=== PATIENT | female | born 1960 | race Caucasian/White ===

== ENCOUNTER 2020-07-02 09:20 | Outpatient (REF) | payer MEDICAID, SELFPAY ==
--- NOTE | 2020-07-02 09:33 | XR_ITS ---
EXAMINATION: XR SHOULDER, RIGHT CLINICAL INFORMATION: Right shoulder pain. COMPARISON: None TECHNIQUE: AP external rotation, Grashey, scapular Y, and axillary views of the right shoulder. FINDINGS: There is mild acromioclavicular osteoarthritis. Glenohumeral joint is well preserved. No fracture. Alignment is anatomic. Soft tissues are normal with no abnormal calcifications. IMPRESSION: Mild acromioclavicular osteoarthritis.
== END 2020-07-02 09:21 | disposition home or self-care (01) ==
LOC: HO.XRAY 09:20
PROVIDERS: Visit Provider Registered Nurse
DX: M25.511 Pain in right shoulder (principal)
CPT/HCPCS: 73030

== ENCOUNTER 2021-02-04 14:21 | Outpatient (REF) | payer MEDICAID, SELFPAY ==
[2021-02-04 14:47] LABS: COVID-19 Test Negative (Negative); IDNOW Serial# 55D5AD1C
== END 2021-02-04 14:22 | disposition home or self-care (01) ==
LOC: HO.LAB 14:21
PROVIDERS: Visit Provider Internal Medicine
DX: Z20.822 Contact with and (suspected) exposure to COVID-19 (principal)
CPT/HCPCS: 36415; 87635; C9803

== ENCOUNTER 2021-04-14 13:44 | Outpatient (RCR) | payer MEDICAID, SELFPAY | END 2021-04-26 17:20 | disposition home or self-care (01) | LOC: HO.PT 13:44 | PROVIDERS: PCP Registered Nurse; Visit Provider Nurse Practitioner Primary Care | DX: M79.601 Pain in right arm (principal) | CPT/HCPCS: 97110; 97161 ==

== ENCOUNTER 2021-07-02 06:59 | Emergency (ER) | payer MEDICAID, SELFPAY ==
--- NOTE | ~2021-07-02 | CT_ITS ---
EXAMINATION: CT ABDOMEN AND PELVIS WITHOUT CONTRAST CLINICAL INFORMATION: Left flank pain COMPARISON: Previous CT of the abdomen and pelvis October 2015 and previous abdominal MRI most recent July 2016 TECHNIQUE: Multidetector volumetric imaging was performed from the superior aspect of the liver through the pubic symphysis. Sagittal and coronal reformatted images were obtained on the technologist's workstation. This CT examination was performed using dose optimization techniques as appropriate, variously including the following: *Automated exposure control *Adjustment of mA and/or kV according to patient size (this includes techniques or standardized protocols for targeted exams where dose is matched to indication/reason for exam; i.e. extremities or head) *Use of iterative reconstruction technique DLP: 1219 mGy-cm FINDINGS: LUNG BASES: The visualized lung bases are unremarkable. LIVER, GALLBLADDER, AND BILIARY TREE: Enlarged fatty liver. No focal liver lesion or evidence of cirrhosis. Post cholecystectomy. No biliary duct dilatation. PANCREAS: Unremarkable. SPLEEN: Unremarkable. ADRENAL GLANDS: Unremarkable. KIDNEYS AND URETERS: There is a small 1 mm nonobstructing stone in the upper pole of the left kidney. The kidneys are otherwise unremarkable. BLADDER: Not optimally distended. GASTROINTESTINAL TRACT: The small and large bowel are unremarkable. The appendix is not seen and may been removed ABDOMINAL WALL: There is an umbilical hernia containing fat. There is a left periumbilical or ventral hernia containing fat. LYMPH NODES: Normal. VASCULAR: Unremarkable. PELVIC VISCERA: Unremarkable. OSSEOUS STRUCTURES: There are degenerative changes of the spine. CT/CT abdomen pelvis wo con IMPRESSION: Small nonobstructing left renal stone. Enlarged fatty liver. Umbilical and left ventral hernias containing fat.
[2021-07-02 07:19] VITALS: BP 189/102; PULSE 83; RESP 16; TEMP 36.7; O2SAT 98; BMI 49.8
--- NOTE | 2021-07-02 07:54 | ED.ABDPAIN ---
HPI - Abdominal Pain General Chief Complaint: Abdominal Pain Stated Complaint: lt side abd pain Time Seen by Provider: 07/02/21 07:47 History of Present Illness HPI narrative: Patient is 61-year-old female presents today with having abdominal pain over the left side is been ongoing for 3 days getting worse over last 24 hours. No fever no chills. No pain on urination. Patient is status post cholecystectomy. No cough and no congestion or upper respiratory symptoms. No diaphoresis. Positive BM. Positive mild nausea. Pain cramping like radiates to the back. No history of similar pains in the past Related Data Allergies Allergy/AdvReac Type Severity Reaction Status Date / Time turkey Allergy Severe CHEST Unverified 06/11/20 16:28 PAIN, SWELLING, SHORTNESS OF BREATH, ITCHING turkey Allergy Unknown severe Uncoded 01/02/20 00:00 reaction Review of Systems Review of Systems No chest pain no cough no congestion or upper respiratory symptoms No diaphoresis Yes all other systems are reviewed and are negative Physical Exam Vital Signs: Vital Signs: Last Vital Signs Temp 98.0 F 07/02/21 07:19 Pulse 83 07/02/21 07:19 Resp 18 07/02/21 08:13 BP 189/102 H 07/02/21 07:19 Pulse Ox 98 07/02/21 07:19 Body Mass Index 49.8 Appearance: Alert. Oriented X3. No acute distress. Eyes: Pupils equal, round and reactive to light. ENT: Pharynx normal. Neck: Normal inspection. Neck supple. No lymph nodes noted. No crepitus CVS: Normal heart rate and rhythm. Pulses normal. Normal S1 and S2 Respiratory: No respiratory distress. Breath sounds normal. No Wheezing. No rales Abdomen: Soft and nontender. No rigidity. No distention. good BS x4 Skin: Skin warm and dry. Normal skin color. Normal skin turgor. Extremities: No lower extremity edema. Neurovascular intact to all extremities. No Lacerations. No Rash Neuro: Oriented X 3. No motor deficit. No sensory deficit. Moving all extermities. No slurred speech MDM - Abdominal Pain MDM Narrative Medical decision making narrative: Patient's CT scan of the abdomen negative for any acute evidence of obstruction, abscess, perforation. Electrolytes are normal. Urine showed no signs of infection. Discussed with patient the need for follow-up for her abdominal pain. She is currently in stable condition. Medical Records Attestation: I reviewed the patient's medical records. Lab Data Attestation: I reviewed the patient's lab results. Result diagrams: 07/02/21 08:11 07/02/21 08:11 Labs: Lab Results 07/02/21 07/02/21 07/02/21 Range/Units 08:11 08:11 08:11 WBC 9.7 (4.8-10.8) X10*3/uL RBC 5.02 (4.20-5.50) X10*6/uL Hgb 15.5 (12.0-16.0) g/dl Hct 46.9 (37-47) % MCV 93.4 (80-98) fL MCH 30.9 (27.0-33.0) pg MCHC 33.0 (31.0-35.0) g/dl RDW 12.1 (11.0-16.0) % Plt Count 266 (160-400) X10*3/uL MPV 11.3 (9.4-12.3) fL Immature Gran % (Auto) 0.2 (0.0-0.4) % Neut % (Auto) 77.2 H (45-73) % Lymph % (Auto) 15.9 L (20-40) % [place] % (Auto) 5.3 (2-11) % Eos % (Auto) 1.2 (0-4) % Baso % (Auto) 0.2 (0-2) % Lymph # (Auto) 1.6 (1.2-4.9) X10*3/uL [place] # (Auto) 0.5 (0.1-1.2) X10*3/uL Eos # (Auto) 0.1 (0.0-0.4) X10*3/uL Baso # (Auto) 0.0 (0.0-0.2) X10*3/uL Abs Immat Gran (auto) 0.02 (0.00-0.03) X10*3/uL Absolute Neuts (auto) 7.5 (2.0-8.3) X10*3/uL Absolute Nucleated RBC 0.000 (0.0-0.012) X10*3/uL Nucleated RBC % (auto) 0.0 (0.0-0.2) /100WBC Sodium 139 (135-145) mmol/L Potassium 4.0 (3.3-5.1) mmol/L Chloride 104 (96-108) mmol/L Carbon Dioxide 24 (22-29) mmol/L Anion Gap 15 (12-20) BUN 16 (9-16) mg/dL Creatinine 1.01 (0.5-1.4) mg/dL Estim Creat Clear Calc 79.8 Estimated GFR 56 Random Glucose 262 H (60-115) mg/dL Calcium 9.5 (8.4-10.2) mg/dL Total Bilirubin 0.8 (0.0-1.0) mg/dL AST 21 (5-31) U/L ALT 26 (0-31) U/L Alkaline Phosphatase 92 (39-117) U/L Total Protein 8.2 H (6.5-8.0) g/dL Albumin 4.4 (3.5-5.0) g/dL Lipase 13 (8-78) U/L Urine Color ORANGE Urine Appearance HAZY Urine pH 6.0 (5.0-8.0) Ur Specific [place] >= 1.030 H (1.005-1.025) Urine Protein 2+ H (NEG-TRACE) MG/DL Urine Glucose (UA) >=1000 H (NEG) MG/DL Urine Ketones 15 (NEG) MG/DL Urine Blood 3+ H (NEG) Urine Nitrite NEG (NEG) Ur Leukocyte Esterase NEG (NEG) Urine RBC 10-14 H (0) /HPF Urine WBC 5-9 H (0-4) /HPF Ur Squamous Epith Cells 1+ /LPF Ur Renal Epithelial Cell 1+ /LPF Urine Bacteria NONE /LPF Urine Mucus 1+ /LPF Discharge Plan Discharge Clinical Impression: Abdominal pain Patient Disposition: Home, Self-Care Instructions: Abdominal Pain (ED) Referrals: [facility] [Primary Care Provider] - 2 days Print Language: Italian COUNT INCLUDES THE [facility] Past Medical History Attestation statement: The following information was validated with the patient. Social History Social History Alcohol intake: never Smoked in Last 30 Days: No Use of substances other than those prescribed or required for medical reasons: No Advance Directives: No
[2021-07-02 08:13] VITALS: RESP 18
[2021-07-02] MEDS: HYDROmorphone HCl 0.5 MG/0.5 ML SYRINGE IVPUSH (08:13)
[2021-07-02] MEDS: 0.9 % Sodium Chloride 1,000 ML 999 ML IV (08:13)
[2021-07-02] MEDS: ondansetron HCL 4 MG/2 ML VIAL IVPUSH (08:13)
[2021-07-02 08:16] LABS: MANUAL DIFF FLAG NO
[2021-07-02 08:20] LABS: Appearance Urine HAZY; Basophils Percent Auto 0.2 % (0-2); Color Urine ORANGE; Eosinophils Absolute Auto 0.1 X10*3/uL (0.0-0.4); Eosinophils Percent Auto 1.2 % (0-4); Glucose Urine UA >=1000 MG/DL (NEG); Hematocrit 46.9 % (37-47); Hemoglobin 15.5 g/dl (12.0-16.0); Imm Gran Abs Auto 0.02 X10*3/uL (0.00-0.03); Imm Gran Pct Auto 0.2 % (0.0-0.4); Leukocyte Esterase Urine NEG (NEG); Lymphocytes Absolute Auto 1.6 X10*3/uL (1.2-4.9); Lymphocytes Percent Auto 15.9 % (20-40); Mean Corpuscular Hemoglobin 30.9 pg (27.0-33.0); Mean Corpuscular Volume 93.4 fL (80-98); Mean Platelet Volume 11.3 fL (9.4-12.3); Monocytes Absolute Auto 0.5 X10*3/uL (0.1-1.2); Monocytes Percent Auto 5.3 % (2-11); Neutrophils Absolute Auto 7.5 X10*3/uL (2.0-8.3); Neutrophils Percent Auto 77.2 % (45-73); Nitrite Urine NEG (NEG); Platelet Count 266 X10*3/uL (160-400); Red Blood Count 5.02 X10*6/uL (4.20-5.50); Red Cell Distribution Width 12.1 % (11.0-16.0); Specific Gravity - Urine >= 1.030 (1.005-1.025); UACC Culture Trigger NO; Urine Blood 3+ (NEG); Urine Ketones 15 MG/DL (NEG); Urine Protein 2+ MG/DL (NEG-TRACE); White Blood Count 9.7 X10*3/uL (4.8-10.8)
[2021-07-02 08:26] LABS: Mucus Urine 1+ /LPF; Renal Epithelial Cells Urine 1+ /LPF; Squamous Epithelial Cell Urine 1+ /LPF
[2021-07-02 08:27] LABS: UACC CULT YES
[2021-07-02 08:32] LABS: Alanine Aminotransferase 26 U/L (0-31); Albumin Level 4.4 g/dL (3.5-5.0); Alkaline Phosphatase 92 U/L (39-117); Anion Gap 15 (12-20); Aspartate Amino Transferase 21 U/L (5-31); Bilirubin Total 0.8 mg/dL (0.0-1.0); Blood Urea Nitrogen 16 mg/dL (9-16); Calcium 9.5 mg/dL (8.4-10.2); Carbon Dioxide 24 mmol/L (22-29); Chloride 104 mmol/L (96-108); Creatinine Clr Calc Pharmacy 79.8; Estimated Glomerular Filt Rate 56; Glucose Random 262 mg/dL (60-115); Lipase 13 U/L (8-78); Sodium 139 mmol/L (135-145); Total Protein 8.2 g/dL (6.5-8.0)
== END 2021-07-02 09:34 | disposition home or self-care (01) ==
PROVIDERS: Emergency Provider Emergency Medicine Emergency Medical Services
DX: R10.9 Unspecified abdominal pain (principal)
CPT/HCPCS: 36415; 74176; 80053; 81001; 83690; 85025; 87086; 96361; 96374; 96375; 99284; J1170; J2405

== ENCOUNTER 2022-01-28 09:55 | Outpatient (REF) | payer MEDICAID, SELFPAY ==
--- NOTE | 2022-01-28 11:00 | MHC.AU.AEV ---
Adult Audiological Evaluation Date of Visit: 01/28/22 Religious Assistant Used: Somali- By Phone Reason for Appointment: Patient reports that for the past 2 months she has been unable to hear anything in her right ear. She denies any illness or injury around the time the hearing loss began. She also reports that in the left ear she has experienced an exploding sensation. Has hearing been tested previously?: No Ear History: Ear Deformity: None Reported Recent Ear Drainage: None Reported Recent Ear Pain: None Reported Family History of Hearing Loss?: No Recent Ear Infections: None Reported Ear Infections in Childhood: None Reported History of Ear Wax Buildup: None Reported Previous Ear Surgery: None Reported Bothersome Tinnitus/Ringing/Noises in Ears: Right Ear Ear used on the phone: Left Ear Blocked/Full Sensation in Ear(s): None Reported History of occupational noise exposure?: No History: No Medical History: Medical History: Diabetes, Hypertension, Migraines Otoscopy: Right Ear: Unremarkable Left Ear: Unremarkable Tympanometry: Tympanometry performed due to: To assess integrity of the middle ear system Right Ear: Normal Middle Ear System (Type A) Left Ear: Normal Middle Ear System (Type A) Hearing Evaluation: Transducer(s) Used: Insert Earphones Method: Conventional Audiometry Stimuli Used: Pure Tones Right Ear: Description of Hearing: Profound sensorineural hearing loss Left Ear: Description of Hearing: Moderate to moderately-severe sensorineural hearing loss Speech Recognition Threshold (SRT): Method Used: Recorded Lists Stimuli Used: Somali Trisyllable Words Right Ear: Could not test Left Ear: 55 dBHL Word Discrimination: Method: Recorded Lists Word Lists Used:: Lista Bisil?bica (Somali) Right Ear: Could not test Left Ear: 96% at 80 dBHL Recommendations: Referral to Ear, Nose, and Throat is highly recommended to address sudden right-sided sensorineural hearing loss. After medical management and medical clearance, patient is welcome to contact our clinic to schedule a hearing aid evaluation. Diagnosis: Primary Diagnosis: H90.A21 SNHL, Unilateral Right Ear, W/Restricted Contralateral Hearing Signature: Provider: Virginia Rock, CCC-A
== END 2022-01-28 09:56 | disposition home or self-care (01) ==
LOC: HO.SH 09:55
PROVIDERS: PCP Registered Nurse Community Health; Visit Provider Registered Nurse Community Health
DX: H90.A21 Sensorineural hearing loss, unilateral, right ear, with restricted hearing on the contralateral side (principal)
CPT/HCPCS: 92557; 92567

== ENCOUNTER 2022-01-29 09:54 | Outpatient (REF) | payer MEDICAID, SELFPAY ==
--- NOTE | ~2022-01-29 | MM_ITS ---
EXAMINATION: MM SCREENING DIGITAL BREAST TOMOSYNTHESIS, BILATERAL CLINICAL INFORMATION: Screening. Asymptomatic. Family history breast cancer (mother and sister) reported on prior report 2016. The lifetime risk of breast cancer based on the Tyrer-Cuzick Model is 19%. COMPARISON: Mammography: 05/11/2017, 11/25/2015 TECHNIQUE: Digital breast tomosynthesis is performed in both the craniocaudal and mediolateral oblique views along with computer-aided detection (CAD). Synthesized 2D images are generated from the tomosynthesis. Additional views are obtained: Bilateral CC, right MLO x2, left MLO. FINDINGS: The breasts are almost entirely fatty (ACR BI-RADS breast composition Category a). There is a new spiculated mass just over 1 cm posterior upper outer left breast. Patient will be recalled for additional imaging. The remainder of the breasts show unremarkable background stromal markings and scattered isolated round and rim calcifications. There is a dominant benign rim calcification again seen central lower right breast and anterior right breast. The axilla are unremarkable. The skin contours are smooth. MM/MM tomosynthesis screening BI IMPRESSION: Left: -New spiculated mass posterior upper outer quadrant. Right: -No mammographic evidence of malignancy. ASSESSMENT: BI-RADS 0: Incomplete - Need Additional Imaging Evaluation RECOMMENDATION: 1. Additional views left breast (exaggerated CC). 2. Targeted ultrasound left breast and left axilla. 3. Radiology department staff will contact the patient for additional imaging. This patient's information was entered into a reminder system with a target due date for their next mammogram.
== END 2022-01-29 09:55 | disposition home or self-care (01) ==
LOC: HO.MAMMO 09:54
PROVIDERS: PCP Registered Nurse Community Health; Visit Provider Registered Nurse Community Health
DX: Z12.31 Encounter for screening mammogram for malignant neoplasm of breast (principal)
CPT/HCPCS: 77063; 77067

== ENCOUNTER 2022-02-11 14:03 | Outpatient (REF) | payer MEDICAID, SELFPAY ==
--- NOTE | ~2022-02-11 | MM_ITS ---
EXAMINATION: MM DIAGNOSTIC DIGITAL BREAST TOMOSYNTHESIS, LEFT US DIAGNOSTIC ULTRASOUND BREAST, LEFT CLINICAL INFORMATION: Recall from screening for new spiculated mass posterior upper outer left breast. Family history breast cancer, mother and sister. TC score 19%. COMPARISON: Mammography: 01/29/2022, 05/11/2017 TECHNIQUE: Digital breast tomosynthesis is performed. 2D images are generated from the tomosynthesis. The following views are obtained: Left exaggerated CC. Ultrasound left breast is targeted to the posterior upper outer quadrant. Additional imaging of the axilla is also performed. Grayscale imaging and color Doppler are performed. FINDINGS: There are scattered areas of fibroglandular density (ACR BI-RADS breast composition Category b). The additional exaggerated CC view again demonstrates the spiculated mass posterior upper outer breast. There is no additional satellite lesion more posteriorly on the exaggerated CC view. Ultrasound demonstrates a suspicious hypoechoic irregular mass 2:00 position 16 cm from nipple measuring approximately 1.7 cm in diameter. There is posterior acoustic shadowing. Additional imaging of the left axilla shows no lymphadenopathy. Results are discussed with the patient at time of visit, using an spanish interpreter. Ultrasound-guided core biopsy is recommended. Results and recommendation are called to medical record assistant (Jodi) for Perla Joyce NP on 02/11/2022. MM/MM added views LT IMPRESSION: -New spiculated mass posterior upper outer left breast with ultrasound correlate, under 2 cm. -No adenopathy demonstrated left axilla. ASSESSMENT: BI-RADS 4: Suspicious (subcategory 4C: High suspicion for malignancy) RECOMMENDATION: Ultrasound-guided core biopsy left breast mass. This patient's information was entered into a reminder system with a target due date for their next mammogram.
--- NOTE | ~2022-02-11 | US_ITS ---
EXAMINATION: MM DIAGNOSTIC DIGITAL BREAST TOMOSYNTHESIS, LEFT US DIAGNOSTIC ULTRASOUND BREAST, LEFT CLINICAL INFORMATION: Recall from screening for new spiculated mass posterior upper outer left breast. Family history breast cancer, mother and sister. TC score 19%. COMPARISON: Mammography: 01/29/2022, 05/11/2017 TECHNIQUE: Digital breast tomosynthesis is performed. 2D images are generated from the tomosynthesis. The following views are obtained: Left exaggerated CC. Ultrasound left breast is targeted to the posterior upper outer quadrant. Additional imaging of the axilla is also performed. Grayscale imaging and color Doppler are performed. FINDINGS: There are scattered areas of fibroglandular density (ACR BI-RADS breast composition Category b). The additional exaggerated CC view again demonstrates the spiculated mass posterior upper outer breast. There is no additional satellite lesion more posteriorly on the exaggerated CC view. Ultrasound demonstrates a suspicious hypoechoic irregular mass 2:00 position 16 cm from nipple measuring approximately 1.7 cm in diameter. There is posterior acoustic shadowing. Additional imaging of the left axilla shows no lymphadenopathy. Results are discussed with the patient at time of visit, using an aerial gunner superintendent. Ultrasound-guided core biopsy is recommended. Results and recommendation are called to medical typist (Jodi) for Perla Joyce NP on 02/11/2022. US/US breast LT limited IMPRESSION: -New spiculated mass posterior upper outer left breast with ultrasound correlate, under 2 cm. -No adenopathy demonstrated left axilla. ASSESSMENT: BI-RADS 4: Suspicious (subcategory 4C: High suspicion for malignancy) RECOMMENDATION: Ultrasound-guided core biopsy left breast mass. This patient's information was entered into a reminder system with a target due date for their next mammogram.
== END 2022-02-11 14:04 | disposition home or self-care (01) ==
LOC: HO.MAMMO 14:03
PROVIDERS: PCP Registered Nurse Community Health; Visit Provider Registered Nurse Community Health
DX: N63.21 Unspecified lump in the left breast, upper outer quadrant (principal)
CPT/HCPCS: 76642; 77065

== ENCOUNTER → 2022-02-15 09:44 | Outpatient (BNVA) | payer MEDICAID, SELFPAY | PROVIDERS: PCP Registered Nurse Community Health; Referring Provider Registered Nurse Community Health; Visit Provider Surgery | DX: R92.8 Other abnormal and inconclusive findings on diagnostic imaging of breast (principal) | CPT/HCPCS: 99202 ==

== ENCOUNTER 2022-02-16 09:43 | Outpatient (REF) | payer MEDICAID, SELFPAY ==
--- NOTE | ~2022-02-16 | US_ITS ---
EXAMINATION: ULTRASOUND GUIDED CORE BIOPSY BREAST, LEFT POST PROCEDURE DIGITAL MAMMOGRAM, LEFT CLINICAL INFORMATION: Spiculated mass posterior upper outer left breast with ultrasound correlate, approximately 1.7 cm. COMPARISON: Mammography 01/29/2022, 02/11/2022, left breast ultrasound 02/11/2022. FINDINGS: Proper informed consent is obtained from the patient after discussion of the procedure, potential risks and complications, and alternatives. Patient was given an opportunity for questions. The patient appeared to understand. The patient consented to the procedure and signed the consent form. Hospital provided glove maker used for consent. Another glove maker also assisted throughout procedure. GUIDANCE: Ultrasound-guided; aseptic technique. LESION: Spiculated hypoechoic mass with shadowing posterior upper outer left breast. APPROACH: Oblique lateral medial. ANESTHESIA: 18 mL carbonated 1% lidocaine. DERMATOTOMY: Single skin inga dermatotomy performed. NEEDLE: 14-gauge Achieve core biopsy device with 13.5-gauge co-axial guide needle. CORES: 5. CLIP: HydroMARK; shape: open coil. POST PROCEDURE UNILATERAL DIGITAL MAMMOGRAM: The post biopsy mammogram is performed in separate room using separate digital mammography equipment from the biopsy procedure. CC and ML views are obtained. There are scattered areas of fibroglandular density (breast composition category: b). The clip marker is in position, overlying the spiculated mass. No gross hematoma. The patient tolerated the procedure well. No immediate complications. Home instructions reviewed with the patient. Final pathology results are pending. US/US breast ndl core biopsy LT IMPRESSION: 1. Status post ultrasound-guided core biopsy left breast. 2. Clip placed: HydroMARK; shape: open coil. 3. Pathology pending. An addendum report will be issued.
--- NOTE | ~2022-02-16 | MM_ITS ---
EXAMINATION: ULTRASOUND GUIDED CORE BIOPSY BREAST, LEFT POST PROCEDURE DIGITAL MAMMOGRAM, LEFT CLINICAL INFORMATION: Spiculated mass posterior upper outer left breast with ultrasound correlate, approximately 1.7 cm. COMPARISON: Mammography 01/29/2022, 02/11/2022, left breast ultrasound 02/11/2022. FINDINGS: Proper informed consent is obtained from the patient after discussion of the procedure, potential risks and complications, and alternatives. Patient was given an opportunity for questions. The patient appeared to understand. The patient consented to the procedure and signed the consent form. Hospital provided telecommunication engineer used for consent. Another telecommunication engineer also assisted throughout procedure. GUIDANCE: Ultrasound-guided; aseptic technique. LESION: Spiculated hypoechoic mass with shadowing posterior upper outer left breast. APPROACH: Oblique lateral medial. ANESTHESIA: 18 mL carbonated 1% lidocaine. DERMATOTOMY: Single skin inga dermatotomy performed. NEEDLE: 14-gauge Achieve core biopsy device with 13.5-gauge co-axial guide needle. CORES: 5. CLIP: HydroMARK; shape: open coil. POST PROCEDURE UNILATERAL DIGITAL MAMMOGRAM: The post biopsy mammogram is performed in separate room using separate digital mammography equipment from the biopsy procedure. CC and ML views are obtained. There are scattered areas of fibroglandular density (breast composition category: b). The clip marker is in position, overlying the spiculated mass. No gross hematoma. The patient tolerated the procedure well. No immediate complications. Home instructions reviewed with the patient. Final pathology results are pending. MM/MM diagnostic mammo unilat LT IMPRESSION: 1. Status post ultrasound-guided core biopsy left breast. 2. Clip placed: HydroMARK; shape: open coil. 3. Pathology pending. An addendum report will be issued.
[2022-02-16] MEDS: Lidocaine HCl 1 % 20 ML VIAL 18 ML SUBCUT (11:07)
[2022-02-16] MEDS: Sodium Bicarbonate 8.4% 50 MEQ/50 ML VIAL SUBCUT (11:15)
== END 2022-02-16 09:44 | disposition home or self-care (01) ==
LOC: HO.MAMMO 09:43
PROVIDERS: PCP Registered Nurse Community Health; Visit Provider Surgery
DX: R92.8 Other abnormal and inconclusive findings on diagnostic imaging of breast (principal)
CPT/HCPCS: 19083; 77062; 77065; 88305; 88341; 88342; 88360; A4648

== ENCOUNTER → 2022-02-22 15:05 | Outpatient (BNVA) | payer MEDICAID, SELFPAY | PROVIDERS: PCP Registered Nurse Community Health; Referring Provider Registered Nurse Community Health; Visit Provider Surgery | DX: C50.912 Malignant neoplasm of unspecified site of left female breast (principal) | CPT/HCPCS: 99212 ==

== ENCOUNTER → 2022-02-28 15:48 | Outpatient (BNV) | payer MEDICAID, SELFPAY | PROVIDERS: PCP Registered Nurse Community Health; Referring Provider Surgery; Visit Provider Internal Medicine | DX: C50.412 Malignant neoplasm of upper-outer quadrant of left female breast (principal); Z90.13 Acquired absence of bilateral breasts and nipples; M81.0 Age-related osteoporosis without current pathological fracture; N95.0 Postmenopausal bleeding | CPT/HCPCS: 99205; 99214 ==

== ENCOUNTER 2022-03-21 12:36 | Inpatient (IN) | payer MEDICAID, SELFPAY ==
[2022-03-15 10:01] VITALS: BMI 46.7
[2022-03-21] VITALS (8 sets, daily range): BP systolic 134–178; BP diastolic 65–99; PULSE 70–81; RESP 18–20; TEMP 36.1–36.6; O2SAT 100
--- NOTE | 2022-03-21 | ECG_ITS ---
Test Reason : PREOP Blood Pressure : / mmHG Vent. Rate : 069 BPM Atrial Rate : 069 BPM P-R Int : 182 ms QRS Dur : 112 ms QT Int : 392 ms P-R-T Axes : 024 -21 145 degrees QTc Int : 420 ms Normal sinus rhythm Incomplete left bundle branch block Left ventricular hypertrophy with repolarization abnormality ( R in aVL , [place] product ) Abnormal ECG When compared with ECG of 16-JAN-2019 06:52, Premature ventricular complexes are no longer Present No significant changes seen Referred By: Stephanie Guaman Electronically Signed By:JENNYFER ABNKS
--- NOTE | ~2022-03-21 | NM_ITS ---
EXAMINATION: NM LYMPH SCINTIGRAPHY CLINICAL INFORMATION: Left breast cancer. COMPARISON: None. TECHNIQUE: The patient was injected with 4 separate aliquots of 0.125 mCi [id number] technetium 99 M labeled lymphoseek for a total dose of 0.5 mCi of the skin nipple interface of the left breast at the 12 o'clock, 3 o'clock, 6 o'clock and 9 o'clock axis. Imaging of the chest in the anterior JANET and left lateral projection were performed at 20 minutes and 16 minutes. FINDINGS: There is adequate radiotracer uptake at the skin nipple interface. There is activity seen in lymphatic channels. There is positive sentinel node activity seen in the left axilla. NM/NM sentinel node w imaging IMPRESSION: Positive sentinel node activity in the left axilla.
[2022-03-21 09:52] LABS: COVID-19 Test Negative (Negative)
[2022-03-21 10:05] LABS: Hematocrit 45.5 % (37.0-47.0); Hemoglobin 14.5 g/dl (12.0-16.0); Mean Corpuscular HGB Conc 31.9 g/dl (31.0-35.0); Mean Corpuscular Volume 94.2 fL (80.0-98.0); Mean Platelet Volume 10.8 fL (9.4-12.3); Platelet Count 257 X10*3/uL (160-400); Red Blood Count 4.83 X10*6/uL (4.20-5.50); Red Cell Distribution Width 11.9 % (11.0-16.0); White Blood Count 8.4 X10*3/uL (4.8-10.8)
[2022-03-21 10:12] LABS: Anion Gap 12 (12-20); Blood Urea Nitrogen 16 mg/dL (9-16); Calcium 8.9 mg/dL (8.4-10.2); Carbon Dioxide 24 mmol/L (22-29); Chloride 106 mmol/L (96-108); Creatinine Clr Calc Pharmacy 82.5; Estimated Glomerular Filt Rate > 60; Glucose Fasting 182 mg/dL (60-99); Potassium 4.6 mmol/L (3.3-5.1); Sodium 137 mmol/L (135-145)
--- NOTE | 2022-03-21 11:38 | MHC.SHP ---
Pre-Procedural Eval Section A Date of Service: 03/21/22 The patient is an INPATIENT: No Changes since office visit: Yes Patient answered all questions; No Cold of Flu in the past 2 weeks, No New Medical Problems and No Changes in Medication The History & Physical has been completed within 30 days and I have reviewed it.: Yes Section B Chief Complaint: Malignant neoplasm of unspecified site of left fem Allergies: Allergies Allergy/AdvReac Type Severity Reaction Status Date / Time turkey Allergy Severe chest Unverified 03/11/22 13:22 pain/swelling/SOB/itching Plan Diagnosis/Plan: Unchanged I have reviewed the history and physical and performed a pertinent physical examination on my patient. No changes have occurred unless specified.
--- NOTE | 2022-03-21 11:58 | P.CONAN_ITS ---
[facility] Active Problems Active Problems: All Active Problems (Updated 03/15/22 @ 10:00 by Merissa Emerson RN) Abnormal ultrasound of breast (Acute) Invasive ductal carcinoma of left breast (Acute) Past Medical History Medical History Asthma COVID-19 vaccine series completed Diabetes GERD (gastroesophageal reflux disease) HTN (hypertension) Hypercholesteremia Patient : No Family History Family History Mother Breast cancer, Onset Age: 58 Sister Breast cancer, Onset Age: 54 Surgical History Surgical History History of delivery History of cholecystectomy History of Problems with Anesthesia: No Social History Social History Housing Other:: [facility] Are you a primary senior resident care director to a significant other at home: No Do you presently have visiting nurse or other home services: No Alcohol intake: never Patient Tobacco Use Status: Never used Tobacco Meds Allergies Allergy/AdvReac Type Severity Reaction Status Date / Time turkey Allergy Severe chest Unverified 03/11/22 13:22 pain/swelling/SOB/itching Active Medications: Current Medications Albuterol Sulfate (Albuterol Sulfate (0.083%) 2.5 Mg/3 Ml Vial.Neb) 2.5 mg INHALE ONCE PRN PRN Reason: Shortness of Breath/Wheezing Fentanyl (Fentanyl Citrate/Pf 100 Mcg/2 Ml Vial) 25 mcg IVPUSH Q5M PRN; Protocol PRN Reason: Pain, Moderate (Pain Scale 4-6 Lactated Ringer's (Lr) 1,000 mls @ 100 mls/hr IVCONT .Q10H [facility] Promethazine HCl 12.5 mg/ (Sodium Chloride) 50.5 mls @ 202 mls/hr IV ONCE PRN PRN Reason: Nausea and Vomiting Ondansetron HCl (Ondansetron Hcl 4 Mg/2 Ml Vial) 4 mg IVPUSH ONCE PRN PRN Reason: Nausea and Vomiting Oxycodone HCl (Oxycodone Hcl Immed Release 5 Mg Tablet) 5 mg PO ONCE PRN PRN Reason: Pain, Severe (Pain Scale 7-10) Home Medications Medication Instructions Recorded Confirmed Last Taken Type atorvastatin 80 mg tablet 80 mg PO BEDTIME 02/15/22 03/15/22 Unknown History benzonatate 100 mg capsule 100 mg PO TID PRN Heartburn 02/15/22 03/15/22 Unknown History dulaglutide 0.75 mg/0.5 mL 0.75 mg subcut QWEEK 02/15/22 03/15/22 Unknown History subcutaneous pen injector (Trulicity) gabapentin 300 mg capsule 300 mg PO QPM 02/15/22 03/15/22 Unknown History insulin glargine 100 unit/mL (3 68 unit subcut QPM 02/15/22 03/15/22 Unknown History mL) subcutaneous pen (Lantus Solostar U-100 Insulin) insulin lispro 100 unit/mL 60 - 70 unit subcut TID 02/15/22 03/15/22 Unknown History subcutaneous pen lancets 28 gauge (FreeStyle #100 ea 02/15/22 02/28/22 Unknown History Lancets) losartan 50 mg tablet 50 mg PO DAILY 02/15/22 03/15/22 Unknown History metoprolol tartrate 25 mg tablet 25 mg PO BID 02/15/22 03/15/22 Unknown History omeprazole 20 mg capsule,delayed 20 mg PO DAILY 02/15/22 03/15/22 Unknown History release pen needle, diabetic 32 gauge x #50 ea 02/15/22 02/28/22 Unknown History (BD Lesley 2nd Gen Pen Needle) topiramate 25 mg tablet 25 mg PO DAILY 02/15/22 03/15/22 Unknown History albuterol sulfate 90 mcg/actuation 2 puff inhalation Q4-6H PRN 03/15/22 03/15/22 Unknown History aerosol inhaler (ProAir HFA) Wheezing Exam Exam Date and Time: March 21, 2022 1158 Height,Weight and Vital Signs: Height 5 ft 4 in Weight 123.377 kg Pertinent Lab Results Pertinent Lab Results: Laboratory Tests 03/21/22 03/21/22 03/21/22 09:24 09:46 09:46 WBC 8.4 RBC 4.83 Hgb 14.5 Hct 45.5 MCV 94.2 MCH 30.0 MCHC 31.9 RDW 11.9 Plt Count 257 MPV 10.8 Absolute Nucleated RBC 0.000 Nucleated RBC % (auto) 0.0 Sodium 137 Potassium 4.6 Chloride 106 Carbon Dioxide 24 Anion Gap 12 BUN 16 Creatinine 0.94 Estim Creat Clear Calc 82.5 Estimated GFR > 60 Fasting Glucose 182 H Calcium 8.9 D COVID-19 ([facility]) Negative COVID-19 Clin Com See Note Blood Type 03/21/22 09:53 WBC RBC Hgb Hct MCV MCH MCHC RDW Plt Count MPV Absolute Nucleated RBC Nucleated RBC % (auto) Sodium Potassium Chloride Carbon Dioxide Anion Gap BUN Creatinine Estim Creat Clear Calc Estimated GFR Fasting Glucose Calcium COVID-19 ([facility]) COVID-19 Clin Com Blood Type A Positive Airway Mallampati Class: III TM Dist: >3cm Neck ROM: Full Denture: Upper and Lower Heart: rrr Lungs: clear Assessment and Plan Final Anesthetic Review History of Problems with Anesthesia: No NPO: Yes ASA Class: III Final Preanesthetic Review: No Changes in Pt Med Stat, Meds/Allgs Chart Reviewed, Consent Obtained/Reviewed and Anes Risks/Benef Reviewed Patient Risk: High Procedure Risk: Low Anesthetic Plan Anesthetic Plan: GA Disposition: Standard PACU
[2022-03-21 12:44] LABS: Glucose, Whole Blood 127 mg/dL (60-115)
--- NOTE | 2022-03-21 16:16 | W.PM.OPN ---
Operative Note Operative Note Date of Service: 03/21/22 Narrative: Preoperative diagnosis: Left breast invasive ductal carcinoma Postoperative diagnosis: same Procedure: left breast simple mastectomy with sentinel node biopsy left axilla, prophylactic right simple mastectomy Surgeon: Andrea Henry MD Director Of Child Welfare Services: Veronica Chatman PA-C; Anesthesia: general endotracheal Indications for procedure: 61-year-old female patient presenting with a recently diagnosed invasive ductal carcinoma of the left breast. The patient's request she has recurred undergoing a bilateral simple mastectomy with left axillary sentinel node biopsy Operative findings: bilateral mastectomy, enlarged lymph node left axilla Specimen: left simple mastectomy, left axillary sentinel node, right simple mastectomy Estimated blood loss: 25 mL Complications: none Drains: EUN x2 Procedure details: patient was brought to the OR and placed in a supine position. After administering general anesthesia the patient's bilateral breasts were prepped with ChloraPrep and draped in a sterile fashion. A surgical time-out was called the consent confirmed. Patient received preoperative antibiotics and Venodyne boots were in place. Local anesthesia consisting of 0.25% Sensorcaine was infiltrated circumferentially around the left breast. Elliptical incision to include the nipple areolar complex was created beginning lateral to the xiphoid and extending towards the axilla in the upper outer quadrant. Incision was deepened into the subcutaneous tissue. Stain a blood the capsule the breast up to the level of the clavicle. Dissection was continued down to the chest wall from medial to lateral over the pectoralis muscle. The inferior flap was then created using electrocautery again stain above the capsule of the breast down to the lower costal margin and extending down to the chest wall. The breast was then dissected off the chest wall using electrocautery from medial to lateral superior to inferior ending in the axilla. The breast tissue was dissected up along the tail into the axilla. The breast was then removed and sent to pathology for further examination. Using the gamma probe the area of increased activity was identified in the axilla. Blunt dissection was then used to past the clavipectoral fascia into the axillary compartment. Again using the gamma probe area of increased radio activity was identified and a superficial enlarged lymph node was identified. This was grasped with an Allis clamp and removed using electrocautery. A 2nd enlarged lymph nodes also removed as part of the same specimen. The 2nd node had no radio activity although it was enlarged. The radioactive node approximately 326 counts. The axilla was then checked and no additional radio activity was identified. No other palpable nodes could be identified. Wounds were then irrigated with saline solution and suctioned dry. Wounds were again checked for hemostasis using electrocautery. A large Jorge-Mcdowell drain was then placed in the lower skin flap and brought out through a separate stab wound. This was connected to bulb suction. Breast tissue was then reapproximated using interrupted 3-0 Polysorb sutures in dermis and skin ivan. Attention was then directed to the right breast. A 2nd set up was used and gown and gloves changed. Local anesthesia was then infiltrated using the 0.25% Sensorcaine. Elliptical incision similar to the left side was then created beginning just lateral to the sternum edge and continue obliquely towards the axilla to include the nipple-areolar complex. Superior skin flap was then dissected staying above the capsule of the breast and extending up to the level of the clavicle. Inferior skin flap was then created extending down to the costal margin. Dissection was continued down to the chest wall both superiorly and inferiorly. The breast was then dissected off the chest wall using electrocautery beginning from medial to lateral superior to inferior. The tail the breast was last to be removed extending up to the axilla. Wounds were then checked for hemostasis using electrocautery. Wounds were thoroughly irrigated with saline solution and suctioned dry. A large Jorge-Mcdowell drain was placed through a separate stab wound and placed at the inferior skin flap. This was connected to bulb suction. Skin edges were then reapproximated using interrupted 3-0 Polysorb sutures in dermis followed by skin ivan. Sterile dressings were then applied including 4 x 4 gauze, Tegaderm, and Elastoplast pressure dressing. The patient tolerated the procedure well. Sponge, instrument, needle counts reported as correct. Patient was transferred to PACU in stable condition. Breast Bentley Node Biopsy Substrate(s) used for sentinel node biopsy in the non-neoadjuvant setting: Radiotracer Substrate(s) used for sentinel node biopsy in the neoadjuvant setting: N/A All colored nodes or non-colored nodes present at the end of a dye filled lymphatic channel were removed, if dye was used as the substrate for localization: N/A All significantly radioactive nodes were removed, if radionuclide was used as the substrate for localization: Yes All palpably suspicious nodes were removed, if present: Yes If clips were placed in pathology-involved nodes, those nodes were identified and removed: N/A General Surg. - Synoptic Notes Breast Bentley Node Biopsy Substrate(s) used for sentinel node biopsy in the non-neoadjuvant setting: Radiotracer Substrate(s) used for sentinel node biopsy in the neoadjuvant setting: N/A All colored nodes or non-colored nodes present at the end of a dye filled lymphatic channel were removed, if dye was used as the substrate for localization: N/A All significantly radioactive nodes were removed, if radionuclide was used as the substrate for localization: Yes All palpably suspicious nodes were removed, if present: Yes If clips were placed in pathology-involved nodes, those nodes were identified and removed: N/A
[2022-03-21] MEDS: ondansetron HCL 4 MG/2 ML VIAL IVPUSH (16:45)
[2022-03-21] MEDS: fentaNYL citrate/PF 100 MCG/2 ML VIAL 25 MCG IVPUSH (16:55)
[2022-03-21 17:55] LABS: Glucose, Whole Blood 289 mg/dL (60-115)
--- NOTE | 2022-03-21 18:12 | PC.NURSE ---
3406 dr. gautam made aware of merly output. at bedside looked at merly drains and approximate output. lissa aware
[2022-03-21] MEDS: Insulin Lispro 100 UNIT/ML 3 ML VIAL SUBCUT ×2 (18:29→21:00)
[2022-03-21] MEDS: Lactated Ringers 1,000 ML 100 ML IVCONT (18:31)
[2022-03-21] MEDS: oxyCODONE HCl Immed Release 5 MG TABLET PO (18:39)
[2022-03-21] MEDS: Metoprolol Tartrate 25 MG TABLET PO (20:51)
[2022-03-21] MEDS: Gabapentin 300 MG CAPSULE PO (20:51)
[2022-03-21] MEDS: Atorvastatin Calcium 80 MG TABLET PO (20:51)
[2022-03-21 20:54] LABS: Glucose, Whole Blood 372 mg/dL (60-115)
--- NOTE | 2022-03-21 20:57 | PC.NURSE ---
P BS [address] Bailon notified E will adm insulin per scale
--- NOTE | 2022-03-21 22:04 | PC.NURSE ---
P Right side drain site drsg soiled with bloody drainage,right side EUN drain output 140 ml of bloody drainage,left side EUN drain 230 ml bloody drainage total output I kelly reinforced,Dr. Henry notified E drsg remained dry
[2022-03-22] VITALS (7 sets, daily range): BP systolic 98–119; BP diastolic 46–60; PULSE 60–76; RESP 17–20; TEMP 36.2–36.8; O2SAT 96–100
[2022-03-22] MEDS: Lactated Ringers 1,000 ML 100 ML IVCONT (04:32)
[2022-03-22] MEDS: Omeprazole 20 MG CAPSULE.DR PO (05:53)
[2022-03-22 06:39] LABS: MANUAL DIFF FLAG NO
[2022-03-22 06:45] LABS: Basophils Percent Auto 0.2 % (0-2); Eosinophils Percent Auto 0.1 % (0-4); Hematocrit 31.9 % (37.0-47.0); Hemoglobin 10.1 g/dl (12.0-16.0); Imm Gran Abs Auto 0.04 X10*3/uL (0.00-0.03); Imm Gran Pct Auto 0.3 % (0.0-0.4); Lymphocytes Absolute Auto 2.4 X10*3/uL (1.2-4.9); Lymphocytes Percent Auto 20.4 % (20-40); Mean Corpuscular HGB Conc 31.7 g/dl (31.0-35.0); Mean Corpuscular Hemoglobin 30.4 pg (27.0-33.0); Mean Corpuscular Volume 96.1 fL (80.0-98.0); Mean Platelet Volume 11.5 fL (9.4-12.3); Monocytes Percent Auto 8.7 % (2-11); Neutrophils Absolute Auto 8.4 x10*3/uL (2.0-8.3); Neutrophils Percent Auto 70.3 % (45-73); Platelet Count 248 X10*3/uL (160-400); Red Blood Count 3.32 X10*6/uL (4.20-5.50); Red Cell Distribution Width 12.2 % (11.0-16.0); White Blood Count 11.9 X10*3/uL (4.8-10.8)
--- NOTE | 2022-03-22 07:14 | PC.NURSE ---
Dr Henry made aware of merly drain outputs verbally while on am rounds by this life insurance underwriter.
[2022-03-22 07:34] LABS: Anion Gap 13 (12-20); Blood Urea Nitrogen 30 mg/dL (9-16); Carbon Dioxide 19 mmol/L (22-29); Chloride 106 mmol/L (96-108); Creatinine Clr Calc Pharmacy 60.6; Estimated Glomerular Filt Rate 43; Glucose Random 356 mg/dL (60-115); Potassium 5.4 mmol/L (3.3-5.1); Sodium 133 mmol/L (135-145)
[2022-03-22 07:43] LABS: Glucose, Whole Blood 285 mg/dL (60-115)
--- NOTE | 2022-03-22 07:51 | P.PNGS_ITS ---
Subjective Subjective Date of Service: 03/22/22 Interval history: Patient is awake and alert and denies significant chest pain this morning. She is moving well in bed. Physical Exam Vital Signs: Vital Signs: Last Vital Signs Temp 97.9 F 03/22/22 07:34 Pulse 71 03/22/22 07:34 Resp 18 03/22/22 07:34 BP 105/60 03/22/22 07:34 Pulse Ox 97 03/22/22 07:34 O2 Del Method 03/22/22 07:34 O2 Flow Rate 3 03/21/22 20:37 BMI result Body Mass Index 46.7 Const: General: cooperative, comfortable and no acute distress Nutritional Appearance: obese Orientation/consciousness: patient oriented x3 Limitations: no limitations Chest: Other: Dressings are intact with small amount of staining new drain sites. No chest wall hematoma is appreciated. EUN is are producing sanguinous output. 6 in Orion bandage applied to chest wall to maintain some pressure on the chest wall. Resp: Other: Breathing comfortably on room air Skin: Other: Warm, dry, no rash, normal color Neuro: General: patient oriented x3 Extrem: Other: Brisk capillary refill, no edema. Objective Data Active Medications Albuterol Sulfate (Albuterol Sulfate 90 Mcg 8 Gm Inhaler) 2 puff INHALE Q4H PRN PRN Reason: Wheezing Atorvastatin Calcium (Atorvastatin Calcium 80 Mg Tablet) 80 mg PO BEDTIME VIKTORIA Last Admin: 03/21/22 20:51 Dose: 80 mg Documented By: OWEN Benzonatate (Benzonatate 100 Mg Capsule) 100 mg PO TID PRN PRN Reason: Heartburn Dextrose (Dextrose 50 % 25 Gm/50 Ml Syringe) 25 gm IVPUSH Q15M PRN; Protocol PRN Reason: per Hypoglycemia Standing Ord. Gabapentin (Gabapentin 300 Mg Capsule) 300 mg PO BEDTIME VIKTORIA Last Admin: 03/21/22 20:51 Dose: 300 mg Documented By: OWEN Glucose (Glucose Gel 15 Gm Gel..Gram.) 15 gm PO Q15M PRN; Protocol PRN Reason: per Hypoglycemia Standing Ord. Acetaminophen (Ofirmev) 1,000 mg in 100 mls @ 400 mls/hr IV Q6H VIKTORIA Stop: 03/22/22 12:29 Last Infusion: 03/22/22 06:10 Dose: 0 mls/hr Documented By: ASTRID Sodium Chloride (Ns) 1,000 mls @ 100 mls/hr IVCONT .Q10H [facility] Insulin Human Lispro (Insulin Lispro 100 Unit/Ml 3 Ml Vial) 0 unit SUBCUT QIDACHS [facility]; Protocol Stop: 03/22/22 17:27 Last Admin: 03/21/22 21:00 Dose: 12 unit Documented By: OWEN Losartan Potassium (Losartan Potassium 50 Mg Tablet) 50 mg PO DAILY [facility]; Protocol Metoprolol Tartrate (Metoprolol Tartrate 25 Mg Tablet) 25 mg PO BID [facility]; Protocol Last Admin: 03/21/22 20:51 Dose: 25 mg Documented By: OWEN Morphine Sulfate (Morphine Sulfate 2 Mg/Ml Cartridge) 4 mg IVPUSH Q3H PRN; Protocol PRN Reason: Pain, Severe (Pain Scale 7-10) Omeprazole (Omeprazole 20 Mg Capsule.Dr) 20 mg PO DAILY@0630 [facility] Last Admin: 03/22/22 05:53 Dose: 20 mg Documented By: ASTRID Ondansetron HCl (Ondansetron Hcl 4 Mg/2 Ml Vial) 4 mg IVPUSH Q8H PRN PRN Reason: Nausea Oxycodone HCl (Oxycodone Hcl Immed Release 5 Mg Tablet) 5 mg PO Q4H PRN PRN Reason: Pain, Moderate (Pain Scale 4-6 Last Admin: 03/21/22 18:39 Dose: 5 mg Documented By: OWEN Sodium Chloride (0.9 % Sodium Chloride Flush 3 Ml Syringe) 3 ml IVFLUSH QSHIFT [facility] Last Admin: 03/22/22 00:00 Dose: Not Given Documented By: ASTRID Non-Admin Reason: IV Running Topiramate (Topiramate 25 Mg Tablet) 25 mg PO DAILY [facility] Zolpidem Tartrate (Zolpidem Tartrate 5 Mg Tablet) 5 mg PO BEDTIME PRN PRN Reason: Insomnia Labs CBC & Chem 7: 03/22/22 05:48 03/22/22 05:48 Labs: Laboratory Results - last 24 hr 03/21/22 03/21/22 03/21/22 09:24 09:46 09:46 MCV 94.2 MCH 30.0 MCHC 31.9 RDW 11.9 Plt Count 257 MPV 10.8 Immature Gran % (Auto) Neut % (Auto) Lymph % (Auto) [place] % (Auto) Eos % (Auto) Baso % (Auto) Lymph # (Auto) [place] # (Auto) Eos # (Auto) Baso # (Auto) Abs Immat Gran (auto) Absolute Neuts (auto) Absolute Nucleated RBC 0.000 Nucleated RBC % (auto) 0.0 Anion Gap 12 Estim Creat Clear Calc 82.5 Estimated GFR > 60 POC Glucose Random Glucose Fasting Glucose 182 H Calcium 8.9 D COVID-19 ([facility]) Negative COVID-US-[facility] [employer] [facility] Clin Com See Note Blood Type Antibody Screen 03/21/22 03/21/22 03/21/22 09:53 12:39 17:42 MCV MCH MCHC RDW Plt Count MPV Immature Gran % (Auto) Neut % (Auto) Lymph % (Auto) [place] % (Auto) Eos % (Auto) Baso % (Auto) Lymph # (Auto) [place] # (Auto) Eos # (Auto) Baso # (Auto) Abs Immat Gran (auto) Absolute Neuts (auto) Absolute Nucleated RBC Nucleated RBC % (auto) Anion Gap Estim Creat Clear Calc Estimated GFR POC Glucose 127 H 289 H Random Glucose Fasting Glucose Calcium COVID-19 ([facility]) [employer] Com Blood Type A Positive Antibody Screen NEGATIVE 03/21/22 03/22/22 03/22/22 20:48 05:48 05:48 MCV 96.1 MCH 30.4 MCHC 31.7 RDW 12.2 Plt Count 248 MPV 11.5 Immature Gran % (Auto) 0.3 Neut % (Auto) 70.3 Lymph % (Auto) 20.4 [place] % (Auto) 8.7 Eos % (Auto) 0.1 Baso % (Auto) 0.2 Lymph # (Auto) 2.4 [place] # (Auto) 1.0 Eos # (Auto) 0.0 Baso # (Auto) 0.0 Abs Immat Gran (auto) 0.04 H Absolute Neuts (auto) 8.4 H Absolute Nucleated RBC 0.000 Nucleated RBC % (auto) 0.0 Anion Gap 13 Estim Creat Clear Calc 60.6 Estimated GFR 43 POC Glucose 372 H* Random Glucose 356 H* Fasting Glucose Calcium 8.0 L D COVID-19 ([facility]) COVID-US-[facility] [employer] [facility] Clin Com Blood Type Antibody Screen 03/22/22 07:33 MCV MCH MCHC RDW Plt Count MPV Immature Gran % (Auto) Neut % (Auto) Lymph % (Auto) [place] % (Auto) Eos % (Auto) Baso % (Auto) Lymph # (Auto) [place] # (Auto) Eos # (Auto) Baso # (Auto) Abs Immat Gran (auto) Absolute Neuts (auto) Absolute Nucleated RBC Nucleated RBC % (auto) Anion Gap Estim Creat Clear Calc Estimated GFR POC Glucose 285 H Random Glucose Fasting Glucose Calcium COVID-19 ([facility]) COVID-19 Clin Com Blood Type Antibody Screen Procedures Date of Service Date of Service: 03/22/22 Progress Note: A&P Assessment and plan (1) Invasive ductal carcinoma of left breast: Status: Acute (2) Hyperkalemia: Status: Acute (3) Hyponatremia: Status: Acute (4) Diabetes: Plan Pod 1 status post bilateral mastectomy and left sentinel node biopsy. Patient is comfortable and not requiring any narcotic at this time. EUN output is more sanguinous than serous. Compression dressing applied. Will check INR and PT this morning. Monitor H&H. Electrolytes reveal hyponatremia and hyperkalemia. Will switch to normal saline. Patient on insulin sliding scale. Hospitalist consultation requested further management. Time Spent With Patient Time: Total time spent is greater than 50% in coordination of care (as documented) at patient's floor/unit and/or counseling patient: Quality Stroke Does the patient have a stroke diagnosis?: No VTE Prior VTE?: No VTE Risk Level:: Surgical - moderate VTE Device Contraindication: N/A - Device Ordered VTE Drug Contraindication: Treatment Not Indicated (bleeding from drains)
[2022-03-22] MEDS: Insulin Lispro 100 UNIT/ML 3 ML VIAL SUBCUT ×3 (08:44→17:12)
[2022-03-22] MEDS: Metoprolol Tartrate 25 MG TABLET PO ×2 (08:46→22:09)
[2022-03-22] MEDS: Topiramate 25 MG TABLET PO (08:46)
[2022-03-22] MEDS: Losartan Potassium 50 MG TABLET PO (08:46)
[2022-03-22] MEDS: 0.9 % Sodium Chloride 1,000 ML 100 ML IVCONT ×2 (08:47→16:25)
[2022-03-22 08:59] LABS: INTERNATIONAL NORM RATIO 1.1 (0.9-1.1); Prothrombin Time 12.4 SEC (9.9-13.0)
--- NOTE | 2022-03-22 09:18 | P.CONHOSP_ITS ---
History of Present Illness Data of Consult Service Date: 03/22/22 Primary Care Provider: Perla Joyce NP HPI Reason for consult: diabetes mgmt This is a 61 yo F with a PMH of IDDM, morbid obesity, htn, amongst others who is admitted under the general surgery service and is s/p b/l mastectomy. Medical consult has been requested for management of uncontrolled DM. Pt is seen and examined in her room. Cook Islander speaking soda fountain clerk is present. Patient reports that her insulin regime at home is as follows: 60 units lantus at bed time and 43 units of humalog with breakfast lunch and dinner. She reports her A1C is under 6. She denies any current chest pain, sob, cough. Reports feeling regular Review of Systems Review of Systems: negative except HPI [facility] Medical History Asthma COVID-19 vaccine series completed Diabetes GERD (gastroesophageal reflux disease) HTN (hypertension) Hypercholesteremia Family History Mother Breast cancer, Onset Age: 58 Sister Breast cancer, Onset Age: 54 Surgical History History of delivery History of cholecystectomy Social History Household Members: Spouse and Children Housing: Apartment Housing Other:: [facility] Are you a primary animal care provider to a significant other at home: No Do you presently have visiting nurse or other home services: No Alcohol intake: never Patient Tobacco Use Status: Never used Tobacco Use of substances other than those prescribed or required for medical reasons: No Currently Displaying Signs/Symptoms of Drug Intoxication Withdrawal: No Have you been hit, kicked, punched, or otherwise hurt by someone within the past year? If so, by whom?: No Do you feel safe in your current relationship?: Yes Is there a partner from a previous relationship who is making you feel unsafe no w?: No Are you made to feel afraid or neglected: No Are you DNR?: No Advance Directives: No Advance Directives Information Provided: Yes (brochure mailed) Advance Directives on File: No Do you have thoughts of harming others: None Do you have a plan to hurt others: No Plan Recently lost weight without trying: No Eating poorly because of decreased appetite: No Nutrition Risks: No Nutritional Risk Patient : No : No Poor oral hygiene: No Meds Allergies Allergy/AdvReac Type Severity Reaction Status Date / Time turkey Allergy Severe chest Unverified 03/11/22 13:22 pain/swelling/SOB/itching Active Medications: Current Medications Albuterol Sulfate (Albuterol Sulfate 90 Mcg 8 Gm Inhaler) 2 puff INHALE Q4H PRN PRN Reason: Wheezing Atorvastatin Calcium (Atorvastatin Calcium 80 Mg Tablet) 80 mg PO BEDTIME [facility] Last Admin: 03/21/22 20:51 Dose: 80 mg Benzonatate (Benzonatate 100 Mg Capsule) 100 mg PO TID PRN PRN Reason: Heartburn Dextrose (Dextrose 50 % 25 Gm/50 Ml Syringe) 25 gm IVPUSH Q15M PRN; Protocol PRN Reason: per Hypoglycemia Standing Ord. Gabapentin (Gabapentin 300 Mg Capsule) 300 mg PO BEDTIME [facility] Last Admin: 03/21/22 20:51 Dose: 300 mg Glucose (Glucose Gel 15 Gm Gel..Gram.) 15 gm PO Q15M PRN; Protocol PRN Reason: per Hypoglycemia Standing Ord. Acetaminophen (Ofirmev) 1,000 mg in 100 mls @ 400 mls/hr IV Q6H [facility] Stop: 03/22/22 12:29 Last Infusion: 03/22/22 06:10 Dose: Infused Sodium Chloride (Ns) 1,000 mls @ 100 mls/hr IVCONT .Q10H [facility] Last Admin: 03/22/22 08:47 Dose: 100 mls/hr Insulin Glargine (Insulin Glargine,Hum.Rec.Anlog 100 Unit/Ml 10 Ml Vial) 20 unit SUBCUT ONCE ONE Stop: 03/22/22 09:12 Insulin Glargine (Insulin Glargine,Hum.Rec.Anlog 100 Unit/Ml 10 Ml Vial) 30 unit SUBCUT BEDTIME [facility] Insulin Human Lispro (Insulin Lispro 100 Unit/Ml 3 Ml Vial) 10 unit SUBCUT QIDACHS [facility] Insulin Human Lispro (Insulin Lispro 100 Unit/Ml 3 Ml Vial) 0 unit SUBCUT QIDACHS [facility]; Protocol Losartan Potassium (Losartan Potassium 50 Mg Tablet) 50 mg PO DAILY [facility]; Protocol Last Admin: 03/22/22 08:46 Dose: 50 mg Metoprolol Tartrate (Metoprolol Tartrate 25 Mg Tablet) 25 mg PO BID [facility]; Protocol Last Admin: 03/22/22 08:46 Dose: 25 mg Morphine Sulfate (Morphine Sulfate 2 Mg/Ml Cartridge) 4 mg IVPUSH Q3H PRN; Protocol PRN Reason: Pain, Severe (Pain Scale 7-10) Omeprazole (Omeprazole 20 Mg Capsule.Dr) 20 mg PO DAILY@0630 [facility] Last Admin: 03/22/22 05:53 Dose: 20 mg Ondansetron HCl (Ondansetron Hcl 4 Mg/2 Ml Vial) 4 mg IVPUSH Q8H PRN PRN Reason: Nausea Oxycodone HCl (Oxycodone Hcl Immed Release 5 Mg Tablet) 5 mg PO Q4H PRN PRN Reason: Pain, Moderate (Pain Scale 4-6 Last Admin: 03/21/22 18:39 Dose: 5 mg Sodium Chloride (0.9 % Sodium Chloride Flush 3 Ml Syringe) 3 ml IVFLUSH QSHIFT [facility] Last Admin: 03/22/22 08:46 Dose: Not Given Topiramate (Topiramate 25 Mg Tablet) 25 mg PO DAILY [facility] Last Admin: 03/22/22 08:46 Dose: 25 mg Zolpidem Tartrate (Zolpidem Tartrate 5 Mg Tablet) 5 mg PO BEDTIME PRN PRN Reason: Insomnia Home Medications Medication Instructions Recorded Confirmed Last Taken Type atorvastatin 80 mg tablet 80 mg PO BEDTIME 02/15/22 03/15/22 Unknown History benzonatate 100 mg capsule 100 mg PO TID PRN Heartburn 02/15/22 03/15/22 Unknown History dulaglutide 0.75 mg/0.5 mL 0.75 mg subcut QWEEK 02/15/22 03/15/22 Unknown History subcutaneous pen injector (Trulicity) gabapentin 300 mg capsule 300 mg PO QPM 02/15/22 03/15/22 Unknown History insulin glargine 100 unit/mL (3 68 unit subcut QPM 02/15/22 02/28/22 Unknown History mL) subcutaneous pen (Lantus Solostar U-100 Insulin) insulin lispro 100 unit/mL 60 - 70 unit subcut TID 02/15/22 03/15/22 Unknown History subcutaneous pen lancets 28 gauge (FreeStyle #100 ea 02/15/22 02/28/22 Unknown History Lancets) losartan 50 mg tablet 50 mg PO DAILY 02/15/22 03/15/22 Unknown History metoprolol tartrate 25 mg tablet 25 mg PO BID 02/15/22 03/15/22 Unknown History omeprazole 20 mg capsule,delayed 20 mg PO DAILY 02/15/22 03/15/22 Unknown History release pen needle, diabetic 32 gauge x #50 ea 02/15/22 02/28/22 Unknown History (BD Lesley 2nd Gen Pen Needle) topiramate 25 mg tablet 25 mg PO DAILY 02/15/22 03/15/22 Unknown History albuterol sulfate 90 mcg/actuation 2 puff inhalation Q4-6H PRN 03/15/22 Unknown History aerosol inhaler (ProAir HFA) Wheezing Physical Exam Vital Signs and Narrative: Vital Signs: Last Vital Signs Temp 97.9 F 03/22/22 07:34 Pulse 71 03/22/22 07:34 Resp 18 03/22/22 07:34 BP 105/60 03/22/22 07:34 Pulse Ox 97 03/22/22 07:34 O2 Del Method 03/22/22 07:34 O2 Flow Rate 3 03/21/22 20:37 BMI result Body Mass Index 46.7 Const: Other: General - no acute distress, appears comfortable Cardiovascular - regular rate and rhythm, S1-S2 Lungs - normal respiratory effort, clear to auscultation bilaterally, no wheezing Abdomen - soft, nontender, no rebound or guarding Extremities - no edema bilaterally Neuro - awake and alert, no focal deficits Results Labs CBC and Chem 7: 03/22/22 05:48 03/22/22 05:48 Labs: Laboratory Results - last 24 hr 03/21/22 03/21/22 03/21/22 09:24 09:46 09:46 MCV 94.2 MCH 30.0 MCHC 31.9 RDW 11.9 Plt Count 257 MPV 10.8 Immature Gran % (Auto) Neut % (Auto) Lymph % (Auto) Dolores % (Auto) Eos % (Auto) Baso % (Auto) Lymph # (Auto) Dolores # (Auto) Eos # (Auto) Baso # (Auto) Abs Immat Gran (auto) Absolute Neuts (auto) Absolute Nucleated RBC 0.000 Nucleated RBC % (auto) 0.0 PT INR Anion Gap 12 Estim Creat Clear Calc 82.5 Estimated GFR > 60 POC Glucose Random Glucose Fasting Glucose 182 H Calcium 8.9 D COVID-19 ([facility]) Negative COVID-19 Clin Com See Note Blood Type Antibody Screen 03/21/22 03/21/22 03/21/22 09:53 12:39 17:42 MCV MCH MCHC RDW Plt Count MPV Immature Gran % (Auto) Neut % (Auto) Lymph % (Auto) Dolores % (Auto) Eos % (Auto) Baso % (Auto) Lymph # (Auto) Dolores # (Auto) Eos # (Auto) Baso # (Auto) Abs Immat Gran (auto) Absolute Neuts (auto) Absolute Nucleated RBC Nucleated RBC % (auto) PT INR Anion Gap Estim Creat Clear Calc Estimated GFR POC Glucose 127 H 289 H Random Glucose Fasting Glucose Calcium COVID-19 ([facility]) [facility] Com Blood Type A Positive Antibody Screen NEGATIVE 03/21/22 03/22/22 03/22/22 20:48 05:48 05:48 MCV 96.1 MCH 30.4 MCHC 31.7 RDW 12.2 Plt Count 248 MPV 11.5 Immature Gran % (Auto) 0.3 Neut % (Auto) 70.3 Lymph % (Auto) 20.4 Dolores % (Auto) 8.7 Eos % (Auto) 0.1 Baso % (Auto) 0.2 Lymph # (Auto) 2.4 Dolores # (Auto) 1.0 Eos # (Auto) 0.0 Baso # (Auto) 0.0 Abs Immat Gran (auto) 0.04 H Absolute Neuts (auto) 8.4 H Absolute Nucleated RBC 0.000 Nucleated RBC % (auto) 0.0 PT INR Anion Gap 13 Estim Creat Clear Calc 60.6 Estimated GFR 43 POC Glucose 372 H* Random Glucose 356 H* Fasting Glucose Calcium 8.0 L D COVID-19 ([facility]) COVID-[employer] Com Blood Type Antibody Screen 03/22/22 03/22/22 07:33 08:23 MCV MCH MCHC RDW Plt Count MPV Immature Gran % (Auto) Neut % (Auto) Lymph % (Auto) Dolores % (Auto) Eos % (Auto) Baso % (Auto) Lymph # (Auto) Dolores # (Auto) Eos # (Auto) Baso # (Auto) Abs Immat Gran (auto) Absolute Neuts (auto) Absolute Nucleated RBC Nucleated RBC % (auto) PT 12.4 INR 1.1 Anion Gap Estim Creat Clear Calc Estimated GFR POC Glucose 285 H Random Glucose Fasting Glucose Calcium COVID-19 ([facility]) COVID-19 Clin Com Blood Type Antibody Screen Imaging Radiologist's Impressions: Impressions Protem Node Imaging Nuclear Med 03/21/22 11:20 IMPRESSION: Positive sentinel node activity in the left axilla. Assessment and Plan (1) Uncontrolled diabetes mellitus: Status: Acute Plan 61 yo F with a PMH of DM, HTN, HLD, Breast Ca who is admitted s/p b/l m astectomy. Medical consult requested for management of DM. 1. Uncontrolled DM POC ranges high 200s to 300s On lantus 60 qhs + Humalog 43 units scheduled pre-meal at home Will give lantus 30 qhs and start humalot 10 units scheduled + sliding scale and uptitrate 2. Mild GIANA, mild hyperK agree with NS, repeat chem tomorrow hold losartan toady 3. HTN continue bb, hold ARB due to #2 Will follow with you.
[2022-03-22] MEDS: Insulin Glargine,Hum.rec.anlog 100 UNIT/ML 10 ML VIAL 20 UNIT SUBCUT (09:57)
--- NOTE | 2022-03-22 10:42 | PHA.MEDREC ---
Pharmacy Consult ? Medication Reconciliation Pharmacy has completed the medication reconciliation. Used tape transferrer as patient is irish speaking. Patient takes her trulicity on saturdays, last dose was confirmed to have been taken. Patient says she takes her topiramate but does not like the side effects, patient might not be adherent. Note the change in lispro, patient says she does 43 units, and glargine patient says she does 60 units.
--- NOTE | 2022-03-22 10:54 | HO.POSTANES ---
Post Anesthesia Evaluation Post Anesthesia Evaluation Vital Signs: Vital Signs Temp Pulse Resp BP Pulse Ox O2 Del Method 03/22/22 07:34 97.9 F 71 18 105/60 97 Room Air 03/22/22 05:26 97.3 F 76 17 113/54 L 96 Room Air 03/22/22 06:00 18 Anesthesia: General Endotracheal-GETA Mental Status: Awake Pain Control: Satisfactory Nausea/Vomiting: None Hydration: Adequate Anesthesia-Related Issues: No Anes. Related Issues
[2022-03-22 11:56] LABS: Glucose, Whole Blood 386 mg/dL (60-115)
[2022-03-22] MEDS: Insulin Lispro 100 UNIT/ML 3 ML VIAL 10 UNIT SUBCUT ×2 (12:16→17:11)
--- NOTE | 2022-03-22 14:14 | MHC.CM.PN ---
nurse abigail urban renewal manager ntoe electronic medical record reviewed along with case discussed with staff nurse and met with patient with diana interperter , patient lives with spiouse and hr son she is active ,independdnt aracely ll adls and mobility withput any device , she has no vna ,no dme services in the home her pcp is amara garcía employed in the [employer] de[employer] but not out on summer vacation, , she has surgicary 03/21/29 for invasive ductal carcinoma of the left breast and now has two j-p drains in place , via tiger text and surgeon does want vna for nsg at d/c . discharge plan new referral to the [facility] vna for nsg for post surgical assessment and follow up with reinforcement teaching of 2 j-p drains anticipate d/c 03/23/22 pcp amara duke patient to follow up for post hospitla dischagre surgical follow mup per dischagre instructions educated about the importance of having a health care proxy and she will discuss with family. transportation family
[2022-03-22 15:53] LABS: Glucose, Whole Blood 307 mg/dL (60-115)
[2022-03-22 19:21] LABS: Glucose, Whole Blood 258 mg/dL (60-115)
[2022-03-22 21:18] LABS: Glucose, Whole Blood 210 mg/dL (60-115)
[2022-03-22] MEDS: Insulin Glargine,Hum.rec.anlog 100 UNIT/ML 10 ML VIAL 30 UNIT SUBCUT (22:08)
[2022-03-22] MEDS: Gabapentin 300 MG CAPSULE PO (22:09)
[2022-03-22] MEDS: Atorvastatin Calcium 80 MG TABLET PO (22:09)
--- NOTE | 2022-03-22 22:19 | PC.NURSE ---
P BS [address] Bailon notifed E only Lantus insulin to be administered tonight
[2022-03-23] MEDS: 0.9 % Sodium Chloride 1,000 ML 100 ML IVCONT ×2 (00:25→09:31)
[2022-03-23] MEDS: Morphine Sulfate 2 MG/ML CARTRIDGE 4 MG IVPUSH (00:49)
[2022-03-23] MEDS: Omeprazole 20 MG CAPSULE.DR PO (05:29)
[2022-03-23 05:31] VITALS: BP 110/52; PULSE 64; RESP 18; TEMP 36.2; O2SAT 100
[2022-03-23 06:26] LABS: Hemoglobin 9.2 g/dl (12.0-16.0); Mean Corpuscular HGB Conc 31.7 g/dl (31.0-35.0); Mean Corpuscular Hemoglobin 31.1 pg (27.0-33.0); Mean Platelet Volume 11.8 fL (9.4-12.3); Platelet Count 233 X10*3/uL (160-400); Red Blood Count 2.96 X10*6/uL (4.20-5.50); Red Cell Distribution Width 12.2 % (11.0-16.0); White Blood Count 11.5 X10*3/uL (4.8-10.8)
[2022-03-23 07:06] LABS: Anion Gap 10 (12-20); Blood Urea Nitrogen 21 mg/dL (9-16); Calcium 7.8 mg/dL (8.4-10.2); Carbon Dioxide 24 mmol/L (22-29); Chloride 106 mmol/L (96-108); Creatinine Clr Calc Pharmacy 84.3; Estimated Glomerular Filt Rate > 60; Glucose Random 253 mg/dL (60-115); Potassium 4.7 mmol/L (3.3-5.1); Sodium 135 mmol/L (135-145)
[2022-03-23 07:48] LABS: Glucose, Whole Blood 202 mg/dL (60-115)
[2022-03-23 07:56] VITALS: BP 103/48; PULSE 69; RESP 16; TEMP 36.2; O2SAT 100
[2022-03-23] MEDS: Insulin Lispro 100 UNIT/ML 3 ML VIAL SUBCUT ×3 (07:59→20:42)
[2022-03-23] MEDS: Topiramate 25 MG TABLET PO (07:59)
[2022-03-23] MEDS: Metoprolol Tartrate 25 MG TABLET PO ×2 (07:59→20:41)
[2022-03-23] MEDS: Insulin Lispro 100 UNIT/ML 3 ML VIAL 10 UNIT SUBCUT ×2 (08:00→11:36)
[2022-03-23] MEDS: oxyCODONE HCl Immed Release 5 MG TABLET PO ×2 (08:05→20:46)
--- NOTE | 2022-03-23 10:25 | PM.PNGS ---
Subjective Subjective Date of Service: 03/23/22 Patient reports: no new complaints Interval history: Patient denies significant chest wall pain. Physical Exam Vital Signs: Vital Signs: Last Vital Signs Temp 97.2 F 03/23/22 07:56 Pulse 69 03/23/22 07:56 Resp 16 03/23/22 07:56 BP 103/48 L 03/23/22 07:56 Pulse Ox 100 03/23/22 07:56 O2 Del Method 03/23/22 07:56 O2 Flow Rate 3 03/21/22 20:37 BMI result Body Mass Index 46.7 Const: General: cooperative and no acute distress Nutritional Appearance: well nourished Orientation/consciousness: patient oriented x3 Limitations: no limitations Chest: Other: Dressings changed and incision is clean dry and intact. Some bloody discharge noted from around the drain site. EUN producing sanguinous output. No underlying hematoma identified. Wounds were redressed with ABD pad and covered with 6 in Orion bandage. Skin: Other: Warm, dry, no rash Neuro: General: patient oriented x3 Extrem: Other: no edema Objective Data Active Medications Albuterol Sulfate (Albuterol Sulfate 90 Mcg 8 Gm Inhaler) 2 puff INHALE Q4H PRN PRN Reason: Wheezing Atorvastatin Calcium (Atorvastatin Calcium 80 Mg Tablet) 80 mg PO BEDTIME [facility] Last Admin: 03/22/22 22:09 Dose: 80 mg Documented By: OWEN Benzonatate (Benzonatate 100 Mg Capsule) 100 mg PO TID PRN PRN Reason: Heartburn Dextrose (Dextrose 50 % 25 Gm/50 Ml Syringe) 25 gm IVPUSH Q15M PRN; Protocol PRN Reason: per Hypoglycemia Standing Ord. Gabapentin (Gabapentin 300 Mg Capsule) 300 mg PO BEDTIME [facility] Last Admin: 03/22/22 22:09 Dose: 300 mg Documented By: OWEN Glucose (Glucose Gel 15 Gm Gel..Gram.) 15 gm PO Q15M PRN; Protocol PRN Reason: per Hypoglycemia Standing Ord. Sodium Chloride (Ns) 1,000 mls @ 125 mls/hr IVCONT .Q8H [facility] Last Admin: 03/23/22 09:31 Dose: 100 mls/hr Documented By: SOTO Insulin Glargine (Insulin Glargine,Hum.Rec.Anlog 100 Unit/Ml 10 Ml Vial) 30 unit SUBCUT BEDTIME [facility] Last Admin: 03/22/22 22:08 Dose: 30 unit Documented By: OWEN Insulin Human Lispro (Insulin Lispro 100 Unit/Ml 3 Ml Vial) 10 unit SUBCUT QIDAS [facility] Last Admin: 03/23/22 08:00 Dose: 10 unit Documented By: SOTO Insulin Human Lispro (Insulin Lispro 100 Unit/Ml 3 Ml Vial) 0 unit SUBCUT QIDAS [facility]; Protocol Last Admin: 03/23/22 07:59 Dose: 4 unit Documented By: SOTO Losartan Potassium (Losartan Potassium 50 Mg Tablet) 50 mg PO DAILY [facility]; Protocol Last Admin: 03/22/22 08:46 Dose: 50 mg Documented By: LITA Metoprolol Tartrate (Metoprolol Tartrate 25 Mg Tablet) 25 mg PO BID [facility]; Protocol Last Admin: 03/23/22 07:59 Dose: 25 mg Documented By: SOTO Morphine Sulfate (Morphine Sulfate 2 Mg/Ml Cartridge) 4 mg IVPUSH Q3H PRN; Protocol PRN Reason: Pain, Severe (Pain Scale 7-10) Last Admin: 03/23/22 00:49 Dose: 4 mg Documented By: ELENA Omeprazole (Omeprazole 20 Mg Capsule.Dr) 20 mg PO DAILY@0630 [facility] Last Admin: 03/23/22 05:29 Dose: 20 mg Documented By: ELENA Ondansetron HCl (Ondansetron Hcl 4 Mg/2 Ml Vial) 4 mg IVPUSH Q8H PRN PRN Reason: Nausea Oxycodone HCl (Oxycodone Hcl Immed Release 5 Mg Tablet) 5 mg PO Q4H PRN PRN Reason: Pain, Moderate (Pain Scale 4-6 Last Admin: 03/23/22 08:05 Dose: 5 mg Documented By: SOTO Sodium Chloride (0.9 % Sodium Chloride Flush 3 Ml Syringe) [facility] Last Admin: 03/23/22 08:00 Dose: Not Given Documented By: SOTO Non-Admin Reason: IV Running Topiramate (Topiramate 25 Mg Tablet) 25 mg PO DAILY [facility] Last Admin: 03/23/22 07:59 Dose: 25 mg Documented By: SOTO Zolpidem Tartrate (Zolpidem Tartrate 5 Mg Tablet) 5 mg PO BEDTIME PRN PRN Reason: Insomnia Labs CBC & Chem 7: 03/23/22 05:36 03/23/22 05:36 Labs: Laboratory Results - last 24 hr 03/22/22 03/22/22 03/22/22 11:19 15:21 18:59 MCV MCH MCHC RDW Plt Count MPV Absolute Nucleated RBC Nucleated RBC % (auto) Anion Gap Estim Creat Clear Calc Estimated GFR POC Glucose 386 H* 307 H 258 H Random Glucose Calcium 03/22/22 03/23/22 03/23/22 21:15 05:36 05:36 MCV 98.0 MCH 31.1 MCHC 31.7 RDW 12.2 Plt Count 233 MPV 11.8 Absolute Nucleated RBC 0.000 Nucleated RBC % (auto) 0.0 Anion Gap 10 L Estim Creat Clear Calc 84.3 Estimated GFR > 60 POC Glucose 210 H Random Glucose 253 H Calcium 7.8 L 03/23/22 07:39 MCV MCH MCHC RDW Plt Count MPV Absolute Nucleated RBC Nucleated RBC % (auto) Anion Gap Estim Creat Clear Calc Estimated GFR POC Glucose 202 H Random Glucose Calcium Procedures Date of Service Date of Service: 03/23/22 Progress Note: A&P Assessment and plan (1) Uncontrolled diabetes mellitus: Status: Acute Assessment and Plan: appreciate hospitalist's consultation (2) Hyponatremia: Status: Acute Assessment and Plan: hyponatremia is now resolved (3) Hyperkalemia: Status: Acute Assessment and Plan: hyperkalemia now resolved (4) Invasive ductal carcinoma of left breast: Status: Acute Assessment and Plan: status post left mastectomy with axillary sentinel node biopsy, prophylactic right mastectomy. Wounds are clean and intact. EUN output is still high and mainly sanguinous. H&H continues to drift downward. Will recheck in a.m.. May need transfusion if continued drifting. Patient will need to be discharged with drains in place. Will anticipate need for VNA. Time Spent With Patient Time: Total time spent is greater than 50% in coordination of care (as documented) at patient's floor/unit and/or counseling patient: Quality Stroke Does the patient have a stroke diagnosis?: No VTE Prior VTE?: No VTE Risk Level:: Surgical - moderate VTE Device Contraindication: N/A - Device Ordered VTE Drug Contraindication: Treatment Not Indicated (bleeding from drains)
[2022-03-23 11:26] LABS: Glucose, Whole Blood 171 mg/dL (60-115)
--- NOTE | 2022-03-23 14:21 | PC.NURSE ---
Bialteral chest bulb drain sites have saturated through x3. bulky dsgs applied. Dr Henry made aware and requested tubing to bed milked. Right side milked with fair effect. drained 40mls into bulb. left side has less drainage,
--- NOTE | 2022-03-23 15:26 | MHC.CM.PN ---
PER HOSPITALIST PT WILL REMAIN INPT EUN DRAIN OUTPUT IS TOO HIGH AND H&H TRENDING DOWN, ANTIC D/C IN 1-2 DAYS, CM WILL CONT TO FOLLOW D/C NEEDS.
--- NOTE | 2022-03-23 15:27 | HO.PM.IMPN ---
Subjective Subjective Date of Service: 03/23/22 Interval History: dm Review of Systems Fingersticks seems more control, denies any chest pain or shortness of breath or abdominal pain or fever chills. Physical Exam Vital Signs: Vital Signs: Last Vital Signs Temp 97.2 F 03/23/22 07:56 Pulse 69 03/23/22 07:56 Resp 16 03/23/22 07:56 BP 103/48 L 03/23/22 07:56 Pulse Ox 100 03/23/22 07:56 O2 Del Method 03/23/22 07:56 O2 Flow Rate 3 03/21/22 20:37 BMI result Body Mass Index 46.7 General - no acute distress, appears comfortable Cardiovascular - regular rate and rhythm, S1-S2 chest -breat area wrapped with dressing Lungs - normal respiratory effort, clear to auscultation bilaterally, no wheezing Abdomen - soft, nontender, no rebound or guarding Extremities - no edema bilaterally Neuro - awake and alert, no focal deficits Objective Data Active Medications Albuterol Sulfate (Albuterol Sulfate 90 Mcg 8 Gm Inhaler) 2 puff INHALE Q4H PRN PRN Reason: Wheezing Atorvastatin Calcium (Atorvastatin Calcium 80 Mg Tablet) 80 mg PO BEDTIME [facility] Last Admin: 03/22/22 22:09 Dose: 80 mg Documented By: OWEN Benzonatate (Benzonatate 100 Mg Capsule) 100 mg PO TID PRN PRN Reason: Heartburn Dextrose (Dextrose 50 % 25 Gm/50 Ml Syringe) 25 gm IVPUSH Q15M PRN; Protocol PRN Reason: per Hypoglycemia Standing Ord. Gabapentin (Gabapentin 300 Mg Capsule) 300 mg PO BEDTIME [facility] Last Admin: 03/22/22 22:09 Dose: 300 mg Documented By: OWEN Glucose (Glucose Gel 15 Gm Gel..Gram.) 15 gm PO Q15M PRN; Protocol PRN Reason: per Hypoglycemia Standing Ord. Sodium Chloride (Ns) 1,000 mls @ 125 mls/hr IVCONT .Q8H [facility] Last Admin: 03/23/22 09:31 Dose: 100 mls/hr Documented By: SOTO Insulin Glargine (Insulin Glargine,Hum.Rec.Anlog 100 Unit/Ml 10 Ml Vial) 30 unit SUBCUT BEDTIME [facility] Last Admin: 03/22/22 22:08 Dose: 30 unit Documented By: OWEN Insulin Human Lispro (Insulin Lispro 100 Unit/Ml 3 Ml Vial) 10 unit SUBCUT QIDAS [facility] Last Admin: 03/23/22 11:36 Dose: 10 unit Documented By: SOTO Insulin Human Lispro (Insulin Lispro 100 Unit/Ml 3 Ml Vial) 0 unit SUBCUT QIDACHS [facility]; Protocol Last Admin: 03/23/22 11:36 Dose: 2 unit Documented By: SOTO Losartan Potassium (Losartan Potassium 50 Mg Tablet) 50 mg PO DAILY [facility]; Protocol Last Admin: 03/22/22 08:46 Dose: 50 mg Documented By: LITA Metoprolol Tartrate (Metoprolol Tartrate 25 Mg Tablet) 25 mg PO BID [facility]; Protocol Last Admin: 03/23/22 07:59 Dose: 25 mg Documented By: SOTO Morphine Sulfate (Morphine Sulfate 2 Mg/Ml Cartridge) 4 mg IVPUSH Q3H PRN; Protocol PRN Reason: Pain, Severe (Pain Scale 7-10) Last Admin: 03/23/22 00:49 Dose: 4 mg Documented By: ELENA Omeprazole (Omeprazole 20 Mg Capsule.Dr) 20 mg PO DAILY@0630 [facility] Last Admin: 03/23/22 05:29 Dose: 20 mg Documented By: ELENA Ondansetron HCl (Ondansetron Hcl 4 Mg/2 Ml Vial) 4 mg IVPUSH Q8H PRN PRN Reason: Nausea Oxycodone HCl (Oxycodone Hcl Immed Release 5 Mg Tablet) 5 mg PO Q4H PRN PRN Reason: Pain, Moderate (Pain Scale 4-6 Last Admin: 03/23/22 08:05 Dose: 5 mg Documented By: SOTO Sodium Chloride (0.9 % Sodium Chloride Flush 3 Ml Syringe) [facility] Last Admin: 03/23/22 08:00 Dose: Not Given Documented By: SOTO Non-Admin Reason: IV Running Topiramate (Topiramate 25 Mg Tablet) 25 mg PO DAILY [facility] Last Admin: 03/23/22 07:59 Dose: 25 mg Documented By: SOTO Zolpidem Tartrate (Zolpidem Tartrate 5 Mg Tablet) 5 mg PO BEDTIME PRN PRN Reason: Insomnia Labs CBC & Chem 7: 03/23/22 05:36 03/23/22 05:36 Labs: Laboratory Results - last 24 hr 03/22/22 03/22/22 03/22/22 15:21 18:59 21:15 MCV MCH MCHC RDW Plt Count MPV Absolute Nucleated RBC Nucleated RBC % (auto) Anion Gap Estim Creat Clear Calc Estimated GFR POC Glucose 307 H 258 H 210 H Random Glucose Calcium 03/23/22 03/23/22 03/23/22 05:36 05:36 07:39 MCV 98.0 MCH 31.1 MCHC 31.7 RDW 12.2 Plt Count 233 MPV 11.8 Absolute Nucleated RBC 0.000 Nucleated RBC % (auto) 0.0 Anion Gap 10 L Estim Creat Clear Calc 84.3 Estimated GFR > 60 POC Glucose 202 H Random Glucose 253 H Calcium 7.8 L 03/23/22 11:20 MCV MCH MCHC RDW Plt Count MPV Absolute Nucleated RBC Nucleated RBC % (auto) Anion Gap Estim Creat Clear Calc Estimated GFR POC Glucose 171 H Random Glucose Calcium Assessment and Plan (1) Uncontrolled diabetes mellitus: Status: Acute (2) Hyperkalemia: Status: Acute Plan 61 yo F with a PMH of DM, HTN, HLD, Breast Ca who is admitted s/p b/l mastectomy. Medical consult requested for management of DM. 1. Uncontrolled DM POC range 170-200's On lantus 60 qhs + Humalog 43 units scheduled pre-meal at home Will give lantus 30 qhs and start humalot 10 units scheduled + sliding scale and uptitrate 2. Mild GIANA, mild hyperK improved hold losartan toady 3. HTN continue bb, hold ARB due to #2 4.Breast Ca who is admitted s/p b/l mastectomy. still has drainage anemia postop incentive saundra continue to moniter inpatient need : breast Ca who is admitted s/p b/l mastectomy-still has drainage . Quality Stroke Does the patient have a stroke diagnosis?: No VTE Prior VTE?: No VTE Risk Level:: Surgical - moderate VTE Device Contraindication: N/A - Device Ordered VTE Drug Contraindication: Treatment Not Indicated (bleeding from drains)
[2022-03-23 15:28] VITALS: BP 117/54; PULSE 69; RESP 16; TEMP 36.4; O2SAT 98
[2022-03-23 16:02] LABS: Glucose, Whole Blood 139 mg/dL (60-115)
[2022-03-23 19:20] VITALS: BP 131/62; PULSE 70; RESP 20; TEMP 36.5; O2SAT 98
[2022-03-23 19:50] LABS: Glucose, Whole Blood 173 mg/dL (60-115)
[2022-03-23] MEDS: 0.9 % Sodium Chloride 1,000 ML 125 ML IVCONT (20:04)
[2022-03-23] MEDS: Insulin Glargine,Hum.rec.anlog 100 UNIT/ML 10 ML VIAL 30 UNIT SUBCUT (20:41)
[2022-03-23] MEDS: Atorvastatin Calcium 80 MG TABLET PO (20:41)
[2022-03-23] MEDS: Gabapentin 300 MG CAPSULE PO (20:41)
[2022-03-23 23:47] VITALS: BP 125/60; PULSE 64; RESP 18; TEMP 36.1; O2SAT 96
[2022-03-24] MEDS: 0.9 % Sodium Chloride 1,000 ML 125 ML IVCONT (04:22)
[2022-03-24] MEDS: Omeprazole 20 MG CAPSULE.DR PO (06:15)
[2022-03-24 06:26] LABS: Hematocrit 27.6 % (37.0-47.0); Hemoglobin 8.6 g/dl (12.0-16.0); Mean Corpuscular HGB Conc 31.2 g/dl (31.0-35.0); Mean Corpuscular Hemoglobin 30.6 pg (27.0-33.0); Mean Corpuscular Volume 98.2 fL (80.0-98.0); Mean Platelet Volume 11.6 fL (9.4-12.3); Platelet Count 196 X10*3/uL (160-400); Red Blood Count 2.81 X10*6/uL (4.20-5.50); Red Cell Distribution Width 12.3 % (11.0-16.0); White Blood Count 9.1 X10*3/uL (4.8-10.8)
[2022-03-24 07:30] VITALS: BP 141/65; PULSE 67; RESP 18; TEMP 36.6; O2SAT 96
[2022-03-24 07:51] LABS: Glucose, Whole Blood 164 mg/dL (60-115)
[2022-03-24] MEDS: Insulin Lispro 100 UNIT/ML 3 ML VIAL SUBCUT (08:29)
[2022-03-24] MEDS: Metoprolol Tartrate 25 MG TABLET PO (08:29)
[2022-03-24] MEDS: Topiramate 25 MG TABLET PO (08:29)
--- NOTE | 2022-03-24 08:50 | MHC.CM.PN ---
NURSE PULVERIZING AND SIFTING OPERATOR NOTE ELECTRONIC MEDICAL RECORD REVIEWED ALONG WOTH CASE DISCUSSED WITH THE SURGEON, PATIENT WILL BE DISCHARGED HOME TODAY , SHE IS AWARE OF THIS LIVES WITH FAMILY ] TRANSPORTATION FAMILY NEW REFERRAL TO THE [facility] FOR NR[facility] FOR HOME TEACHING OF DRESSING WRAPS AND CARE AND MONITYORING OF 2 J-P DRAINS MEDUICIATION RECOCNILATION ALL DISCGARE PAPERWORK SENT VIA [employer] TO THEM
--- NOTE | 2022-03-24 10:33 | HO.PM.IMPN ---
Subjective Subjective Date of Service: 03/24/22 Interval History: anemia , breaat surgery Physical Exam Vital Signs: Vital Signs: Last Vital Signs Temp 97.9 F 03/24/22 07:30 Pulse 67 03/24/22 07:30 Resp 18 03/24/22 07:30 BP 141/65 H 03/24/22 07:30 Pulse Ox 96 03/24/22 07:30 O2 Del Method 03/24/22 07:30 O2 Flow Rate 3 03/21/22 20:37 BMI result Body Mass Index 46.7 General - no acute distress, appears comfortable Cardiovascular - regular rate and rhythm, S1-S2 chest -breat area wrapped with dressing Lungs - normal respiratory effort, clear to auscultation bilaterally, no wheezing Abdomen - soft, nontender, no rebound or guarding Extremities - no edema bilaterally Neuro - awake and alert, no focal deficits Objective Data Active Medications Albuterol Sulfate (Albuterol Sulfate 90 Mcg 8 Gm Inhaler) 2 puff INHALE Q4H PRN PRN Reason: Wheezing Atorvastatin Calcium (Atorvastatin Calcium 80 Mg Tablet) 80 mg PO BEDTIME [facility] Last Admin: 03/23/22 20:41 Dose: 80 mg Documented By: OWEN Benzonatate (Benzonatate 100 Mg Capsule) 100 mg PO TID PRN PRN Reason: Heartburn Dextrose (Dextrose 50 % 25 Gm/50 Ml Syringe) 25 gm IVPUSH Q15M PRN; Protocol PRN Reason: per Hypoglycemia Standing Ord. Gabapentin (Gabapentin 300 Mg Capsule) 300 mg PO BEDTIME [facility] Last Admin: 03/23/22 20:41 Dose: 300 mg Documented By: OWEN Glucose (Glucose Gel 15 Gm Gel..Gram.) 15 gm PO Q15M PRN; Protocol PRN Reason: per Hypoglycemia Standing Ord. Sodium Chloride (Ns) 1,000 mls @ 125 mls/hr IVCONT .Q8H [facility] Last Admin: 03/24/22 04:22 Dose: 125 mls/hr Documented By: ASTRID Insulin Glargine (Insulin Glargine,Hum.Rec.Anlog 100 Unit/Ml 10 Ml Vial) 30 unit SUBCUT BEDTIME [facility] Last Admin: 03/23/22 20:41 Dose: 30 unit Documented By: OWEN Insulin Human Lispro (Insulin Lispro 100 Unit/Ml 3 Ml Vial) 0 unit SUBCUT QIDACHS [facility]; Protocol Last Admin: 03/24/22 08:29 Dose: 2 unit Documented By: SOTO Losartan Potassium (Losartan Potassium 50 Mg Tablet) 50 mg PO DAILY [facility]; Protocol Last Admin: 03/22/22 08:46 Dose: 50 mg Documented By: LITA Metoprolol Tartrate (Metoprolol Tartrate 25 Mg Tablet) 25 mg PO BID [facility]; Protocol Last Admin: 03/24/22 08:29 Dose: 25 mg Documented By: SOTO Morphine Sulfate (Morphine Sulfate 2 Mg/Ml Cartridge) 4 mg IVPUSH Q3H PRN; Protocol PRN Reason: Pain, Severe (Pain Scale 7-10) Last Admin: 03/23/22 00:49 Dose: 4 mg Documented By: ELENA Omeprazole (Omeprazole 20 Mg Capsule.Dr) 20 mg PO DAILY@629 [facility] Last Admin: 03/24/22 06:15 Dose: 20 mg Documented By: ASTRID Ondansetron HCl (Ondansetron Hcl 4 Mg/2 Ml Vial) 4 mg IVPUSH Q8H PRN PRN Reason: Nausea Oxycodone HCl (Oxycodone Hcl Immed Release 5 Mg Tablet) 5 mg PO Q4H PRN PRN Reason: Pain, Moderate (Pain Scale 4-6 Last Admin: 03/23/22 20:46 Dose: 5 mg Documented By: OWEN Sodium Chloride (0.9 % Sodium Chloride Flush 3 Ml Syringe) [facility] Last Admin: 03/24/22 08:30 Dose: Not Given Documented By: SOTO Non-Admin Reason: IV Running Topiramate (Topiramate 25 Mg Tablet) 25 mg PO DAILY [facility] Last Admin: 03/24/22 08:29 Dose: 25 mg Documented By: SOTO Zolpidem Tartrate (Zolpidem Tartrate 5 Mg Tablet) 5 mg PO BEDTIME PRN PRN Reason: Insomnia Labs CBC & Chem 7: 03/24/22 05:39 03/23/22 05:36 Labs: Laboratory Results - last 24 hr 03/23/22 03/23/22 03/23/22 11:20 15:32 19:25 MCV MCH MCHC RDW Plt Count MPV Absolute Nucleated RBC Nucleated RBC % (auto) POC Glucose 171 H 139 H 173 H 03/24/22 03/24/22 05:39 07:28 MCV 98.2 H MCH 30.6 MCHC 31.2 RDW 12.3 Plt Count 196 MPV 11.6 Absolute Nucleated RBC 0.000 Nucleated RBC % (auto) 0.0 POC Glucose 164 H Assessment and Plan (1) Anemia: Status: Acute (2) Uncontrolled diabetes mellitus: Status: Acute (3) Hyperkalemia: Status: Acute Plan 61 yo F with a PMH of DM, HTN, HLD, Breast Ca who is admitted s/p b/l mastectomy. Medical consult requested for management of DM. 1. Uncontrolled DM POC range 160-200's continue home insulin regimen upon discharge. 2. Mild GIANA, mild hyperK improved 3. HTN: blood pressure flactuating but acceptable continue bb, hold ARB until repeat bmp outpatient and further use outpatient as per pcp. 4.Breast Ca who is admitted s/p b/l mastectomy. still has drainage anemia postop slightly trending down (h/h8.6/27.6),moniter cbc in few days incentive saundra continue to moniter above management d/w primary team and patient in detailed length. Quality Stroke Does the patient have a stroke diagnosis?: No VTE Prior VTE?: No VTE Risk Level:: Surgical - moderate VTE Device Contraindication: N/A - Device Ordered VTE Drug Contraindication: Treatment Not Indicated (bleeding from drains)
--- NOTE | 2022-03-25 14:19 | PM.DS ---
DS: Providers Provider Date of Service: 03/24/22 Date of admission: 03/21/22 12:36 Date of discharge: 03/24/22 Primary care physician: Perla Joyce NP Admitting clinician: Andrea Henry Consults: 03/21/22 17:27 Consult to Hospitalist Routine Consulting Provider: Hospitalist Reason For Exam: s/p bilateral mastectomy, Diabetes Management Discharging clinician: Andrea Henry DS: Diagnosis Discharge Diagnosis (1) Anemia: Status: Acute (2) Invasive ductal carcinoma of left breast: Status: Acute DS: Summary Hospital Course Hospital Course: 61-year-old female patient presenting with recent mammogram dated 01/29/2022 with subsequent additional images and ultrasound obtained on 02/11/2022 which revealed a spiculated mass in the 2 o'clock position of the left breast.? This was confirmed on the ultrasound as well felt to be suspicious for malignancy.? She was scheduled for an ultrasound-guided core biopsy at the [facility] on 02/16/2022.? She denied any symptoms related to the breast including breast pain, skin change, nipple discharge, palpable mass, or enlarged lymph nodes.? She does have a strong family history of breast cancer including her mother and sister both developing breast cancer in their 50s.? Her mother subsequently from breast cancer.? She is and did not breast feed. Pathology revealed:?Invasive ductal carcinoma,? MSBR grade 2-3 , ER / MI positive, HER2 Johnny negative, proliferation index overall 50% by Ki-67 immunostaining.??Findings were discussed in detail with the patient and treatment options reviewed. At the patient's request she wishes to proceed with left simple mastectomy with sentinel node biopsy left axilla as well as a prophylactic right simple mastectomy. She is very concerned about her strong family history and wishes to proceed with the bilateral mastectomy. She underwent a bilateral simple mastectomy and left axillary sentinel node biopsy on the day of admission, 03/21/2022. She tolerated the procedure well and remained hemodynamically stable postoperatively. She did have a sanguinous output from the Jorge-Mcdowell drains bilaterally therefore a pressure dressing was applied. She remained very comfortable however with no significant chest pain. Her hemoglobin hematocrit gradually drifted downward because of the drain output as well as IV hydration. On postoperative day 3 the output became more serous. Examination of the wounds revealed no significant hematoma in the skin flaps. Dressings were changed a compression dressing applied. Patient is discharged to home in stable condition on 03/24/2022. I requested that she undergo a CBC approximately 2 days after discharge. She was instructed on drain care and will record the daily output. She should bring this daily output record to her office visit this week. She should avoid strenuous activities and call for fever, chills, weakness, dizziness, increased discharge from the drains or any new concerns. She expressed understanding and agrees with the plan. Time spent discussing smoking cessation with patient: 3 to 10 minutes Status at Discharge Functional status at discharge: independent ambulation Overall status at discharge: patient is not back to baseline Time Spent with Patient Time attestation: Total time spent providing and/or coordinating discharge services: Discharge coordination time: Less than 30 minutes Quality: Safe Use of Opioids Does Pt have an Active Cancer Diagnosis on the Problem List?: Yes Opioid Measure Date for [facility] Report: 02/23/22 Opioid Measure Time for [facility] Report: 14:27 Quality: Stroke Does the patient have a stroke diagnosis?: No Physical Exam Vital Signs: Vital Signs: Last Vital Signs Temp 97.9 F 03/24/22 07:30 Pulse 67 03/24/22 07:30 Resp 18 03/24/22 07:30 BP 141/65 H 03/24/22 07:30 Pulse Ox 96 03/24/22 07:30 O2 Del Method 03/24/22 07:30 O2 Flow Rate 3 03/21/22 20:37 BMI result Body Mass Index 46.7 Const: General: comfortable and no acute distress Nutritional Appearance: well nourished Orientation/consciousness: patient oriented x3 Limitations: no limitations HEENT: Head: Yes normal to inspection, Yes normocephalic and Yes atraumatic Neck: Neck: Yes full ROM and Yes no JVD Chest: Other: Bilateral mastectomy incisions are clean, dry, and intact without redness or discharge. Jorge-Mcdowell drains are producing serous output. GI: Inspection: Yes normal to inspection Skin: General skin exam: no rashes or lesions noted Neuro: General: patient oriented x3 Extrem: General: Yes no clubbing, cyanosis or edema DS: Data Data Completed and Pending Completed studies during hospitalization [Text1]: Procedures Excision of Left Axillary Lymphatic, Open Approach, Diagnostic (03/21/22) Resection of Bilateral Breast, Open Approach (03/21/22) Pending studies at discharge: Pending at discharge 03/21/22 14:46 Surgical [PTH] Routine Discharge Plan Discharge Patient Disposition: Home Health Service Discharge Diagnosis: Left breast Invasive Ductal Ca Referrals: Cony ROSSI [Outside] - 1 Day ([facility] VISITING NURSE FOR TEACGING FOR DRESSING CHNGES AND CARE OF THE 2 J-P DRAINS, MEDICATION RECONCLATION. TRANSPORTATION FAMILY PCP KIM HARR[facility] TO [facility];; FOR POST HOSPITLA DISCHARGE FOLLOW UP TRANSPORTATION FAMILY SURGICAL FOLLOW UP PER HOSITAL DISCHARGE INSTRUCTIONS ) Perla Joyce NP [Primary Care Provider] - 1 Week Andrea Henry MD [Physician] - 1 Week Discharge Medications: New oxycodone 5 mg tablet 5 mg PO Q6H PRN (Reason: pain (scale score 7-10)) Qty: 15 0RF Rx Instructions: Partial Fill upon patient request. Continued (DME) pen needle, diabetic [BD Lesley 2nd Gen Pen Needle] 32 gauge x 5/32 needle See Rx Instructions .ROUTE QID Qty: 50 Rx Instructions: As directed Lantus Solostar U-100 Insulin 100 unit/mL (3 mL) insulin pen 60 unit subcut QPM Trulicity 0.75 mg/0.5 mL pen injector 0.75 mg subcut QWEEK metoprolol tartrate 25 mg tablet 25 mg PO BID insulin lispro 100 unit/mL insulin pen 43 unit subcut TID gabapentin 300 mg capsule 300 mg PO QPM atorvastatin 80 mg tablet 80 mg PO BEDTIME topiramate 25 mg tablet 25 mg PO DAILY (DME) lancets [FreeStyle Lancets] 28 gauge misc See Rx Instructions topical TID Qty: 100 Rx Instructions: As directed omeprazole 20 mg capsule,delayed release(DR/EC) 20 mg PO DAILY Discontinued losartan 50 mg tablet 50 mg PO DAILY Discharge Orders: Discharge Order (Routine); Ordered 03/24/22 Ordered By: Andrea Henry Diet: Diabetic diet Activity on Discharge: No heavy lifting Stand Alone Forms: Patient Portal Discharge page Print Language: German Other Ambulatory Orders: Complete Blood Count no Diff (Routine) Timeframe: 2 Days Facility: [facility] - Location: Laboratory Ordered By: Andrea Henry Activity Restrictions/Additional Instructions: Change dressing every other day with ABD pads x 4, drain sponges x 2, paper tape and 6 inch Orion Bandage Empty Drain and record daily output Avoid heavy lifting with arms Follow up in office in one week for wound check. Bring record of drain output to office CBC in 2 days. Avoid aspirin and motrin/ibuprophen hold losartan due to sascha/hyperkalemia -check bmp in 1 week-further use of losartan outpatient as per pcp. Care Plan Goals: return to normal activity and function Health Concerns: Left breast cancer Plan of Treatment: Bilateral mastectomy, left sentinel node biopsy Assessment: Invasive ductal carcinoma left breast Patient Instructions: Mastectomy (DC) Discharge Date/Time: 03/24/22 12:39
--- NOTE | 2022-03-30 13:36 | P.CDIR_ITS ---
Documented by User: Nina Rodriguez RN 03/30/22 13:40 Retrospective Query PHYSICIAN'S DOCUMENTATION REQUEST Date of Query: 03/30/22 1331 Patient Name: Halina Kevin Admit Date: 03/21/22 Dear Doctor, A review of the medical record indicates additional documentation may be needed. Please review below and update the documentation accordingly. Clinical Indicators: Risk Factors/Clinical Indicators/Treatments H/H on 03/21/22: 14.5/45.5 H/H on 03/24/22: 8.6/27.6 Per Discharge Summary 03/25/22: Her hemoglobin hematocrit gradually drifted downward because of the drain output as well as IV hydration. On postoperative day 3 the output became more serous. Discharge diagnosis: Anemia Based on the above, could you clarify in the Progress Notes which of the following is the most likely type of anemia you are evaluating, treating, and/or monitoring? * Acute blood loss anemia * Postoperative anemia due to acute blood loss anemia * Other ? please specify * Unable to determine Use of terms such as suspected, likely, concern for, or probable (associated with a specific diagnosis that is being evaluated, monitored, or treated as if it exists) are acceptable and can be coded in the inpatient setting, when docu mented at the time of discharge. Thank you, Nina Rodriguez RN Extension: [phone] Please use your independent medical judgment in providing your response. THIS QUERY IS PART OF THE PERMANENT MEDICAL RECORD Documented by User: Andrea Henry MD 03/31/22 08:19 Retrospective Query Provider Response: Other (Postoperative anemia due to acute blood loss anemia)
== END 2022-03-24 12:39 | disposition home health service (06) | DRG 362 ==
LOC: HO.SSSA 12:49 → HO.S3 14:48
PROVIDERS: Nurse Practitioner; Admitting Provider Surgery; PCP Registered Nurse Community Health; Responsible Provider Internal Medicine; Visit Provider Surgery
PROC: 0HTV0ZZ Resection of Bilateral Breast, Open Approach (ICD-10-PCS; CPT 19303; principal; 2022-03-21 11:20)
PROC: 0HTV0ZZ Resection of Bilateral Breast, Open Approach (ICD-10-PCS; CPT 19301; 2022-03-21 11:20)
DX: D05.12 Intraductal carcinoma in situ of left breast (principal); N17.9 Acute kidney failure, unspecified; D62 Acute posthemorrhagic anemia; E87.1 Hypo-osmolality and hyponatremia; E11.8 Type 2 diabetes mellitus with unspecified complications; E78.00 Pure hypercholesterolemia, unspecified; K21.9 Gastro-esophageal reflux disease without esophagitis; I10 Essential (primary) hypertension; D64.9 Anemia, unspecified; E66.01 Morbid (severe) obesity due to excess calories; Z68.42 Body mass index [BMI] 45.0-49.9, adult; E87.5 Hyperkalemia; Z20.822 Contact with and (suspected) exposure to COVID-19; Z79.4 Long term (current) use of insulin; Z79.899 Other long term (current) drug therapy
CPT/HCPCS: 36415; 78195; 80048; 82947; 85025; 85027; 85610; 86850; 86900; 86901; 87635; 88307; 88342; 93005; A9520; J0131; J0690; J2270; J2405; J3010

== ENCOUNTER 2022-03-26 07:18 | Outpatient (REF) | payer MEDICAID, SELFPAY ==
[2022-03-26 07:31] LABS: MANUAL DIFF FLAG NO
[2022-03-26 07:40] LABS: Basophils Percent Auto 0.3 % (0-2); Eosinophils Absolute Auto 0.4 X10*3/uL (0.0-0.4); Hematocrit 29.2 % (37.0-47.0); Hemoglobin 9.3 g/dl (12.0-16.0); Imm Gran Abs Auto 0.04 X10*3/uL (0.00-0.03); Imm Gran Pct Auto 0.4 % (0.0-0.4); Lymphocytes Absolute Auto 2.8 X10*3/uL (1.2-4.9); Lymphocytes Percent Auto 27.9 % (20-40); Mean Corpuscular HGB Conc 31.8 g/dl (31.0-35.0); Mean Corpuscular Hemoglobin 30.4 pg (27.0-33.0); Mean Corpuscular Volume 95.4 fL (80.0-98.0); Monocytes Absolute Auto 0.7 X10*3/uL (0.1-1.2); Monocytes Percent Auto 6.7 % (2-11); Neutrophils Percent Auto 60.7 % (45-73); Platelet Count 258 X10*3/uL (160-400); Red Blood Count 3.06 X10*6/uL (4.20-5.50); Red Cell Distribution Width 12.3 % (11.0-16.0); White Blood Count 9.9 X10*3/uL (4.8-10.8)
== END 2022-03-26 07:19 | disposition home or self-care (01) ==
LOC: HO.LAB 07:18
PROVIDERS: PCP Registered Nurse Community Health; Visit Provider Surgery
DX: Z13.89 Encounter for screening for other disorder (principal)
CPT/HCPCS: 36415; 85025

== ENCOUNTER 2022-03-31 08:11 | Outpatient (REF) | payer MEDICAID, SELFPAY ==
[2022-03-31 08:23] LABS: MANUAL DIFF FLAG NO
[2022-03-31 08:51] LABS: Basophils Percent Auto 0.4 % (0-2); Eosinophils Absolute Auto 0.3 X10*3/uL (0.0-0.4); Eosinophils Percent Auto 4.3 % (0-4); Hematocrit 31.3 % (37.0-47.0); Imm Gran Abs Auto 0.04 X10*3/uL (0.00-0.03); Imm Gran Pct Auto 0.5 % (0.0-0.4); Lymphocytes Absolute Auto 2.1 X10*3/uL (1.2-4.9); Lymphocytes Percent Auto 26.5 % (20-40); Mean Corpuscular HGB Conc 31.9 g/dl (31.0-35.0); Mean Corpuscular Hemoglobin 30.6 pg (27.0-33.0); Mean Corpuscular Volume 95.7 fL (80.0-98.0); Mean Platelet Volume 10.9 fL (9.4-12.3); Monocytes Absolute Auto 0.5 X10*3/uL (0.1-1.2); Monocytes Percent Auto 6.5 % (2-11); Neutrophils Absolute Auto 4.9 x10*3/uL (2.0-8.3); Neutrophils Percent Auto 61.8 % (45-73); Platelet Count 336 X10*3/uL (160-400); Red Blood Count 3.27 X10*6/uL (4.20-5.50); Red Cell Distribution Width 13.2 % (11.0-16.0)
[2022-03-31 09:30] LABS: Anion Gap 10 (12-20); Blood Urea Nitrogen 15 mg/dL (9-16); Carbon Dioxide 27 mmol/L (22-29); Chloride 103 mmol/L (96-108); Estimated Glomerular Filt Rate > 60; Glucose Random 352 mg/dL (60-115); Potassium 4.4 mmol/L (3.3-5.1); Sodium 136 mmol/L (135-145)
== END 2022-03-31 08:12 | disposition home or self-care (01) ==
LOC: HO.LAB 08:11
PROVIDERS: PCP Registered Nurse Community Health; Visit Provider Surgery
DX: C50.912 Malignant neoplasm of unspecified site of left female breast (principal); D64.9 Anemia, unspecified
CPT/HCPCS: 36415; 80048; 85025; 99212

== ENCOUNTER 2022-04-08 09:55 | Outpatient (REF) | payer MEDICAID, SELFPAY ==
--- NOTE | ~2022-04-08 | MM_ITS ---
EXAMINATION: BONE DENSITOMETRY CLINICAL INDICATION: Prechemotherapy evaluation. COMPARISON: None (current study represents initial baseline exam). TECHNIQUE: Using a [employer] DXA System (software version: 13.1) manufactured by [employer], dual-energy x-ray absorptiometry was performed of the lumbar spine and left hip. The images are of good technical quality. Summary results are attached. FINDINGS: AP SPINE L1-L4: BMD 1.022 g/cm2, Z-score -1.2, T-score -1.3, osteopenia. LEFT FEMUR, NECK: BMD 0.621 g/cm2, Z-score -2.5, T-score -3.0, osteoporosis. LEFT FEMUR, TOTAL: BMD 0.640 g/cm2, Z-score -2.8, T-score -2.9, osteoporosis. IDENTIFIED RISK FACTORS: Menopause, secondary osteoporosis. HISTORY OF FRACTURE: None listed. MEDICATIONS: Vitamin D. MM/XR DEXA axial skeleton IMPRESSION: 1. DIAGNOSIS: Osteoporosis based on the lowest T-score value of -3.0 in the femoral neck applying World Health Organization criteria. 2. 10-YEAR FRACTURE RISK PREDICTION, FRAX: According to the guidelines, FRAX calculation should only be performed on patients in the osteopenia bone density category. Therefore, FRAX was not performed on this patient. 3. Treatment Recommendations: NOF guidelines recommend consideration for treatment in postmenopausal women and men age 50 and older presenting with the following: -A hip or vertebral (clinical or morphometric) fracture. -T-score less than or equal to -2.5 at the femoral neck or spine after appropriate evaluation to exclude secondary causes. -Low bone mass at the hip or spine and a 10-year fracture probability by FRAX of greater than or equal to 3% for hip fracture or greater than or equal to 20% for major osteoporotic fracture based on the [place] adapted WHO algorithm. 4. Other Recommendations: All treatment decisions require clinical judgment and consideration of individual patient factors, including patient preferences, comorbidities, previous drug use, risk factors not captured in the FRAX model (e.g. frailty, falls, vitamin D deficiency, increased bone turnover, interval significant decline in bone density) and possible under or overestimation of fracture risk by FRAX. Additional medical evaluation for secondary cause of low bone mineral density may be appropriate. FUTURE SCAN RECOMMENDATION: People with diagnosed cases of osteoporosis or at high risk for fracture should have regular bone mineral density tests. For patients eligible for Medicare, routine testing is allowed once every 2 years. The testing frequency can be increased to one year for patients who have rapidly progressing disease, those who are receiving or discontinuing medical therapy to restore bone mass, or have additional risk factors.
== END 2022-04-08 09:56 | disposition home or self-care (01) ==
LOC: HO.MAMMO 09:55
PROVIDERS: Visit Provider Registered Nurse Community Health
DX: Z13.820 Encounter for screening for osteoporosis (principal); C50.912 Malignant neoplasm of unspecified site of left female breast; Z78.0 Asymptomatic menopausal state
CPT/HCPCS: 77080

== ENCOUNTER 2022-04-14 17:16 | Inpatient (IN) | payer MEDICAID, SELFPAY ==
--- NOTE | ~2022-04-14 | CT_ITS ---
EXAMINATION: CT CHEST and CTA CHEST PE STUDY CLINICAL INFORMATION: Post bilateral mastectomy. Tachycardia and fevers COMPARISON: None TECHNIQUE: Prior to contrast administration, localization images were obtained in standard nonenhanced CT scan was performed. After the administration of 75 mL of Optiray 350 nonionic IV contrast, contiguous axial images were obtained through the thorax. Reformatted images in the coronal and sagittal planes were obtained at the acquisition workstation. This CT examination was performed using dose optimization techniques as appropriate, variously including the following: *Automated exposure control *Adjustment of mA and/or kV according to patient size (this includes techniques or standardized protocols for targeted exams where dose is matched to indication/reason for exam; i.e. extremities or head) *Use of iterative reconstruction technique DLP: 453 mGy-cm FINDINGS: The bolus timing on this study was acceptable for visualization of the pulmonary arterial tree. There are no intraluminal pulmonary arterial filling defects present to suggest pulmonary embolism. The lungs are clear. No abnormal pulmonary nodules or masses are appreciated. There is no evidence of pleural effusion or pneumothorax. The heart is normal in size. The mediastinum and great vessels are normal. There is no pericardial effusion or lymphadenopathy. Imaging of the chest wall demonstrates defects consistent with recent surgery with overlying skin thickening. There are fluid collections partially imaged within both chest w curry favoring postoperative seromas. They measure up to approximately 15 cm longitudinally on the left and 11.3 x 4.8 cm transaxially and slightly smaller on the right. Coarse calcification incidentally noted left thyroid gland. No axillary abnormality. Limited evaluation of the upper abdominal viscera demonstrates normal adrenal glands. No focal lesion. No bony abnormality. CT/CT angio chest PE protocol IMPRESSION: No evidence for acute or chronic pulmonary embolism. No infiltrate. No evidence for any metastatic disease. Post surgical changes in the chest wall with fluid collections as above partially imaged..
--- NOTE | ~2022-04-14 | XR_ITS ---
EXAMINATION: XR CHEST CLINICAL INFORMATION: Shortness of breath COMPARISON: CT chest 04/14/2022, 7:43 PM TECHNIQUE: Frontal view of the chest was obtained. 6:18 PM FINDINGS: No significant abnormality is noted involving the heart, lungs, mediastinum, bony thorax or soft tissues. XR/XR chest 1V IMPRESSION: Unremarkable examination.
--- NOTE | 2022-04-14 07:18 | ECG_ITS ---
Test Reason : SEPSIS REPEAT Blood Pressure : / mmHG Vent. Rate : 092 BPM Atrial Rate : 092 BPM P-R Int : 180 ms QRS Dur : 104 ms QT Int : 352 ms P-R-T Axes : 020 -11 110 degrees QTc Int : 435 ms Normal sinus rhythm Nonspecific T wave abnormality Abnormal ECG When compared with ECG of 14-APR-2022 21:51, No significant change was found Referred By: Kylee Bonner Electronically Signed By:Dariel Villeda
[2022-04-14 17:26] VITALS: BP 121/69; BP 75/35; PULSE 125; PULSE 130; RESP 24; TEMP 39; O2SAT 94; O2SAT 95; BMI 45.6
--- NOTE | 2022-04-14 17:32 | ED_ITS ---
HPI - Fever General Chief Complaint: Skin/Abscess/Foreign Body Stated Complaint: ? Sepsis Time Seen by Provider: 04/14/22 20:19 Source: patient and EMS Mode of arrival: EMS Limitations: language barrier History of Present Illness HPI Narrative: 61-year-old female presents via EMS for fevers, purulent drainage from bilateral mastectomy sites, and overall feeling of unwellness. Patient states to be fatigued, and has pain in her chest. She had bilateral mastectomy on 03/23/2022 at this facility for breast cancer. Patient does not take hormones, is not on chemo therapeutics, is an insulin-dependent diabetic. Patient presents with a fever of 102, heart rate of 125, RR of 24. MD elicited complaint: fever, malaise and weakness Pertinent past history: immunosuppression and other (Bilateral mastectomy 03/23/2022) Onset (ago): day(s) (1) Context: recent procedure Exacerbating factors: nothing Relieving factors: nothing Associated symptoms: chills Treatments prior to arrival fever: none Related Data Home Medications Medication Instructions Recorded Confirmed dulaglutide 0.75 mg/0.5 mL 0.75 mg subcut QWEEK 02/15/22 04/14/22 subcutaneous pen injector (Trulicity) gabapentin 300 mg capsule 300 mg PO QPM 02/15/22 04/14/22 insulin glargine 100 unit/mL (3 60 unit subcut QPM 02/15/22 04/14/22 mL) subcutaneous pen (Lantus Solostar U-100 Insulin) insulin lispro 100 unit/mL 43 unit subcut TID 02/15/22 04/14/22 subcutaneous pen lancets 28 gauge (FreeStyle #100 ea 02/15/22 04/14/22 Lancets) metoprolol tartrate 25 mg tablet 25 mg PO BID 02/15/22 04/14/22 omeprazole 20 mg capsule,delayed 20 mg PO DAILY 02/15/22 04/14/22 release pen needle, diabetic 32 gauge x #50 ea 02/15/22 04/14/22 (BD Lesley 2nd Gen Pen Needle) topiramate 25 mg tablet 25 mg PO DAILY 02/15/22 04/14/22 atorvastatin 80 mg tablet 1 tab PO BEDTIME 04/14/22 04/14/22 losartan 50 mg tablet 1 tab DAILY 04/14/22 04/14/22 Previous Rx's Medication Instructions Recorded oxycodone 5 mg tablet 5 mg PO Q6H PRN pain (scale score 03/24/22 7-10) #15 tabs Allergies Allergy/AdvReac Type Severity Reaction Status Date / Time turkey Allergy Severe chest Unverified 04/11/22 14:56 pain/swelling/SOB/itching Review of Systems Review of Systems: Constitutional: Positive Fever, positive Chills, positive malaise ENT/Mouth: No Ear Pain, No Hoarseness, No sore throat Eyes: No Eye Pain, No Swelling, No Redness, No Foreign Body Cardiovascular: Positive Chest Pain, No SOB Respiratory: No Cough, positive Dyspnea Gastrointestinal: No Nausea, No Vomiting, No Diarrhea, No abdominal Pain Genitourinary: No Dysuria, No Hematuria Musculoskeletal: positive chest wall pain, No Myalgias, No Joint Swelling Skin: Positive bilateral mastectomy surgical incisions with purulent drainage from the site. Neuro: No Weakness, No Numbness, No Paresthesias, No Loss of Consciousness, No Dizziness, No Headache Psych: No Anxiety/Panic, No Depression Heme/Lymph: no easy bruising, no Lymphadenopathy Endocrine: No Polyuria, No Polydipsia Yes all other systems are reviewed and are negative PMFSH Past Medical History Attestation statement: The following information was validated with the patient. Source: old records reviewed Medical History Asthma COVID-19 vaccine series completed Diabetes GERD (gastroesophageal reflux disease) HTN (hypertension) Hypercholesteremia Invasive ductal carcinoma of left breast Seroma of breast Surgical History History of bilateral mastectomy (03/21/22) History of delivery History of cholecystectomy Family History Family History Mother Breast cancer, Onset Age: 58 Sister Breast cancer, Onset Age: 54 Social History Social History Household Members: Spouse and Children Housing: Apartment Housing Other:: [facility] Are you a primary hiv/aids care nurse to a significant other at home: No Do you presently have visiting nurse or other home services: No Alcohol intake: never Patient Tobacco Use Status: Never used Tobacco Advance Directives: No Advance Directives Information Provided: No service: No Current occupational status: employed Physical Exam Vital Signs: Vital Signs: Last Vital Signs Temp 99.3 F 04/14/22 19:06 Pulse 90 04/14/22 22:14 Resp 17 04/14/22 22:14 BP 99/42 L 04/14/22 22:14 Pulse Ox 95 04/14/22 22:14 O2 Del Method 04/14/22 22:14 BMI result Body Mass Index 45.6 Appearance: Alert. Oriented X3. Appears ill. Fatigued. Febrile. Eyes: Pupils equal, round and reactive to light. EOMI. Sclera nonicteric. ENT: Pharynx normal. Dry mucous membranes. Neck: Normal inspection. Neck supple. No nuchal rigidity or step-offs. CVS: Tachycardic heart rate and rhythm. Chest wall tenderness to palpation Respiratory: Moderate respiratory distress. Tachypneic at 24 breaths per minute, lung sounds clear. Abdomen: Soft and nontender. Obese. Skin: Surgical incisions to bilateral breasts, no crepitus noted to the skin over the chest wall. Skin warm and dry. Normal skin color. Normal skin turgor. Extremities: No lower extremity edema. Moves all extremities against resistance. Neuro: No motor deficit. No sensory deficit. Cranial nerves 2-12 intact. Course Course Course Narrative: 61-year-old female presents via EMS for suspicion of sepsis. Patient is 1 month status post bilateral mastectomy for breast cancer, procedure was done here by Dr. Henry. States that the medial portions of her incisions have been draining for few days, but she has had fevers fatigue and weakness for approximately 1 day. She is not on any chemo therapeutics, is an insulin- dependent diabetic. 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 Sepsis alert called at this time. Will order CT scan chest with PE study to rule out embolus, wells PE score 6, heart score 3. 17:35 sepsis alert called. 18:21 lactic 4.0, white count 9.7. Troponin 11.9. Patient is hemodynamically stable at this time. Continues to be alert oriented x4, neurovascularly intact. 18:45 2nd troponin ordered. 19:00 nursing reports patient reporting 15/10 chest wall pain. Order for Zofran and morphine. [address] Hinton via tiger text, S patient was seen by Dr. Garrett is approximately 3 days ago with a negative physical exam. Plan care is to admit to hospitalist with surgical follow-up in the morning. 21:22 discussion with hospitalist regarding plan to admit for sepsis. Consultations Consultation #1: Dr. Hinton Time: 21:13 Consultation #2: Dr. Kraft Time: 21:22 MDM - Fever MDM Narrative Medical decision making narrative: PE, surgical infection Differential Diagnosis Differential diagnosis: Likely cellulitis, community acquired pneumonia and sepsis Medical Records Attestation: I reviewed the patient's medical records. Lab Data Attestation: I reviewed the patient's lab results. Result diagrams: 04/14/22 17:49 04/14/22 18:08 Labs: Lab Results 04/14/22 04/14/22 04/14/22 Range/Units 17:49 17:49 17:49 WBC 9.7 (4.8-10.8) X10*3/uL RBC 4.01 L D (4.20-5.50) X10*6/uL Hgb 12.0 (12.0-16.0) g/dl Hct 37.5 (37.0-47.0) % MCV 93.5 (80.0-98.0) fL MCH 29.9 (27.0-33.0) pg MCHC 32.0 (31.0-35.0) g/dl RDW 12.8 (11.0-16.0) % Plt Count 275 (160-400) X10*3/uL MPV 11.2 (9.4-12.3) fL Immature Gran % (Auto) 0.5 H (0.0-0.4) % Neut % (Auto) 88.8 H (45-73) % Lymph % (Auto) 7.8 L (20-40) % [place] % (Auto) 2.7 (2-11) % Eos % (Auto) 0.1 (0-4) % Baso % (Auto) 0.1 (0-2) % Lymph # (Auto) 0.8 L (1.2-4.9) X10*3/uL [place] # (Auto) 0.3 (0.1-1.2) X10*3/uL Eos # (Auto) 0.0 (0.0-0.4) X10*3/uL Baso # (Auto) 0.0 (0.0-0.2) X10*3/uL Abs Immat Gran (auto) 0.05 H (0.00-0.03) X10*3/uL Absolute Neuts (auto) 8.6 H (2.0-8.3) x10*3/uL Absolute Nucleated RBC 0.000 (0.0-0.012) X10*3/uL Nucleated RBC % (auto) 0.0 (0.0-0.2) /100WBC PT 13.2 H (10.0-13.1) SEC INR 1.1 (0.9-1.1) APTT 28.7 (24.1-38.0) SEC Sodium (135-145) mmol/L Potassium (3.3-5.1) mmol/L Chloride (96-108) mmol/L Carbon Dioxide (22-29) mmol/L Anion Gap (12-20) BUN (9-16) mg/dL Creatinine (0.5-1.4) mg/dL Estim Creat Clear Calc Estimated GFR POC Glucose (60-115) mg/dL Random Glucose (60-115) mg/dL Lactic Acid 4.0 H* (0.5-2.0) mmol/L Calcium (8.4-10.2) mg/dL Magnesium (1.6-2.6) mg/dL Total Bilirubin (0.0-1.0) mg/dL Direct Bilirubin (0.0-0.5) mg/dL AST (5-31) U/L ALT (0-31) U/L Alkaline Phosphatase (39-117) U/L Troponin I High Sens (<3.5-17.0) ng/L B-Natriuretic Peptide (<100) pg/mL Total Protein (6.5-8.0) g/dL Albumin (3.5-5.0) g/dL Lipase (8-78) U/L Influenza Type A (PCR) (Negative) Influenza Type B (PCR) (Negative) RSV RNA Qual (PCR) (Negative) SARS-CoV-2 RNA (RT-PCR) (Negative) 04/14/22 04/14/22 04/14/22 Range/Units 17:49 18:07 18:08 WBC (4.8-10.8) X10*3/uL RBC (4.20-5.50) X10*6/uL Hgb (12.0-16.0) g/dl Hct (37.0-47.0) % MCV (80.0-98.0) fL MCH (27.0-33.0) pg MCHC (31.0-35.0) g/dl RDW (11.0-16.0) % Plt Count (160-400) X10*3/uL MPV (9.4-12.3) fL Immature Gran % (Auto) (0.0-0.4) % Neut % (Auto) (45-73) % Lymph % (Auto) (20-40) % [place] % (Auto) (2-11) % Eos % (Auto) (0-4) % Baso % (Auto) (0-2) % Lymph # (Auto) (1.2-4.9) X10*3/uL [place] # (Auto) (0.1-1.2) X10*3/uL Eos # (Auto) (0.0-0.4) X10*3/uL Baso # (Auto) (0.0-0.2) X10*3/uL Abs Immat Gran (auto) (0.00-0.03) X10*3/uL Absolute Neuts (auto) (2.0-8.3) x10*3/uL Absolute Nucleated RBC (0.0-0.012) X10*3/uL Nucleated RBC % (auto) (0.0-0.2) /100WBC PT (10.0-13.1) SEC INR (0.9-1.1) APTT (24.1-38.0) SEC Sodium 135 (135-145) mmol/L Potassium 3.6 (3.3-5.1) mmol/L Chloride 105 (96-108) mmol/L Carbon Dioxide 19 L (22-29) mmol/L Anion Gap 15 (12-20) BUN 12 (9-16) mg/dL Creatinine 1.03 (0.5-1.4) mg/dL Estim Creat Clear Calc 74.3 Estimated GFR 55 POC Glucose (60-115) mg/dL Random Glucose 147 H (60-115) mg/dL Lactic Acid (0.5-2.0) mmol/L Calcium 8.7 (8.4-10.2) mg/dL Magnesium 1.6 (1.6-2.6) mg/dL Total Bilirubin 0.8 (0.0-1.0) mg/dL Direct Bilirubin 0.4 (0.0-0.5) mg/dL AST 13 (5-31) U/L ALT 10 (0-31) U/L Alkaline Phosphatase 91 (39-117) U/L Troponin I High Sens 11.9 (<3.5-17.0) ng/L B-Natriuretic Peptide 28 (<100) pg/mL Total Protein 7.3 (6.5-8.0) g/dL Albumin 3.8 (3.5-5.0) g/dL Lipase 5 L (8-78) U/L Influenza Type A (PCR) NEGATIVE (Negative) Influenza Type B (PCR) NEGATIVE (Negative) RSV RNA Qual (PCR) NEGATIVE (Negative) SARS-CoV-2 RNA (RT-PCR) NEGATIVE (Negative) 04/14/22 04/14/22 04/14/22 Range/Units 19:45 19:46 21:35 WBC (4.8-10.8) X10*3/uL RBC (4.20-5.50) X10*6/uL Hgb (12.0-16.0) g/dl Hct (37.0-47.0) % MCV (80.0-98.0) fL MCH (27.0-33.0) pg MCHC (31.0-35.0) g/dl RDW (11.0-16.0) % Plt Count (160-400) X10*3/uL MPV (9.4-12.3) fL Immature Gran % (Auto) (0.0-0.4) % Neut % (Auto) (45-73) % Lymph % (Auto) (20-40) % [place] % (Auto) (2-11) % Eos % (Auto) (0-4) % Baso % (Auto) (0-2) % Lymph # (Auto) (1.2-4.9) X10*3/uL [place] # (Auto) (0.1-1.2) X10*3/uL Eos # (Auto) (0.0-0.4) X10*3/uL Baso # (Auto) (0.0-0.2) X10*3/uL Abs Immat Gran (auto) (0.00-0.03) X10*3/uL Absolute Neuts (auto) (2.0-8.3) x10*3/uL Absolute Nucleated RBC (0.0-0.012) X10*3/uL Nucleated RBC % (auto) (0.0-0.2) /100WBC PT (10.0-13.1) SEC INR (0.9-1.1) APTT (24.1-38.0) SEC Sodium (135-145) mmol/L Potassium (3.3-5.1) mmol/L Chloride (96-108) mmol/L Carbon Dioxide (22-29) mmol/L Anion Gap (12-20) BUN (9-16) mg/dL Creatinine (0.5-1.4) mg/dL Estim Creat Clear Calc Estimated GFR POC Glucose 149 H (60-115) mg/dL Random Glucose (60-115) mg/dL Lactic Acid 3.8 H* (0.5-2.0) mmol/L Calcium (8.4-10.2) mg/dL Magnesium (1.6-2.6) mg/dL Total Bilirubin (0.0-1.0) mg/dL Direct Bilirubin (0.0-0.5) mg/dL AST (5-31) U/L ALT (0-31) U/L Alkaline Phosphatase (39-117) U/L Troponin I High Sens 22.7 H D (<3.5-17.0) ng/L B-Natriuretic Peptide (<100) pg/mL Total Protein (6.5-8.0) g/dL Albumin (3.5-5.0) g/dL Lipase (8-78) U/L Influenza Type A (PCR) (Negative) Influenza Type B (PCR) (Negative) RSV RNA Qual (PCR) (Negative) SARS-CoV-2 RNA (RT-PCR) (Negative) Imaging Data Chest x-ray: Attestation: I personally reviewed and interpreted this imaging study as follows: Radiologist's impression: EXAMINATION: XR CHEST CLINICAL INFORMATION: Shortness of breath COMPARISON: CT chest 04/14/2022, 7:43 PM TECHNIQUE: Frontal view of the chest was obtained. 6:18 PM FINDINGS: No significant abnormality is noted involving the heart, lungs, mediastinum, bony thorax or soft tissues. XR/XR chest 1V IMPRESSION: Unremarkable examination. ? CT PE study: Attestation: I personally reviewed and interpreted this imaging study as follows: Radiologist's impression: EXAMINATION: CT CHEST and CTA CHEST PE STUDY CLINICAL INFORMATION: Post bilateral mastectomy. Tachycardia and fevers COMPARISON: None TECHNIQUE: Prior to contrast administration, localization images were obtained in standard nonenhanced CT scan was performed. After the administration of 75 mL of Optiray 350 nonionic IV contrast, contiguous axial images were obtained through the thorax. Reformatted images in the coronal and sagittal planes were obtained at the acquisition workstation. This CT examination was performed using dose optimization techniques as appropriate, variously including the following: *Automated exposure control *Adjustment of mA and/or kV according to patient size (this includes techniques or standardized protocols for targeted exams where dose is matched to indication/reason for exam; i.e. extremities or head) *Use of iterative reconstruction technique DLP: 453 ? mGy-cm FINDINGS: The bolus timing on this study was acceptable for visualization of the pulmonary arterial tree. There are no intraluminal pulmonary arterial filling defects present to suggest pulmonary embolism. The lungs are clear. No abnormal pulmonary nodules or masses are appreciated. There is no evidence of pleural effusion or pneumothorax. The heart is normal in size. The mediastinum and great vessels are normal. There is no pericardial effusion or lymphadenopathy. Imaging of the chest wall demonstrates defects consistent with recent surgery with overlying skin thickening. There are fluid collections partially imaged within both chest w curry favoring postoperative seromas. They measure up to approximately 15 cm longitudinally on the left and 11.3 x 4.8 cm transaxially and slightly smaller on the right. Coarse calcification incidentally noted left thyroid gland. No axillary abnormality. Limited evaluation of the upper abdominal viscera demonstrates normal adrenal glands. No focal lesion. No bony abnormality. CT/CT angio chest PE protocol IMPRESSION: No evidence for acute or chronic pulmonary embolism. ? No infiltrate. No evidence for any metastatic disease. ? Post surgical changes in the chest wall with fluid collections as above partially imaged.. ? ECG Data ECG #1: Attestation: I personally reviewed and interpreted this ECG as follows: ECG interpretation date: 04/14/22 ECG interpretation time: 17:49 Prior ECG tracings: available for review Interpretation: Vent. rate [address] interval 166 ms QRS duration 116 ms QT/QTc 326/456 ms P-R-T axes 15 -28 132 Sinus tachycardia Left ventricular hypertrophy with QRS widening ( R in aVL , Navi product ) Possible Lateral infarct , new Abnormal ECG When compared with ECG of 21-MAR-2022 09:24, Vent. rate has increased BY 49 BPM Acute Lateral infarct is now Present ECG #2: Attestation: I personally reviewed and interpreted this ECG as follows: ECG interpretation date: 04/14/22 ECG interpretation time: 21:51 Prior ECG tracings: available for review Interpretation: Vent. rate [address] interval 170 ms QRS duration 106 ms QT/QTc 338/415 ms P-R-T axes 20 -17 176 Normal sinus rhythm Moderate voltage criteria for LVH, may be normal variant ( R in aVL , [place] product ) Inferior infarct , age undetermined Possible Anterior infarct (cited on or before 14-APR-2022) T wave abnormality, consider lateral ischemia Abnormal ECG When compared with ECG of 14-APR-2022 17:49, Serial changes of evolving Anterior infarct Present ECG #3: Attestation: I personally reviewed and interpreted this ECG as follows: ECG interpretation date: 04/14/22 ECG interpretation time: 22:27 Prior ECG tracings: available for review Interpretation: Vent. rate [address] interval 180 ms QRS duration 104 ms QT/QTc 352/435 ms P-R-T axes 20 -11 110 Normal sinus rhythm Nonspecific T wave abnormality Abnormal ECG When compared with ECG of 14-APR-2022 21:51, No significant change was found Scores Heart Score History: -0- slightly suspicious ECG: -0- normal Age: -1- >45 - <65 Risk factory: -1- 1 or 2 risk factors Troponin: -1- >1 - <3x normal limit Score: 3 Risk: 1.7% Wells PE Clinical symptoms of DVT: 3 Heart rate > 100 p/min: 1.5 Immobilization or surgery within 4 weeks: 1.5 Score: 6.0 2-tier Risk: likely risk (17-53%) 3-tier Risk: high risk (78.4%) Critical Care Time Critical Care Time Critical Care Time: Yes Total Critical Care Time: 65 Attestation: I have personally provided critical care time exclusive of time spent on separately billable procedures. Time includes review of laboratory data, radiology results, discussion with consultants, and monitoring for potential decompensation. Interventions were performed as documented. Discharge Plan Discharge Clinical Impression: Sepsis Patient Disposition: Admitted As Inpatient
--- NOTE | 2022-04-14 17:32 | ECG_ITS ---
Test Reason : sepsis Blood Pressure : / mmHG Vent. Rate : 118 BPM Atrial Rate : 118 BPM P-R Int : 166 ms QRS Dur : 116 ms QT Int : 326 ms P-R-T Axes : 015 -28 132 degrees QTc Int : 456 ms Sinus tachycardia Left ventricular hypertrophy with QRS widening ( R in aVL , Navi product ) Possible Lateral infarct Abnormal ECG When compared with ECG of 21-MAR-2022 09:24, Vent. rate has increased BY 49 BPM Cannot rule out lateral infarct Referred By: Kylee Bonner Electronically Signed By:Dariel Villeda
[2022-04-14 17:59] LABS: Basophils Percent Auto 0.1 % (0-2); Eosinophils Percent Auto 0.1 % (0-4); Hematocrit 37.5 % (37.0-47.0); Imm Gran Abs Auto 0.05 X10*3/uL (0.00-0.03); Imm Gran Pct Auto 0.5 % (0.0-0.4); Lymphocytes Absolute Auto 0.8 X10*3/uL (1.2-4.9); Lymphocytes Percent Auto 7.8 % (20-40); MANUAL DIFF FLAG NO; Mean Corpuscular Hemoglobin 29.9 pg (27.0-33.0); Mean Corpuscular Volume 93.5 fL (80.0-98.0); Mean Platelet Volume 11.2 fL (9.4-12.3); Monocytes Absolute Auto 0.3 X10*3/uL (0.1-1.2); Monocytes Percent Auto 2.7 % (2-11); Neutrophils Absolute Auto 8.6 x10*3/uL (2.0-8.3); Neutrophils Percent Auto 88.8 % (45-73); Platelet Count 275 X10*3/uL (160-400); Red Blood Count 4.01 X10*6/uL (4.20-5.50); Red Cell Distribution Width 12.8 % (11.0-16.0); White Blood Count 9.7 X10*3/uL (4.8-10.8)
[2022-04-14] MEDS: Acetaminophen 325 MG TABLET 650 MG PO (18:00)
[2022-04-14 18:04] LABS: INTERNATIONAL NORM RATIO 1.1 (0.9-1.1); Prothrombin Time 13.2 SEC (10.0-13.1)
[2022-04-14 18:07] LABS: Partial Thromboplastin Time 28.7 SEC (24.1-38.0)
[2022-04-14] MEDS: cefTRIAXone sodium 1 GM in 0.9 % Sodium Chloride 50 ML IV (18:08)
[2022-04-14 18:15] VITALS: BP 107/49; PULSE 117; RESP 24
[2022-04-14 18:20] LABS: B Type Natriuretic Peptide 28 pg/mL (<100); Troponin-I High Sensitivity 11.9 ng/L (<3.5-17.0)
[2022-04-14 18:38] LABS: Alanine Aminotransferase 10 U/L (0-31); Albumin Level 3.8 g/dL (3.5-5.0); Alkaline Phosphatase 91 U/L (39-117); Anion Gap 15 (12-20); Aspartate Amino Transferase 13 U/L (5-31); Bilirubin Direct 0.4 mg/dL (0.0-0.5); Bilirubin Total 0.8 mg/dL (0.0-1.0); Blood Urea Nitrogen 12 mg/dL (9-16); Calcium 8.7 mg/dL (8.4-10.2); Carbon Dioxide 19 mmol/L (22-29); Chloride 105 mmol/L (96-108); Creatinine Clr Calc Pharmacy 74.3; Estimated Glomerular Filt Rate 55; Glucose Random 147 mg/dL (60-115); Lipase 5 U/L (8-78); Magnesium 1.6 mg/dL (1.6-2.6); Potassium 3.6 mmol/L (3.3-5.1); Sodium 135 mmol/L (135-145); Total Protein 7.3 g/dL (6.5-8.0)
[2022-04-14 18:52] LABS: Influenza A PCR NEGATIVE (Negative); Influenza B PCR NEGATIVE (Negative); Resp Syncy Virus RNA Qual PCR NEGATIVE (Negative); SARS COV2 PCR INHOUSE NEGATIVE (Negative)
[2022-04-14 19:06] VITALS: BP 118/68; PULSE 104; RESP 14; TEMP 37.4; O2SAT 96
[2022-04-14] MEDS: Morphine Sulfate 4 MG/ML CARTRIDGE IVPUSH (19:19)
[2022-04-14] MEDS: ondansetron HCL 4 MG/2 ML VIAL IVPUSH (19:20)
[2022-04-14] MEDS: iohexoL 350 MG/ML 100 ML INFUS..BTL IV (19:45)
[2022-04-14 19:55] LABS: Reflex Lactate? Lactic Acid Added
[2022-04-14 20:19] LABS: Lactic Acid 3.8 mmol/L (0.5-2.0)
[2022-04-14 20:19] LABS: Troponin-I High Sensitivity 22.7 ng/L (<3.5-17.0)
--- NOTE | 2022-04-14 21:26 | PHA.MEDREC ---
Pharmacy Consult ? Medication Reconciliation Pharmacy has completed the medication reconciliation.
[2022-04-14 21:40] LABS: Glucose, Whole Blood 149 mg/dL (60-115)
--- NOTE | 2022-04-14 21:44 | ECG_ITS ---
Test Reason : cx pain Blood Pressure : / mmHG Vent. Rate : 091 BPM Atrial Rate : 091 BPM P-R Int : 170 ms QRS Dur : 106 ms QT Int : 338 ms P-R-T Axes : 020 -17 176 degrees QTc Int : 415 ms Normal sinus rhythm Moderate voltage criteria for LVH, may be normal variant ( R in aVL , Navi product ) Inferior infarct , age undetermined Possible Anterior infarct (cited on or before 14-APR-2022) T wave abnormality, consider lateral ischemia Abnormal ECG When compared with ECG of 14-APR-2022 17:49, Poor R waves progression Referred By: Kylee Bonner Electronically Signed By:Dariel Villeda
[2022-04-14 21:51] LABS: Reflex Lactate? Lactic Acid Added
[2022-04-14] MEDS: Piperacillin Sodium/Tazobactam 3.375 GM in 0.9 % Sodium Chloride 50 ML IV (22:07)
[2022-04-14 22:14] VITALS: BP 99/42; PULSE 90; RESP 17; O2SAT 95
--- NOTE | 2022-04-14 22:55 | P.HPHOSP_ITS ---
History of Present Illness Date of Service: 04/14/22 Chief Complaint: Pain at the surgical incision site 61-year-old female with a past medical history of hypertension, hyperlipidemia, diabetes, history of breast cancer-status post bilateral mastectomy on 03/21/2022; history of GERD, asthma presented to the hospital today with a chief complaint of pain at the surgical incision site. Patient reports that she has been having pain at the bilateral surgical incision sites for the past 2 days. Reports subjective fevers. Reports pain worsens on movement. Denies any cough or sputum production. Reports the pain is sharp in nature. Review of all other systems is negative except mentioned above ER course: Per ER team patient noted to have mild discharge of the with mentions that; CT chest showed no evidence of pulmonary embolism; noted to have serum at the surgical sites. Patient was given IV antibiotics. ER team also note by General surgery hyper no acute intervention recommended for tonight. Admitted for further management. Patient initially positive for sepsis and received IV fluids per sepsis protocol. [facility] Medical History Asthma COVID-19 vaccine series completed Diabetes GERD (gastroesophageal reflux disease) HTN (hypertension) Hypercholesteremia Invasive ductal carcinoma of left breast Seroma of breast Family History Mother Breast cancer, Onset Age: 58 Sister Breast cancer, Onset Age: 54 Surgical History History of bilateral mastectomy (03/21/22) History of delivery History of cholecystectomy Social History Household Members: Spouse and Children Housing: Apartment Housing Other:: [facility] Are you a primary director of career resources to a significant other at home: No Do you presently have visiting nurse or other home services: No Alcohol intake: never Patient Tobacco Use Status: Never used Tobacco Advance Directives: No Advance Directives Information Provided: No service: No Current occupational status: employed Meds Allergies Allergy/AdvReac Type Severity Reaction Status Date / Time turkey Allergy Severe chest Unverified 04/11/22 14:56 pain/swelling/SOB/itching Active Medications: Current Medications Acetaminophen (Acetaminophen 325 Mg Tablet) 650 mg PO Q6H PRN PRN Reason: Pain, Mild (Pain Scale 1-3) Dextrose (Dextrose 50 % 25 Gm/50 Ml Syringe) 25 gm IVPUSH Q15M PRN; Protocol PRN Reason: per Hypoglycemia Standing Ord. Enoxaparin Sodium (Enoxaparin Sodium 40 Mg/0.4 Ml Syringe) 40 mg SUBCUT Q24H VIKTORIA Glucose (Glucose Gel 15 Gm Gel..Gram.) 15 gm PO Q15M PRN; Protocol PRN Reason: per Hypoglycemia Standing Ord. Hydromorphone HCl (Hydromorphone Hcl 0.5 Mg/0.5 Ml Syringe) 0.5 mg IVPUSH Q4H PRN; Protocol PRN Reason: Pain, Severe (Pain Scale 7-10) Vancomycin HCl () 2,000 mg in 520 mls @ 260 mls/hr IV ONCE ONE Stop: 04/14/22 23:59 Last Admin: 04/14/22 22:11 Dose: 260 mls/hr Insulin Glargine (Insulin Glargine,Hum.Rec.Anlog 100 Unit/Ml 10 Ml Vial) 20 unit SUBCUT BID VIKTORIA Insulin Human Lispro (Insulin Lispro 100 Unit/Ml 3 Ml Vial) 0 unit SUBCUT QIDACHS [facility]; Protocol Melatonin (Melatonin 3 Mg Tablet) 6 mg PO BEDTIME PRN PRN Reason: Insomnia Pharmacy Consult (Consult Rx Vancomycin Dosing) 1 each MISCELLANE DAILY PRN PRN Reason: Consult order Senna (Sennosides 8.6 Mg Tablet) 17.2 mg PO BEDTIME PRN PRN Reason: Constipation Sodium Chloride (0.9 % Sodium Chloride Flush 3 Ml Syringe) 3 ml IVFLUSH QSHIFT [facility] Home Medications Medication Instructions Recorded Confirmed Last Taken Type dulaglutide 0.75 mg/0.5 mL 0.75 mg subcut QWEEK 02/15/22 04/14/22 03/20/22 History subcutaneous pen injector ([facility]) gabapentin 300 mg capsule 300 mg PO QPM 02/15/22 04/14/22 03/20/22 History insulin glargine 100 unit/mL (3 60 unit subcut QPM 02/15/22 04/14/22 03/20/22 History mL) subcutaneous pen (Lantus Solostar U-100 Insulin) insulin lispro 100 unit/mL 43 unit subcut TID 02/15/22 04/14/22 03/20/22 History subcutaneous pen lancets 28 gauge (FreeStyle #100 ea 02/15/22 04/14/22 03/20/22 History Lancets) metoprolol tartrate 25 mg tablet 25 mg PO BID 02/15/22 04/14/22 03/20/22 History omeprazole 20 mg capsule,delayed 20 mg PO DAILY 02/15/22 04/14/22 03/20/22 History release pen needle, diabetic 32 gauge x #50 ea 02/15/22 04/14/22 03/20/22 History 5/32 (BD Lesley 2nd Gen Pen Needle) topiramate 25 mg tablet 25 mg PO DAILY 02/15/22 04/14/22 03/20/22 History atorvastatin 80 mg tablet 1 tab PO BEDTIME 04/14/22 04/14/22 Unknown History losartan 50 mg tablet 1 tab DAILY 04/14/22 04/14/22 Unknown History Physical Exam Vital Signs and Narrative: Vital Signs: Last Vital Signs Temp 99.3 F 04/14/22 19:06 Pulse 90 04/14/22 22:14 Resp 17 04/14/22 22:14 BP 99/42 L 04/14/22 22:14 Pulse Ox 95 04/14/22 22:14 O2 Del Method 04/14/22 22:14 BMI result Body Mass Index 45.6 Gen: Appears be in no acute distress HEENT: NCAT, Moist mucosa. Pulmonary: Vesicular breath sounds, fair air entry CVS: Normal S1-S2 Abdomen: BS+, Soft, Nontender Extremities: Warm well perfused Neuro: Alert and awake. Breast exam: Examined along with the female call center recruiter at bedside. Noted to have bilateral [id number] surgical incision site noted to have elevation tissue/small amount of pus. Left side incision site has no discharge. Both sites tender on palpation, mild surrounding erythema noted around the incision sites. Following the picture below Results Labs CBC and Chem 7: 04/14/22 17:49 04/14/22 18:08 Labs: Laboratory Results - last 24 hr 04/14/22 04/14/22 04/14/22 17:49 17:49 17:49 MCV 93.5 MCH 29.9 MCHC 32.0 RDW 12.8 Plt Count 275 MPV 11.2 Immature Gran % (Auto) 0.5 H Neut % (Auto) 88.8 H Lymph % (Auto) 7.8 L Spencer % (Auto) 2.7 Eos % (Auto) 0.1 Baso % (Auto) 0.1 Lymph # (Auto) 0.8 L Spencer # (Auto) 0.3 Eos # (Auto) 0.0 Baso # (Auto) 0.0 Abs Immat Gran (auto) 0.05 H Absolute Neuts (auto) 8.6 H Absolute Nucleated RBC 0.000 Nucleated RBC % (auto) 0.0 PT 13.2 H INR 1.1 APTT 28.7 Anion Gap Estim Creat Clear Calc Estimated GFR POC Glucose Random Glucose Lactic Acid 4.0 H* Calcium Magnesium Total Bilirubin Direct Bilirubin AST ALT Alkaline Phosphatase Troponin I High Sens B-Natriuretic Peptide Total Protein Albumin Lipase Influenza Type A (PCR) Influenza Type B (PCR) RSV RNA Qual (PCR) SARS-CoV-2 RNA (RT-PCR) 04/14/22 04/14/22 04/14/22 17:49 18:07 18:08 MCV MCH MCHC RDW Plt Count MPV Immature Gran % (Auto) Neut % (Auto) Lymph % (Auto) Spencer % (Auto) Eos % (Auto) Baso % (Auto) Lymph # (Auto) Spencer # (Auto) Eos # (Auto) Baso # (Auto) Abs Immat Gran (auto) Absolute Neuts (auto) Absolute Nucleated RBC Nucleated RBC % (auto) PT INR APTT Anion Gap 15 Estim Creat Clear Calc 74.3 Estimated GFR 55 POC Glucose Random Glucose 147 H Lactic Acid Calcium 8.7 Magnesium 1.6 Total Bilirubin 0.8 Direct Bilirubin 0.4 AST 13 ALT 10 Alkaline Phosphatase 91 Troponin I High Sens 11.9 B-Natriuretic Peptide 28 Total Protein 7.3 Albumin 3.8 Lipase 5 L Influenza Type A (PCR) NEGATIVE Influenza Type B (PCR) NEGATIVE RSV RNA Qual (PCR) NEGATIVE SARS-CoV-2 RNA (RT-PCR) NEGATIVE 04/14/22 04/14/22 04/14/22 19:45 19:46 21:35 MCV MCH MCHC RDW Plt Count MPV Immature Gran % (Auto) Neut % (Auto) Lymph % (Auto) Spencer % (Auto) Eos % (Auto) Baso % (Auto) Lymph # (Auto) Spencer # (Auto) Eos # (Auto) Baso # (Auto) Abs Immat Gran (auto) Absolute Neuts (auto) Absolute Nucleated RBC Nucleated RBC % (auto) PT INR APTT Anion Gap Estim Creat Clear Calc Estimated GFR POC Glucose 149 H Random Glucose Lactic Acid 3.8 H* Calcium Magnesium Total Bilirubin Direct Bilirubin AST ALT Alkaline Phosphatase Troponin I High Sens 22.7 H D B-Natriuretic Peptide Total Protein Albumin Lipase Influenza Type A (PCR) Influenza Type B (PCR) RSV RNA Qual (PCR) SARS-CoV-2 RNA (RT-PCR) Imaging Radiologist's Impressions: Impressions Chest X-Ray 04/14/22 18:27 IMPRESSION: Unremarkable examination. Chest CTA 04/14/22 20:22 IMPRESSION: No evidence for acute or chronic pulmonary embolism. No infiltrate. No evidence for any metastatic disease. Post surgical changes in the chest wall with fluid collections as above partially imaged.. Chest CT 04/14/22 20:37 IMPRESSION: No evidence for acute or chronic pulmonary embolism. No infiltrate. No evidence for any metastatic disease. Post surgical changes in the chest wall with fluid collections as above partially imaged.. Assessment and Plan (1) Seroma of breast: Status: Acute (2) Cellulitis: Status: Acute Plan 61-year-old female with a past medical history of hypertension, hyperlipidemia, diabetes, history of breast cancer-status post bilateral mastectomy on 03/21/2022; history of GERD, asthma presented to the hospital today with a chief complaint of pain at the surgical incision site. Noted to have cellulitis/seroma. Admitted for further management. Severe sepsis: Patient blood pressure on the soft side. Also noted to have lactic acidosis. Received IV fluids per sepsis protocol. Will continue maintenance IV fluids. Patient has good peripheral pulses. Patient denies any lightheadedness dizziness. Mentating well. Monitor vitals closely Mastectomy surgical site cellulitis/seroma: Continue IV vancomycin and Zosyn. Will consult ID. General surgery notified Follow-up cultures CT chest showed seroma. No evidence of PE. Lactic acidosis: Patient on IV fluid. Improving. Chest pain: Secondary to cellulitis. CT chest showed seroma. Pain controlled. EKG nonischemic. Troponin 22.7. Repeat troponin pending. History of diabetes: Will keep the patient on Lantus 20 units b.i.d. and insulin sliding scale. Hold home insulin regimen for now. Monitor fingerstick glucose and adjust as needed. History of hypertension: Hold home metoprolol/losartan. At the blood pressure on presentation is on the soft side. For all other chronic conditions, home medications will be continued including statin, Topamax. DVT prophylaxis: Lovenox Code status: Full code Quality Stroke Does the patient have a stroke diagnosis?: No VTE Prior VTE?: No VTE Risk Level:: Medical - moderate - high VTE Device Contraindication: Treatment Not Indicated VTE Drug Contraindication: N/A - Med Ordered
--- NOTE | 2022-04-14 23:01 | PHA.PROG ---
Admission Date/Time: April 14, 2022 22:50 Indication:Sepsis due to skin infection Weight in k.6 kg Adjusted body weight in K.06 kg [place] body weight in K.7 kg Obesity Dosing Indication % IBW: 220% Serum Creatinine - Last 168 Hours 04/14/22 18:08 Creatinine 1.03 Estimated CrCl and GFR - Last 168 Hours 04/14/22 18:08 Estim Creat Clear Calc 74.3 Estimated GFR 55 Vancomycin Loading Dose: 2000 mg Current Vancomycin Dosing Regimen: 750 mg Q12H Date and Time for next Vancomycin Level to be drawn: 04/16 @ 0800 Pharmacist Comments on Vancomycin Plan: Patient is morbidly obese therefore required obesity dosing. Patient is septic per provider note therefore requires aggressive dosing. Loading dose given in the ED 04/14 @ 2211 Maintenance dose 750 mg Q12H given 04/15 @ 1000. Expected AUC 532 with a trough of 17.1. Pharmacy to monitor renal function daily. Trough to be drawn prior to 4th dose Mela Trevino PharmD Vancomycin dosing will take advantage of [employer] as a clinical decision support tool that uses Bayesian modeling to calculate individual patient's pharmacokinetic parameters and forecast the patient's drug concentration time course with the target goal AUC 24 range of 400 - 600 mg/L/hr.
[2022-04-14] MEDS: 0.9 % Sodium Chloride 500 ML IV (23:20)
[2022-04-14 23:21] VITALS: BP 91/40; PULSE 91; RESP 21; O2SAT 99
[2022-04-14 23:44] VITALS: BP 95/47; PULSE 85; RESP 15; O2SAT 100
[2022-04-14 23:52] LABS: ~Lactic Acid-LAB USE ONLY 1.3 mmol/L (0.5-2.0)
[2022-04-15] VITALS (7 sets, daily range): BP systolic 113–149; BP diastolic 53–78; PULSE 76–91; RESP 14–28; TEMP 36.2–37; O2SAT 95–100
[2022-04-15] MEDS: 0.9 % Sodium Chloride 1,000 ML 75 ML IVCONT (00:23)
[2022-04-15] MEDS: Enoxaparin Sodium 40 MG/0.4 ML SYRINGE SUBCUT ×2 (00:26→21:52)
[2022-04-15] MEDS: HYDROmorphone HCl 0.5 MG/0.5 ML SYRINGE IVPUSH ×3 (03:37→21:51)
[2022-04-15] MEDS: Piperacillin Sodium/Tazobactam 3.375 GM in 0.9 % Sodium Chloride 50 ML IV ×4 (04:59→21:51)
[2022-04-15 06:51] LABS: Anion Gap 12 (12-20); Blood Urea Nitrogen 12 mg/dL (9-16); Calcium 7.2 mg/dL (8.4-10.2); Carbon Dioxide 16 mmol/L (22-29); Chloride 113 mmol/L (96-108); Creatinine Clr Calc Pharmacy 96.9; Estimated Glomerular Filt Rate > 60; Glucose Random 263 mg/dL (60-115); Potassium 5.2 mmol/L (3.3-5.1); Sodium 136 mmol/L (135-145)
[2022-04-15 07:22] LABS: Glucose, Whole Blood 242 mg/dL (60-115)
--- NOTE | 2022-04-15 07:56 | HE.PHANOTE ---
Patients cr decrease, continue same dose, [id number], trough 12.4
[2022-04-15] MEDS: Insulin Lispro 100 UNIT/ML 3 ML VIAL SUBCUT ×4 (09:38→21:50)
[2022-04-15] MEDS: Metoprolol Tartrate 25 MG TABLET PO ×2 (09:38→21:51)
[2022-04-15] MEDS: Topiramate 25 MG TABLET PO (09:38)
[2022-04-15] MEDS: Losartan Potassium 50 MG TABLET PO (09:38)
[2022-04-15] MEDS: Omeprazole 20 MG CAPSULE.DR PO (09:41)
--- NOTE | 2022-04-15 09:52 | PM.CNGS ---
History of Present Illness Consult details Consult date: 04/15/22 Narrative: 61-year-old female with history of left breast mastectomy and sentinel node biopsy for invasive ductal cancer and prophylactic mastectomy for the right breast last March 21, 2022, admitted yesterday for high fevers. She was noted to have some mild cellulitic changes on her mastectomy sites. She describes pain on both incisions. I had actually seen her in the office 4 days ago because of a large seroma which I aspirated . She describes having a temperature of 103 degrees at home yesterday. She does not seem to have any fever this morning Review of Systems Constitutional: Constitutional: Denies chills and Reports fever(s) Cardiovascular: Cardiovascular: Denies chest pain, Denies dyspnea and Denies dyspnea on exertion Respiratory: Respiratory: Denies cough, Denies dyspnea and Denies dyspnea on exertion Gastrointestinal: Gastrointestinal: Denies hematochezia and Denies change in bowel habits Genitourinary: Genitourinary: Denies hematuria Musculoskeletal: Musculoskeletal: Denies back pain and Denies limited range of motion Neurologic: Denies focal weakness and Denies convulsions Psychiatric: Psychiatric: Denies depression and Denies mood swings [facility] Past Medical History Medical History (Updated 04/15/22 @ 14:28 by Ninfa Lowry MD) Asthma COVID-19 vaccine series completed Diabetes Fever of unknown origin GERD (gastroesophageal reflux disease) HTN (hypertension) Hypercholesteremia Invasive ductal carcinoma of left breast Seroma of breast Family History Family History Mother Breast cancer, Onset Age: 58 Sister Breast cancer, Onset Age: 54 Surgical History Surgical History History of bilateral mastectomy (03/21/22) History of delivery History of cholecystectomy Social History Social History Household Members: Spouse and Children Housing: Apartment Housing Other:: [facility] Are you a primary child care center assistant director to a significant other at home: No Do you presently have visiting nurse or other home services: No Alcohol intake: never Patient Tobacco Use Status: Never used Tobacco Advance Directives: No Advance Directives Information Provided: No service: No Current occupational status: employed Meds Allergies Allergy/AdvReac Type Severity Reaction Status Date / Time turkey Allergy Severe chest Unverified 04/11/22 14:56 pain/swelling/SOB/itching Active Medications: Current Medications Acetaminophen (Acetaminophen 325 Mg Tablet) 650 mg PO Q6H PRN PRN Reason: Pain, Mild (Pain Scale 1-3) Atorvastatin Calcium (Atorvastatin Calcium 80 Mg Tablet) 80 mg PO BEDTIME [facility] Dextrose (Dextrose 50 % 25 Gm/50 Ml Syringe) 25 gm IVPUSH Q15M PRN; Protocol PRN Reason: per Hypoglycemia Standing Ord. Enoxaparin Sodium (Enoxaparin Sodium 40 Mg/0.4 Ml Syringe) 40 mg SUBCUT Q24H [facility] Last Admin: 04/15/22 00:26 Dose: 40 mg Gabapentin (Gabapentin 300 Mg Capsule) 300 mg PO BEDTIME [facility] Glucose (Glucose Gel 15 Gm Gel..Gram.) 15 gm PO Q15M PRN; Protocol PRN Reason: per Hypoglycemia Standing Ord. Hydromorphone HCl (Hydromorphone Hcl 0.5 Mg/0.5 Ml Syringe) 0.5 mg IVPUSH Q4H PRN; Protocol PRN Reason: Pain, Severe (Pain Scale 7-10) Last Admin: 04/15/22 03:37 Dose: 0.5 mg Vancomycin HCl 750 mg/ Sodium (Chloride) 265 mls @ 265 mls/hr IV Q12H [facility] Piperacillin Sod/Tazobactam (Sod 3.375 gm/ Sodium Chloride) 50 mls @ 100 mls/hr IV Q6H [facility] Last Admin: 04/15/22 09:40 Dose: 100 mls/hr Insulin Glargine (Insulin Glargine,Hum.Rec.Anlog 100 Unit/Ml 10 Ml Vial) 40 unit SUBCUT BID [facility] Insulin Human Lispro (Insulin Lispro 100 Unit/Ml 3 Ml Vial) 0 unit SUBCUT QIDACHS [facility]; Protocol Last Admin: 04/15/22 09:38 Dose: 4 unit Losartan Potassium (Losartan Potassium 50 Mg Tablet) 50 mg PO DAILY [facility]; Protocol Last Admin: 04/15/22 09:38 Dose: 50 mg Melatonin (Melatonin 3 Mg Tablet) 6 mg PO BEDTIME PRN PRN Reason: Insomnia Metoprolol Tartrate (Metoprolol Tartrate 25 Mg Tablet) 25 mg PO BID [facility]; Protocol Last Admin: 04/15/22 09:38 Dose: 25 mg Omeprazole (Omeprazole 20 Mg Capsule.) 20 mg PO DAILY@0630 [facility] Last Admin: 04/15/22 09:41 Dose: 20 mg Oxycodone HCl (Oxycodone Hcl Immed Release 5 Mg Tablet) 5 mg PO Q6H PRN PRN Reason: pain (scale score 7-10) Pharmacy Consult (Consult Rx Vancomycin Dosing) 1 each MISCELLANE DAILY PRN PRN Reason: Consult order Pharmacy Consult (Consult Rx Vancomycin Dosing) 1 each MISCELLANE DAILY PRN PRN Reason: Consult order Senna (Sennosides 8.6 Mg Tablet) 17.2 mg PO BEDTIME PRN PRN Reason: Constipation Sodium Chloride (0.9 % Sodium Chloride Flush 3 Ml Syringe) 3 ml IVFLUSH QSHIFT [facility] Last Admin: 04/15/22 08:14 Dose: Not Given Topiramate (Topiramate 25 Mg Tablet) 25 mg PO DAILY [facility] Last Admin: 04/15/22 09:38 Dose: 25 mg Home Medications Medication Instructions Recorded Confirmed Last Taken Type dulaglutide 0.75 mg/0.5 mL 0.75 mg subcut QWEEK 02/15/22 04/14/22 03/20/22 History subcutaneous pen injector (Trulicity) gabapentin 300 mg capsule 300 mg PO QPM 02/15/22 04/14/22 03/20/22 History insulin glargine 100 unit/mL (3 60 unit subcut QPM 02/15/22 04/14/22 03/20/22 History mL) subcutaneous pen (Lantus Solostar U-100 Insulin) insulin lispro 100 unit/mL 43 unit subcut TID 02/15/22 04/14/22 03/20/22 History subcutaneous pen lancets 28 gauge (FreeStyle #100 ea 02/15/22 04/14/22 03/20/22 History Lancets) metoprolol tartrate 25 mg tablet 25 mg PO BID 02/15/22 04/14/22 03/20/22 History omeprazole 20 mg capsule,delayed 20 mg PO DAILY 02/15/22 04/14/22 03/20/22 History release pen needle, diabetic 32 gauge x #50 ea 02/15/22 04/14/22 03/20/22 History (BD Lesley 2nd Gen Pen Needle) topiramate 25 mg tablet 25 mg PO DAILY 02/15/22 04/14/22 03/20/22 History atorvastatin 80 mg tablet 1 tab PO BEDTIME 04/14/22 04/14/22 Unknown History losartan 50 mg tablet 1 tab DAILY 04/14/22 04/14/22 Unknown History Physical Exam Vital Signs: Vital Signs: Last Vital Signs Temp 99.3 F 04/14/22 19:06 Pulse 87 04/15/22 08:33 Resp 20 04/15/22 08:33 BP 148/71 H 04/15/22 08:33 Pulse Ox 97 04/15/22 08:33 O2 Del Method 04/15/22 08:33 BMI result Body Mass Index 45.6 Const: General: comfortable and no acute distress Orientation/consciousness: patient oriented x3 Neck: Neck: Yes no lymphadenopathy Chest: Other: mastectomy sites healing well but with some diffuse redness Resp: Auscultation: clear to auscultation bilaterally Cardio: Rhythm: regular rhythm GI: Palpation (GI): Soft to palpation, nontender and no guarding Neuro: General: patient oriented x3 Results Labs Result diagrams: 04/15/22 10:28 04/15/22 06:24 Labs: Abnormal lab results 04/14/22 04/14/22 04/14/22 Range/Units 17:49 17:49 17:49 RBC 4.01 L D (4.20-5.50) X10*6/uL Immature Gran % (Auto) 0.5 H (0.0-0.4) % Neut % (Auto) 88.8 H (45-73) % Lymph % (Auto) 7.8 L (20-40) % Lymph # (Auto) 0.8 L (1.2-4.9) X10*3/uL Abs Immat Gran (auto) 0.05 H (0.00-0.03) X10*3/uL Absolute Neuts (auto) 8.6 H (2.0-8.3) x10*3/uL PT 13.2 H (10.0-13.1) SEC Potassium (3.3-5.1) mmol/L Chloride (96-108) mmol/L Carbon Dioxide (22-29) mmol/L POC Glucose (60-115) mg/dL Random Glucose (60-115) mg/dL Lactic Acid 4.0 H* (0.5-2.0) mmol/L Calcium (8.4-10.2) mg/dL Troponin I High Sens (<3.5-17.0) ng/L Lipase (8-78) U/L 04/14/22 04/14/22 04/14/22 Range/Units 18:08 19:45 19:46 RBC (4.20-5.50) X10*6/uL Immature Gran % (Auto) (0.0-0.4) % Neut % (Auto) (45-73) % Lymph % (Auto) (20-40) % Lymph # (Auto) (1.2-4.9) X10*3/uL Abs Immat Gran (auto) (0.00-0.03) X10*3/uL Absolute Neuts (auto) (2.0-8.3) x10*3/uL PT (10.0-13.1) SEC Potassium (3.3-5.1) mmol/L Chloride (96-108) mmol/L Carbon Dioxide 19 L (22-29) mmol/L POC Glucose (60-115) mg/dL Random Glucose 147 H (60-115) mg/dL Lactic Acid 3.8 H* (0.5-2.0) mmol/L Calcium (8.4-10.2) mg/dL Troponin I High Sens 22.7 H D (<3.5-17.0) ng/L Lipase 5 L (8-78) U/L 04/14/22 04/15/22 04/15/22 Range/Units 21:35 06:24 07:18 RBC (4.20-5.50) X10*6/uL Immature Gran % (Auto) (0.0-0.4) % Neut % (Auto) (45-73) % Lymph % (Auto) (20-40) % Lymph # (Auto) (1.2-4.9) X10*3/uL Abs Immat Gran (auto) (0.00-0.03) X10*3/uL Absolute Neuts (auto) (2.0-8.3) x10*3/uL PT (10.0-13.1) SEC Potassium 5.2 H D (3.3-5.1) mmol/L Chloride 113 H (96-108) mmol/L Carbon Dioxide 16 L (22-29) mmol/L POC Glucose 149 H 242 H (60-115) mg/dL Random Glucose 263 H (60-115) mg/dL Lactic Acid (0.5-2.0) mmol/L Calcium 7.2 L D (8.4-10.2) mg/dL Troponin I High Sens (<3.5-17.0) ng/L Lipase (8-78) U/L Short CBC 04/14/22 Range/Units 17:49 WBC 9.7 (4.8-10.8) X10*3/uL Hgb 12.0 (12.0-16.0) g/dl Hct 37.5 (37.0-47.0) % Plt Count 275 (160-400) X10*3/uL BMP 04/14/22 04/15/22 04/15/22 18:08 06:24 06:24 Sodium 135 136 Potassium 3.6 5.2 H D Chloride 105 113 H Carbon Dioxide 19 L 16 L BUN 12 12 Creatinine 1.03 Cancelled 0.79 Calcium 8.7 7.2 L D Liver Function 04/14/22 Range/Units 18:08 Total Bilirubin 0.8 (0.0-1.0) mg/dL Direct Bilirubin 0.4 (0.0-0.5) mg/dL AST 13 (5-31) U/L ALT 10 (0-31) U/L Alkaline Phosphatase 91 (39-117) U/L Albumin 3.8 (3.5-5.0) g/dL All other labs normal. Assessment and Plan (1) Cellulitis: Status: Acute She has some mild cellulitic changes on her mastectomy sites. She otherwise does not seem to have any areas of fluctuance or induration nor any suggestion of an abscess. I agree with IV antibiotics at this time. Blood cultures should be followed up. Clinically she looks well and states that she feels much better today. She is actually seeing about being discharged already. I told her therefore that she will need to have at least a few more days of IV antibiotics. Her white count is within normal. I plan on reassess rating the seroma fluid on the left side layer today Procedures Date of Service Date of Service: 04/15/22
[2022-04-15] MEDS: vancomycin HCL 750 MG in 0.9 % Sodium Chloride 250 ML 265 MG IV ×2 (09:55→23:21)
--- NOTE | 2022-04-15 10:27 | HO.PM.IMPN ---
Subjective Subjective Date of Service: 04/15/22 Interval History: cc: surgical site erythema, pain, fevers interval history:improved Cardiovascular Cardiovascular: Reports no additional cardiovascular complaints Respiratory Respiratory: Reports no additional respiratory complaints Physical Exam Vital Signs: Vital Signs: Last Vital Signs Temp 99.3 F 04/14/22 19:06 Pulse 87 04/15/22 08:33 Resp 20 04/15/22 08:33 BP 148/71 H 04/15/22 08:33 Pulse Ox 97 04/15/22 08:33 O2 Del Method 04/15/22 08:33 BMI result Body Mass Index 45.6 General: AO X 3, no acute distress Resp: CTA bilateral, no accessory muscles used CVS: S1,S2,RRR GI: soft, non tender, non distended Neuro: motor grossly intact, alert Psych: appropriate affect, appropriate insight skin:?mastectomy sites healing well but with some diffuse redness Objective Data Active Medications Acetaminophen (Acetaminophen 325 Mg Tablet) 650 mg PO Q6H PRN PRN Reason: Pain, Mild (Pain Scale 1-3) Atorvastatin Calcium (Atorvastatin Calcium 80 Mg Tablet) 80 mg PO BEDTIME [facility] Dextrose (Dextrose 50 % 25 Gm/50 Ml Syringe) 25 gm IVPUSH Q15M PRN; Protocol PRN Reason: per Hypoglycemia Standing Ord. Enoxaparin Sodium (Enoxaparin Sodium 40 Mg/0.4 Ml Syringe) 40 mg SUBCUT Q24H [facility] Last Admin: 04/15/22 00:26 Dose: 40 mg Documented By: NATALIE Gabapentin (Gabapentin 300 Mg Capsule) 300 mg PO BEDTIME [facility] Glucose (Glucose Gel 15 Gm Gel..Gram.) 15 gm PO Q15M PRN; Protocol PRN Reason: per Hypoglycemia Standing Ord. Hydromorphone HCl (Hydromorphone Hcl 0.5 Mg/0.5 Ml Syringe) 0.5 mg IVPUSH Q4H PRN; Protocol PRN Reason: Pain, Severe (Pain Scale 7-10) Last Admin: 04/15/22 03:37 Dose: 0.5 mg Documented By: NATALIE Vancomycin HCl 750 mg/ Sodium (Chloride) 265 mls @ 265 mls/hr IV Q12H [facility] Last Admin: 04/15/22 09:55 Dose: 265 mls/hr Documented By: ELISABETH Piperacillin Sod/Tazobactam (Sod 3.375 gm/ Sodium Chloride) 50 mls @ 100 mls/hr IV Q6H [facility] Last Admin: 04/15/22 09:40 Dose: 100 mls/hr Documented By: ELISABETH Insulin Glargine (Insulin Glargine,Hum.Rec.Anlog 100 Unit/Ml 10 Ml Vial) 40 unit SUBCUT BID [facility] Insulin Human Lispro (Insulin Lispro 100 Unit/Ml 3 Ml Vial) 0 unit SUBCUT QIDACHS [facility]; Protocol Last Admin: 04/15/22 09:38 Dose: 4 unit Documented By: ELISABETH Losartan Potassium (Losartan Potassium 50 Mg Tablet) 50 mg PO DAILY [facility]; Protocol Last Admin: 04/15/22 09:38 Dose: 50 mg Documented By: ELISABETH Melatonin (Melatonin 3 Mg Tablet) 6 mg PO BEDTIME PRN PRN Reason: Insomnia Metoprolol Tartrate (Metoprolol Tartrate 25 Mg Tablet) 25 mg PO BID [facility]; Protocol Last Admin: 04/15/22 09:38 Dose: 25 mg Documented By: ELISABETH Omeprazole (Omeprazole 20 Mg Capsule.Dr) 20 mg PO DAILY@0630 [facility] Last Admin: 04/15/22 09:41 Dose: 20 mg Documented By: ELISABETH Oxycodone HCl (Oxycodone Hcl Immed Release 5 Mg Tablet) 5 mg PO Q6H PRN PRN Reason: pain (scale score 7-10) Pharmacy Consult (Consult Rx Vancomycin Dosing) 1 each MISCELLANE DAILY PRN PRN Reason: Consult order Pharmacy Consult (Consult Rx Vancomycin Dosing) 1 each MISCELLANE DAILY PRN PRN Reason: Consult order Senna (Sennosides 8.6 Mg Tablet) 17.2 mg PO BEDTIME PRN PRN Reason: Constipation Sodium Chloride (0.9 % Sodium Chloride Flush 3 Ml Syringe) 3 ml IVFLUSH QSHIFT [facility] Last Admin: 04/15/22 08:14 Dose: Not Given Documented By: ELISABETH Non-Admin Reason: IV Running Topiramate (Topiramate 25 Mg Tablet) 25 mg PO DAILY [facility] Last Admin: 04/15/22 09:38 Dose: 25 mg Documented By: ELISABETH Labs CBC & Chem 7: 04/14/22 17:49 04/15/22 06:24 Labs: Laboratory Results - last 24 hr 04/14/22 04/14/22 04/14/22 17:49 17:49 17:49 MCV 93.5 MCH 29.9 MCHC 32.0 RDW 12.8 Plt Count 275 MPV 11.2 Immature Gran % (Auto) 0.5 H Neut % (Auto) 88.8 H Lymph % (Auto) 7.[address] [place] % (Auto) 2.7 Eos % (Auto) 0.1 Baso % (Auto) 0.1 Lymph # (Auto) 0.[address] [place] # (Auto) 0.3 Eos # (Auto) 0.0 Baso # (Auto) 0.0 Abs Immat Gran (auto) 0.05 H Absolute Neuts (auto) 8.6 H Absolute Nucleated RBC 0.000 Nucleated RBC % (auto) 0.0 PT 13.2 H INR 1.1 APTT 28.7 Anion Gap Estim Creat Clear Calc Estimated GFR POC Glucose Random Glucose Lactic Acid 4.0 H* Lactic Acid F/U @ 2Hr Calcium Magnesium Total Bilirubin Direct Bilirubin AST ALT Alkaline Phosphatase Troponin I High Sens B-Natriuretic Peptide Total Protein Albumin Lipase Influenza Type A (PCR) Influenza Type B (PCR) RSV RNA Qual (PCR) SARS-CoV-2 RNA (RT-PCR) 04/14/22 04/14/22 04/14/22 17:49 18:07 18:08 MCV MCH MCHC RDW Plt Count MPV Immature Gran % (Auto) Neut % (Auto) Lymph % (Auto) [place] % (Auto) Eos % (Auto) Baso % (Auto) Lymph # (Auto) [place] # (Auto) Eos # (Auto) Baso # (Auto) Abs Immat Gran (auto) Absolute Neuts (auto) Absolute Nucleated RBC Nucleated RBC % (auto) PT INR APTT Anion Gap 15 Estim Creat Clear Calc 74.3 Estimated GFR 55 POC Glucose Random Glucose 147 H Lactic Acid Lactic Acid F/U @ 2Hr Calcium 8.7 Magnesium 1.6 Total Bilirubin 0.8 Direct Bilirubin 0.4 AST 13 ALT 10 Alkaline Phosphatase 91 Troponin I High Sens 11.9 B-Natriuretic Peptide 28 Total Protein 7.3 Albumin 3.8 Lipase 5 L Influenza Type A (PCR) NEGATIVE Influenza Type B (PCR) NEGATIVE RSV RNA Qual (PCR) NEGATIVE SARS-CoV-2 RNA (RT-PCR) NEGATIVE 0704/14/22 04/14/22 19:45 19:46 21:35 MCV MCH MCHC RDW Plt Count MPV Immature Gran % (Auto) Neut % (Auto) Lymph % (Auto) [place] % (Auto) Eos % (Auto) Baso % (Auto) Lymph # (Auto) [place] # (Auto) Eos # (Auto) Baso # (Auto) Abs Immat Gran (auto) Absolute Neuts (auto) Absolute Nucleated RBC Nucleated RBC % (auto) PT INR APTT Anion Gap Estim Creat Clear Calc Estimated GFR POC Glucose 149 H Random Glucose Lactic Acid 3.8 H* Lactic Acid F/U @ 2Hr Calcium Magnesium Total Bilirubin Direct Bilirubin AST ALT Alkaline Phosphatase Troponin I High Sens 22.7 H D B-Natriuretic Peptide Total Protein Albumin Lipase Influenza Type A (PCR) Influenza Type B (PCR) RSV RNA Qual (PCR) SARS-CoV-2 RNA (RT-PCR) 04/14/22 04/15/22 04/15/22 23:35 06:24 06:24 MCV MCH MCHC RDW Plt Count MPV Immature Gran % (Auto) Neut % (Auto) Lymph % (Auto) [place] % (Auto) Eos % (Auto) Baso % (Auto) Lymph # (Auto) [place] # (Auto) Eos # (Auto) Baso # (Auto) Abs Immat Gran (auto) Absolute Neuts (auto) Absolute Nucleated RBC Nucleated RBC % (auto) PT INR APTT Anion Gap 12 Estim Creat Clear Calc Cancelled 96.9 Estimated GFR Cancelled > 60 POC Glucose Random Glucose 263 H Lactic Acid Lactic Acid F/U @ 2Hr 1.3 Calcium 7.2 L D Magnesium Total Bilirubin Direct Bilirubin AST ALT Alkaline Phosphatase Troponin I High Sens B-Natriuretic Peptide Total Protein Albumin Lipase Influenza Type A (PCR) Influenza Type B (PCR) RSV RNA Qual (PCR) SARS-CoV-2 RNA (RT-PCR) 04/15/22 07:18 MCV MCH MCHC RDW Plt Count MPV Immature Gran % (Auto) Neut % (Auto) Lymph % (Auto) [place] % (Auto) Eos % (Auto) Baso % (Auto) Lymph # (Auto) [place] # (Auto) Eos # (Auto) Baso # (Auto) Abs Immat Gran (auto) Absolute Neuts (auto) Absolute Nucleated RBC Nucleated RBC % (auto) PT INR APTT Anion Gap Estim Creat Clear Calc Estimated GFR POC Glucose 242 H Random Glucose Lactic Acid Lactic Acid F/U @ 2Hr Calcium Magnesium Total Bilirubin Direct Bilirubin AST ALT Alkaline Phosphatase Troponin I High Sens B-Natriuretic Peptide Total Protein Albumin Lipase Influenza Type A (PCR) Influenza Type B (PCR) RSV RNA Qual (PCR) SARS-CoV-2 RNA (RT-PCR) Assessment and Plan (1) Sepsis: Status: Acute Plan 61F presented with fevers, mastectomy site pain and swelling severe sepsis due to cellulitis at mastectomy sites continue vanc, zosyn surgery appreciated - no further drainage needed at this time follow up ID follow up cultures DM basal bolus insulin htn losartan and lopressor on hold for low normal bps morbid obesity weight loss recommended dvt prophylaxis - lovenox full code reason for continued hospitalization: severe sepsis requiring continued iv abx, awaiting cultures, defervesence Quality Stroke Does the patient have a stroke diagnosis?: No VTE Prior VTE?: No VTE Risk Level:: Medical - moderate - high VTE Device Contraindication: Treatment Not Indicated VTE Drug Contraindication: N/A - Med Ordered
[2022-04-15 10:37] LABS: Basophils Percent Auto 0.2 % (0-2); Eosinophils Percent Auto 0.2 % (0-4); Hematocrit 32.6 % (37.0-47.0); Hemoglobin 10.3 g/dl (12.0-16.0); Imm Gran Abs Auto 0.05 X10*3/uL (0.00-0.03); Imm Gran Pct Auto 0.4 % (0.0-0.4); Lymphocytes Absolute Auto 1.2 X10*3/uL (1.2-4.9); Lymphocytes Percent Auto 8.6 % (20-40); Mean Corpuscular HGB Conc 31.6 g/dl (31.0-35.0); Mean Corpuscular Hemoglobin 30.4 pg (27.0-33.0); Mean Corpuscular Volume 96.2 fL (80.0-98.0); Mean Platelet Volume 10.5 fL (9.4-12.3); Monocytes Absolute Auto 1.5 X10*3/uL (0.1-1.2); Monocytes Percent Auto 10.9 % (2-11); Neutrophils Absolute Auto 10.8 x10*3/uL (2.0-8.3); Neutrophils Percent Auto 79.7 % (45-73); Platelet Count 219 X10*3/uL (160-400); Red Blood Count 3.39 X10*6/uL (4.20-5.50); Red Cell Distribution Width 13.2 % (11.0-16.0); White Blood Count 13.6 X10*3/uL (4.8-10.8)
[2022-04-15 10:43] LABS: MANUAL DIFF FLAG NO
[2022-04-15] MEDS: Insulin Glargine,Hum.rec.anlog 100 UNIT/ML 10 ML VIAL 40 UNIT SUBCUT ×2 (11:37→21:50)
[2022-04-15 12:44] LABS: Glucose, Whole Blood 285 mg/dL (60-115)
--- NOTE | 2022-04-15 13:02 | PM.EVENT ---
Event Note Date of Service: 04/15/22 Event Note: pt seen for ffup since there was some reaccumulation of seroma mostly on the left mastectomy site I explained to her it is best to reaspirate I prepped and draped the area laterally I infiltrated the skin with Lidocaine 1% I used a g18 needle to aspirate the seroma fluid - about 350 aspirated cultures of seroma fluid sent continue IV abx she says she feels much better after removal of seroma fluid
--- NOTE | 2022-04-15 14:24 | P.CNID_ITS ---
History of Present Illness Data of Consult Service Date: 04/15/22 Requesting physician: Axel Shanks Primary Care Provider: [facility] Reason for consult: fever of unknown origin She presents with fever and weakness. This is present for two days. She also had 7/10 chest pain. She has temperature of 102 and heart rate 125. She has had mastectomy 03/23 and there are fluid collections in breast area. Review of Systems Review of Systems: Yes all other systems are reviewed and are negative [facility] Past Medical History Medical History (Updated 04/15/22 @ 14:28 by Ninfa Lowry MD) Asthma COVID-19 vaccine series completed Diabetes Fever of unknown origin GERD (gastroesophageal reflux disease) HTN (hypertension) Hypercholesteremia Invasive ductal carcinoma of left breast Seroma of breast Family History Family History Mother Breast cancer, Onset Age: 58 Sister Breast cancer, Onset Age: 54 Family history: reviewed and not pertinent Surgical History Surgical History History of bilateral mastectomy (03/21/22) History of delivery History of cholecystectomy Social History Social History Household Members: Spouse and Children Housing: Apartment Housing Other:: [facility] Are you a primary continuum of care manager to a significant other at home: No Do you presently have visiting nurse or other home services: No Alcohol intake: never Patient Tobacco Use Status: Never used Tobacco Advance Directives: No Advance Directives Information Provided: No service: No Current occupational status: employed Meds Allergies Allergy/AdvReac Type Severity Reaction Status Date / Time turkey Allergy Severe chest Unverified 04/11/22 14:56 pain/swelling/SOB/itching Active Medications: Current Medications Acetaminophen (Acetaminophen 325 Mg Tablet) 650 mg PO Q6H PRN PRN Reason: Pain, Mild (Pain Scale 1-3) Atorvastatin Calcium (Atorvastatin Calcium 80 Mg Tablet) 80 mg PO BEDTIME [facility] Dextrose (Dextrose 50 % 25 Gm/50 Ml Syringe) 25 gm IVPUSH Q15M PRN; Protocol PRN Reason: per Hypoglycemia Standing Ord. Enoxaparin Sodium (Enoxaparin Sodium 40 Mg/0.4 Ml Syringe) 40 mg SUBCUT Q24H [facility] Last Admin: 04/15/22 00:26 Dose: 40 mg Gabapentin (Gabapentin 300 Mg Capsule) 300 mg PO BEDTIME [facility] Glucose (Glucose Gel 15 Gm Gel..Gram.) 15 gm PO Q15M PRN; Protocol PRN Reason: per Hypoglycemia Standing Ord. Hydromorphone HCl (Hydromorphone Hcl 0.5 Mg/0.5 Ml Syringe) 0.5 mg IVPUSH Q4H PRN; Protocol PRN Reason: Pain, Severe (Pain Scale 7-10) Last Admin: 04/15/22 03:37 Dose: 0.5 mg Vancomycin HCl 750 mg/ Sodium (Chloride) 265 mls @ 265 mls/hr IV Q12H [facility] Last Infusion: 04/15/22 11:28 Dose: Infused Piperacillin Sod/Tazobactam (Sod 3.375 gm/ Sodium Chloride) 50 mls @ 100 mls/hr IV Q6H [facility] Last Infusion: 04/15/22 11:28 Dose: Infused Insulin Glargine (Insulin Glargine,Hum.Rec.Anlog 100 Unit/Ml 10 Ml Vial) 40 unit SUBCUT BID [facility] Last Admin: 04/15/22 11:37 Dose: 40 unit Insulin Human Lispro (Insulin Lispro 100 Unit/Ml 3 Ml Vial) 0 unit SUBCUT QIDACHS [facility]; Protocol Last Admin: 04/15/22 13:49 Dose: 6 unit Losartan Potassium (Losartan Potassium 50 Mg Tablet) 50 mg PO DAILY [facility]; Protocol Last Admin: 04/15/22 09:38 Dose: 50 mg Melatonin (Melatonin 3 Mg Tablet) 6 mg PO BEDTIME PRN PRN Reason: Insomnia Metoprolol Tartrate (Metoprolol Tartrate 25 Mg Tablet) 25 mg PO BID [facility]; Protocol Last Admin: 04/15/22 09:38 Dose: 25 mg Omeprazole (Omeprazole 20 Mg Capsule.Dr) 20 mg PO DAILY@0630 [facility] Last Admin: 04/15/22 09:41 Dose: 20 mg Oxycodone HCl (Oxycodone Hcl Immed Release 5 Mg Tablet) 5 mg PO Q6H PRN PRN Reason: pain (scale score 7-10) Pharmacy Consult (Consult Rx Vancomycin Dosing) 1 each MISCELLANE DAILY PRN PRN Reason: Consult order Pharmacy Consult (Consult Rx Vancomycin Dosing) 1 each MISCELLANE DAILY PRN PRN Reason: Consult order Senna (Sennosides 8.6 Mg Tablet) 17.2 mg PO BEDTIME PRN PRN Reason: Constipation Sodium Chloride (0.9 % Sodium Chloride Flush 3 Ml Syringe) 3 ml IVFLUSH QSHIFT [facility] Last Admin: 04/15/22 08:14 Dose: Not Given Topiramate (Topiramate 25 Mg Tablet) 25 mg PO DAILY [facility] Last Admin: 04/15/22 09:38 Dose: 25 mg Home Medications Medication Instructions Recorded Confirmed Last Taken Type dulaglutide 0.75 mg/0.5 mL 0.75 mg subcut QWEEK 02/15/22 04/14/22 03/20/22 History subcutaneous pen injector (Trulicity) gabapentin 300 mg capsule 300 mg PO QPM 02/15/22 04/14/22 03/20/22 History insulin glargine 100 unit/mL (3 60 unit subcut QPM 02/15/22 04/14/22 03/20/22 History mL) subcutaneous pen (Lantus Solostar U-100 Insulin) insulin lispro 100 unit/mL 43 unit subcut TID 02/15/22 04/14/22 03/20/22 History subcutaneous pen lancets 28 gauge (FreeStyle #100 ea 02/15/22 04/14/22 03/20/22 History Lancets) metoprolol tartrate 25 mg tablet 25 mg PO BID 02/15/22 04/14/22 03/20/22 History omeprazole 20 mg capsule,delayed 20 mg PO DAILY 02/15/22 04/14/22 03/20/22 History release pen needle, diabetic 32 gauge x #50 ea 02/15/22 04/14/22 03/20/22 History 5/32 (BD Lesley 2nd Gen Pen Needle) topiramate 25 mg tablet 25 mg PO DAILY 02/15/22 04/14/22 03/20/22 History atorvastatin 80 mg tablet 1 tab PO BEDTIME 04/14/22 04/14/22 Unknown History losartan 50 mg tablet 1 tab DAILY 04/14/22 04/14/22 Unknown History Physical Exam Vital Signs: Vital Signs: Last Vital Signs Temp 99.3 F 04/14/22 19:06 Pulse 80 04/15/22 13:29 Resp 20 04/15/22 13:29 BP 149/76 H 04/15/22 13:29 Pulse Ox 95 04/15/22 13:29 O2 Del Method 04/15/22 13:29 BMI result Body Mass Index 45.6 Const: General: cooperative HEENT: Head: Yes normal to inspection Face and sinus: Yes normal facial exam Mouth: Normal oral and palatal mucosa present Teeth and gingiva: dentition normal Eyes: General: appearance normal, both eyes and all related structures Pupils: Equal, round and reactive pupils present Chest: Chest/axillae images: 1. mild exudate,no cellulitis 2. mild exudate,no cellulitis Resp: Effort & Inspection: normal respiratory effort Cardio: Rate: regular rate Rhythm: regular rhythm GI: Palpation (GI): Soft to palpation and nontender : General: Yes no CVA tenderness Back/Spine/Pelvis: Back: no CVA tenderness Skin: General skin exam: no rashes or lesions noted Neuro: General: moves all extremities Cranial nerves: Yes Equal, round and reactive pupils present Extrem: General: Yes normal to inspection Psych: Appearance: grossly normal Results Labs CBC & Chem 7: 04/15/22 10:28 04/15/22 06:24 Labs: Short CBC 04/14/22 04/15/22 Range/Units 17:49 10:28 WBC 9.7 13.6 H (4.8-10.8) X10*3/uL Hgb 12.0 10.3 L (12.0-16.0) g/dl Hct 37.5 32.6 L (37.0-47.0) % Plt Count 275 219 (160-400) X10*3/uL BMP 04/14/22 04/15/22 04/15/22 18:08 06:24 06:24 Sodium 135 136 Potassium 3.6 5.2 H D Chloride 105 113 H Carbon Dioxide 19 L 16 L BUN 12 12 Creatinine 1.03 Cancelled 0.79 Calcium 8.7 7.2 L D Liver Function 04/14/22 Range/Units 18:08 Total Bilirubin 0.8 (0.0-1.0) mg/dL Direct Bilirubin 0.4 (0.0-0.5) mg/dL AST 13 (5-31) U/L ALT 10 (0-31) U/L Alkaline Phosphatase 91 (39-117) U/L Albumin 3.8 (3.5-5.0) g/dL Assessment and Plan (1) Fever of unknown origin: Status: Acute The fever may be due to seroma( noninfected fluid) THere is no evidence of cellulitis and no elevated WBC. I do not see any purulent drainage,just healed eschars. Plan May continue broad spectrum antibiotics until cultures from seromas and blood cultures back. She feels better and once again do not see any signs of bacterial infection at this time If cultures show seroma and do not see bacteria would give po Doxycycline for a week antiinflammatory and treat focal skin irriation She may have viral syndrome also. Consider CT abdomen and pelvis if discomfort.
[2022-04-15] MEDS: 0.9 % Sodium Chloride Flush 3 ML SYRINGE IVFLUSH ×2 (17:31→18:22)
[2022-04-15 18:23] LABS: Glucose, Whole Blood 292 mg/dL (60-115)
[2022-04-15 21:25] LABS: Glucose, Whole Blood 278 mg/dL (60-115)
[2022-04-15] MEDS: Atorvastatin Calcium 80 MG TABLET PO (21:51)
[2022-04-15] MEDS: Gabapentin 300 MG CAPSULE PO (21:51)
[2022-04-16] VITALS (8 sets, daily range): BP systolic 96–141; BP diastolic 46–76; PULSE 72–77; RESP 17–18; TEMP 36.2–37.7; O2SAT 95–100
[2022-04-16] MEDS: Piperacillin Sodium/Tazobactam 3.375 GM in 0.9 % Sodium Chloride 50 ML IV ×4 (04:23→22:19)
[2022-04-16] MEDS: Sennosides 8.6 MG TABLET 17.2 MG PO ×2 (05:56→22:17)
[2022-04-16] MEDS: Omeprazole 20 MG CAPSULE.DR PO (05:56)
[2022-04-16 07:34] LABS: Glucose, Whole Blood 141 mg/dL (60-115)
[2022-04-16 08:24] LABS: Hematocrit 27.8 % (37.0-47.0); Hemoglobin 8.8 g/dl (12.0-16.0); Mean Corpuscular HGB Conc 31.7 g/dl (31.0-35.0); Mean Corpuscular Hemoglobin 30.2 pg (27.0-33.0); Mean Corpuscular Volume 95.5 fL (80.0-98.0); Mean Platelet Volume 10.6 fL (9.4-12.3); Platelet Count 215 X10*3/uL (160-400); Red Blood Count 2.91 X10*6/uL (4.20-5.50); Red Cell Distribution Width 13.2 % (11.0-16.0); White Blood Count 10.5 X10*3/uL (4.8-10.8)
[2022-04-16 08:53] LABS: Estimated Glomerular Filt Rate > 60
[2022-04-16 09:12] LABS: Blood Urea Nitrogen 11 mg/dL (9-16); Calcium 7.6 mg/dL (8.4-10.2); Estimated Glomerular Filt Rate > 60; Glucose Fasting 153 mg/dL (60-99)
[2022-04-16 09:39] LABS: Anion Gap 9 (12-20); Carbon Dioxide 20 mmol/L (22-29); Chloride 110 mmol/L (96-108); Potassium 3.7 mmol/L (3.3-5.1); Sodium 135 mmol/L (135-145)
[2022-04-16 09:40] LABS: Vancomycin Trough 8.5 mcg/mL (10.0-20.0)
--- NOTE | 2022-04-16 10:00 | HO.PM.IMPN ---
Subjective Subjective Date of Service: 04/16/22 Interval History: cc: surgical site erythema, pain, fevers interval history:improved Cardiovascular Cardiovascular: Reports no additional cardiovascular complaints Respiratory Respiratory: Reports no additional respiratory complaints Physical Exam Vital Signs: Vital Signs: Last Vital Signs Temp 97.7 F 04/16/22 07:22 Pulse 75 04/16/22 07:22 Resp 18 04/16/22 07:22 BP 97/52 L 04/16/22 07:22 Pulse Ox 96 04/16/22 07:22 O2 Del Method 04/16/22 07:22 BMI result Body Mass Index 45.6 General: AO X 3, no acute distress Resp: CTA bilateral, no accessory muscles used CVS: S1,S2,RRR GI: soft, non tender, non distended Neuro: motor grossly intact, alert Psych: appropriate affect, appropriate insight skin:?mastectomy sites healing well but with some diffuse redness Objective Data Active Medications Acetaminophen (Acetaminophen 325 Mg Tablet) 650 mg PO Q6H PRN PRN Reason: Pain, Mild (Pain Scale 1-3) Atorvastatin Calcium (Atorvastatin Calcium 80 Mg Tablet) 80 mg PO BEDTIME [facility] Last Admin: 04/15/22 21:51 Dose: 80 mg Documented By: NATALIE Dextrose (Dextrose 50 % 25 Gm/50 Ml Syringe) 25 gm IVPUSH Q15M PRN; Protocol PRN Reason: per Hypoglycemia Standing Ord. Enoxaparin Sodium (Enoxaparin Sodium 40 Mg/0.4 Ml Syringe) 40 mg SUBCUT Q24H [facility] Last Admin: 04/15/22 21:52 Dose: 40 mg Documented By: NATALIE Gabapentin (Gabapentin 300 Mg Capsule) 300 mg PO BEDTIME [facility] Last Admin: 04/15/22 21:51 Dose: 300 mg Documented By: NATALIE Glucose (Glucose Gel 15 Gm Gel..Gram.) 15 gm PO Q15M PRN; Protocol PRN Reason: per Hypoglycemia Standing Ord. Hydromorphone HCl (Hydromorphone Hcl 0.5 Mg/0.5 Ml Syringe) 0.5 mg IVPUSH Q4H PRN; Protocol PRN Reason: Pain, Severe (Pain Scale 7-10) Last Admin: 04/15/22 21:51 Dose: 0.5 mg Documented By: NATALIE Piperacillin Sod/Tazobactam (Sod 3.375 gm/ Sodium Chloride) 50 mls @ 100 mls/hr IV Q6H [facility] Last Infusion: 04/16/22 05:18 Dose: 0 mls/hr Documented By: STEFFANY Insulin Glargine (Insulin Glargine,Hum.Rec.Anlog 100 Unit/Ml 10 Ml Vial) 40 unit SUBCUT BID [facility] Last Admin: 04/15/22 21:50 Dose: 40 unit Documented By: NATALIE Insulin Human Lispro (Insulin Lispro 100 Unit/Ml 3 Ml Vial) 0 unit SUBCUT QIDACHS [facility]; Protocol Last Admin: 04/16/22 07:41 Dose: Not Given Documented By: MISSY Non-Admin Reason: No Insulin Coverage Losartan Potassium (Losartan Potassium 50 Mg Tablet) 50 mg PO DAILY [facility]; Protocol Last Admin: 04/15/22 09:38 Dose: 50 mg Documented By: ELISABETH Melatonin (Melatonin 3 Mg Tablet) 6 mg PO BEDTIME PRN PRN Reason: Insomnia Metoprolol Tartrate (Metoprolol Tartrate 25 Mg Tablet) 25 mg PO BID [facility]; Protocol Last Admin: 04/15/22 21:51 Dose: 25 mg Documented By: NATALIE Omeprazole (Omeprazole 20 Mg Capsule.Dr) 20 mg PO DAILY@0630 [facility] Last Admin: 04/16/22 05:56 Dose: 20 mg Documented By: STEFFANY Oxycodone HCl (Oxycodone Hcl Immed Release 5 Mg Tablet) 5 mg PO Q6H PRN PRN Reason: pain (scale score 7-10) Pharmacy Consult (Consult Rx Vancomycin Dosing) 1 each MISCELLANE DAILY PRN PRN Reason: Consult order Pharmacy Consult (Consult Rx Vancomycin Dosing) 1 each MISCELLANE DAILY PRN PRN Reason: Consult order Senna (Sennosides 8.6 Mg Tablet) 17.2 mg PO BEDTIME PRN PRN Reason: Constipation Last Admin: 04/16/22 05:56 Dose: 17.2 mg Documented By: STEFFANY Sodium Chloride (0.9 % Sodium Chloride Flush 3 Ml Syringe) 3 ml IVFLUSH QSHIFT [facility] Last Admin: 04/15/22 18:22 Dose: 3 ml Documented By: ROD Topiramate (Topiramate 25 Mg Tablet) 25 mg PO DAILY [facility] Last Admin: 04/15/22 09:38 Dose: 25 mg Documented By: ELISABETH Labs CBC & Chem 7: 04/16/22 08:00 04/16/22 08:00 Labs: Laboratory Results - last 24 hr 04/14/22 04/15/22 04/15/22 21:35 10:28 12:37 MCV 96.2 MCH 30.4 MCHC 31.6 RDW 13.2 Plt Count 219 MPV 10.5 Immature Gran % (Auto) 0.4 Neut % (Auto) 79.7 H Lymph % (Auto) 8.6 L Hunt % (Auto) 10.9 Eos % (Auto) 0.2 Baso % (Auto) 0.2 Lymph # (Auto) 1.2 Hunt # (Auto) 1.5 H Eos # (Auto) 0.0 Baso # (Auto) 0.0 Abs Immat Gran (auto) 0.05 H Absolute Neuts (auto) 10.8 H Absolute Nucleated RBC 0.000 Nucleated RBC % (auto) 0.0 Anion Gap Estim Creat Clear Calc Estimated GFR POC Glucose 149 H 285 H Fasting Glucose Calcium Vancomycin Trough 04/15/22 04/15/22 04/16/22 18:17 21:21 07:23 MCV MCH MCHC RDW Plt Count MPV Immature Gran % (Auto) Neut % (Auto) Lymph % (Auto) Hunt % (Auto) Eos % (Auto) Baso % (Auto) Lymph # (Auto) Hunt # (Auto) Eos # (Auto) Baso # (Auto) Abs Immat Gran (auto) Absolute Neuts (auto) Absolute Nucleated RBC Nucleated RBC % (auto) Anion Gap Estim Creat Clear Calc Estimated GFR POC Glucose 292 H 278 H 141 H Fasting Glucose Calcium Vancomycin Trough 04/16/22 04/16/22 04/16/22 08:00 08:00 08:00 MCV 95.5 MCH 30.2 MCHC 31.7 RDW 13.2 Plt Count 215 MPV 10.6 Immature Gran % (Auto) Neut % (Auto) Lymph % (Auto) Hunt % (Auto) Eos % (Auto) Baso % (Auto) Lymph # (Auto) Hunt # (Auto) Eos # (Auto) Baso # (Auto) Abs Immat Gran (auto) Absolute Neuts (auto) Absolute Nucleated RBC 0.000 Nucleated RBC % (auto) 0.0 Anion Gap 9 L Estim Creat Clear Calc 102.0 Estimated GFR > 60 POC Glucose Fasting Glucose 153 H Calcium 7.6 L Vancomycin Trough 8.5 L 04/16/22 08:00 MCV MCH MCHC RDW Plt Count MPV Immature Gran % (Auto) Neut % (Auto) Lymph % (Auto) Hunt % (Auto) Eos % (Auto) Baso % (Auto) Lymph # (Auto) Hunt # (Auto) Eos # (Auto) Baso # (Auto) Abs Immat Gran (auto) Absolute Neuts (auto) Absolute Nucleated RBC Nucleated RBC % (auto) Anion Gap Estim Creat Clear Calc 102.0 Estimated GFR > 60 POC Glucose Fasting Glucose Calcium Vancomycin Trough Microbiology Microbiology Results: Microbiology 04/14/22 18:06 Blood Culture - Preliminary Blood - Venous No growth after 24 hours. 04/14/22 17:49 Blood Culture - Preliminary Blood - Venous No growth after 24 hours. 04/15/22 13:17 Gram Stain - Final Breast Assessment and Plan (1) Sepsis: Status: Acute Plan 61F presented with fevers, mastectomy site pain and swelling severe sepsis due to cellulitis at mastectomy sites continue vanc, zosyn surgery appreciated - no further drainage needed at this time ID appreciated, awaiting cultures, likely doxy on discharge DM basal bolus insulin htn losartan and lopressor on hold for low normal bps morbid obesity weight loss recommended dvt prophylaxis - lovenox full code reason for continued hospitalization: severe sepsis requiring continued iv abx, awaiting cultures, defervesence Quality Stroke Does the patient have a stroke diagnosis?: No VTE Prior VTE?: No VTE Risk Level:: Medical - moderate - high VTE Device Contraindication: Treatment Not Indicated VTE Drug Contraindication: N/A - Med Ordered
[2022-04-16] MEDS: Topiramate 25 MG TABLET PO (10:16)
[2022-04-16] MEDS: Insulin Glargine,Hum.rec.anlog 100 UNIT/ML 10 ML VIAL 40 UNIT SUBCUT ×2 (10:16→22:18)
[2022-04-16] MEDS: 0.9 % Sodium Chloride Flush 3 ML SYRINGE IVFLUSH ×2 (10:17→12:39)
[2022-04-16] MEDS: oxyCODONE HCl Immed Release 5 MG TABLET PO ×2 (10:40→16:30)
--- NOTE | 2022-04-16 10:56 | PM.PNGS ---
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 It is also occasionally sharp and stabbing takes her breath away. There is minimal improvement in the symptoms. It is not reproducible with palpation of her mastectomy flaps. Physical Exam Vital Signs: Vital Signs: Last Vital Signs Temp 97.7 F 04/16/22 07: Pulse 75 04/16/22 07:22 Resp 18 04/16/22 07:22 BP 97/52 L 04/16/22 07:22 Pulse Ox 96 04/16/22 07: O2 Del Method 04/16/22 07:22 BMI result Body Mass Index 45.6 The erythema on her chest has improved; there is still some seroma that is residual. There is some necrosis to the suture line on the patient's left inferior skin flap but there is no malodorous drainage. The right side is healing well Abdomen is obese with no epigastric or right upper quadrant tenderness Objective Data Active Medications Acetaminophen (Acetaminophen 325 Mg Tablet) 650 mg PO Q6H PRN PRN Reason: Pain, Mild (Pain Scale 1-3) Atorvastatin Calcium (Atorvastatin Calcium 80 Mg Tablet) 80 mg PO BEDTIME [facility] Last Admin: 04/15/22 21:51 Dose: 80 mg Documented By: NATALIE Dextrose (Dextrose 50 % 25 Gm/50 Ml Syringe) 25 gm IVPUSH Q15M PRN; Protocol PRN Reason: per Hypoglycemia Standing Ord. Enoxaparin Sodium (Enoxaparin Sodium 40 Mg/0.4 Ml Syringe) 40 mg SUBCUT Q24H [facility] Last Admin: 04/15/22 21:52 Dose: 40 mg Documented By: NATALIE Gabapentin (Gabapentin 300 Mg Capsule) 300 mg PO BEDTIME [facility] Last Admin: 04/15/22 21:51 Dose: 300 mg Documented By: NATALIE Glucose (Glucose Gel 15 Gm Gel..Gram.) 15 gm PO Q15M PRN; Protocol PRN Reason: per Hypoglycemia Standing Ord. Hydromorphone HCl (Hydromorphone Hcl 0.5 Mg/0.5 Ml Syringe) 0.5 mg IVPUSH Q4H PRN; Protocol PRN Reason: Pain, Severe (Pain Scale 7-10) Last Admin: 04/15/22 21:51 Dose: 0.5 mg Documented By: NATALIE Piperacillin Sod/Tazobactam (Sod 3.375 gm/ Sodium Chloride) 50 mls @ 100 mls/hr IV Q6H [facility] Last Admin: 04/16/22 10:16 Dose: 100 mls/hr Documented By: MISSY Vancomycin HCl 1,500 mg/ (Sodium Chloride) 500 mls @ 333.333 mls/hr IV Q12H [facility] Insulin Glargine (Insulin Glargine,Hum.Rec.Anlog 100 Unit/Ml 10 Ml Vial) 40 unit SUBCUT BID [facility] Last Admin: 04/16/22 10:16 Dose: 40 unit Documented By: MISSY Insulin Human Lispro (Insulin Lispro 100 Unit/Ml 3 Ml Vial) 0 unit SUBCUT QIDACHS [facility]; Protocol Last Admin: 04/16/22 07:41 Dose: Not Given Documented By: MISSY Non-Admin Reason: No Insulin Coverage Losartan Potassium (Losartan Potassium 50 Mg Tablet) 50 mg PO DAILY [facility]; Protocol Last Admin: 04/16/22 10:22 Dose: Not Given Documented By: MISSY Non-Admin Reason: held bp low Melatonin (Melatonin 3 Mg Tablet) 6 mg PO BEDTIME PRN PRN Reason: Insomnia Metoprolol Tartrate (Metoprolol Tartrate 25 Mg Tablet) 25 mg PO BID [facility]; Protocol Last Admin: 04/16/22 10:22 Dose: Not Given Documented By: MISSY Non-Admin Reason: held bp low Omeprazole (Omeprazole 20 Mg Capsule.Dr) 20 mg PO DAILY@0630 [facility] Last Admin: 04/16/22 05:56 Dose: 20 mg Documented By: NAUMOC Oxycodone HCl (Oxycodone Hcl Immed Release 5 Mg Tablet) 5 mg PO Q6H PRN PRN Reason: pain (scale score 7-10) Last Admin: 04/16/22 10:40 Dose: 5 mg Documented By: MISSY Pharmacy Consult (Consult Rx Vancomycin Dosing) 1 each MISCELLANE DAILY PRN PRN Reason: Consult order Pharmacy Consult (Consult Rx Vancomycin Dosing) 1 each MISCELLANE DAILY PRN PRN Reason: Consult order Senna (Sennosides 8.6 Mg Tablet) 17.2 mg PO BEDTIME PRN PRN Reason: Constipation Last Admin: 04/16/22 05:56 Dose: 17.2 mg Documented By: STEFFANY Sodium Chloride (0.9 % Sodium Chloride Flush 3 Ml Syringe) 3 ml IVFLUSH QSHIFT [facility] Last Admin: 04/16/22 10:17 Dose: 3 ml Documented By: MISSY Topiramate (Topiramate 25 Mg Tablet) 25 mg PO DAILY [facility] Last Admin: 04/16/22 10:16 Dose: 25 mg Documented By: MISSY Labs CBC & Chem 7: 04/16/22 08:00 04/16/22 08:00 Labs: Laboratory Results - last 24 hr 04/14/22 04/15/22 04/15/22 21:35 12:37 18:17 MCV MCH MCHC RDW Plt Count MPV Absolute Nucleated RBC Nucleated RBC % (auto) Anion Gap Estim Creat Clear Calc Estimated GFR POC Glucose 149 H 285 H 292 H Fasting Glucose Calcium Vancomycin Trough 04/15/22 04/16/22 04/16/22 21:21 07:23 08:00 MCV MCH MCHC RDW Plt Count MPV Absolute Nucleated RBC Nucleated RBC % (auto) Anion Gap 9 L Estim Creat Clear Calc 102.0 Estimated GFR > 60 POC Glucose 278 H 141 H Fasting Glucose 153 H Calcium 7.6 L Vancomycin Trough 04/16/22 04/16/22 04/16/22 08:00 08:00 08:00 MCV 95.5 MCH 30.2 MCHC 31.7 RDW 13.2 Plt Count 215 MPV 10.6 Absolute Nucleated RBC 0.000 Nucleated RBC % (auto) 0.0 Anion Gap Estim Creat Clear Calc 102.0 Estimated GFR > 60 POC Glucose Fasting Glucose Calcium Vancomycin Trough 8.5 L Microbiology Microbiology Results: Microbiology 04/14/22 18:06 Blood Culture - Preliminary Blood - Venous No growth after 24 hours. 04/14/22 17:49 Blood Culture - Preliminary Blood - Venous No growth after 24 hours. 04/15/22 13:17 Gram Stain - Final Breast Gram-positive cocci seen on Gram stain of seroma fluid; cultures and sensitivities pending Procedures Date of Service Date of Service: 04/16/22 Progress Note: A&P Assessment and plan (1) Cellulitis: Status: Acute Assessment and Plan: Continue present management. Will ask the medical service to weigh in on the patient's continued thoracic complaints. I would expect problems related to cellulitis or postoperative pain to be reproducible with palpation, and the workup so far has not revealed any etiology for her complaints. Await speciation and sensitivities of seroma fluid Patient will need to follow-up with Dr. Henry regarding the left skin flap (2) Sepsis: Status: Acute (3) Seroma of breast: Status: Acute (4) Anemia: Status: Acute Time Spent With Patient Time: Total time spent is greater than 50% in coordination of care (as documented) at patient's floor/unit and/or counseling patient: Quality Stroke Does the patient have a stroke diagnosis?: No VTE Prior VTE?: No VTE Risk Level:: Medical - moderate - high VTE Device Contraindication: Treatment Not Indicated VTE Drug Contraindication: N/A - Med Ordered
[2022-04-16 11:32] LABS: Glucose, Whole Blood 200 mg/dL (60-115)
[2022-04-16] MEDS: Insulin Lispro 100 UNIT/ML 3 ML VIAL SUBCUT ×3 (12:06→22:18)
[2022-04-16] MEDS: vancomycin HCL 1,500 MG in 0.9 % Sodium Chloride 500 ML 333.33 MG IV ×2 (12:36→23:54)
[2022-04-16 15:53] LABS: Glucose, Whole Blood 179 mg/dL (60-115)
[2022-04-16 20:14] LABS: Glucose, Whole Blood 221 mg/dL (60-115)
[2022-04-16] MEDS: Atorvastatin Calcium 80 MG TABLET PO (22:17)
[2022-04-16] MEDS: Metoprolol Tartrate 25 MG TABLET PO (22:17)
[2022-04-16] MEDS: Gabapentin 300 MG CAPSULE PO (22:17)
[2022-04-16] MEDS: HYDROmorphone HCl 0.5 MG/0.5 ML SYRINGE IVPUSH (22:39)
[2022-04-16] MEDS: Enoxaparin Sodium 40 MG/0.4 ML SYRINGE SUBCUT (23:58)
[2022-04-17 02:56] VITALS: BP 102/56; PULSE 68; RESP 17; TEMP 36.2; O2SAT 98
[2022-04-17] MEDS: Piperacillin Sodium/Tazobactam 3.375 GM in 0.9 % Sodium Chloride 50 ML IV ×2 (04:42→09:53)
[2022-04-17 05:53] VITALS: RESP 18
[2022-04-17] MEDS: Omeprazole 20 MG CAPSULE.DR PO (05:53)
[2022-04-17] MEDS: HYDROmorphone HCl 0.5 MG/0.5 ML SYRINGE IVPUSH ×2 (05:53→09:53)
[2022-04-17 06:56] LABS: Hematocrit 28.4 % (37.0-47.0); Hemoglobin 8.7 g/dl (12.0-16.0); Mean Corpuscular HGB Conc 30.6 g/dl (31.0-35.0); Mean Corpuscular Hemoglobin 29.9 pg (27.0-33.0); Mean Corpuscular Volume 97.6 fL (80.0-98.0); Mean Platelet Volume 11.1 fL (9.4-12.3); Platelet Count 235 X10*3/uL (160-400); Red Blood Count 2.91 X10*6/uL (4.20-5.50); Red Cell Distribution Width 12.9 % (11.0-16.0); White Blood Count 8.4 X10*3/uL (4.8-10.8)
[2022-04-17 07:34] VITALS: BP 108/55; PULSE 65; RESP 18; TEMP 36.4; O2SAT 98
[2022-04-17 07:50] LABS: Anion Gap 9 (12-20); Blood Urea Nitrogen 11 mg/dL (9-16); Calcium 7.6 mg/dL (8.4-10.2); Carbon Dioxide 23 mmol/L (22-29); Chloride 110 mmol/L (96-108); Estimated Glomerular Filt Rate > 60; Glucose Fasting 184 mg/dL (60-99); Sodium 138 mmol/L (135-145)
[2022-04-17 07:52] LABS: Glucose, Whole Blood 159 mg/dL (60-115)
[2022-04-17] MEDS: Insulin Lispro 100 UNIT/ML 3 ML VIAL SUBCUT (09:00)
[2022-04-17] MEDS: Losartan Potassium 50 MG TABLET PO (09:35)
[2022-04-17] MEDS: 0.9 % Sodium Chloride Flush 3 ML SYRINGE IVFLUSH (09:35)
[2022-04-17] MEDS: Insulin Glargine,Hum.rec.anlog 100 UNIT/ML 10 ML VIAL 40 UNIT SUBCUT (09:35)
[2022-04-17] MEDS: Topiramate 25 MG TABLET PO (09:35)
[2022-04-17 09:40] VITALS: BP 102/60; PULSE 60
[2022-04-17 09:53] VITALS: RESP 17
--- NOTE | 2022-04-17 10:08 | P.PNGS_ITS ---
Subjective Subjective Date of Service: 04/17/22 Patient reports: no new complaints and still having pain Interval history: The patient notes she is still having continued chest pain and pain in her incisions. Physical Exam Vital Signs: Vital Signs: Last Vital Signs Temp 97.6 F 04/17/22 07:34 Pulse 60 04/17/22 09:40 Resp 17 04/17/22 09:53 BP 102/60 04/17/22 09:40 Pulse Ox 98 04/17/22 07:34 O2 Del Method 04/17/22 07:34 BMI result Body Mass Index 45.6 Her mastectomy flaps are less erythematous. There is necrosis that is unchanged as described yesterday involving the left flap. There may be some fluid reaccumulating, however it is not tender and I do not believe aspiration is necessary at this time Objective Data Active Medications Acetaminophen (Acetaminophen 325 Mg Tablet) 650 mg PO Q6H PRN PRN Reason: Pain, Mild (Pain Scale 1-3) Atorvastatin Calcium (Atorvastatin Calcium 80 Mg Tablet) 80 mg PO BEDTIME [facility] Last Admin: 04/16/22 22:17 Dose: 80 mg Documented By: STEFFANY Dextrose (Dextrose 50 % 25 Gm/50 Ml Syringe) 25 gm IVPUSH Q15M PRN; Protocol PRN Reason: per Hypoglycemia Standing Ord. Enoxaparin Sodium (Enoxaparin Sodium 40 Mg/0.4 Ml Syringe) 40 mg SUBCUT Q24H [facility] Last Admin: 04/16/22 23:58 Dose: 40 mg Documented By: STEFFANY Gabapentin (Gabapentin 300 Mg Capsule) 300 mg PO BEDTIME [facility] Last Admin: 04/16/22 22:17 Dose: 300 mg Documented By: STEFFANY Glucose (Glucose Gel 15 Gm Gel..Gram.) 15 gm PO Q15M PRN; Protocol PRN Reason: per Hypoglycemia Standing Ord. Hydromorphone HCl (Hydromorphone Hcl 0.5 Mg/0.5 Ml Syringe) 0.5 mg IVPUSH Q4H PRN; Protocol PRN Reason: Pain, Severe (Pain Scale 7-10) Last Admin: 04/17/22 09:53 Dose: 0.5 mg Documented By: NICOLE Piperacillin Sod/Tazobactam (Sod 3.375 gm/ Sodium Chloride) 50 mls @ 100 mls/hr IV Q6H [facility] Last Admin: 04/17/22 09:53 Dose: 100 mls/hr Documented By: NICOLE Insulin Glargine (Insulin Glargine,Hum.Rec.Anlog 100 Unit/Ml 10 Ml Vial) 40 unit SUBCUT BID [facility] Last Admin: 04/17/22 09:35 Dose: 40 unit Documented By: NICOLE Insulin Human Lispro (Insulin Lispro 100 Unit/Ml 3 Ml Vial) 0 unit SUBCUT QIDACHS [facility]; Protocol Last Admin: 04/17/22 09:00 Dose: 2 unit Documented By: NICOLE Comments: pt ate breakfast 09:00 Losartan Potassium (Losartan Potassium 50 Mg Tablet) 50 mg PO DAILY [facility]; Protocol Last Admin: 04/17/22 09:35 Dose: 50 mg Documented By: NICOLE Melatonin (Melatonin 3 Mg Tablet) 6 mg PO BEDTIME PRN PRN Reason: Insomnia Metoprolol Tartrate (Metoprolol Tartrate 25 Mg Tablet) 25 mg PO BID [facility]; Protocol Last Admin: 04/17/22 09:41 Dose: Not Given Documented By: NICOLE Non-Admin Reason: BP 102/60 HR 60 Omeprazole (Omeprazole 20 Mg Capsule.Dr) 20 mg PO DAILY@0630 [facility] Last Admin: 04/17/22 05:53 Dose: 20 mg Documented By: STEFFANY Oxycodone HCl (Oxycodone Hcl Immed Release 5 Mg Tablet) 5 mg PO Q6H PRN PRN Reason: pain (scale score 7-10) Last Admin: 04/16/22 16:30 Dose: 5 mg Documented By: CHELSIE Pharmacy Consult (Consult Rx Vancomycin Dosing) 1 each MISCELLANE DAILY PRN PRN Reason: Consult order Pharmacy Consult (Consult Rx Vancomycin Dosing) 1 each MISCELLANE DAILY PRN PRN Reason: Consult order Senna (Sennosides 8.6 Mg Tablet) 17.2 mg PO BEDTIME PRN PRN Reason: Constipation Last Admin: 04/16/22 22:17 Dose: 17.2 mg Documented By: STEFFANY Sodium Chloride (0.9 % Sodium Chloride Flush 3 Ml Syringe) 3 ml IVFLUSH QSHIFT [facility] Last Admin: 04/17/22 09:35 Dose: 3 ml Documented By: NICOLE Topiramate (Topiramate 25 Mg Tablet) 25 mg PO DAILY [facility] Last Admin: 04/17/22 09:35 Dose: 25 mg Documented By: NICOLE Labs CBC & Chem 7: 04/17/22 06:25 04/17/22 06:25 Labs: Laboratory Results - last 24 hr 04/16/22 04/16/22 04/16/22 11:27 15:50 20:05 MCV MCH MCHC RDW Plt Count MPV Absolute Nucleated RBC Nucleated RBC % (auto) Anion Gap Estim Creat Clear Calc Estimated GFR POC Glucose 200 H 179 H 221 H Fasting Glucose Calcium 04/17/22 04/17/22 04/17/22 06:25 06:25 07:35 MCV 97.6 MCH 29.9 MCHC 30.6 L RDW 12.9 Plt Count 235 MPV 11.1 Absolute Nucleated RBC 0.000 Nucleated RBC % (auto) 0.0 Anion Gap 9 L Estim Creat Clear Calc 85.0 Estimated GFR > 60 POC Glucose 159 H Fasting Glucose 184 H Calcium 7.6 L Microbiology Microbiology Results: Microbiology 04/15/22 13:17 Gram Stain - Final Breast Routine Culture - Final Strep agalactiae (Grp B) 04/14/22 18:06 Blood Culture - Preliminary Blood - Venous No growth after 48 hours. 04/14/22 17:49 Blood Culture - Preliminary Blood - Venous No growth after 48 hours. Procedures Date of Service Date of Service: 04/17/22 Progress Note: A&P Assessment and plan (1) Cellulitis: Status: Acute (2) Seroma of breast: Status: Acute (3) Anemia: Status: Acute (4) Uncontrolled diabetes mellitus: Status: Acute (5) Chest pain: Status: Acute Plan That communicated with the hospitalist and asked for medical input regarding the patient's ongoing symptoms. Clinically, her cellulitis is improving and her normal white count would suggest that that is not the etiology of her ongoing chest pain. Her seroma is not significantly changed since yesterday and it is certainly nontender to palpation, so I do not think that aspirating is indicated at this time. Dr. Hinton will return tomorrow and resume care. Time Spent With Patient Time: Total time spent is greater than 50% in coordination of care (as documented) at patient's floor/unit and/or counseling patient: Quality Stroke Does the patient have a stroke diagnosis?: No VTE Prior VTE?: No VTE Risk Level:: Medical - moderate - high VTE Device Contraindication: Treatment Not Indicated VTE Drug Contraindication: N/A - Med Ordered
[2022-04-17 11:05] LABS: Troponin-I High Sensitivity 6.6 ng/L (<3.5-17.0)
[2022-04-17 11:13] VITALS: BP 120/65; PULSE 62; RESP 18; TEMP 36.5; O2SAT 100
--- NOTE | 2022-04-17 11:29 | PM.DS ---
DS: Providers Provider Date of Service: 04/17/22 Date of admission: 04/14/22 22:50 Primary care physician: [facility] Consults: 04/14/22 22:52 Consult to General Surgery Routine Consulting Provider: Filipe Hinton Reason for consultation: Mastectomy surgical site infection/seroma Consult to Infectious Diseases Routine Consulting Provider: Ninfa Lowry Reason for consultation: Mastectomy-surgical site infection DS: Diagnosis Discharge Diagnosis (1) Cellulitis: Status: Acute (2) Seroma of breast: Status: Acute (3) Anemia: Status: Acute (4) Uncontrolled diabetes mellitus: Status: Acute (5) Chest pain: Status: Acute DS: Summary Hospital Course Hospital Course: from initial hpi: Date of Service: 04/14/22 Chief Complaint: Pain at the surgical incision site 61-year-old female with a past medical history of hypertension, hyperlipidemia, diabetes, history of breast cancer-status post bilateral mastectomy on 03/21/2022; history of GERD, asthma presented to the hospital today with a chief complaint of pain at the surgical incision site.? Patient reports that she has been having pain at the bilateral surgical incision sites for the past 2 days.? Reports subjective fevers.? Reports pain worsens on movement.? Denies any cough or sputum production.? Reports the pain is sharp in nature.? Review of all other systems is negative except mentioned above ER course: Per ER team patient noted to have mild discharge of the with mentions that; CT chest showed no evidence of pulmonary embolism; noted to have serum at the surgical sites.? Patient was given IV antibiotics.? ER team also note by General surgery hyper no acute intervention recommended for tonight.? Admitted for further management.? Patient initially positive for sepsis and received IV fluids per sepsis protocol. hospital course: Patient was admitted for severe sepsis secondary to cellulitis at bilateral mastectomy sites. He was given vancomycin and Zosyn and sepsis resolved. Wound culture grew group B strep. She was seen by ID who recommended 7 days of doxycycline on discharge. There was some concern for chest pain. Cardiac source is considered unlikely given bilateral nature and proximity to surgical site, nonischemic EKG and negative troponin. Most likely chest pain is due to surgical site inflammation. Patient does have risk factors for underlying coronary disease, she should follow-up as outpatient for risk mitigation. For diabetes should continue basal bolus insulin. For hypertension losartan and Lopressor have been held for blood pressures on the lower side. For morbid obesity weight loss is recommended. Time Spent with Patient Time attestation: Total time spent providing and/or coordinating discharge services: Discharge coordination time: Greater than 30 minutes Quality: Safe Use of Opioids Does Pt have an Active Cancer Diagnosis on the Problem List?: Yes Opioid Measure Date for [facility] Report: 03/18/22 Opioid Measure Time for [facility] Report: 11:29 Quality: Stroke Does the patient have a stroke diagnosis?: No Physical Exam Vital Signs: Vital Signs: Last Vital Signs Temp 97.7 F 04/17/22 11:13 Pulse 62 04/17/22 11:13 Resp 18 04/17/22 11:13 BP 120/65 04/17/22 11:13 Pulse Ox 100 04/17/22 11:13 O2 Del Method 04/17/22 11:13 BMI result Body Mass Index 45.6 General: AO X 3, no acute distress Resp: CTA bilateral, no accessory muscles used CVS: S1,S2,RRR GI: soft, non tender, non distended Neuro: motor grossly intact, alert Psych: appropriate affect, appropriate insight skin:?mastectomy sites healing well but with improved redness DS: Data Data Completed and Pending Completed studies during hospitalization [Text1]: Procedures Excision of Left Axillary Lymphatic, Open Approach, Diagnostic (03/21/22) Resection of Bilateral Breast, Open Approach (03/21/22) Labs on day of discharge: Laboratory Results - last 24 hr 04/16/22 04/16/22 04/16/22 11:27 15:50 20:05 WBC RBC Hgb Hct MCV MCH MCHC RDW Plt Count MPV Absolute Nucleated RBC Nucleated RBC % (auto) Sodium Potassium Chloride Carbon Dioxide Anion Gap BUN Creatinine Estim Creat Clear Calc Estimated GFR POC Glucose 200 H 179 H 221 H Fasting Glucose Calcium Troponin I High Sens 04/17/22 04/17/22 04/17/22 06:25 06:25 07:35 WBC 8.4 RBC 2.91 L Hgb 8.7 L Hct 28.4 L MCV 97.6 MCH 29.9 MCHC 30.6 L RDW 12.9 Plt Count 235 MPV 11.1 Absolute Nucleated RBC 0.000 Nucleated RBC % (auto) 0.0 Sodium 138 Potassium 4.0 Chloride 110 H Carbon Dioxide 23 Anion Gap 9 L BUN 11 Creatinine 0.90 Estim Creat Clear Calc 85.0 Estimated GFR > 60 POC Glucose 159 H Fasting Glucose 184 H Calcium 7.6 L Troponin I High Sens 04/17/22 10:17 WBC RBC Hgb Hct MCV MCH MCHC RDW Plt Count MPV Absolute Nucleated RBC Nucleated RBC % (auto) Sodium Potassium Chloride Carbon Dioxide Anion Gap BUN Creatinine Estim Creat Clear Calc Estimated GFR POC Glucose Fasting Glucose Calcium Troponin I High Sens 6.6 D Preliminary micro results at discharge 04/14/22 18:06 Blood Culture - Preliminary Blood - Venous No growth after 48 hours. 04/14/22 17:49 Blood Culture - Preliminary Blood - Venous No growth after 48 hours. Discharge Plan Discharge Patient Disposition: Home, Self-Care Discharge Diagnosis: celulitis Referrals: [facility] [Primary Care Provider] - 1 Week Discharge Medications: New doxycycline hyclate 100 mg tablet 100 mg PO BID Qty: 14 0RF Continued oxycodone 5 mg tablet 5 mg PO Q6H PRN (Reason: pain (scale score 7-10)) Qty: 15 0RF Rx Instructions: Partial Fill upon patient request. losartan 50 mg tablet 1 tab DAILY atorvastatin 80 mg tablet 1 tab PO BEDTIME (DME) pen needle, diabetic [BD Lesley 2nd Gen Pen Needle] 32 gauge x 5/32 needle See Rx Instructions .ROUTE QID Qty: 50 Rx Instructions: As directed Lantus Solostar U-100 Insulin 100 unit/mL (3 mL) insulin pen 60 unit subcut QPM Trulicity 0.75 mg/0.5 mL pen injector 0.75 mg subcut QWEEK metoprolol tartrate 25 mg tablet 25 mg PO BID insulin lispro 100 unit/mL insulin pen 43 unit subcut TID gabapentin 300 mg capsule 300 mg PO QPM topiramate 25 mg tablet 25 mg PO DAILY (DME) lancets [FreeStyle Lancets] 28 gauge misc See Rx Instructions topical TID Qty: 100 Rx Instructions: As directed omeprazole 20 mg capsule,delayed release(DR/EC) 20 mg PO DAILY Discharge Orders: Discharge Order (Routine); Ordered 04/17/22 Ordered By: Axel Shanks Diet: Diabetic diet Activity on Discharge: As tolerated Stand Alone Forms: Patient Portal Discharge page Care Plan Goals: recovery Health Concerns: cellulitis Plan of Treatment: 7 days doxy, follow up surgery Assessment: see above
[2022-04-17 11:39] LABS: Glucose, Whole Blood 143 mg/dL (60-115)
--- NOTE | 2022-04-17 12:00 | MHC.CM.PN ---
Addendum entered by Barbara Hale 04/17/22 12:07: CORRECTION: PT TO DC HOME TODAY WITH [facility]. REFERRAL MADE TO [facility] HOWEVER THEY WILL NOT REVIEW UNTIL MORNING. Original Note: PT LIVES WITH HER AND IS INDEPENDENT WITH CARE AND WORKS AT [employer] PT HAS NO DME AND NO HOME SERVICES PT HAS A HCP ON FILE SHE GOES TO [facility] FOR PRIMARY CARE BUT DOES NOT KNOW THE NAME OF HER PROVIDER PT HAS BEEN COVID VACCINATED WITH MODERNA X 3 PT WILL DC HOME TODAY WITH NO SERVICES FAMILY TO TRANSPORT
--- NOTE | 2022-04-17 12:06 | P.F2F_ITS ---
Service Date Service Date: 04/17/22 Encounter Date of encounter: 04/17/22 Reasons for Services Signs and symptoms assessed: weakness Reason for senior care: medication management, medication treatment and teach disease management Homebound: Leaving the home is medically contraindicated at this time without the asist of a device and/or another person due th the listed conditions above and below. Reason homebound: unsteady gait / fall risk Certification: Based on the above findings, I certify that this patient is confined to the home and needs intermittent senior care care, physical therapy and/or speech therapy, or continues to need occupational therapy. The patient is under my care, and I have initiated the establishment of the plan of care. The patient will be followed by a physician who will periodically review the plan of care.
== END 2022-04-17 14:40 | disposition home or self-care (01) | DRG 720 ==
LOC: HO.ED 21:22 → HO.EDOVER 22:57 → HO.IMC 04-15 22:03
PROVIDERS: Nurse Practitioner Family; Admitting Provider Hospitalist; Emergency Provider Emergency Medicine; PCP Registered Nurse Community Health; Visit Provider Internal Medicine
DX: T81.44XA Sepsis following a procedure, initial encounter (principal); R65.20 Severe sepsis without septic shock; M96.843 Postprocedural seroma of a musculoskeletal structure following other procedure; E66.01 Morbid (severe) obesity due to excess calories; D64.9 Anemia, unspecified; E11.9 Type 2 diabetes mellitus without complications; A41.9 Sepsis, unspecified organism; K21.9 Gastro-esophageal reflux disease without esophagitis; N61.0 Mastitis without abscess; Y83.8 Other surgical procedures as the cause of abnormal reaction of the patient, or of later complication, without mention of misadventure at the time of the procedure; Z68.42 Body mass index [BMI] 45.0-49.9, adult; Z90.13 Acquired absence of bilateral breasts and nipples; Z20.822 Contact with and (suspected) exposure to COVID-19; Z86.000 Personal history of in-situ neoplasm of breast; Z79.4 Long term (current) use of insulin; Z79.899 Other long term (current) drug therapy
CPT/HCPCS: 0241U; 36415; 71045; 71260; 71275; 80048; 80076; 80202; 82565; 82947; 83605; 83690; 83735; 83880; 84484; 85025; 85027; 85610; 85730; 87040; 87071; 87147; 87205; 93005; 96365; 96366; 96367; 96375; 99285; J0696; J1170; J1650; J2270; J2405; J2543; J3370; Q9967

== ENCOUNTER 2022-04-24 06:49 | Emergency (ER) | payer MEDICAID, SELFPAY ==
[2022-04-24 07:53] VITALS: BP 130/68; PULSE 64; RESP 18; TEMP 36.8; O2SAT 100; BMI 43.6
--- NOTE | 2022-04-24 08:07 | ED.GENADULT ---
HPI - General Adult General Chief complaint: General Medical Stated complaint: chest pain? 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 Henry on 03/21/22 who comes to the ER for evaluation of increased swelling swelling and pain of her surgical site. She also reports last night she started having a large amount of drainage. She feels like there increasing fluid collections and would like them drained. She states she had a fever of 102 this morning and had to take tylenol. She also endorses chills and a headache. Upon review of chart patient has been seen several times in the office this month for recurring seroma, requiring drainage in the office. MD complaint: surgical site pain, drainage, swelling Onset (ago): day(s) Location: chest Radiation: non-radiation Severity: moderate Severity scale (1-10): 6 Quality: aching Pain Consistency: constant Relieving factors: none Exacerbating factors: movement Associated symptoms: fever/chills, headaches and malaise Treatments prior to arrival: other (tylenol) Related Data Home Medications Medication Instructions Recorded Confirmed dulaglutide 0.75 mg/0.5 mL 0.75 mg subcut QWEEK 02/15/22 04/18/22 subcutaneous pen injector (Trulicity) gabapentin 300 mg capsule 300 mg PO QPM 02/15/22 04/18/22 insulin glargine 100 unit/mL (3 60 unit subcut QPM 02/15/22 04/18/22 mL) subcutaneous pen (Lantus Solostar U-100 Insulin) insulin lispro 100 unit/mL 43 unit subcut TID 02/15/22 04/18/22 subcutaneous pen lancets 28 gauge (FreeStyle #100 ea 02/15/22 04/18/22 Lancets) omeprazole 20 mg capsule,delayed 20 mg PO DAILY 02/15/22 04/18/22 release pen needle, diabetic 32 gauge x #50 ea 02/15/22 04/18/22 (BD Lesley 2nd Gen Pen Needle) topiramate 25 mg tablet 25 mg PO DAILY 05/24/22 07/25/22 atorvastatin 80 mg tablet 1 tab PO BEDTIME 04/14/22 04/18/22 Previous Rx's Medication Instructions Recorded oxycodone 5 mg tablet 5 mg PO Q6H PRN pain (scale score 03/24/22 7-10) #15 tabs doxycycline hyclate 100 mg tablet 100 mg PO BID #14 tabs 04/17/22 Allergies Allergy/AdvReac Type Severity Reaction Status Date / Time turkey Allergy Severe chest Unverified 04/18/22 14:20 pain/swelling/SOB/itching Review of Systems Review of Systems: Constitutional: + Fever, + Chills ENT/Mouth: No sore throat, No Rhinorrhea, No Swallowing Difficulty Eyes: No Eye Pain, No Swelling, No Redness Cardiovascular: + Chest Pain, No SOB, No Orthopnea, No Edema Respiratory: No Cough, No Sputum, No Wheezing, No dyspnea Gastrointestinal: No Nausea, No Vomiting, No Diarrhea, No abdominal Pain Genitourinary: No Dysuria, No Urinary Frequency, No Hematuria Musculoskeletal: No joint pain, No Myalgias Skin: + Skin Lesions, No rash Neuro: No Weakness, No Numbness, No Dizziness, + Headache Psych: No Anxiety/Panic, No Depression Heme/Lymph: No Bruising, No Lymphadenopathy Endocrine: No Polyuria, No Polydipsia PMFSH Past Medical History Medical History (Updated 04/24/22 @ 12:42 by JOHNNY Waggoner) Asthma COVID-19 vaccine series completed Diabetes Fever of unknown origin GERD (gastroesophageal reflux disease) HTN (hypertension) Hypercholesteremia Invasive ductal carcinoma of left breast Seroma of breast Surgical History (Updated 04/24/22 @ 08:42 by Laure Cohen) H/O mastectomy History of bilateral mastectomy (03/21/22) History of delivery History of cholecystectomy Family History Family History Mother Breast cancer, Onset Age: 58 Sister Breast cancer, Onset Age: 54 Social History Social History Household Members: Family Household Members Other:: and son Housing: House Housing Other:: [facility] Are you a primary personal caregiver to a significant other at home: No Do you presently have visiting nurse or other home services: No Alcohol intake: never Patient Tobacco Use Status: Never used Tobacco Use of substances other than those prescribed or required for medical reasons: No Advance Directives: Yes Advance Directives on File: Yes Advance Directives Date on File: 04/15/22 service: No Current occupational status: employed Physical Exam ED Vital Signs: Vital Signs - 24 hr 04/24/22 07:53 04/24/22 08:45 04/24/22 10:18 Temperature 98.2 F 98.1 F 98.0 F Pulse Rate 64 63 59 Respiratory Rate 18 17 17 Blood Pressure 130/68 136/55 L 139/55 L Pulse Oximetry 100 99 100 Oxygen Delivery Method Room Air Room Air Room Air BMI result Body Mass Index 43.6 Appearance: Alert. Oriented X3. No acute distress. Eyes: Pupils equal, round and reactive to light. ENT: Pharynx normal. Neck: Normal inspection. Neck supple. CVS: Normal heart rate and rhythm. Pulses normal. Chest wall: Bilateral surgical scars present consistent with recent mastectomy, scabbing and eschar with mild wound dehiscence present on the left side, no drainage. Large palpable fluid collection near the right axilla consistent with previously diagnosed seroma. No overlying erythema, warmth, it no drainage point. Respiratory: No respiratory distress. Breath sounds normal. Abdomen: Obese, Soft and nontender. +BS x4 Skin: Skin warm and dry. Normal skin color. Normal skin turgor. No rashes. Extremities: No lower extremity edema. Neuro: Oriented X 3. No motor deficit. No sensory deficit. Course Course Course Narrative: 61-year-old female who is a little over 1 month postop from a bilateral mastectomy by Dr. Henry presents to the ER with fevers, increased drainage and sensation of fullness. She is worried about infection. She room reports fever 102 this morning, headache and some chills. on arrival to the ER today she is afebrile, hemodynamically stable. Exam shows some wound dehiscence on the left side with some scant drainage. There is palpable seromas without ability to express any fluid. Dr. Hinton is the surgeon on-call and he has been made aware of the patient and he will come evaluate her after the operating room. In the meantime we will check lab work. Reevaluation(s) Reevaluation #1: no leukocytosis. Anemia improved. Dr. Hinton evaluated the patient at the bedside, seroma was aspirated for 500 cc of clear, blood-tinged serosanguineous fluid. Patient tolerated well. A compressive dressing and wrap was applied by . antibiotics are not recommended at this time. She is to follow-up in the office with Dr. Henry. Stable for discharge. Medical Decision Making Lab Data Result diagrams: 04/24/22 08:44 04/24/22 08:44 Labs: Lab Results 04/24/22 04/24/22 04/24/22 Range/Units 08:44 08:44 08:45 WBC 8.9 (4.8-10.8) X10*3/uL RBC 3.92 L D (4.20-5.50) X10*6/uL Hgb 11.4 L D (12.0-16.0) g/dl Hct 36.9 L D (37.0-47.0) % MCV 94.1 (80.0-98.0) fL MCH 29.1 (27.0-33.0) pg MCHC 30.9 L (31.0-35.0) g/dl RDW 12.8 (11.0-16.0) % Plt Count 374 D (160-400) X10*3/uL MPV 9.6 (9.4-12.3) fL Immature Gran % (Auto) 0.7 H (0.0-0.4) % Neut % (Auto) 66.9 (45-73) % Lymph % (Auto) 22.2 (20-40) % Mcculloch % (Auto) 6.5 (2-11) % Eos % (Auto) 3.2 (0-4) % Baso % (Auto) 0.5 (0-2) % Lymph # (Auto) 2.0 (1.2-4.9) X10*3/uL Mcculloch # (Auto) 0.6 (0.1-1.2) X10*3/uL Eos # (Auto) 0.3 (0.0-0.4) X10*3/uL Baso # (Auto) 0.0 (0.0-0.2) X10*3/uL Abs Immat Gran (auto) 0.06 H (0.00-0.03) X10*3/uL Absolute Neuts (auto) 5.9 (2.0-8.3) x10*3/uL Absolute Nucleated RBC 0.000 (0.0-0.012) X10*3/uL Nucleated RBC % (auto) 0.0 (0.0-0.2) /100WBC Sodium 139 (135-145) mmol/L Potassium 3.6 (3.3-5.1) mmol/L Chloride 104 (96-108) mmol/L Carbon Dioxide 25 (22-29) mmol/L Anion Gap 14 (12-20) BUN 14 (9-16) mg/dL Creatinine 0.94 (0.5-1.4) mg/dL Estim Creat Clear Calc 79.2 Estimated GFR > 60 Random Glucose 203 H (60-115) mg/dL Lactic Acid 1.1 (0.5-2.0) mmol/L Calcium 8.5 D (8.4-10.2) mg/dL Magnesium 1.9 (1.6-2.6) mg/dL Total Bilirubin 0.3 (0.0-1.0) mg/dL Direct Bilirubin 0.2 (0.0-0.5) mg/dL AST 11 (5-31) U/L ALT 13 (0-31) U/L Alkaline Phosphatase 88 (39-117) U/L Total Protein 7.5 (6.5-8.0) g/dL Albumin 3.8 (3.5-5.0) g/dL COVID-19 ([facility]) (Negative) COVID-19 Clin Com 04/24/22 Range/Units 08:45 WBC (4.8-10.8) X10*3/uL RBC (4.20-5.50) X10*6/uL Hgb (12.0-16.0) g/dl Hct (37.0-47.0) % MCV (80.0-98.0) fL MCH (27.0-33.0) pg MCHC (31.0-35.0) g/dl RDW (11.0-16.0) % Plt Count (160-400) X10*3/uL MPV (9.4-12.3) fL Immature Gran % (Auto) (0.0-0.4) % Neut % (Auto) (45-73) % Lymph % (Auto) (20-40) % Mcculloch % (Auto) (2-11) % Eos % (Auto) (0-4) % Baso % (Auto) (0-2) % Lymph # (Auto) (1.2-4.9) X10*3/uL Mcculloch # (Auto) (0.1-1.2) X10*3/uL Eos # (Auto) (0.0-0.4) X10*3/uL Baso # (Auto) (0.0-0.2) X10*3/uL Abs Immat Gran (auto) (0.00-0.03) X10*3/uL Absolute Neuts (auto) (2.0-8.3) x10*3/uL Absolute Nucleated RBC (0.0-0.012) X10*3/uL Nucleated RBC % (auto) (0.0-0.2) /100WBC Sodium (135-145) mmol/L Potassium (3.3-5.1) mmol/L Chloride (96-108) mmol/L Carbon Dioxide (22-29) mmol/L Anion Gap (12-20) BUN (9-16) mg/dL Creatinine (0.5-1.4) mg/dL Estim Creat Clear Calc Estimated GFR Random Glucose (60-115) mg/dL Lactic Acid (0.5-2.0) mmol/L Calcium (8.4-10.2) mg/dL Magnesium (1.6-2.6) mg/dL Total Bilirubin (0.0-1.0) mg/dL Direct Bilirubin (0.0-0.5) mg/dL AST (5-31) U/L ALT (0-31) U/L Alkaline Phosphatase (39-117) U/L Total Protein (6.5-8.0) g/dL Albumin (3.5-5.0) g/dL COVID-19 ([facility]) Negative (Negative) COVID-19 Clin Com See Note Critical Care Time Critical Care Time Critical Care Time: No Discharge Plan Discharge Clinical Impression: Seroma of breast Patient Disposition: Home, Self-Care Instructions: Seroma (DC) Additional Instructions: Wear the compression of dressing on your chest whenever possible. This will help prevent reaccumulation No antibiotics are recommended at this time Recommend following up in the office with Dr. Henry this week. Prescriptions: No Action oxycodone 5 mg tablet 5 mg PO Q6H PRN (Reason: pain (scale score 7-10)) Qty: 15 0RF Rx Instructions: Partial Fill upon patient request. atorvastatin 80 mg tablet 1 tab PO BEDTIME doxycycline hyclate 100 mg tablet 100 mg PO BID Qty: 14 0RF (DME) pen needle, diabetic [BD Lesley 2nd Gen Pen Needle] 32 gauge x 5/32 needle See Rx Instructions .ROUTE QID Qty: 50 Rx Instructions: As directed Lantus Solostar U-100 Insulin 100 unit/mL (3 mL) insulin pen 60 unit subcut QPM Trulicity 0.75 mg/0.5 mL pen injector 0.75 mg subcut QWEEK insulin lispro 100 unit/mL insulin pen 43 unit subcut TID gabapentin 300 mg capsule 300 mg PO QPM topiramate 25 mg tablet 25 mg PO DAILY (DME) lancets [FreeStyle Lancets] 28 gauge misc See Rx Instructions topical TID Qty: 100 Rx Instructions: As directed omeprazole 20 mg capsule,delayed release(/EC) 20 mg PO DAILY Referrals: Andrea Henry MD [Physician] - ( recurrent breast seroma requiring recurrent drainage)
[2022-04-24 08:45] VITALS: BP 136/55; PULSE 63; RESP 17; TEMP 36.7; O2SAT 99
[2022-04-24 08:52] LABS: MANUAL DIFF FLAG NO
[2022-04-24 08:53] LABS: Basophils Percent Auto 0.5 % (0-2); Eosinophils Absolute Auto 0.3 X10*3/uL (0.0-0.4); Eosinophils Percent Auto 3.2 % (0-4); Hematocrit 36.9 % (37.0-47.0); Hemoglobin 11.4 g/dl (12.0-16.0); Imm Gran Abs Auto 0.06 X10*3/uL (0.00-0.03); Imm Gran Pct Auto 0.7 % (0.0-0.4); Lymphocytes Percent Auto 22.2 % (20-40); Mean Corpuscular HGB Conc 30.9 g/dl (31.0-35.0); Mean Corpuscular Hemoglobin 29.1 pg (27.0-33.0); Mean Corpuscular Volume 94.1 fL (80.0-98.0); Mean Platelet Volume 9.6 fL (9.4-12.3); Monocytes Absolute Auto 0.6 X10*3/uL (0.1-1.2); Monocytes Percent Auto 6.5 % (2-11); Neutrophils Absolute Auto 5.9 x10*3/uL (2.0-8.3); Neutrophils Percent Auto 66.9 % (45-73); Platelet Count 374 X10*3/uL (160-400); Red Blood Count 3.92 X10*6/uL (4.20-5.50); Red Cell Distribution Width 12.8 % (11.0-16.0); White Blood Count 8.9 X10*3/uL (4.8-10.8)
[2022-04-24 09:07] LABS: Lactic Acid 1.1 mmol/L (0.5-2.0)
[2022-04-24 09:08] LABS: COVID-19 Test Negative (Negative)
[2022-04-24 09:12] LABS: Alanine Aminotransferase 13 U/L (0-31); Albumin Level 3.8 g/dL (3.5-5.0); Alkaline Phosphatase 88 U/L (39-117); Anion Gap 14 (12-20); Aspartate Amino Transferase 11 U/L (5-31); Bilirubin Direct 0.2 mg/dL (0.0-0.5); Bilirubin Total 0.3 mg/dL (0.0-1.0); Blood Urea Nitrogen 14 mg/dL (9-16); Calcium 8.5 mg/dL (8.4-10.2); Carbon Dioxide 25 mmol/L (22-29); Chloride 104 mmol/L (96-108); Creatinine Clr Calc Pharmacy 79.2; Estimated Glomerular Filt Rate > 60; Glucose Random 203 mg/dL (60-115); Magnesium 1.9 mg/dL (1.6-2.6); Potassium 3.6 mmol/L (3.3-5.1); Sodium 139 mmol/L (135-145); Total Protein 7.5 g/dL (6.5-8.0)
[2022-04-24] MEDS: cefTRIAXone sodium 1 GM in 0.9 % Sodium Chloride 50 ML IV (10:12)
[2022-04-24 10:18] VITALS: BP 139/55; PULSE 59; RESP 17; TEMP 36.7; O2SAT 100
--- NOTE | 2022-04-24 13:17 | PM.CNGS ---
History of Present Illness Consult details Consult date: 04/24/22 Narrative: 61-year-old female who had undergone bilateral mastectomy last March [address] Henry for invasive ductal carcinoma the left breast. She had a prophylactic mastectomy for the right breast as well. She had sentinel node biopsy at the same time. She had developed a seroma on both breasts and had been doing aspiration multiple times the past weeks. She actually was admitted the hospital on April 14 for cellulitic changes. I had seen her in the office last April 18 and had aspirated a lot of seromatous fluid. She came back today to the ER because of what she describes reaccumulation of fluid. She denies any redness. She does describe pain with reaccumulation. Review of Systems Constitutional: Constitutional: Denies chills and Denies fever(s) Cardiovascular: Cardiovascular: Denies chest pain, Denies dyspnea and Denies dyspnea on exertion Respiratory: Respiratory: Denies cough, Denies dyspnea and Denies dyspnea on exertion Gastrointestinal: Gastrointestinal: Denies hematochezia and Denies change in bowel habits Genitourinary: Genitourinary: Denies hematuria Musculoskeletal: Musculoskeletal: Denies back pain and Denies limited range of motion Neurologic: Denies focal weakness and Denies convulsions Psychiatric: Psychiatric: Denies depression and Denies mood swings PMFSH Past Medical History Medical History Asthma COVID-19 vaccine series completed Diabetes Fever of unknown origin GERD (gastroesophageal reflux disease) HTN (hypertension) Hypercholesteremia Invasive ductal carcinoma of left breast Seroma of breast Family History Family History Mother Breast cancer, Onset Age: 58 Sister Breast cancer, Onset Age: 54 Surgical History Surgical History H/O mastectomy History of bilateral mastectomy (03/21/22) History of delivery History of cholecystectomy Social History Social History Household Members: Family Household Members Other:: and son Housing: House Housing Other:: [facility] Are you a primary home care physical therapist to a significant other at home: No Do you presently have visiting nurse or other home services: No Alcohol intake: never Patient Tobacco Use Status: Never used Tobacco Use of substances other than those prescribed or required for medical reasons: No Advance Directives: Yes Advance Directives on File: Yes Advance Directives Date on File: 04/15/22 service: No Current occupational status: employed Meds Allergies Allergy/AdvReac Type Severity Reaction Status Date / Time turkey Allergy Severe chest Unverified 04/18/22 14:20 pain/swelling/SOB/itching Home Medications Medication Instructions Recorded Confirmed Last Taken Type dulaglutide 0.75 mg/0.5 mL 0.75 mg subcut QWEEK 02/15/22 04/18/22 03/20/22 History subcutaneous pen injector (Trulicity) gabapentin 300 mg capsule 300 mg PO QPM 02/15/22 04/18/22 03/20/22 History insulin glargine 100 unit/mL (3 60 unit subcut QPM 02/15/22 04/18/22 03/20/22 History mL) subcutaneous pen (Lantus Solostar U-100 Insulin) insulin lispro 100 unit/mL 43 unit subcut TID 02/15/22 04/18/22 03/20/22 History subcutaneous pen lancets 28 gauge (FreeStyle #100 ea 02/15/22 04/18/22 03/20/22 History Lancets) omeprazole 20 mg capsule,delayed 20 mg PO DAILY 02/15/22 04/18/22 03/20/22 History release pen needle, diabetic 32 gauge x #50 ea 02/15/22 04/18/22 03/20/22 History 5/32 (BD Lesley 2nd Gen Pen Needle) topiramate 25 mg tablet 25 mg PO DAILY 02/15/22 04/18/22 03/20/22 History atorvastatin 80 mg tablet 1 tab PO BEDTIME 04/14/22 04/18/22 Unknown History Physical Exam Vital Signs: Vital Signs: Last Vital Signs Temp 98.0 F 04/24/22 10:18 Pulse 59 04/24/22 10:18 Resp 17 04/24/22 10:18 BP 139/55 L 04/24/22 10:18 Pulse Ox 100 04/24/22 10:18 O2 Del Method 04/24/22 10:18 BMI result Body Mass Index 43.6 Const: General: comfortable and no acute distress Orientation/consciousness: patient oriented x3 Neck: Neck: Yes no lymphadenopathy Chest: Other: Large amount of seroma accumulation on both the left and right breast, right more than the left. No cellulitis; some scabbing on some areas of the incision the left breast. No pus Resp: Auscultation: clear to auscultation bilaterally Cardio: Rhythm: regular rhythm GI: Palpation (GI): Soft to palpation, nontender and no guarding Neuro: General: patient oriented x3 Results Labs Result diagrams: 04/24/22 08:44 04/24/22 08:44 Labs: Abnormal lab results 04/24/22 04/24/22 Range/Units 08:44 08:44 RBC 3.92 L D (4.20-5.50) X10*6/uL Hgb 11.4 L D (12.0-16.0) g/dl Hct 36.9 L D (37.0-47.0) % MCHC 30.9 L (31.0-35.0) g/dl Immature Gran % (Auto) 0.7 H (0.0-0.4) % Abs Immat Gran (auto) 0.06 H (0.00-0.03) X10*3/uL Random Glucose 203 H (60-115) mg/dL Short CBC 04/24/22 Range/Units 08:44 WBC 8.9 (4.8-10.8) X10*3/uL Hgb 11.4 L D (12.0-16.0) g/dl Hct 36.9 L D (37.0-47.0) % Plt Count 374 D (160-400) X10*3/uL BMP 04/24/22 08:44 Sodium 139 Potassium 3.6 Chloride 104 Carbon Dioxide 25 BUN 14 Creatinine 0.94 Calcium 8.5 D Liver Function 04/24/22 Range/Units 08:44 Total Bilirubin 0.3 (0.0-1.0) mg/dL Direct Bilirubin 0.2 (0.0-0.5) mg/dL AST 11 (5-31) U/L ALT 13 (0-31) U/L Alkaline Phosphatase 88 (39-117) U/L Albumin 3.8 (3.5-5.0) g/dL All other labs normal. Assessment and Plan (1) Seroma of breast: Status: Acute Plan She has reaccumulation of seroma does fluid from the bilateral mastectomy sites. I therefore proceeded to be aspirated this. Since there seemed to be more fluid on the right than the left, I placed her in a little bit of right lateral decubitus position to allow fluid to fall down to the right side as this seemed to flow freely from 1 side of the chest wall the other. I prepped and draped area of aspiration. I used lidocaine 1% to infiltrate the skin. I then used a gauge 18 needle to aspirate seromatous fluid. 500 cc of seromatous fluid was aspirated. She felt better afterwards. There was note of good hemostasis. I applied band aids on the aspiration site and wrapped the chest with wide Orion bandage to decrease chances of reaccumulation. She tolerated procedure well. There were no complications noted. She was instructed to keep the bandage on. She will see Dr. Henry on a follow-up in the office. Procedures Date of Service Date of Service: 04/24/22
== END 2022-04-24 13:26 | disposition home or self-care (01) ==
PROVIDERS: Physician Assistant; Emergency Provider Student in an Organized Health Care Education/Training Program
DX: R07.89 Other chest pain (principal); L76.34 Postprocedural seroma of skin and subcutaneous tissue following other procedure; R51.9 Headache, unspecified; R50.9 Fever, unspecified; Z20.822 Contact with and (suspected) exposure to COVID-19; Z79.899 Other long term (current) drug therapy
CPT/HCPCS: 80048; 80076; 83605; 83735; 85025; 87040; 87635; 96365; 99284; J0696

== ENCOUNTER 2022-05-02 11:06 | Day surgery (SDC) | payer MEDICAID, SELFPAY ==
--- NOTE | 2022-04-29 09:07 | HO.ANESPROP2 ---
Documented by User: Stephanie Guaman NP 04/29/22 09:08 HPI - Anesthesia Eval Consult details Narrative: 61yo F for Left I&D Abscess Breast 10F EUN Drain Placement PMFSH Active Problems Active Problems: All Active Problems (Updated 04/26/22 @ 13:59 by Fatou Leigh MD) Abnormal ultrasound of breast (Acute) Uncontrolled diabetes mellitus (Acute) Anemia (Acute) Sepsis (Acute) Cellulitis (Acute) Seroma of breast (Acute) Invasive ductal carcinoma of left breast (Acute) Past Medical History Medical History Asthma COVID-19 vaccine series completed Diabetes Fever of unknown origin GERD (gastroesophageal reflux disease) HTN (hypertension) Hypercholesteremia Invasive ductal carcinoma of left breast Seroma of breast Family History Family History Mother Breast cancer, Onset Age: 58 Sister Breast cancer, Onset Age: 54 Surgical History Surgical History H/O mastectomy History of bilateral mastectomy (03/21/22) History of delivery History of cholecystectomy History of Problems with Anesthesia: No Social History Social History Household Members: Family Household Members Other:: and son Housing: House Housing Other:: [facility] Are you a primary team primary care physician to a significant other at home: No Do you presently have visiting nurse or other home services: No Alcohol intake: never Patient Tobacco Use Status: Never used Tobacco Second Hand Smoke Exposure: No Use of substances other than those prescribed or required for medical reasons: No Are you DNR?: No Advance Directives: No Advance Directives Information Provided: Yes Advance Directives on File: Yes Advance Directives Date on File: 04/15/22 service: No Current occupational status: employed Meds Allergies Allergy/AdvReac Type Severity Reaction Status Date / Time turkey Allergy Severe chest Verified 05/02/22 11:46 pain/swelling/SOB/itching Home Medications Medication Instructions Recorded Confirmed Last Taken Type dulaglutide 0.75 mg/0.5 mL 0.75 mg subcut QWEEK 02/15/22 04/26/22 03/20/22 History subcutaneous pen injector (Trulicity) gabapentin 300 mg capsule 300 mg PO QPM 02/15/22 04/26/22 03/20/22 History insulin glargine 100 unit/mL (3 60 unit subcut QPM 02/15/22 04/26/22 03/20/22 History mL) subcutaneous pen (Lantus Solostar U-100 Insulin) insulin lispro 100 unit/mL 43 unit subcut TID 02/15/22 04/26/22 03/20/22 History subcutaneous pen lancets 28 gauge (FreeStyle #100 ea 02/15/22 04/26/22 03/20/22 History Lancets) omeprazole 20 mg capsule,delayed 20 mg PO DAILY 02/15/22 04/26/22 03/20/22 History release pen needle, diabetic 32 gauge x #50 ea 02/15/22 04/26/22 03/20/22 History (BD Lesley 2nd Gen Pen Needle) topiramate 25 mg tablet 25 mg PO DAILY 02/15/22 04/26/22 03/20/22 History atorvastatin 80 mg tablet 1 tab PO BEDTIME 04/14/22 04/28/22 Unknown History Exam Exam Date and Time: April 29, 2022 0907 Pertinent Lab Results Pertinent Lab Results: Laboratory Tests 04/24/22 04/24/22 08:44 08:44 WBC 8.9 Hgb 11.4 L D Hct 36.9 L D Plt Count 374 D Sodium 139 Potassium 3.6 Chloride 104 Carbon Dioxide 25 BUN 14 Creatinine 0.94 Narrative Narrative: EKG 03/2022 Vent. Rate : 091 BPM ? ? Atrial Rate : 091 BPM ?? P-R Int : 170 ms? QRS Dur : 106 ms ? ? QT Int : 338 ms ? ? ? P-R-T Axes : 020 -17 176 degrees ?? QTc Int : 415 ms ? Normal sinus rhythm Moderate voltage criteria for LVH, may be normal variant ( R in aVL , [place] product ) Inferior infarct , age undetermined Possible Anterior infarct (cited on or before 14-APR-2022) T wave abnormality, consider lateral ischemia Abnormal ECG When compared with ECG of 14-APR-2022 17:49, Poor R waves progression ? Assessment and Plan Assessment Anesthesia Assessment: Chart Reviewed Final Anesthetic Review History of Problems with Anesthesia: No Documented by User: Bethanie Mccarthy MD 05/02/22 14:27 PMFSH Active Problems Active Problems: All Active Problems (Updated 04/26/22 @ 13:59 by Fatou Leigh MD) Abnormal ultrasound of breast (Acute) Uncontrolled diabetes mellitus (Acute) Anemia (Acute) Sepsis (Acute) Cellulitis (Acute) Seroma of breast (Acute) Invasive ductal carcinoma of left breast (Acute) Increased BMI Denies DAVIAN Past Medical History Medical History Asthma COVID-19 vaccine series completed Diabetes Fever of unknown origin GERD (gastroesophageal reflux disease) HTN (hypertension) Hypercholesteremia Invasive ductal carcinoma of left breast Seroma of breast Family History Family History Mother Breast cancer, Onset Age: 58 Sister Breast cancer, Onset Age: 54 Family history of problems with anesthesia: No Surgical History Surgical History H/O mastectomy History of bilateral mastectomy (03/21/22) History of delivery History of cholecystectomy Social History Social History Household Members: Family Household Members Other:: and son Housing: House Housing Other:: [facility] Are you a primary team primary care physician to a significant other at home: No Do you presently have visiting nurse or other home services: No Alcohol intake: never Patient Tobacco Use Status: Never used Tobacco Second Hand Smoke Exposure: No Use of substances other than those prescribed or required for medical reasons: No Are you DNR?: No Advance Directives: No Advance Directives Information Provided: Yes Advance Directives on File: Yes Advance Directives Date on File: 04/15/22 service: No Current occupational status: employed Meds Allergies Allergy/AdvReac Type Severity Reaction Status Date / Time turkey Allergy Severe chest Verified 05/02/22 11:46 pain/swelling/SOB/itching Home Medications Medication Instructions Recorded Confirmed Last Taken Type dulaglutide 0.75 mg/0.5 mL 0.75 mg subcut QWEEK 02/15/22 04/26/22 03/20/22 History subcutaneous pen injector (Trulicity) gabapentin 300 mg capsule 300 mg PO QPM 02/15/22 04/26/22 03/20/22 History insulin glargine 100 unit/mL (3 60 unit subcut QPM 02/15/22 04/26/22 03/20/22 History mL) subcutaneous pen (Lantus Solostar U-100 Insulin) insulin lispro 100 unit/mL 43 unit subcut TID 02/15/22 04/26/22 03/20/22 History subcutaneous pen lancets 28 gauge (FreeStyle #100 ea 02/15/22 04/26/22 03/20/22 History Lancets) omeprazole 20 mg capsule,delayed 20 mg PO DAILY 02/15/22 04/26/22 03/20/22 History release pen needle, diabetic 32 gauge x #50 ea 02/15/22 04/26/22 03/20/22 History 5/32 (BD Lesley 2nd Gen Pen Needle) topiramate 25 mg tablet 25 mg PO DAILY 02/15/22 04/26/22 03/20/22 History atorvastatin 80 mg tablet 1 tab PO BEDTIME 04/14/22 04/28/22 Unknown History Exam Height,Weight and Vital Signs: Height 5 ft 5 in Weight 116.12 kg Vital Signs Temp Pulse Resp BP Pulse Ox O2 Del Method 05/02/22 11:36 97.9 F 84 18 159/91 H 95 Room Air Pertinent Lab Results Pertinent Lab Results: Laboratory Tests 04/24/22 04/24/22 08:44 08:44 WBC 8.9 Hgb 11.4 L D Hct 36.9 L D Plt Count 374 D Sodium 139 Potassium 3.6 Chloride 104 Carbon Dioxide 25 BUN 14 Creatinine 0.94 Lab Results 05/02/22 Range/Units 11:48 POC Glucose 231 H (60-115) mg/dL Airway Mallampati Class: II TM Dist: >3cm Neck ROM: Full Loose/Missing/Broken Teeth: Yes (Edentulous) Heart: RRR Lungs: CTAB Assessment and Plan Assessment Anesthesia Assessment: Anesthesia Plan Discussed Final Anesthetic Review Family History of Problems with Anesthesia: No NPO: Yes ASA Class: III Final Preanesthetic Review: No Changes in Pt Med Stat, Meds/Allgs Chart Reviewed, Consent Obtained/Reviewed and Anes Risks/Benef Reviewed Patient Risk: Intermediate Procedure Risk: Low Assessment/Block/Sedation in SS: Assess/Block/Sedation-SS Anesthetic Plan Anesthetic Plan: GA Disposition: Standard PACU
[2022-05-02] VITALS (8 sets, daily range): BP systolic 126–163; BP diastolic 68–91; PULSE 73–99; RESP 16–18; TEMP 36.6; O2SAT 95–100; BMI 42.5
[2022-05-02] MEDS: Lactated Ringers 1,000 ML 100 ML IVCONT (11:46)
[2022-05-02 11:52] LABS: Glucose, Whole Blood 231 mg/dL (60-115)
--- NOTE | 2022-05-02 11:52 | PC.NURSE ---
pt POC 231. Dr. Mccarthy notified. no new orders at this time.
--- NOTE | 2022-05-02 14:20 | MHC.SHP ---
Pre-Procedural Eval Section A Date of Service: 05/02/22 The patient is an INPATIENT: No Changes since office visit: Yes Patient answered all questions; No Cold of Flu in the past 2 weeks, No New Medical Problems and No Changes in Medication The History & Physical has been completed within 30 days and I have reviewed it.: Yes Section B Chief Complaint: breast ca Allergies: Allergies Allergy/AdvReac Type Severity Reaction Status Date / Time turkey Allergy Severe chest Verified 05/02/22 11:46 pain/swelling/SOB/itching Plan Diagnosis/Plan: Unchanged I have reviewed the history and physical and performed a pertinent physical examination on my patient. No changes have occurred unless specified.
--- NOTE | 2022-05-02 15:10 | W.PM.OPN ---
Operative Note Operative Note Date of Service: 05/02/22 Narrative: Preoperative diagnosis: Postoperative seroma status post bilateral mastectomy, skin necrosis left chest flap Postoperative diagnosis: same Procedure: placement of Jorge-Mcdowell drain right chest wall, debridement of left mastectomy skin flap Surgeon: Andrea Henry MD Application Development Specialist: Veronica Cordon PA-C; MARGARITO Peter Anesthesia:General LMA Indications for procedure: 62-year-old female patient status post bilateral mastectomy for left breast invasive ductal carcinoma, presenting now with area of skin necrosis in the left chest wall and persistent seroma require multiple aspirations. She presents today for placement of a Jorge-Mcdowell drain as well as debridement of left chest wall skin necrosis. Operative findings: Area of skin necrosis measuring approximately 5 cm in diameter in the medial inferior flap. Specimen: Necrotic skin medial anterior flap left chest wall Estimated blood loss: 5 mL Complications: none Procedure details: patient was brought to the OR placed in supine position. After administering general anesthesia the patient's bilateral chest were prepped with Betadine and draped in a sterile fashion. A surgical time-out was called the consent confirmed. Patient received preoperative antibiotics and Venodyne boots were in place.Local anesthesia consisting of 0.5% Sensorcaine was infiltrated around the area of skin necrosis in the medial inferior skin flap. An elliptical incision was then created around the area of skin necrosis oriented transversely. This carried out through subcutaneous tissue down to the chest wall. This skin flap was excised and sent to pathology for further examination. Hemostasis was assured using electrocautery. Using a clamp dissection under the skin flaps was performed and a counter incision made in the right lateral inferior skin flap. A 10. Jorge-Mcdowell drain was then brought up through this incision and placed into the left chest across the midline. Wounds were then checked for hemostasis. Dermis was then reapproximated using interrupted 3-0 Polysorb sutures. Skin was closed using skin ivan. Sterile dressings were then applied. The patient tolerated the procedure well. Sponge, instrument, and needle counts reported as correct. Patient was transferred to PACU in stable condition.
[2022-05-02] MEDS: Acetaminophen 325 MG TABLET 650 MG PO (16:30)
== END 2022-05-02 16:44 | disposition home or self-care (01) ==
PROVIDERS: Visit Provider Surgery
PROC: (CPT 11042; principal; 2022-05-02 12:30)
DX: M96.843 Postprocedural seroma of a musculoskeletal structure following other procedure (principal); N64.1 Fat necrosis of breast; C50.912 Malignant neoplasm of unspecified site of left female breast; Z90.13 Acquired absence of bilateral breasts and nipples; Y83.8 Other surgical procedures as the cause of abnormal reaction of the patient, or of later complication, without mention of misadventure at the time of the procedure; Y82.8 Other medical devices associated with adverse incidents; Y92.9 Unspecified place or not applicable
CPT/HCPCS: 11042; 82947; 88304; J0690; J1100; J2250; J2405; J2795; J3010

== ENCOUNTER → 2022-05-10 13:03 | Outpatient (BNVA) | payer MEDICAID, SELFPAY | PROVIDERS: Visit Provider Surgery | DX: Z48.03 Encounter for change or removal of drains (principal) | CPT/HCPCS: 99211 ==

== ENCOUNTER 2022-06-04 09:44 | Outpatient (REF) | payer MEDICAID, SELFPAY ==
[2022-06-04 10:57] LABS: Alanine Aminotransferase 17 U/L (0-31); Albumin Level 3.7 g/dL (3.5-5.0); Alkaline Phosphatase 73 U/L (39-117); Anion Gap 16 (12-20); Aspartate Amino Transferase 17 U/L (5-31); Bilirubin Total 0.3 mg/dL (0.0-1.0); Blood Urea Nitrogen 19 mg/dL (9-16); Calcium 8.6 mg/dL (8.4-10.2); Carbon Dioxide 21 mmol/L (22-29); Chloride 106 mmol/L (96-108); Estimated Glomerular Filt Rate > 60; Glucose Random 168 mg/dL (60-115); Sodium 138 mmol/L (135-145); Total Protein 7.3 g/dL (6.5-8.0)
== END 2022-06-04 09:45 | disposition home or self-care (01) ==
LOC: HO.LAB 09:44
PROVIDERS: PCP Registered Nurse; Visit Provider Registered Nurse
DX: I10 Essential (primary) hypertension (principal)
CPT/HCPCS: 36415; 80053

== ENCOUNTER 2022-06-10 17:38 | Inpatient (IN) | payer MEDICAID, SELFPAY ==
--- NOTE | ~2022-06-10 | XR_ITS ---
EXAMINATION: XR CHEST CLINICAL INFORMATION: Neutropenia COMPARISON: 04/14/2022 TECHNIQUE: Frontal view of the chest was obtained. FINDINGS: Low lung volumes. No acute finding. No obvious failure or infiltrate. No effusion. Mild elevation of the right hemidiaphragm. The cardiac silhouette within normal limits for AP projection. XR/XR chest 1V IMPRESSION: Low lung volumes. No convincing evidence for an acute process.
--- NOTE | 2022-06-10 17:45 | ED_ITS ---
HPI - General Adult General Chief complaint: General Medical Stated complaint: Neutropenia Time Seen by Provider: 06/10/22 17:43 History of Present Illness HPI narrative: Patient is 62 years old with history of recent diagnosis of left breast invasive ductal carcinoma diagnosed on 02/13 sent from Oncology Clinic for increased nausea and weakness patient received 1st cycle of Taxotere / cyclophosphamide on 06/02 patient with not able to hold any liquids or solids down for last 3 days Related Data Home Medications Medication Instructions Recorded Confirmed dulaglutide 0.75 mg/0.5 mL 0.75 mg subcut SA 02/15/22 06/10/22 subcutaneous pen injector (Trulicity) gabapentin 300 mg capsule 300 mg PO QPM 02/15/22 06/10/22 insulin glargine 100 unit/mL (3 60 unit subcut QPM 02/15/22 06/10/22 mL) subcutaneous pen (Lantus Solostar U-100 Insulin) insulin lispro 100 unit/mL 43 unit subcut TID 02/15/22 06/10/22 subcutaneous pen lancets 28 gauge (FreeStyle #100 ea 02/15/22 05/26/22 Lancets) omeprazole 20 mg capsule,delayed 20 mg PO DAILY 02/15/22 06/10/22 release pen needle, diabetic 32 gauge x #50 ea 02/15/22 05/26/22 (BD Lesley 2nd Gen Pen Needle) atorvastatin 80 mg tablet 1 tab PO BEDTIME 04/14/22 06/10/22 acetaminophen 325 mg tablet 650 mg PO Q6H PRN Pain 06/10/22 06/10/22 ibuprofen 200 mg tablet 400 mg PO Q6H PRN Pain 06/10/22 06/10/22 loperamide 2 mg capsule 2 mg PO Q4H PRN Diarrhea 06/10/22 06/10/22 losartan 50 mg tablet 1 tab DAILY 06/10/22 06/10/22 metoprolol tartrate 25 mg tablet 1 tab PO BID 06/10/22 06/10/22 Previous Rx's Medication Instructions Recorded dexamethasone 4 mg tablet 4 mg PO BID #30 tabs 06/01/22 ondansetron 8 mg disintegrating 8 mg PO Q8H PRN Nausea #60 tabs 06/01/22 tablet azithromycin 500 mg tablet 500 mg PO DAILY #5 tabs 06/10/22 (Zithromax) Allergies Allergy/AdvReac Type Severity Reaction Status Date / Time turkey Allergy Severe chest Verified 05/26/22 10:00 pain/swelling/SOB/itching Review of Systems Review of Systems: Yes all other systems are reviewed and are negative [facility] Past Medical History Medical History Asthma COVID-19 vaccine series completed Diabetes Fever of unknown origin GERD (gastroesophageal reflux disease) HTN (hypertension) Hypercholesteremia Invasive ductal carcinoma of left breast Seroma of breast Surgical History H/O mastectomy History of bilateral mastectomy (03/21/22) History of delivery History of cholecystectomy History of incision and drainage (05/02/22) Family History Family History Mother Breast cancer, Onset Age: 58 Sister Breast cancer, Onset Age: 54 Social History Social History Household Members: Family Household Members Other:: and son Housing: House Housing Other:: [facility] Are you a primary transitional care liaison to a significant other at home: No Do you presently have visiting nurse or other home services: No Alcohol intake: never Patient Tobacco Use Status: Never used Tobacco Second Hand Smoke Exposure: No Advance Directives: No Advance Directives Information Provided: No Advance Directives Date on File: 04/15/22 service: No Current occupational status: employed Physical Exam ED Vital Signs: Vital Signs - 24 hr 06/10/22 18:16 Temperature 99.6 F Pulse Rate 96 Respiratory Rate 19 Blood Pressure 111/52 L Pulse Oximetry 100 Oxygen Delivery Method Room Air BMI result Body Mass Index 46.4 Appearance: Alert. Oriented X3. No acute distress. Eyes: PERRLA, No Nystagmus ENT: Pharynx normal. Oral Mucosa moist no oral thrush, mucositis+ Neck: Normal inspection. Neck supple. CVS: Normal heart rate and rhythm. Pulses normal. Respiratory: No respiratory distress. Equal air entry bilateral, no wheezing/rales/rhonchi Abdomen: Soft and nontender. Bowel sounds are present, no mass palpable, no CVA tenderness Skin: Skin warm and dry. Normal skin color. Normal skin turgor. Extremities: No lower extremity edema. No calf tenderness Neuro: Oriented X 3. No motor deficit. Medical Decision Making MDM Narrative Medical decision making narrative: Patient with absolute neutropenia with intractable vomiting post chemotherapy will admit patient for IV hydration and symptomatic treatment and afebrile because of neutropenic will start patient on cefepime blood cultures are drawn lactic acid level is 1.6 Lab Data Lab results reviewed: Yes I reviewed the patient's lab results. Labs: Lab Results 06/10/22 Range/Units 18:11 Lactic Acid 1.6 (0.5-2.0) mmol/L Discharge Plan Discharge Clinical Impression: Intractable nausea and vomiting, Invasive ductal carcinoma of left breast, Neutropenia Patient Disposition: Admitted As Inpatient
[2022-06-10 18:16] VITALS: BP 111/52; PULSE 96; RESP 19; TEMP 37.6; O2SAT 100; BMI 46.4
[2022-06-10 18:30] LABS: Lactic Acid 1.6 mmol/L (0.5-2.0)
[2022-06-10] MEDS: Prochlorperazine Edisylate 10 MG/2 ML VIAL IVPUSH (18:36)
[2022-06-10] MEDS: cefEPime HCl 2 GM in 0.9 % Sodium Chloride 50 ML IV (18:36)
[2022-06-10] MEDS: 0.9 % Sodium Chloride 1,000 ML 999 ML IV (18:36)
--- NOTE | 2022-06-10 19:57 | PHA.MEDREC ---
Pharmacy Consult ? Medication Reconciliation Pharmacy has completed the medication reconciliation. Patient confirmed all medications. Patient only takes dexamethadone when she recieved chemo. Azithromycin was just prescribed today 06/10/22. Mela Trevino, SuzannaD
[2022-06-10 20:33] VITALS: BP 155/70; PULSE 97; RESP 18; TEMP 37.1; O2SAT 99
--- NOTE | 2022-06-10 20:42 | PM.IMHP ---
History of Present Illness Date of Service: 06/10/22 Chief Complaint: Nausea/vomiting 62-year-old female with past medical history of hypertension, hyperlipidemia, diabetes, history of breast cancer s/p b/l mastectomy on chemotherapy last received about a week ago; presented to the hospital today with a chief complaint of nausea/vomiting. Patient reports that over the past 3 days she has been not feeling well, has been having nausea vomiting and diarrhea. Denies any abdominal pain. Mentioned that her sugars were not under control. Has not been eating good enough. Went to the clinic today and had 1 L of normal saline by Dr. Samano in the Oncology Clinic. Followed by she went home and continued to have nausea and vomiting and did not improve with oral Zofran. Subsequently recommended to go to the ER for further evaluation. Patient denies any fevers and chills. Denies any cough or sputum production. Reports he has burning urination. Also mentioned that she felt hot at the breast surgery site. Denies any discharge. Denies any chest pain or palpitations. Review of all other systems is negative except mentioned above ER course: Per ER team patient noted to have absolute neutrophil count 0. Discussed with Dr. Samano-given Granix x1. Patient also empirically covered with cefepime. Urinalysis and chest x-ray pending. Admitted for further management. [facility] Medical History Asthma COVID-19 vaccine series completed Diabetes Fever of unknown origin GERD (gastroesophageal reflux disease) HTN (hypertension) Hypercholesteremia Invasive ductal carcinoma of left breast Seroma of breast Family History Mother Breast cancer, Onset Age: 58 Sister Breast cancer, Onset Age: 54 Surgical History H/O mastectomy History of bilateral mastectomy (03/21/22) History of delivery History of cholecystectomy History of incision and drainage (05/02/22) Social History Household Members: Family Household Members Other:: and son Housing: House Housing Other:: [facility] Are you a primary infant childcare provider to a significant other at home: No Do you presently have visiting nurse or other home services: No Alcohol intake: never Patient Tobacco Use Status: Never used Tobacco Second Hand Smoke Exposure: No Advance Directives: No Advance Directives Information Provided: No Advance Directives Date on File: 04/15/22 service: No Current occupational status: employed Meds Allergies Allergy/AdvReac Type Severity Reaction Status Date / Time turkey Allergy Severe chest Verified 05/26/22 10:00 pain/swelling/SOB/itching Active Medications: Current Medications Acetaminophen (Acetaminophen 325 Mg Tablet) 650 mg PO Q6H PRN PRN Reason: Pain, Mild (Pain Scale 1-3) Dextrose (Dextrose 50 % 25 Gm/50 Ml Syringe) 25 gm IVPUSH Q15M PRN; Protocol PRN Reason: per Hypoglycemia Standing Ord. Enoxaparin Sodium (Enoxaparin Sodium 40 Mg/0.4 Ml Syringe) 40 mg SUBCUT Q24H VIKTORIA Glucose (Glucose Gel 15 Gm Gel..Gram.) 15 gm PO Q15M PRN; Protocol PRN Reason: per Hypoglycemia Standing Ord. Cefepime HCl 1 gm/ Sodium (Chloride) 50 mls @ 100 mls/hr IV Q8H VIKTORIA Sodium Chloride (Ns) 1,000 mls @ 100 mls/hr IVCONT .Q10H VIKTORIA Insulin Human Lispro (Insulin Lispro 100 Unit/Ml 3 Ml Vial) 0 unit SUBCUT QIDACHS [facility]; Protocol Melatonin (Melatonin 3 Mg Tablet) 6 mg PO BEDTIME PRN PRN Reason: Insomnia Senna (Sennosides 8.6 Mg Tablet) 17.2 mg PO BEDTIME PRN PRN Reason: Constipation Sodium Chloride (0.9 % Sodium Chloride Flush 3 Ml Syringe) 3 ml IVFLUSH QSHIFT [facility] Home Medications Medication Instructions Recorded Confirmed Last Taken Type dulaglutide 0.75 mg/0.5 mL 0.75 mg subcut SA 02/15/22 06/10/22 06/04/22 [facility]) gabapentin 300 mg capsule 300 mg PO QPM 02/15/22 06/10/22 06/09/22 History insulin glargine 100 unit/mL (3 60 unit subcut QPM 02/15/22 06/10/22 06/09/22 History mL) subcutaneous pen (Lantus Solostar U-100 Insulin) insulin lispro 100 unit/mL 43 unit subcut TID 02/15/22 06/10/22 06/09/22 History subcutaneous pen lancets 28 gauge (FreeStyle #100 ea 02/15/22 05/26/22 03/20/22 History Lancets) omeprazole 20 mg capsule,delayed 20 mg PO DAILY 02/15/22 06/10/22 06/09/22 History release pen needle, diabetic 32 gauge x #50 ea 02/15/22 05/26/22 03/20/22 History 5/32 (BD Lesley 2nd Gen Pen Needle) atorvastatin 80 mg tablet 1 tab PO BEDTIME 04/14/22 06/10/22 06/09/22 History acetaminophen 325 mg tablet 650 mg PO Q6H PRN Pain 06/10/22 06/10/22 Unknown History ibuprofen 200 mg tablet 400 mg PO Q6H PRN Pain 06/10/22 06/10/22 Unknown History loperamide 2 mg capsule 2 mg PO Q4H PRN Diarrhea 06/10/22 06/10/22 06/10/22 History losartan 50 mg tablet 1 tab DAILY 06/10/22 06/10/22 06/09/22 History metoprolol tartrate 25 mg tablet 1 tab PO BID 06/10/22 06/10/22 06/09/22 History Physical Exam Vital Signs and Narrative: Vital Signs: Last Vital Signs Temp 98.7 F 06/10/22 20:33 Pulse 97 06/10/22 20:33 Resp 18 06/10/22 20:33 BP 155/70 H 06/10/22 20:33 Pulse Ox 99 06/10/22 20:33 O2 Del Method 06/10/22 20:33 BMI result Body Mass Index 46.4 Gen: Appears be in no acute distress HEENT: NCAT, Moist mucosa. Pulmonary: Vesicular breath sounds, fair air entry CVS: Normal S1-S2 Abdomen: BS+, Soft, Nontender Extremities: Warm well perfused Neuro: Alert and awake. Breast exam: Examined along with the RN. Breast surgery site is warm. Surgical scar appears healing. Nontender. Results Labs Labs: Laboratory Results - last 24 hr 06/10/22 18:11 Lactic Acid 1.6 Assessment and Plan (1) Intractable nausea and vomiting: Status: Acute (2) Neutropenia: Status: Acute Plan 62-year-old female with past medical history of hypertension, hyperlipidemia, diabetes, history of breast cancer s/p b/l mastectomy on chemotherapy last received about a week ago; presented to the hospital today with a chief complaint of nausea/vomiting. Neutropenia: Absolute neutrophil count is 0. Status post Granix x1 in the ER. Oncology consult Patient is currently afebrile UA/chest x-ray pending-patient reported burning urination. Also patient had mild hyperemia at the base surgery site. Nontender. Empirically covered with cefepime Id consult Nausea/vomiting: Supportive care. Advance diet as tolerated. History of breast cancer: Patient on chemotherapy. Last received about a week ago. History of diabetes: Will reduce the home dose of Lantus to 40 units. Insulin sliding scale. Monitor fingerstick glucose and adjust as needed. History of hypertension/hyperlipidemia: Continue home medications DVT prophylaxis: Lovenox Code status: Full code Quality Stroke Does the patient have a stroke diagnosis?: No VTE Prior VTE?: No VTE Risk Level:: Medical - moderate - high VTE Device Contraindication: Treatment Not Indicated VTE Drug Contraindication: N/A - Med Ordered
[2022-06-10] MEDS: Enoxaparin Sodium 40 MG/0.4 ML SYRINGE SUBCUT (21:07)
[2022-06-10] MEDS: Insulin Glargine,Hum.rec.anlog 100 UNIT/ML 10 ML VIAL 40 UNIT SUBCUT (21:08)
[2022-06-10] MEDS: Atorvastatin Calcium 80 MG TABLET PO (21:08)
[2022-06-10] MEDS: Metoprolol Tartrate 25 MG TABLET PO (21:08)
[2022-06-10] MEDS: Gabapentin 300 MG CAPSULE PO (21:08)
[2022-06-10 21:12] LABS: Glucose, Whole Blood 237 mg/dL (60-115)
--- NOTE | 2022-06-10 21:22 | PC.NURSE ---
Fluid administration delayed due to a non-functional IV. A new, larger IV was inserted and fluids are running properly at this time.
[2022-06-10] MEDS: Insulin Lispro 100 UNIT/ML 3 ML VIAL SUBCUT (21:37)
[2022-06-10] MEDS: 0.9 % Sodium Chloride 1,000 ML 100 ML IVCONT (22:51)
[2022-06-10 23:54] VITALS: BP 137/66; PULSE 81; RESP 21; TEMP 36.8; O2SAT 96
[2022-06-11] VITALS (7 sets, daily range): BP systolic 105–150; BP diastolic 43–79; PULSE 78–99; RESP 18–24; TEMP 37–37.8; O2SAT 94–100
[2022-06-11] MEDS: cefEPime HCl 2 GM in 0.9 % Sodium Chloride 50 ML IV ×3 (02:51→19:35)
[2022-06-11 06:17] LABS: COVID-19 Test Negative (Negative)
[2022-06-11] MEDS: Omeprazole 20 MG CAPSULE.DR PO (06:40)
[2022-06-11 07:08] LABS: Glucose, Whole Blood 166 mg/dL (60-115)
[2022-06-11 08:39] LABS: Anion Gap 17 (12-20); Blood Urea Nitrogen 9 mg/dL (9-16); Calcium 7.7 mg/dL (8.4-10.2); Carbon Dioxide 18 mmol/L (22-29); Chloride 106 mmol/L (96-108); Creatinine Clr Calc Pharmacy 93.2; Estimated Glomerular Filt Rate > 60; Glucose Random 211 mg/dL (60-115); Potassium 4.5 mmol/L (3.3-5.1); Sodium 136 mmol/L (135-145)
[2022-06-11 08:42] LABS: Hematocrit 36.4 % (37.0-47.0); Hemoglobin 11.7 g/dl (12.0-16.0); Mean Corpuscular HGB Conc 32.1 g/dl (31.0-35.0); Mean Corpuscular Hemoglobin 27.9 pg (27.0-33.0); Mean Corpuscular Volume 86.7 fL (80.0-98.0); Mean Platelet Volume 11.6 fL (9.4-12.3); Platelet Count 198 X10*3/uL (160-400); Red Cell Distribution Width 12.8 % (11.0-16.0)
[2022-06-11 08:43] LABS: WBC ABN SCTR FOR CBC 1
[2022-06-11] MEDS: 0.9 % Sodium Chloride Flush 3 ML SYRINGE IVFLUSH ×2 (09:12→16:28)
[2022-06-11] MEDS: 0.9 % Sodium Chloride 1,000 ML 100 ML IVCONT ×2 (09:16→19:36)
[2022-06-11] MEDS: Metoprolol Tartrate 25 MG TABLET PO ×2 (09:17→20:28)
[2022-06-11] MEDS: Acetaminophen 325 MG TABLET 650 MG PO ×2 (09:19→20:28)
--- NOTE | 2022-06-11 09:23 | PC.NURSE ---
patient a/o x4 . pearrla . heart rate regular at 97 beats lungs clear . bilateral mastectomy . skin pink warm and dry . abdominal girth obese . abdomen soft non tender . positive bowel sounds in all four quadrant patient reports 5/10 pain level . medicated with prn 650mg Tylenol . able to ambulate to bathroom by self . patient is on neutropenic precautions r/t to WBC count . patient aware of plan of care .
--- NOTE | 2022-06-11 09:28 | PC.NURSE ---
Addendum entered by Evie Bose LPN 06/11/22 09:29: redness noted and warmth ontop of right hand r/t chemo treatments as reported by patient Original Note: redness noted and warmth ontop of left hand r/t to chemo treatments as reported by patient
[2022-06-11 09:46] LABS: Atypical Lymphs Percent Manual 2 % (0-6); Basophils Percent Manual 1 % (0-2); Eosinophils Percent Manual 1 % (0-4); Lymphocytes Percent Manual 65 % (20-40); Monocytes Percent Manual 31 % (2-11)
[2022-06-11 09:51] LABS: Microcytosis 1+ (5-14) /OIF; RBC Morphology NOTED
[2022-06-11 09:52] LABS: Basophilic Stippling 1+ (0-2) /OIF; Large Platelet PRESENT; Nucleated Red Blood Cells 1 /100WBC (0-0); Platelet Estimate NORMAL (NORMAL); Platelet Morphology Comment NOTED; Polychromasia 1+ (0-2) /OIF
[2022-06-11 09:53] LABS: Lymphocytes Absolute Manual 0.7 X10*3/uL (1.2-4.9); Monocytes Absolute Manual 0.3 X10*3/uL (0.1-1.2); White Blood Count 1.1 X10*3/uL (4.8-10.8)
[2022-06-11 09:54] LABS: Band Neutrophils Percent 0 % (3-5)
[2022-06-11 09:56] LABS: Neutrophils Percent Manual 0 % (45-73)
[2022-06-11 13:47] LABS: Glucose, Whole Blood 179 mg/dL (60-115)
--- NOTE | 2022-06-11 14:01 | HO.PM.IMPN ---
Subjective Subjective Date of Service: 06/11/22 Review of Systems Follow up neutropenia Denies nausea, vomiting, diarrhea Physical Exam Vital Signs: Vital Signs: Last Vital Signs Temp 100.1 F 06/11/22 11:28 Pulse 92 06/11/22 11:28 Resp 18 06/11/22 11:28 BP 150/60 H 06/11/22 11:28 Pulse Ox 97 06/11/22 11:28 O2 Del Method 06/11/22 11:28 BMI result Body Mass Index 46.4 Appearing in no acute distress lung sounds are clear to auscultation heart regular rate rhythm, clear S1, S2 positive bowel sounds, abdomen is soft, nontender neuro patient is alert x3, no focal deficits Objective Data Active Medications Acetaminophen (Acetaminophen 325 Mg Tablet) 650 mg PO Q6H PRN PRN Reason: Pain, Mild (Pain Scale 1-3) Last Admin: 06/11/22 09:19 Dose: 650 mg Documented By: OMA Atorvastatin Calcium (Atorvastatin Calcium 80 Mg Tablet) 80 mg PO BEDTIME [facility] Last Admin: 06/10/22 21:08 Dose: 80 mg Documented By: ILEANA Dextrose (Dextrose 50 % 25 Gm/50 Ml Syringe) 25 gm IVPUSH Q15M PRN; Protocol PRN Reason: per Hypoglycemia Standing Ord. Enoxaparin Sodium (Enoxaparin Sodium 40 Mg/0.4 Ml Syringe) 40 mg SUBCUT Q24H [facility] Last Admin: 06/10/22 21:07 Dose: 40 mg Documented By: ILEANA Gabapentin (Gabapentin 300 Mg Capsule) 300 mg PO BEDTIME [facility] Last Admin: 06/10/22 21:08 Dose: 300 mg Documented By: ILEANA Glucose (Glucose Gel 15 Gm Gel..Gram.) 15 gm PO Q15M PRN; Protocol PRN Reason: per Hypoglycemia Standing Ord. Cefepime HCl 2 gm/ Sodium (Chloride) 50 mls @ 100 mls/hr IV Q8H [facility] Last Admin: 06/11/22 12:20 Dose: 100 mls/hr Documented By: OMA Sodium Chloride (Ns) 1,000 mls @ 100 mls/hr IVCONT .Q10H [facility] Last Admin: 06/11/22 09:16 Dose: 100 mls/hr Documented By: OMA Insulin Glargine (Insulin Glargine,Hum.Rec.Anlog 100 Unit/Ml 10 Ml Vial) 40 unit SUBCUT BEDTIME [facility] Last Admin: 06/10/22 21:08 Dose: 40 unit Documented By: ILEANA Comments: Insulin Human Lispro (Insulin Lispro 100 Unit/Ml 3 Ml Vial) 0 unit SUBCUT QIDACHS [facility]; Protocol Last Admin: 06/11/22 13:57 Dose: Not Given Documented By: OMA Non-Admin Reason: NPO Melatonin (Melatonin 3 Mg Tablet) 6 mg PO BEDTIME PRN PRN Reason: Insomnia Metoprolol Tartrate (Metoprolol Tartrate 25 Mg Tablet) 25 mg PO BID [facility]; Protocol Last Admin: 06/11/22 09:17 Dose: 25 mg Documented By: OMA Omeprazole (Omeprazole 20 Mg Capsule.Dr) 20 mg PO DAILY@0630 [facility] Last Admin: 06/11/22 06:40 Dose: 20 mg Documented By: ILEANA Senna (Sennosides 8.6 Mg Tablet) 17.2 mg PO BEDTIME PRN PRN Reason: Constipation Sodium Chloride (0.9 % Sodium Chloride Flush 3 Ml Syringe) 3 ml IVFLUSH QSHIFT [facility] Last Admin: 06/11/22 09:12 Dose: 3 ml Documented By: OMA Tbo-Filgrastim (Tbo-Filgrastim 480 Mcg/0.8 Ml Syringe) 480 mcg SUBCUT ONCE ONE Stop: 06/11/22 17:01 Labs CBC & Chem 7: 06/11/22 08:06 06/11/22 08:06 Labs: Laboratory Results - last 24 hr 06/10/22 06/10/22 06/11/22 18:11 21:01 05:59 MCV MCH MCHC RDW Plt Count MPV Immature Gran % (Auto) Neut % (Auto) Lymph % (Auto) [place] % (Auto) Eos % (Auto) Baso % (Auto) Lymph # (Auto) [place] # (Auto) Eos # (Auto) Baso # (Auto) Abs Immat Gran (auto) Absolute Neuts (auto) Absolute Nucleated RBC Nucleated RBC % (auto) Neutrophils % (Manual) Band Neutrophils % Lymphocytes % (Manual) Atypical Lymphs % (Man) Monocytes % (Manual) Eosinophils % (Manual) Basophils % (Manual) Abs Neuts (Manual) Lymphocytes # (Manual) Monocytes # (Manual) Nucleated RBCs Platelet Estimate Large Platelets Plt Morphology Comment RBC Morphology Polychromasia Basophilic Stippling Microcytosis Anion Gap Estim Creat Clear Calc Estimated GFR POC Glucose 237 H Random Glucose Lactic Acid 1.6 Calcium COVID-19 ([facility]) Negative COVID-19 Clin Com See Note 06/11/22 06/11/22 06/11/22 07:03 08:06 08:06 MCV 86.7 MCH 27.9 MCHC 32.1 RDW 12.8 Plt Count 198 MPV 11.6 Immature Gran % (Auto) Cancelled Neut % (Auto) Cancelled Lymph % (Auto) Cancelled [place] % (Auto) Cancelled Eos % (Auto) Cancelled Baso % (Auto) Cancelled Lymph # (Auto) Cancelled [place] # (Auto) Cancelled Eos # (Auto) Cancelled Baso # (Auto) Cancelled Abs Immat Gran (auto) Cancelled Absolute Neuts (auto) Cancelled Absolute Nucleated RBC 0.000 Nucleated RBC % (auto) 0.0 Neutrophils % (Manual) 0 L Band Neutrophils % 0 L Lymphocytes % (Manual) 65 H Atypical Lymphs % (Man) 2 Monocytes % (Manual) 31 H Eosinophils % (Manual) 1 Basophils % (Manual) 1 Abs Neuts (Manual) Not Reportable Lymphocytes # (Manual) 0.7 L Monocytes # (Manual) 0.3 Nucleated RBCs 1 H Platelet Estimate NORMAL Large Platelets PRESENT Plt Morphology Comment NOTED RBC Morphology NOTED Polychromasia 1+ (0-2) Basophilic Stippling 1+ (0-2) Microcytosis 1+ (5-14) Anion Gap 17 Estim Creat Clear Calc 93.2 Estimated GFR > 60 POC Glucose 166 H Random Glucose 211 H Lactic Acid Calcium 7.7 L D COVID-19 ([facility]) COVID-19 Clin Com 06/11/22 13:43 MCV MCH MCHC RDW Plt Count MPV Immature Gran % (Auto) Neut % (Auto) Lymph % (Auto) [place] % (Auto) Eos % (Auto) Baso % (Auto) Lymph # (Auto) [place] # (Auto) Eos # (Auto) Baso # (Auto) Abs Immat Gran (auto) Absolute Neuts (auto) Absolute Nucleated RBC Nucleated RBC % (auto) Neutrophils % (Manual) Band Neutrophils % Lymphocytes % (Manual) Atypical Lymphs % (Man) Monocytes % (Manual) Eosinophils % (Manual) Basophils % (Manual) Abs Neuts (Manual) Lymphocytes # (Manual) Monocytes # (Manual) Nucleated RBCs Platelet Estimate Large Platelets Plt Morphology Comment RBC Morphology Polychromasia Basophilic Stippling Microcytosis Anion Gap Estim Creat Clear Calc Estimated GFR POC Glucose 179 H Random Glucose Lactic Acid Calcium COVID-19 ([facility]) COVID-19 Clin Com Assessment and Plan (1) Sepsis: Status: Acute Plan 62-year-old female with past medical history of hypertension, hyperlipidemia, diabetes, history of breast cancer s/p b/l mastectomy on chemotherapy last received about a week ago; presented to the hospital today with a chief complaint of nausea/vomiting. Neutropenia Absolute neutrophil count is 0.? Status post Granix x1 in the ER.? WBC 1.1 today Oncology consult Patient is currently afebrile UA/chest x-ray pending-patient reported burning urination.? Also patient had mild hyperemia at the base surgery site.? Nontender. Empirically covered with cefepime Id consult Nausea/vomiting Supportive care.? Advance diet as tolerated. History of breast cancer Patient on chemotherapy.? Last received about a week ago. History of diabetes Will reduce the home dose of Lantus to 40 units.? Insulin sliding scale.? History of hypertension/hyperlipidemia Continue home medications DVT prophylaxis:? Lovenox Code status:? Full code Attending Dr. Shanks Continue hospitalization for treatment of neutropenia Quality Stroke Does the patient have a stroke diagnosis?: No VTE Prior VTE?: No VTE Risk Level:: Medical - moderate - high VTE Device Contraindication: Treatment Not Indicated VTE Drug Contraindication: N/A - Med Ordered
[2022-06-11 16:44] LABS: Glucose, Whole Blood 175 mg/dL (60-115)
--- NOTE | 2022-06-11 18:47 | P.CNHO_ITS ---
Subjective - Subjective Chief complaint: Generalized weakness/nausea Patient: known to practice within the last 3 years Consult date: 06/11/22 Primary Care Provider: [facility] Medical Summary: Diagnosis: Left breast invasive ductal carcinoma January 2022 She had a screening mammography in January 2022 which revealed a new spiculated mass just over 1 cm in the posterior upper outer quadrant of the left breast. Additional mammographic views and ultrasound revealed a suspicious hypoechoic irregular mass 02:00 o'clock positions 16 cm from nipple measuring 1.7 cm and diameter. Imaging of left axilla showed no lymphadenopathy. She underwent ultrasound-guided core biopsy on 02/16/2022 which revealed invasive ductal carcinoma, MS BR grade 2-3. Estrogen receptor positive 75%, progesterone receptor positive 30%, HER2 negative. Proliferation index overall 50% by Ki 67 immuno staining. HPI - Consult Narrative Reason for consult: Neutropenia after chemotherapy Narrative: Halina Kevin is a 62 year old female who received 1st cycle of chemotherapy a week ago for left breast invasive ductal carcinoma. A few days after treatment she developed nausea, poor appetite and generalized body aches. Unfortunately she did not call about her symptoms. She came into the clinic yesterday afternoon with complaints of a rash on her head and on external genitalia along with body aches, generalized weakness and some diarrhea. She has not been eating much. She received IV hydration in the clinic but did not improve. Because of persistent nausea and finding of neutropenia, she was referred to the emergency department. No report of fever or chills. No dysuria. Review of Systems - Constitutional Reports lack of energy, Reports malaise, Reports poor appetite, Reports weakness - Cardiovascular Reports no additional cardiovascular complaints, Denies chest pain, Denies excessive sweating - Respiratory Denies cough, Denies dyspnea - Gastrointestinal Denies abdominal pain, Denies bright, red blood in stools, Reports change in stools, Denies cramping, Reports diarrhea - Musculoskeletal Reports no additional musculoskeletal complaints, Reports body aches - Integumentary/Breasts Skin/Breast: Reports acne PMFSH Medical History: Medical History (Last Reviewed 06/11/22 @ 23:50 by Ninfa Lowry MD) Asthma COVID-19 vaccine series completed Diabetes Fever of unknown origin GERD (gastroesophageal reflux disease) HTN (hypertension) Hypercholesteremia Invasive ductal carcinoma of left breast Seroma of breast Family History: Family History (Last Reviewed 06/11/22 @ 23:50 by Ninfa Lowry MD) Mother Breast cancer, Onset Age: 58 Sister Breast cancer, Onset Age: 54 Surgical History: Surgical History (Last Reviewed 06/11/22 @ 23:50 by Ninfa Lowry MD) H/O mastectomy History of bilateral mastectomy Onset Date: 03/21/22 History of delivery History of cholecystectomy History of incision and drainage Onset Date: 05/02/22 Social History: Social History (Last Reviewed 06/11/22 @ 23:50 by Ninfa Lowry MD) Living Situation History: Household Members: Family Household Members Other:: and son Housing: House Housing Other:: [facility] Are you a primary manager care to a significant other at home: No Do you presently have visiting nurse or other home services: No Tobacco History: Patient Tobacco Use Status: Never used Tobacco Second Hand Smoke Exposure: No Advance Directives: Advance Directives Date on File: 04/15/22 Occupation Assessmet: service: No Current occupational status: employed Home Medications and Allergies Current Medications: Current Medications Acetaminophen (Acetaminophen 325 Mg Tablet) 650 mg PO Q6H PRN PRN Reason: Pain, Mild (Pain Scale 1-3) Last Admin: 06/11/22 09:19 Dose: 650 mg Atorvastatin Calcium (Atorvastatin Calcium 80 Mg Tablet) 80 mg PO BEDTIME [facility] Last Admin: 06/10/22 21:08 Dose: 80 mg Dextrose (Dextrose 50 % 25 Gm/50 Ml Syringe) 25 gm IVPUSH Q15M PRN; Protocol PRN Reason: per Hypoglycemia Standing Ord. Enoxaparin Sodium (Enoxaparin Sodium 40 Mg/0.4 Ml Syringe) 40 mg SUBCUT Q24H [facility] Last Admin: 06/10/22 21:07 Dose: 40 mg Gabapentin (Gabapentin 300 Mg Capsule) 300 mg PO BEDTIME [facility] Last Admin: 06/10/22 21:08 Dose: 300 mg Glucose (Glucose Gel 15 Gm Gel..Gram.) 15 gm PO Q15M PRN; Protocol PRN Reason: per Hypoglycemia Standing Ord. Cefepime HCl 2 gm/ Sodium (Chloride) 50 mls @ 100 mls/hr IV Q8H [facility] Last Infusion: 06/11/22 15:34 Dose: Infused Sodium Chloride (Ns) 1,000 mls @ 100 mls/hr IVCONT .Q10H [facility] Last Admin: 06/11/22 09:16 Dose: 100 mls/hr Insulin Glargine (Insulin Glargine,Hum.Rec.Anlog 100 Unit/Ml 10 Ml Vial) 40 unit SUBCUT BEDTIME [facility] Last Admin: 06/10/22 21:08 Dose: 40 unit Insulin Human Lispro (Insulin Lispro 100 Unit/Ml 3 Ml Vial) 0 unit SUBCUT QIDAC HS [facility]; Protocol Last Admin: 06/11/22 17:08 Dose: Not Given Melatonin (Melatonin 3 Mg Tablet) 6 mg PO BEDTIME PRN PRN Reason: Insomnia Metoprolol Tartrate (Metoprolol Tartrate 25 Mg Tablet) 25 mg PO BID [facility]; Protocol Last Admin: 06/11/22 09:17 Dose: 25 mg Omeprazole (Omeprazole 20 Mg Capsule.Dr) 20 mg PO DAILY@0630 [facility] Last Admin: 06/11/22 06:40 Dose: 20 mg Senna (Sennosides 8.6 Mg Tablet) 17.2 mg PO BEDTIME PRN PRN Reason: Constipation Sodium Chloride (0.9 % Sodium Chloride Flush 3 Ml Syringe) 3 ml IVFLUSH QSHIFT [facility] Last Admin: 06/11/22 16:28 Dose: 3 ml Home Medications Medication Instructions Recorded Confirmed Type dulaglutide 0.75 mg/0.5 mL 0.75 mg subcut SA 02/15/22 06/10/22 History subcutaneous pen injector (Trulicity) gabapentin 300 mg capsule 300 mg PO QPM 02/15/22 06/10/22 History insulin glargine 100 unit/mL (3 60 unit subcut QPM 02/15/22 06/10/22 History mL) subcutaneous pen (Lantus Solostar U-100 Insulin) insulin lispro 100 unit/mL 43 unit subcut TID 02/15/22 06/10/22 History subcutaneous pen lancets 28 gauge (FreeStyle #100 ea 02/15/22 05/26/22 History Lancets) omeprazole 20 mg capsule,delayed 20 mg PO DAILY 02/15/22 06/10/22 History release pen needle, diabetic 32 gauge x #50 ea 02/15/22 05/26/22 History (BD Lesley 2nd Gen Pen Needle) atorvastatin 80 mg tablet 1 tab PO BEDTIME 04/14/22 06/10/22 History acetaminophen 325 mg tablet 650 mg PO Q6H PRN Pain 06/10/22 06/10/22 History ibuprofen 200 mg tablet 400 mg PO Q6H PRN Pain 06/10/22 06/10/22 History loperamide 2 mg capsule 2 mg PO Q4H PRN Diarrhea 06/10/22 06/10/22 History losartan 50 mg tablet 1 tab DAILY 06/10/22 06/10/22 History metoprolol tartrate 25 mg tablet 1 tab PO BID 06/10/22 06/10/22 History Allergies Allergy/AdvReac Type Severity Reaction Status Date / Time turkey Allergy Severe chest Verified 05/26/22 10:00 pain/swelling/SOB/itching Physical Exam Vital signs: Vital Signs Temp 100.1 F 06/11/22 11:28 Pulse 91 06/11/22 16:26 Resp 18 06/11/22 16:26 BP 127/79 06/11/22 16:26 Pulse Ox 100 06/11/22 16:26 O2 Del Method 06/11/22 16:26 Intake & Output 06/10/22 06/11/22 06/11/22 18:59 06:59 18:59 Intake Total 1100 / 1100 1050 / 1050 Balance 1100 / 1100 1050 / 1050 Intake: Intake, IV Amount 1100 / 1100 1050 / 1050 0.9 % Sodium Chloride 1,000 ml 1000 / 1000 @ 999 mls/hr IV .Q1H1M [facility] Rx#: [id number] cefEPime HCl 2 gm In 0.9 % 100 / 100 50 / 50 Sodium Chloride 50 ml @ 100 mls /hr IV Q8H [facility] Rx#:[id number] 0.9 % Sodium Chloride 1,000 ml 1000 / 1000 @ 100 mls/hr IVCONT .Q10H [facility] Rx#:[id number] Other: Weight 118.9 kg Weight 118.9 kg - Constitutional Present: no acute distress, obese - Routine HEENT Exam Head: Present: normal inspection Eye: Present: EOMI - Routine Neck Exam Present: supple. Absent: lymphadenopathy, meningismus - Routine Respiratory Exam Present: CTAB. Absent: accessory muscle use - Routine Cardiovascular Exam Cardiovascular: Present: S1, S2 - Routine Abdominal Exam Present: soft - Routine Extremities Exam Present: pulses intact - Routine Skin Exam Present: intact. Absent: cyanosis Hem/Onc Consult Result - Labs CBC & Chem 7: 06/12/22 06:47 06/12/22 06:47 Labs: Short CBC 06/11/22 Range/Units 08:06 WBC 1.1 L (4.8-10.8) X10*3/uL Hgb 11.7 L (12.0-16.0) g/dl Hct 36.4 L (37.0-47.0) % Plt Count 198 (160-400) X10*3/uL BMP 06/11/22 08:06 Sodium 136 Potassium 4.5 Chloride 106 Carbon Dioxide 18 L BUN 9 Creatinine 0.79 Calcium 7.7 L D Assessment and Plan Patient Active problem list reviewed?: Yes (1) Neutropenia Status: Acute Assessment and plan: 1. This is a pleasant 62-year-old postmenopausal woman with left breast invasive ductal carcinoma diagnosed in January 2022. On 03/21/2022 she underwent left simple mastectomy and right simple prophylactic mastectomy. Pathology from left simple mastectomy-invasive ductal carcinoma, MS BR grade 3, 3.4 cm. DCIS high nuclear grade, solid and cribriform types, no lymphovascular invasion. Invasive carcinoma is present 2 mm from closest superior margin, remainder margins are widely negative. Skin and nipple negative for tumor. One sentinel lymph node negative for tumor. ER/ME positive HER2 negative. AJCC stage pT2 N0. Prognostic stage IIA. She received 1st cycle of Taxotere/cyclophosphamide on 06/02/22. She is presenting now with generalized weakness, nausea, body aches and neutropenia. Her sugars are also running high, probably related to steroids with chemotherapy. She also developed acneiform rash on her scalp which is secondary to chemotherapy. She will need IV hydration, blood cultures, prophylactic antibiotics and anti emetics. She was given 1 dose of Granix 480 mcg subQ yesterday. Administer another dose today till her WBC count is above 1500. She is feeling slightly better today. She can be discharged tomorrow if she continues to do well and remains afebrile. I thank you very much for this consult. - Time Spent With Patient Time Spent with Patient (in minutes): 15
--- NOTE | 2022-06-11 20:22 | PC.NURSE ---
Pt tolerating oyster crackers and water with no pain, nausea, or vomiting.
[2022-06-11] MEDS: Atorvastatin Calcium 80 MG TABLET PO (20:28)
[2022-06-11] MEDS: Gabapentin 300 MG CAPSULE PO (20:28)
[2022-06-11] MEDS: Insulin Glargine,Hum.rec.anlog 100 UNIT/ML 10 ML VIAL 40 UNIT SUBCUT (20:28)
[2022-06-11] MEDS: Enoxaparin Sodium 40 MG/0.4 ML SYRINGE SUBCUT (20:29)
[2022-06-11 21:55] LABS: Glucose, Whole Blood 237 mg/dL (60-115)
--- NOTE | 2022-06-11 23:48 | W.PM.IDCN ---
History of Present Illness Data of Consult Service Date: 06/11/22 Requesting physician: April Moody Primary Care Provider: [facility] Reason for consult: neutropenic,nausea and vomiting I had seen her in March 2022 for fever,breast seroma. Now she presents with two days nausea and vomiting. She doesnt have much fever. COVID is negative. Review of Systems Review of Systems: Yes all other systems are reviewed and are negative PMFSH Past Medical History Medical History Asthma COVID-19 vaccine series completed Diabetes Fever of unknown origin GERD (gastroesophageal reflux disease) HTN (hypertension) Hypercholesteremia Invasive ductal carcinoma of left breast Seroma of breast Family History Family History Mother Breast cancer, Onset Age: 58 Sister Breast cancer, Onset Age: 54 Surgical History Surgical History H/O mastectomy History of bilateral mastectomy (03/21/22) History of delivery History of cholecystectomy History of incision and drainage (05/02/22) Social History Social History Household Members: Family Household Members Other:: and son Housing: House Housing Other:: [facility] Are you a primary career technical education instructor to a significant other at home: No Do you presently have visiting nurse or other home services: No Alcohol intake: former Patient Tobacco Use Status: Never used Tobacco Second Hand Smoke Exposure: No Use of substances other than those prescribed or required for medical reasons: No Advance Directives: No Advance Directives Information Provided: No Advance Directives Date on File: 04/15/22 Patient : No service: No Current occupational status: employed Meds Allergies Allergy/AdvReac Type Severity Reaction Status Date / Time turkey Allergy Severe chest Verified 05/26/22 10:00 pain/swelling/SOB/itching Active Medications: Current Medications Acetaminophen (Acetaminophen 325 Mg Tablet) 650 mg PO Q6H PRN PRN Reason: Pain, Mild (Pain Scale 1-3) Last Admin: 06/11/22 20:28 Dose: 650 mg Atorvastatin Calcium (Atorvastatin Calcium 80 Mg Tablet) 80 mg PO BEDTIME [facility] Last Admin: 06/11/22 20:28 Dose: 80 mg Dextrose (Dextrose 50 % 25 Gm/50 Ml Syringe) 25 gm IVPUSH Q15M PRN; Protocol PRN Reason: per Hypoglycemia Standing Ord. Enoxaparin Sodium (Enoxaparin Sodium 40 Mg/0.4 Ml Syringe) 40 mg SUBCUT Q24H [facility] Last Admin: 06/11/22 20:29 Dose: 40 mg Gabapentin (Gabapentin 300 Mg Capsule) 300 mg PO BEDTIME [facility] Last Admin: 06/11/22 20:28 Dose: 300 mg Glucose (Glucose Gel 15 Gm Gel..Gram.) 15 gm PO Q15M PRN; Protocol PRN Reason: per Hypoglycemia Standing Ord. Cefepime HCl 2 gm/ Sodium (Chloride) 50 mls @ 100 mls/hr IV Q8H [facility] Last Infusion: 06/11/22 20:22 Dose: Infused Sodium Chloride (Ns) 1,000 mls @ 100 mls/hr IVCONT .Q10H [facility] Last Admin: 06/11/22 19:36 Dose: 100 mls/hr Insulin Glargine (Insulin Glargine,Hum.Rec.Anlog 100 Unit/Ml 10 Ml Vial) 40 unit SUBCUT BEDTIME [facility] Last Admin: 06/11/22 20:28 Dose: 40 unit Insulin Human Lispro (Insulin Lispro 100 Unit/Ml 3 Ml Vial) 0 unit SUBCUT QIDACHS [facility]; Protocol Last Admin: 06/11/22 20:29 Dose: Not Given Melatonin (Melatonin 3 Mg Tablet) 6 mg PO BEDTIME PRN PRN Reason: Insomnia Metoprolol Tartrate (Metoprolol Tartrate 25 Mg Tablet) 25 mg PO BID [facility]; Protocol Last Admin: 06/11/22 20:28 Dose: 25 mg Omeprazole (Omeprazole 20 Mg Capsule.Dr) 20 mg PO DAILY@0630 [facility] Last Admin: 06/11/22 06:40 Dose: 20 mg Senna (Sennosides 8.6 Mg Tablet) 17.2 mg PO BEDTIME PRN PRN Reason: Constipation Sodium Chloride (0.9 % Sodium Chloride Flush 3 Ml Syringe) 3 ml IVFLUSH QSHIFT [facility] Last Admin: 06/11/22 16:28 Dose: 3 ml Home Medications Medication Instructions Recorded Confirmed Last Taken Type dulaglutide 0.75 mg/0.5 mL 0.75 mg subcut SA 02/15/22 06/10/22 06/04/22 History subcutaneous pen injector (Trulicity) gabapentin 300 mg capsule 300 mg PO QPM 02/15/22 06/10/22 06/09/22 History insulin glargine 100 unit/mL (3 60 unit subcut QPM 02/15/22 06/10/22 06/09/22 History mL) subcutaneous pen (Lantus Solostar U-100 Insulin) insulin lispro 100 unit/mL 43 unit subcut TID 02/15/22 06/10/22 06/09/22 History subcutaneous pen lancets 28 gauge (FreeStyle #100 ea 02/15/22 05/26/22 03/20/22 History Lancets) omeprazole 20 mg capsule,delayed 20 mg PO DAILY 02/15/22 06/10/22 06/09/22 History release pen needle, diabetic 32 gauge x #50 ea 02/15/22 05/26/22 03/20/22 History (BD Lesley 2nd Gen Pen Needle) atorvastatin 80 mg tablet 1 tab PO BEDTIME 04/14/22 06/10/22 06/09/22 History acetaminophen 325 mg tablet 650 mg PO Q6H PRN Pain 06/10/22 06/10/22 Unknown History ibuprofen 200 mg tablet 400 mg PO Q6H PRN Pain 06/10/22 06/10/22 Unknown History loperamide 2 mg capsule 2 mg PO Q4H PRN Diarrhea 06/10/22 06/10/22 06/10/22 History losartan 50 mg tablet 1 tab DAILY 06/10/22 06/10/22 06/09/22 History metoprolol tartrate 25 mg tablet 1 tab PO BID 06/10/22 06/10/22 06/09/22 History Physical Exam Vital Signs: Vital Signs: Last Vital Signs Temp 100.1 F 06/11/22 11:28 Pulse 78 06/11/22 22:46 Resp 18 06/11/22 22:46 BP 105/43 L 06/11/22 22:46 Pulse Ox 94 06/11/22 22:46 O2 Del Method 06/11/22 22:46 BMI result Body Mass Index 46.4 Const: General: cooperative HEENT: Other: alopecia Face and sinus: Yes normal facial exam Mouth: Normal oral and palatal mucosa present Teeth and gingiva: dentition normal Eyes: General: appearance normal, both eyes and all related structures Pupils: Equal, round and reactive pupils present Resp: Effort & Inspection: normal respiratory effort Cardio: Rate: regular rate Rhythm: regular rhythm GI: Palpation (GI): Soft to palpation and nontender : General: Yes no CVA tenderness Back/Spine/Pelvis: Back: no CVA tenderness Skin: General skin exam: no rashes or lesions noted Neuro: General: moves all extremities Cranial nerves: Yes Equal, round and reactive pupils present Extrem: General: Yes normal to inspection Psych: Appearance: grossly normal Results Labs CBC & Chem 7: 06/11/22 08:06 06/11/22 08:06 Labs: Short CBC 06/11/22 Range/Units 08:06 WBC 1.1 L (4.8-10.8) X10*3/uL Hgb 11.7 L (12.0-16.0) g/dl Hct 36.4 L (37.0-47.0) % Plt Count 198 (160-400) X10*3/uL BMP 06/11/22 08:06 Sodium 136 Potassium 4.5 Chloride 106 Carbon Dioxide 18 L BUN 9 Creatinine 0.79 Calcium 7.7 L D Microbiology Microbiology Results: Microbiology 06/10/22 18:11 Blood - Venous Blood Culture - Preliminary No growth after 24 hours. 06/10/22 18:11 Blood - Venous Blood Culture - Preliminary No growth after 24 hours. Assessment and Plan (1) Intractable nausea and vomiting: Status: Acute She claims dysuria but no urinalysis yet She has no organisms seen so far. CXR is unremarkable. Breast seromas are similar. Possible viral syndrome or UTI (2) Neutropenia: Status: Acute Plan Continue Cefepime ,possible 3-5 d IV and then followup Levaquin for a week as outpatient cover urine if nothing else found.
[2022-06-12 02:21] VITALS: BP 140/63; PULSE 92; RESP 20; O2SAT 92
[2022-06-12] MEDS: cefEPime HCl 2 GM in 0.9 % Sodium Chloride 50 ML IV ×2 (02:53→09:51)
--- NOTE | 2022-06-12 02:58 | PC.NURSE ---
Prior fluids still running, new fluid administration delayed.
[2022-06-12 04:14] VITALS: PULSE 87; RESP 24; TEMP 37.4; O2SAT 98
[2022-06-12] MEDS: Acetaminophen 325 MG TABLET 650 MG PO (04:29)
[2022-06-12] MEDS: 0.9 % Sodium Chloride 1,000 ML 100 ML IVCONT (05:32)
[2022-06-12] MEDS: Omeprazole 20 MG CAPSULE.DR PO (06:16)
--- NOTE | 2022-06-12 06:24 | PC.NURSE ---
Pt reporting of R thigh pain which she thinks may be correlating to being cold, pt has been stating that she's cold but refused another blanket. I applied a heat pack to the leg with hopes of some relief.
[2022-06-12 06:54] LABS: Hematocrit 34.9 % (37.0-47.0); Hemoglobin 11.3 g/dl (12.0-16.0); Mean Corpuscular HGB Conc 32.4 g/dl (31.0-35.0); Mean Corpuscular Volume 86.4 fL (80.0-98.0); Platelet Count 200 X10*3/uL (160-400); Red Blood Count 4.04 X10*6/uL (4.20-5.50)
[2022-06-12 07:31] LABS: NRBC Pct Auto 2.8 /100WBC (0.0-0.2); WBC ABN SCTR FOR CBC 1
[2022-06-12 07:42] VITALS: BP 113/43; PULSE 85; RESP 24; TEMP 37.3; O2SAT 93
[2022-06-12 07:43] LABS: Glucose, Whole Blood 143 mg/dL (60-115)
[2022-06-12 07:52] LABS: Atypical Lymphs Percent Manual 5 % (0-6); Band Neutrophils Percent 10 % (3-5); Basophils Percent Manual 2 % (0-2); Lymphocytes Percent Manual 53 % (20-40); Metamyelocytes Percent 2 %; Monocytes Percent Manual 24 % (2-11); Neutrophils Percent Manual 4 % (45-73); Nucleated Red Blood Cells 5 /100WBC (0-0)
[2022-06-12 07:56] LABS: Acanthocytes 1+ (0-2) /OIF; Macrocytosis 1+ (5-14) /OIF; Microcytosis 1+ (5-14) /OIF; Platelet Estimate NORMAL (NORMAL); Platelet Morphology Comment NORMAL; RBC Morphology NOTED
[2022-06-12 07:57] LABS: Polychromasia 1+ (0-2) /OIF
[2022-06-12 07:58] LABS: Atypical Lymph Absolute Manual 0.1 x10*3/uL; Monocytes Absolute Manual 0.4 X10*3/uL (0.1-1.2); Neutrophils Absolute Manual 0.3 X10*3/uL (2.0-8.3); White Blood Count 1.8 X10*3/uL (4.8-10.8)
[2022-06-12 08:05] LABS: Blood Urea Nitrogen 7 mg/dL (9-16); Calcium 7.3 mg/dL (8.4-10.2); Creatinine Clr Calc Pharmacy 95.6; Estimated Glomerular Filt Rate > 60; Glucose Random 159 mg/dL (60-115)
[2022-06-12 08:33] LABS: Anion Gap 20 (12-20); Carbon Dioxide 13 mmol/L (22-29); Chloride 107 mmol/L (96-108); Potassium 3.3 mmol/L (3.3-5.1); Sodium 137 mmol/L (135-145)
[2022-06-12] MEDS: Metoprolol Tartrate 25 MG TABLET PO (09:53)
[2022-06-12] MEDS: 0.9 % Sodium Chloride Flush 3 ML SYRINGE IVFLUSH (09:53)
[2022-06-12 09:57] VITALS: BP 170/66; PULSE 100; RESP 19; O2SAT 98
--- NOTE | 2022-06-12 10:17 | P.DS_ITS ---
DS: Providers Provider Date of Service: 06/12/22 Date of admission: 06/10/22 20:40 Primary care physician: [facility] Consults: 06/10/22 20:39 Consult to Hematology / Oncology Routine Consulting Provider: Dinora Samano Reason for consultation: neutropenia Consult to Infectious Diseases Routine Consulting Provider: Ninfa Lowry Reason for consultation: neutropenia Attending physician on discharge: Axel Shanks Discharging clinician: Kandice Lehman DS: Diagnosis Discharge Diagnosis (1) Intractable nausea and vomiting: Status: Acute (2) Neutropenia: Status: Acute DS: Summary Hospital Course Hospital Course: HP as per admitting provider 62-year-old female with past medical history of hypertension, hyperlipidemia, diabetes, history of breast cancer s/p b/l mastectomy on chemotherapy last received about a week ago; presented to the hospital today with a chief complaint of nausea/vomiting.?Patient reports that over the past 3 days she has been not feeling well, has been having nausea vomiting and diarrhea.? Denies any abdominal pain.? Mentioned that her sugars were not under control.? Has not been eating good enough.?Went to the clinic today and had 1 L of normal saline by Dr. Samano in the Oncology Clinic.? Followed by she went home and continued to have nausea and vomiting and did not improve with oral Zofran.? Subsequently recommended to go to the ER for further evaluation.?Patient denies any fevers and chills.? Denies any cough or sputum production.? Reports he has burning urination.?Also mentioned that she felt hot at the breast surgery site.? Denies any discharge.Denies any chest pain or palpitations.?Review of all other systems is negative except mentioned above ER course: Per ER team patient noted to have absolute neutrophil count 0.? Discussed with Dr. Samano-given Granix x1.? Patient also empirically covered with cefepime.? Urinalysis and chest x-ray pending.? Admitted for further management . Neutropenia Absolute neutrophil count is 0.? Status post Granix x2 WBC 1.8 Seen and evaluated by Oncology recommendation for outpatient follow-up UA/chest x-ray neg, cx neg after 24 hours Empirically covered with cefepime, home with Levaquin for 7 days as per ID recommendation Nausea/vomiting. Resolved Supportive care.? Diet advanced History of breast cancer Patient on chemotherapy.? Last received about a week ago, continue as outpatient History of diabetes Insulin sliding scale.? Continue home medications History of hypertension/hyperlipidemia Continue home medications Time Spent with Patient Time attestation: Total time spent providing and/or coordinating discharge services: Discharge coordination time: Greater than 30 minutes Quality: Safe Use of Opioids Does Pt have an Active Cancer Diagnosis on the Problem List?: No Quality: Stroke Does the patient have a stroke diagnosis?: No Physical Exam Vital Signs: Vital Signs: Last Vital Signs Temp 99.2 F 06/12/22 07:42 Pulse 100 06/12/22 09:57 Resp 19 06/12/22 09:57 BP 170/66 H 06/12/22 09:57 Pulse Ox 98 06/12/22 09:57 O2 Del Method 06/12/22 07:42 BMI result Body Mass Index 46.4 Appearing in no acute distress head is normocephalic atraumatic eyes pupils are PERRLA sclera is anicteric mouth throat mucous membranes are intact and moist neck is supple no lymphadenopathy, no JVD noted lung sounds are clear to auscultation heart regular rate rhythm, clear S1, S2 positive bowel sounds, abdomen is soft, nontender neuro patient is alert x3, no focal deficits DS: Data Data Completed and Pending Completed studies during hospitalization [Text1]: Procedures Drainage of Chest Subcutaneous Tissue and Fascia, Percutaneous Approach (04/14/22) Excision of Left Axillary Lymphatic, Open Approach, Diagnostic (03/21/22) Resection of Bilateral Breast, Open Approach (03/21/22) Labs on day of discharge: Laboratory Results - last 24 hr 06/11/22 06/11/22 06/11/22 13:43 16:41 21:45 WBC RBC Hgb Hct MCV MCH MCHC RDW Plt Count MPV Immature Gran % (Auto) Neut % (Auto) Lymph % (Auto) [place] % (Auto) Eos % (Auto) Baso % (Auto) Lymph # (Auto) [place] # (Auto) Eos # (Auto) Baso # (Auto) Abs Immat Gran (auto) Absolute Neuts (auto) Absolute Nucleated RBC Nucleated RBC % (auto) Neutrophils % (Manual) Band Neutrophils % Lymphocytes % (Manual) Atypical Lymphs % (Man) Monocytes % (Manual) Basophils % (Manual) Metamyelocytes % Abs Neuts (Manual) Lymphocytes # (Manual) Atyp Lymphs # (Manual) Monocytes # (Manual) Nucleated RBCs Platelet Estimate Plt Morphology Comment RBC Morphology Polychromasia Microcytosis Macrocytosis Acanthocytes (Spur) Sodium Potassium Chloride Carbon Dioxide Anion Gap BUN Creatinine Estim Creat Clear Calc Estimated GFR POC Glucose 179 H 175 H 237 H Random Glucose Calcium 06/12/22 06/12/22 06/12/22 06:47 06:47 07:35 WBC 1.8 L RBC 4.04 L Hgb 11.3 L Hct 34.9 L MCV 86.4 MCH 28.0 MCHC 32.4 RDW 13.0 Plt Count 200 MPV 11.0 Immature Gran % (Auto) Cancelled Neut % (Auto) Cancelled Lymph % (Auto) Cancelled [place] % (Auto) Cancelled Eos % (Auto) Cancelled Baso % (Auto) Cancelled Lymph # (Auto) Cancelled [place] # (Auto) Cancelled Eos # (Auto) Cancelled Baso # (Auto) Cancelled Abs Immat Gran (auto) Cancelled Absolute Neuts (auto) Cancelled Absolute Nucleated RBC 0.050 H Nucleated RBC % (auto) 2.8 H Neutrophils % (Manual) 4 L Band Neutrophils % 10 H Lymphocytes % (Manual) 53 H Atypical Lymphs % (Man) 5 Monocytes % (Manual) 24 H Basophils % (Manual) 2 Metamyelocytes % 2 Abs Neuts (Manual) 0.3 L Lymphocytes # (Manual) 1.0 L Atyp Lymphs # (Manual) 0.1 Monocytes # (Manual) 0.4 Nucleated RBCs 5 H Platelet Estimate NORMAL Plt Morphology Comment NORMAL RBC Morphology NOTED Polychromasia 1+ (0-2) Microcytosis 1+ (5-14) Macrocytosis 1+ (5-14) Acanthocytes (Spur) 1+ (0-2) Sodium 137 Potassium 3.3 D Chloride 107 Carbon Dioxide 13 L Anion Gap 20 BUN 7 L Creatinine 0.77 Estim Creat Clear Calc 95.6 Estimated GFR > 60 POC Glucose 143 H Random Glucose 159 H Calcium 7.3 L Preliminary micro results at discharge 06/10/22 18:11 Blood Culture - Preliminary Blood - Venous No growth after 24 hours. 06/10/22 18:11 Blood Culture - Preliminary Blood - Venous No growth after 24 hours. Discharge Plan Discharge Anticipated Discharge Date/Time: 06/12/22 10:12 Patient Disposition: Home, Self-Care Discharge Diagnosis: Neutropenia Referrals: [facility] [Primary Care Provider] - 1 Week Discharge Medications: New levofloxacin 250 mg tablet 250 mg PO DAILY Qty: 7 0RF Continued dexamethasone 4 mg Tablet 4 mg PO BID Qty: 30 2RF Rx Instructions: Start night before chemo and take for 2 days after chemotherapy ondansetron 8 mg Tablet,Disintegrating 8 mg PO Q8H PRN (Reason: Nausea) Qty: 60 1RF loperamide 2 mg Capsule 2 mg PO Q4H PRN (Reason: Diarrhea) Rx Instructions: administer after each loose stool until symptoms controlled; do not exceed 8 mg per 24 hrs azithromycin [Zithromax] 500 mg Tablet 500 mg PO DAILY Qty: 5 0RF losartan 50 mg tablet 1 tab DAILY metoprolol tartrate 25 mg tablet 1 tab PO BID acetaminophen 325 mg Tablet 650 mg PO Q6H PRN (Reason: Pain) ibuprofen 200 mg Tablet 400 mg PO Q6H PRN (Reason: Pain) atorvastatin 80 mg tablet 1 tab PO BEDTIME (DME) pen needle, diabetic [BD Lesley 2nd Gen Pen Needle] 32 gauge x 5/32 needle See Rx Instructions .ROUTE QID Qty: 50 Rx Instructions: As directed Lantus Solostar U-100 Insulin 100 unit/mL (3 mL) insulin pen 60 unit subcut QPM Trulicity 0.75 mg/0.5 mL pen injector 0.75 mg subcut SA insulin lispro 100 unit/mL insulin pen 43 unit subcut TID gabapentin 300 mg capsule 300 mg PO QPM (DME) lancets [FreeStyle Lancets] 28 gauge misc See Rx Instructions topical TID Qty: 100 Rx Instructions: As directed omeprazole 20 mg capsule,delayed release(DR/EC) 20 mg PO DAILY Discharge Orders: Discharge Order (Routine); Ordered 06/12/22 Ordered By: Kandice Lehman Diet: Advance to usual diet Activity on Discharge: As tolerated Stand Alone Forms: Patient Portal Discharge page Care Plan Goals: Practice neutropenic precautions Health Concerns: Neutropenia Plan of Treatment: Follow-up with primary care provider as needed Follow-up with oncologist with next scheduled appointment Take all medications as prescribed Assessment: See discharge summary
[2022-06-12 10:50] VITALS: PULSE 97; RESP 16; TEMP 37.3
[2022-06-12 14:10] LABS: Appearance Urine Clear; Color Urine Yellow; Glucose Urine UA Negative (Negative); Leukocyte Esterase Urine Negative (Negative); Nitrite Urine Negative (Negative); Specific Gravity - Urine 1.015 (1.005-1.025); UMIC TRIGGER UACC YES; Urine Blood Trace (Negative); Urine Ketones 40 mg/dL (Negative); Urine Protein 100 (2+) mg/dL (Neg-Trace)
[2022-06-12 14:29] LABS: Glucose, Whole Blood 223 mg/dL (60-115)
[2022-06-12 14:55] VITALS: TEMP 37.3
[2022-06-12 15:02] LABS: Bacteria Urine None Seen (None Seen); Hyaline Casts Urine 0-2 /LPF (0-2); RBC Urine 0-2 /HPF (0-2); WBC Urine 0-5 /HPF (0-5)
== END 2022-06-12 15:24 | disposition home or self-care (01) | DRG 660 ==
LOC: HO.ED 19:57 → HO.EDOVER 20:57
PROVIDERS: Admitting Provider Hospitalist; Emergency Provider Internal Medicine; Visit Provider Nurse Practitioner Acute Care
DX: D70.2 Other drug-induced agranulocytosis (principal); D05.12 Intraductal carcinoma in situ of left breast; E11.9 Type 2 diabetes mellitus without complications; J45.909 Unspecified asthma, uncomplicated; E78.5 Hyperlipidemia, unspecified; I10 Essential (primary) hypertension; K21.9 Gastro-esophageal reflux disease without esophagitis; L27.1 Localized skin eruption due to drugs and medicaments taken internally; T45.1X5A Adverse effect of antineoplastic and immunosuppressive drugs, initial encounter; E78.00 Pure hypercholesterolemia, unspecified; Z20.822 Contact with and (suspected) exposure to COVID-19; Z90.13 Acquired absence of bilateral breasts and nipples; Z79.4 Long term (current) use of insulin; Z79.899 Other long term (current) drug therapy
CPT/HCPCS: 36415; 71045; 80048; 81001; 82947; 83605; 85007; 85025; 85027; 87040; 87635; 96365; 96366; 96375; 99285; J0692; J1447; J1650

== ENCOUNTER 2022-06-20 13:00 | Outpatient (REF) | payer MEDICAID, SELFPAY ==
[2022-06-20 14:02] LABS: Hematocrit 40.2 % (37.0-47.0); Hemoglobin 12.4 g/dl (12.0-16.0); Mean Corpuscular HGB Conc 30.8 g/dl (31.0-35.0); Mean Corpuscular Hemoglobin 27.6 pg (27.0-33.0); Mean Corpuscular Volume 89.3 fL (80.0-98.0); Mean Platelet Volume 11.1 fL (9.4-12.3); Platelet Count 332 X10*3/uL (160-400); Red Cell Distribution Width 13.6 % (11.0-16.0)
[2022-06-20 15:05] LABS: HCG Quantitative < 2 mIU/mL; TSH reflex Free T4 1.41 uIU/mL (0.32-4.0)
[2022-06-20 17:21] LABS: CT PCR NOT DETECTED (Not Detect.); NG PCR NOT DETECTED (Not Detect.)
[2022-06-21 23:41] LABS: Follicle Stimulating Hormone 17.4 mIU/mL; Lutenizing Hormone 6.3 mIU/mL
[2022-06-24 03:52] LABS: HPV mRNA E6/E7 rflx Not Detected (Not Detected)
== END 2022-06-20 13:01 | disposition home or self-care (01) ==
LOC: HO.LNP 13:00
PROVIDERS: Visit Provider Obstetrics & Gynecology
DX: R92.8 Other abnormal and inconclusive findings on diagnostic imaging of breast (principal); N93.9 Abnormal uterine and vaginal bleeding, unspecified
CPT/HCPCS: 83001; 83002; 84443; 84702; 85027; 87491; 87591; 87624; 88142; 99202

== ENCOUNTER 2022-06-20 13:12 | Outpatient (REF) | payer MEDICAID, SELFPAY | END 2022-06-20 13:13 | disposition home or self-care (01) | LOC: HO.LAB 13:12 | PROVIDERS: PCP Registered Nurse; Visit Provider Obstetrics & Gynecology | DX: Z13.89 Encounter for screening for other disorder (principal) ==

== ENCOUNTER → 2022-07-12 09:29 | Outpatient (BNVA) | payer MEDICAID, SELFPAY | PROVIDERS: PCP Registered Nurse; Visit Provider Surgery | DX: C50.912 Malignant neoplasm of unspecified site of left female breast (principal) | CPT/HCPCS: 99212 ==

== ENCOUNTER 2022-07-19 20:20 | Emergency (ER) | payer MEDICAID, SELFPAY ==
--- NOTE | ~2022-07-19 | CT_ITS ---
EXAMINATION: CT ABDOMEN AND PELVIS WITHOUT CONTRAST CLINICAL INFORMATION: Left upper quadrant pain. Breast cancer. COMPARISON: 07/02/2021 TECHNIQUE: Multidetector volumetric imaging was performed from the superior aspect of the liver through the pubic symphysis. Sagittal and coronal reformatted images were obtained on the technologist's workstation. This CT examination was performed using dose optimization techniques as appropriate, variously including the following: *Automated exposure control *Adjustment of mA and/or kV according to patient size (this includes techniques or standardized protocols for targeted exams where dose is matched to indication/reason for exam; i.e. extremities or head) *Use of iterative reconstruction technique DLP: 987 mGy-cm FINDINGS: LUNG BASES: The visualized lung bases are unremarkable. LIVER, GALLBLADDER, AND BILIARY TREE: The liver is normal in size, shape, and attenuation. No focal hepatic lesion or biliary ductal dilatation is present. Cholecystectomy. PANCREAS: Unremarkable. SPLEEN: Unremarkable. ADRENAL GLANDS: Unremarkable. KIDNEYS AND URETERS: The kidneys are normal in size, shape, and attenuation. No hydronephrosis, hydroureter, or calculi seen. No perinephric stranding. BLADDER: Decompressed with no gross abnormality. GASTROINTESTINAL TRACT: The small and large bowel are unremarkable. The appendix is unremarkable. ABDOMINAL WALL: Fat-containing ventral abdominal wall hernias. No change from prior. LYMPH NODES: Normal. VASCULAR: Normal caliber aorta with mild atherosclerotic calcification. PELVIC VISCERA: The uterus and adnexa are unremarkable. OSSEOUS STRUCTURES: No acute or suspicious osseous abnormality. Mild degenerative change throughout the spine. No focal rib abnormality. CT/CT abdomen pelvis wo IV con IMPRESSION: No acute findings in the abdomen or pelvis. No inflammatory changes. No evidence of metastatic disease. Fleischner guidelines were followed.
[2022-07-19 20:34] VITALS: BP 118/73; PULSE 99; RESP 22; TEMP 36.2; O2SAT 96; BMI 45.4
[2022-07-19 22:16] LABS: Hematocrit 33.8 % (37.0-47.0); Hemoglobin 10.7 g/dl (12.0-16.0); Mean Corpuscular HGB Conc 31.7 g/dl (31.0-35.0); Mean Corpuscular Hemoglobin 27.7 pg (27.0-33.0); Mean Corpuscular Volume 87.6 fL (80.0-98.0); Mean Platelet Volume 11.7 fL (9.4-12.3); Platelet Count 124 X10*3/uL (160-400); Red Blood Count 3.86 X10*6/uL (4.20-5.50); Red Cell Distribution Width 16.5 % (11.0-16.0)
[2022-07-19 22:17] LABS: WBC ABN SCTR FOR CBC 1
[2022-07-19 22:45] LABS: Alanine Aminotransferase 10 U/L (0-31); Albumin Level 3.7 g/dL (3.5-5.0); Alkaline Phosphatase 106 U/L (39-117); Anion Gap 16 (12-20); Aspartate Amino Transferase 12 U/L (5-31); Bilirubin Direct 0.3 mg/dL (0.0-0.5); Bilirubin Total 0.8 mg/dL (0.0-1.0); Blood Urea Nitrogen 16 mg/dL (9-16); Calcium 8.7 mg/dL (8.4-10.2); Carbon Dioxide 22 mmol/L (22-29); Chloride 100 mmol/L (96-108); Creatinine Clr Calc Pharmacy 87.7; Estimated Glomerular Filt Rate > 60; Glucose Random 390 mg/dL (60-115); Lipase 7 U/L (8-78); Potassium 4.3 mmol/L (3.3-5.1); Sodium 134 mmol/L (135-145); Total Protein 6.6 g/dL (6.5-8.0)
[2022-07-19 22:47] LABS: White Blood Count 1.6 X10*3/uL (4.8-10.8)
[2022-07-19 23:21] LABS: Band Neutrophils Percent 2 % (3-5); Eosinophils Percent Manual 2 % (0-4); Lymphocytes Absolute Manual 0.4 X10*3/uL (1.2-4.9); Lymphocytes Percent Manual 28 % (20-40); Neutrophils Absolute Manual 1.1 X10*3/uL (2.0-8.3); Neutrophils Percent Manual 68 % (45-73)
[2022-07-19 23:22] LABS: Macrocytosis 2+ (15-30) /OIF; Microcytosis 2+ (15-30) /OIF; RBC Morphology NOTED
[2022-07-19 23:23] LABS: Hypochromasia 1+ (5-14) /OIF; Large Platelet PRESENT; Platelet Estimate SLIGHTLY DECREASED (NORMAL); Platelet Morphology Comment NOTED; Smudge Cells PRESENT; Toxic Granulation PRESENT
--- NOTE | 2022-07-20 01:11 | ED_ITS ---
HPI - Abdominal Pain General Chief Complaint: Abdominal Pain Stated Complaint: FLANK PAIN Time Seen by Provider: 07/20/22 01:10 Source: patient Mode of arrival: ambulatory Limitations: no limitations History of Present Illness HPI narrative: Patient is 62 years old with past medical history of hypertension, hyperli pidemia, diabetes, breast cancer is status post bilateral mastectomy on chemotherapy currently status post cholecystectomy comes in for Left upper quadrant pain associated with nausea patient received her last chemotherapy 5 days ago. No fever no chills no urinary complaints had normal bowel movement earlier today no shortness of breath no cough Related Data Home Medications Medication Instructions Recorded Confirmed dulaglutide 0.75 mg/0.5 mL 0.75 mg subcut SA 02/15/22 07/15/22 subcutaneous pen injector (Yuuguu) gabapentin 300 mg capsule 300 mg PO QPM 02/15/22 07/15/22 insulin glargine 100 unit/mL (3 60 unit subcut QPM 02/15/22 07/15/22 mL) subcutaneous pen (Lantus Solostar U-100 Insulin) insulin lispro 100 unit/mL 43 unit subcut TID 02/15/22 07/15/22 subcutaneous pen lancets 28 gauge (FreeStyle #100 ea 02/15/22 07/15/22 Lancets) omeprazole 20 mg capsule,delayed 20 mg PO DAILY 02/15/22 07/15/22 release pen needle, diabetic 32 gauge x #50 ea 02/15/22 07/15/22 (BD Lesley 2nd Gen Pen Needle) atorvastatin 80 mg tablet 1 tab PO BEDTIME 04/14/22 07/15/22 acetaminophen 325 mg tablet 650 mg PO Q6H PRN Pain 06/10/22 07/15/22 ibuprofen 200 mg tablet 400 mg PO Q6H PRN Pain 06/10/22 07/15/22 loperamide 2 mg capsule 2 mg PO Q4H PRN Diarrhea 06/10/22 07/15/22 losartan 50 mg tablet 1 tab DAILY 06/10/22 07/15/22 metoprolol tartrate 25 mg tablet 1 tab PO BID 06/10/22 07/15/22 blood sugar diagnostic (FreeStyle #10 ea 07/12/22 07/15/22 Lite Strips) Previous Rx's Medication Instructions Recorded dexamethasone 4 mg tablet 4 mg PO BID #30 tabs 06/01/22 ondansetron 8 mg disintegrating 8 mg PO Q8H PRN Nausea #60 tabs 06/01/22 tablet azithromycin 500 mg tablet 500 mg PO DAILY #5 tabs 06/10/22 (Zithromax) levofloxacin 250 mg tablet 250 mg PO DAILY #7 tabs 06/12/22 silver sulfadiazine 1 % topical 1 appl topical BID #45 grams 06/23/22 cream Allergies Allergy/AdvReac Type Severity Reaction Status Date / Time turkey Allergy Severe chest Verified 07/12/22 09:59 pain/swelling/SOB/itching Review of Systems Review of Systems Yes all other systems are reviewed and are negative PMFSH Past Medical History Medical History Asthma COVID-19 vaccine series completed Diabetes Fever of unknown origin GERD (gastroesophageal reflux disease) HTN (hypertension) Hypercholesteremia Invasive ductal carcinoma of left breast Seroma of breast Surgical History H/O mastectomy History of bilateral mastectomy (03/21/22) History of delivery History of cholecystectomy History of incision and drainage (05/02/22) Family History Family History Mother Breast cancer, Onset Age: 58 Sister Breast cancer, Onset Age: 54 Social History Social History Household Members: Family Household Members Other:: and son Housing: House Housing Other:: [facility] Are you a primary skin care instructor to a significant other at home: No Do you presently have visiting nurse or other home services: No Alcohol intake: never Patient Tobacco Use Status: Never used Tobacco Second Hand Smoke Exposure: No Use of substances other than those prescribed or required for medical reasons: No Advance Directives: Yes Advance Directives on File: Yes Advance Directives Date on File: 04/15/22 Patient : No service: No Current occupational status: employed Physical Exam ED Vital Signs: Vital Signs - 24 hr 07/19/22 20:34 07/20/22 01:13 07/20/22 02:00 Temperature 97.1 F 98.8 F 98.7 F Pulse Rate 99 96 97 Respiratory Rate 22 H 18 16 Blood Pressure 118/73 113/62 132/67 Pulse Oximetry 96 97 97 Oxygen Delivery Method Room Air Room Air Room Air BMI result Body Mass Index 45.4 Appearance: Alert. Oriented X3. No acute distress. Eyes: PERRLA, No Nystagmus ENT: Pharynx normal. Oral Mucosa moist Neck: Normal inspection. Neck supple. CVS: Normal heart rate and rhythm. Pulses normal. Respiratory: No respiratory distress. Equal air entry bilateral, no wheezing/rales/rhonchi Abdomen: Soft and left upper quadrant tenderness no rebound tenderness or guarding Bowel sounds are present, no mass palpable, no CVA tenderness Skin: Skin warm and dry. Normal skin color. Normal skin turgor. Extremities: No lower extremity edema. No calf tenderness Neuro: Oriented X 3. No motor deficit. No sensory deficit.No cerebellar signs , cranial nerves II-XII intact MDM - Abdominal Pain MDM Narrative Medical decision making narrative: Patient with nonspecific left upper quadrant pain CT abdomen negative for anything acute labs are stable will discharge patient home Differential Diagnosis Differential diagnosis: Likely abdominal pain, constipation, diverticulitis and small bowel obstruction Medical Records Attestation: I reviewed the patient's medical records. Lab Data Attestation: I reviewed the patient's lab results. Result diagrams: 07/19/22 22:09 07/19/22 22:09 Labs: Lab Results 07/19/22 07/19/22 Range/Units 22:09 22:09 WBC 1.6 L (4.8-10.8) X10*3/uL RBC 3.86 L (4.20-5.50) X10*6/uL Hgb 10.7 L (12.0-16.0) g/dl Hct 33.8 L (37.0-47.0) % MCV 87.6 (80.0-98.0) fL MCH 27.7 (27.0-33.0) pg MCHC 31.7 (31.0-35.0) g/dl RDW 16.5 H (11.0-16.0) % Plt Count 124 L (160-400) X10*3/uL MPV 11.7 (9.4-12.3) fL Immature Gran % (Auto) Cancelled Neut % (Auto) Cancelled Lymph % (Auto) Cancelled [place] % (Auto) Cancelled Eos % (Auto) Cancelled Baso % (Auto) Cancelled Lymph # (Auto) Cancelled [place] # (Auto) Cancelled Eos # (Auto) Cancelled Baso # (Auto) Cancelled Abs Immat Gran (auto) Cancelled Absolute Neuts (auto) Cancelled Absolute Nucleated RBC 0.000 (0.0-0.012) X10*3/uL Nucleated RBC % (auto) 0.0 (0.0-0.2) /100WBC Neutrophils % (Manual) 68 (45-73) % Band Neutrophils % 2 L (3-5) % Lymphocytes % (Manual) 28 (20-40) % Eosinophils % (Manual) 2 (0-4) % Abs Neuts (Manual) 1.1 L (2.0-8.3) X10*3/uL Lymphocytes # (Manual) 0.4 L (1.2-4.9) X10*3/uL Smudge Cells PRESENT Toxic Granulation PRESENT Platelet Estimate SLIGHTLY DECREASED (NORMAL) Large Platelets PRESENT Plt Morphology Comment NOTED RBC Morphology NOTED Hypochromasia 1+ (5-14) /OIF Microcytosis 2+ (15-30) /OIF Macrocytosis 2+ (15-30) /OIF Sodium 134 L (135-145) mmol/L Potassium 4.3 (3.3-5.1) mmol/L Chloride 100 (96-108) mmol/L Carbon Dioxide 22 (22-29) mmol/L Anion Gap 16 (12-20) BUN 16 (9-16) mg/dL Creatinine 0.86 (0.5-1.4) mg/dL Estim Creat Clear Calc 87.7 Estimated GFR > 60 Random Glucose 390 H* (60-115) mg/dL Calcium 8.7 (8.4-10.2) mg/dL Total Bilirubin 0.8 (0.0-1.0) mg/dL Direct Bilirubin 0.3 (0.0-0.5) mg/dL AST 12 (5-31) U/L ALT 10 (0-31) U/L Alkaline Phosphatase 106 (39-117) U/L Total Protein 6.6 (6.5-8.0) g/dL Albumin 3.7 (3.5-5.0) g/dL Lipase 7 L (8-78) U/L Discharge Plan Discharge Clinical Impression: Abdominal pain Patient Disposition: Home, Self-Care Instructions: Abdominal Pain (ED) Additional Instructions: cause of abdominal pain is not clear CT scan of abdomen is negative for acute pathology Follow with PCP Prescriptions: No Action dexamethasone 4 mg Tablet 4 mg PO BID Qty: 30 2RF Rx Instructions: Start night before chemo and take for 2 days after chemotherapy ondansetron 8 mg Tablet,Disintegrating 8 mg PO Q8H PRN (Reason: Nausea) Qty: 60 1RF loperamide 2 mg Capsule 2 mg PO Q4H PRN (Reason: Diarrhea) Rx Instructions: administer after each loose stool until symptoms controlled; do not exceed 8 mg per 24 hrs azithromycin [Zithromax] 500 mg Tablet 500 mg PO DAILY Qty: 5 0RF silver sulfadiazine 1 % Cream 1 appl TOPICAL BID Qty: 45 4RF Rx Instructions: apply a 1.5 mm thickness losartan 50 mg tablet 1 tab DAILY metoprolol tartrate 25 mg tablet 1 tab PO BID acetaminophen 325 mg Tablet 650 mg PO Q6H PRN (Reason: Pain) ibuprofen 200 mg Tablet 400 mg PO Q6H PRN (Reason: Pain) levofloxacin 250 mg tablet 250 mg PO DAILY Qty: 7 0RF atorvastatin 80 mg tablet 1 tab PO BEDTIME (DME) pen needle, diabetic [BD Lesley 2nd Gen Pen Needle] 32 gauge x 5/32 needle See Rx Instructions .ROUTE QID Qty: 50 Rx Instructions: As directed Lantus Solostar U-100 Insulin 100 unit/mL (3 mL) insulin pen 60 unit subcut QPM Trulicity 0.75 mg/0.5 mL pen injector 0.75 mg subcut SA insulin lispro 100 unit/mL insulin pen 43 unit subcut TID gabapentin 300 mg capsule 300 mg PO QPM (DME) lancets [FreeStyle Lancets] 28 gauge misc See Rx Instructions topical TID Qty: 100 Rx Instructions: As directed omeprazole 20 mg capsule,delayed release(DR/EC) 20 mg PO DAILY (DME) FreeStyle Lite Strips Strip See Rx Instructions .ROUTE TID Qty: 10 Rx Instructions: As directed
[2022-07-20 01:13] VITALS: BP 113/62; PULSE 96; RESP 18; TEMP 37.1; O2SAT 97
[2022-07-20 02:00] VITALS: BP 132/67; PULSE 97; RESP 16; TEMP 37.1; O2SAT 97
--- NOTE | 2022-07-20 02:41 | PC.NURSE ---
This RN made an attempt to obtain IV access with no success. Pt was a tough stick so the charge nurse was asked to attempt IV. Amaury RN was unable to obtain IV. This RN then made two more attempts with ultrasound guidance, but failed to gain access. Provider made aware of inability to obtain IV access.
[2022-07-20] MEDS: Insulin Lispro 100 UNIT/ML 3 ML VIAL 10 UNIT SUBCUT (02:49)
[2022-07-20] MEDS: Ondansetron ODT 4 MG TAB.RAPDIS TRANSLINGU (03:32)
[2022-07-20] MEDS: oxyCODONE HCl Immed Release 5 MG TABLET 10 MG PO (03:32)
[2022-07-20 03:44] LABS: Appearance Urine Clear; Color Urine Yellow; Glucose Urine UA >=1000 mg/dL (Negative); Leukocyte Esterase Urine Trace (Negative); Nitrite Urine Negative (Negative); PH 5.5 (5.0-9.0); Specific Gravity - Urine >= 1.030 (1.005-1.025); UMIC TRIGGER UACC YES; Urine Blood Negative (Negative); Urine Ketones 40 mg/dL (Negative); Urine Protein Trace mg/dL (Neg-Trace)
[2022-07-20 03:48] LABS: Bacteria Urine None Seen (None Seen); Hyaline Casts Urine 0-2 /LPF (0-2); RBC Urine 0-2 /HPF (0-2); UACC Culture Trigger YES
== END 2022-07-20 06:09 | disposition home or self-care (01) ==
PROVIDERS: Internal Medicine; Emergency Provider Emergency Medicine; PCP Registered Nurse
DX: R10.9 Unspecified abdominal pain (principal); R10.12 Left upper quadrant pain; R11.2 Nausea with vomiting, unspecified; Z79.899 Other long term (current) drug therapy
CPT/HCPCS: 36415; 74176; 80053; 81001; 82248; 83690; 85007; 85027; 87086; 99284

== ENCOUNTER 2022-08-09 15:56 | Outpatient (REF) | payer MEDICAID, SELFPAY ==
--- NOTE | ~2022-08-09 | CT_ITS ---
EXAMINATION: CT HEAD WITH/WITHOUT CONTRAST CLINICAL INFORMATION: Severe headache. History of breast cancer. COMPARISON: Head CT 01/15/2019 TECHNIQUE: Contiguous axial imaging was performed from the skull base to vertex before and after the administration of 85 mL of Omnipaque [address] examination was performed using dose optimization techniques as appropriate, variously including the following: *Automated exposure control *Adjustment of mA and/or kV according to patient size (this includes techniques or standardized protocols for targeted exams where dose is matched to indication/reason for exam; i.e. extremities or head) *Use of iterative reconstruction technique DLP: 1483 mGy-cm FINDINGS: No intra or extra-axial fluid collection, hemorrhage, or mass. No abnormal meningeal or ependymal enhancement. Major dural venous sinuses enhance normally without filling defect. No midline shift or herniation. Basal cisterns are patent. No ventriculomegaly. Fang-white matter differentiation is maintained. No territorial encephalomalacia. Mild cerebral atrophy with prominence of the sulci and lateral ventricles. Low patchy hypoattenuation in the supratentorial white matter, likely minimal chronic small vessel ischemic change. No calvarial fracture or lesion identified. Visualized paranasal sinuses and mastoid air cells normally aerated. Mild hyperostosis frontalis interna noted. CT/CT head/brain wo/w IV con IMPRESSION: 1. No acute intracranial pathology. 2. No intracranial mass or abnormal enhancement. 3. Mild cerebral atrophy and minimal chronic small vessel ischemic white matter change.
[2022-08-09] MEDS: iohexoL 350 MG/ML 100 ML INFUS..BTL 85 ML IV (17:10)
== END 2022-08-09 15:57 | disposition home or self-care (01) ==
LOC: HO.CT 15:56
PROVIDERS: Visit Provider Internal Medicine
DX: R51.9 Headache, unspecified (principal)
CPT/HCPCS: 70470; Q9967

== ENCOUNTER 2022-09-01 14:51 | Outpatient (REF) | payer MEDICAID, SELFPAY ==
--- NOTE | ~2022-09-01 | US_ITS ---
EXAMINATION: US PELVIC AND TRANSVAGINAL CLINICAL INFORMATION: Abnormal uterine and vaginal bleeding. COMPARISON: None TECHNIQUE: Ultrasound of the pelvis was performed using both transabdominal and transvaginal transducers along with Doppler. Transvaginal imaging was performed due to inadequate visualization transabdominally. FINDINGS: UTERUS: The uterus is anteverted, retroflexed, and heterogeneous and measures 8.8 cm in length, 5.4 cm in AP and 4.4 cm in transverse dimensions. The double wall endometrial thickness is 1.3 cm with moving echogenic blood products. No focal mass is seen. There are multiple anechoic cystic areas in the endometrium, question adenomyosis. The uterus is smooth in contour and has normal myometrial echogenicity. No visible fibroid. Small nabothian cysts are seen in the cervix. ADNEXA: Neither ovary is visualized. US/US pelvic and transvaginal IMPRESSION: 1. Thickened endometrium with multiple cysts within the endometrium. Question adenomyosis. Diffuse heterogeneous uterus. 2. The ovaries are not seen. 3. There is no free fluid in the cul-de-sac.
== END 2022-09-01 14:52 | disposition home or self-care (01) ==
LOC: HO.US 14:51
PROVIDERS: Visit Provider Obstetrics & Gynecology
DX: N93.9 Abnormal uterine and vaginal bleeding, unspecified (principal)
CPT/HCPCS: 76830; 76856

== ENCOUNTER 2022-09-15 08:57 | Outpatient (REF) | payer MEDICAID, SELFPAY ==
--- NOTE | ~2022-09-15 | US_ITS ---
EXAMINATION: US VENOUS ULTRASOUND WITH DOPPLER LOWER EXTREMITY, BILATERAL CLINICAL INFORMATION: Bilateral lower extremity edema COMPARISON: 04/27/2017 right lower extremity DVT study TECHNIQUE: Ultrasound of the deep veins is performed from the hip to the calf with compression sonography and color and pulse Doppler assessment. Spectral analysis with color-flow imaging is performed. FINDINGS: RIGHT: There is normal venous compression and respiratory variation and augmented flow. The visualized common femoral vein, superficial femoral vein, profunda femoral vein, popliteal vein, and the trifurcation region shows no evidence of deep venous thrombosis. The peroneal veins were not visualized. There is no significant popliteal fossa cyst. LEFT: There is normal venous compression and respiratory variation and augmented flow. The visualized common femoral vein, superficial femoral vein, profunda femoral vein, popliteal vein, and the trifurcation region shows no evidence of deep venous thrombosis. There is no significant popliteal fossa cyst. If the patient's symptoms persist, followup ultrasound in 5 days 7 days might be of value to exclude proximal propagation from a non-visualized calf vein. US/US venous duplex LE BI IMPRESSION: No DVT demonstrated in either lower extremity.
== END 2022-09-15 08:58 | disposition home or self-care (01) ==
LOC: HO.US 08:57
PROVIDERS: Visit Provider Emergency Medicine
DX: R22.43 Localized swelling, mass and lump, lower limb, bilateral (principal)
CPT/HCPCS: 93970

== ENCOUNTER 2022-09-27 09:14 | Outpatient (REF) | payer MEDICAID, SELFPAY | END 2022-09-27 09:15 | disposition home or self-care (01) | LOC: HO.LNP 09:14 | PROVIDERS: PCP Registered Nurse; Visit Provider Obstetrics & Gynecology | DX: N95.0 Postmenopausal bleeding (principal) | CPT/HCPCS: 58100; 88305; 99212 ==

== ENCOUNTER → 2022-10-11 14:12 | Outpatient (BNVA) | payer MEDICAID, SELFPAY | PROVIDERS: PCP Registered Nurse; Referring Provider Registered Nurse; Visit Provider Surgery | DX: C50.912 Malignant neoplasm of unspecified site of left female breast (principal); Z79.810 Long term (current) use of selective estrogen receptor modulators (SERMs); Z17.0 Estrogen receptor positive status [ER+]; Z92.21 Personal history of antineoplastic chemotherapy; Z90.13 Acquired absence of bilateral breasts and nipples | CPT/HCPCS: 99212 ==

== ENCOUNTER → 2022-10-20 14:41 | Outpatient (BNVA) | payer MEDICAID, SELFPAY | PROVIDERS: PCP Registered Nurse; Visit Provider Obstetrics & Gynecology | DX: N95.0 Postmenopausal bleeding (principal) | CPT/HCPCS: 99212 ==

== ENCOUNTER 2022-11-04 06:49 | Day surgery (SDC) | payer MEDICAID, SELFPAY ==
[2022-10-31 11:08] VITALS: BMI 44.2
[2022-11-04] VITALS (9 sets, daily range): BP systolic 118–180; BP diastolic 45–87; PULSE 62–80; RESP 14–18; TEMP 36.1–37.1; O2SAT 95–99; BMI 42.9
--- NOTE | 2022-11-04 08:21 | HO.ANESPROP2 ---
HPI - Anesthesia Eval Consult details Narrative: d&c hysteroscopy PMFSH Active Problems Active Problems: All Active Problems (Updated 10/20/22 @ 15:35 by Duc Reyna MD) Abnormal ultrasound of breast (Acute) Uncontrolled diabetes mellitus (Acute) Anemia (Acute) Cellulitis (Acute) Neutropenia (Acute) Postmenopausal bleeding (Acute) Invasive ductal carcinoma of left breast (Chronic) Seroma of breast (Acute) Past Medical History Medical History Asthma COVID-19 vaccine series completed Diabetes Fever of unknown origin GERD (gastroesophageal reflux disease) HTN (hypertension) Hypercholesteremia Invasive ductal carcinoma of left breast Seroma of breast Family History Family History Mother Breast cancer, Onset Age: 58 Sister Breast cancer, Onset Age: 54 Family history of problems with anesthesia: No Surgical History Surgical History (Updated 10/31/22 @ 10:58 by Merissa Emerson RN) History of bilateral mastectomy (03/21/22) History of delivery History of cholecystectomy History of incision and drainage (05/02/22) History of Problems with Anesthesia: No Social History Social History Household Members: Family Household Members Other:: and son Housing: House Housing Other:: [facility] Are you a primary outdoor emergency care technician to a significant other at home: No Do you presently have visiting nurse or other home services: No Alcohol intake: never Patient Tobacco Use Status: Never used Tobacco Second Hand Smoke Exposure: No Use of substances other than those prescribed or required for medical reasons: No Are you DNR?: No Advance Directives: Yes Advance Directives on File: Yes Advance Directives Date on File: 04/15/22 service: No Current occupational status: employed Meds Allergies Allergy/AdvReac Type Severity Reaction Status Date / Time turkey Allergy Severe chest Verified 10/20/22 15:28 pain/swelling/SOB/itching Active Medications: Current Medications Lactated Ringer's (Lr) 1,000 mls @ 50 mls/hr IVCONT .Q20H [facility] Home Medications Medication Instructions Recorded Confirmed Last Taken Type dulaglutide 0.75 mg/0.5 mL 0.75 mg subcut SA 02/15/22 10/31/2206/04/22 History subcutaneous pen injector (Trulicity) gabapentin 300 mg capsule 300 mg PO QPM 02/15/22 10/31/22 06/09/22 History insulin glargine 100 unit/mL (3 60 unit subcut QPM 02/15/22 10/31/22 06/09/22 History mL) subcutaneous pen (Lantus Solostar U-100 Insulin) insulin lispro 100 unit/mL 43 unit subcut TID 02/15/22 10/31/22 06/09/22 History subcutaneous pen lancets 28 gauge (FreeStyle #100 ea 02/15/22 10/03/22 03/20/22 History Lancets) omeprazole 20 mg capsule,delayed 20 mg PO DAILY 02/15/22 10/31/22 06/09/22 History release pen needle, diabetic 32 gauge x #50 ea 02/15/22 10/03/22 03/20/22 History /32 (BD Lesley 2nd Gen Pen Needle) atorvastatin 80 mg tablet 1 tab PO BEDTIME 04/14/22 10/31/22 06/09/22 History acetaminophen 325 mg tablet 650 mg PO Q6H PRN Pain 06/10/22 10/31/22 Unknown History ibuprofen 200 mg tablet 400 mg PO Q6H PRN Pain 06/10/22 10/31/22 Unknown History loperamide 2 mg capsule 2 mg PO Q4H PRN Diarrhea 06/10/22 10/31/22 06/10/22 History losartan 50 mg tablet 1 tab DAILY 06/10/22 10/31/22 06/09/22 History metoprolol tartrate 25 mg tablet 1 tab PO BID 06/10/22 10/31/22 06/09/22 History blood sugar diagnostic (FreeStyle #10 ea 07/12/22 10/03/22 Unknown History Lite Strips) Exam Exam Date and Time: November 04, 2022820 Height,Weight and Vital Signs: Height 5 ft 4 in Weight 113.398 kg Last Vital Signs Temp 97.0 F 11/04/22 07:19 Pulse 73 11/04/22 07:19 Resp 18 11/04/22 07:19 BP 153/76 H 11/04/22 07:19 Pulse Ox 99 11/04/22 07:19 O2 Del Method 11/04/22 07:19 Airway Mallampati Class: II TM Dist: <=3cm Neck ROM: Full Denture: Upper and Lower Heart: ok Lungs: ok Assessment and Plan Assessment Anesthesia Assessment: Anesthesia Plan Discussed and Chart Reviewed Final Anesthetic Review Family History of Problems with Anesthesia: No History of Problems with Anesthesia: No NPO: Yes ASA Class: III Final Preanesthetic Review: No Changes in Pt Med Stat, Meds/Allgs Chart Reviewed, Consent Obtained/Reviewed and Anes Risks/Benef Reviewed Patient Risk: Intermediate Procedure Risk: Low Anesthetic Plan Anesthetic Plan: GA and Agree w/ Assess. and Plan Disposition: Standard PACU
[2022-11-04] MEDS: Lactated Ringers 1,000 ML 50 ML IVCONT (08:22)
[2022-11-04 08:29] LABS: Glucose, Whole Blood 252 mg/dL (60-115)
--- NOTE | 2022-11-04 09:06 | PM.OP ---
Brief Operative Note Date of Service: 11/04/22 Pre-op diagnosis: Postmenopausal bleeding Post-op diagnosis: same (Endometrial polyp) Procedure: Hysteroscopy D&C, Polypectomy Surgeon: Duc Reyna MD Anesthesia: GLMA Was an Healthcare Project Manager used for this Procedure?: No Estimated blood loss (mL): 0 Pathology: other (Endometrial Scrapping. Polyp) Condition: stable Disposition: PACU
--- NOTE | 2022-11-04 09:06 | W.PM.OPN ---
Operative Note Operative Note Date of Service: 11/04/22 Narrative: Preop Diagnosis: Postmenopausal bleeding Operation: Diagnostic Hysteroscopy, Dilataion & Curettage and polypectomy Post Op Diagnosis: Endometrial Polyp QBL: Minimal Anesthesia: GLMA Surgeon: Duc Reyna MD Enterprise Services Manager: None Complication: None Pathology: Endometrial Scrapings, Endometrial polyp Procedure: The patient was put in the dorsal lithotomy position, scrubbed, and draped in the usual manner. A sterile speculum was inserted in the patient's vagina. The anterior lip of the cervix was grasped with a single tooth tenaculum. The cervix was dilated up to 5 mm, then the scope was inserted in the patient's uterus. Inspection revealed endometrial polyp. The Myosure Reach device was used; it was introduced through the operative channel and polypectomy done with no complications. The scope was then taken out from the uterine cavity, sharp curettings was carried on with minimal to moderate amount of tissues retrieved. At the end of the procedure, all instruments were taken out of the patient uterine and vaginal cavity. The single tooth tenaculum was removed and homeostasis was assured using pressure,. The patient tolerated the procedure well and was transferred to the PACU in a stable condition.
[2022-11-04 09:24] LABS: Glucose, Whole Blood 237 mg/dL (60-115)
[2022-11-04] MEDS: ondansetron HCL 4 MG/2 ML VIAL IVPUSH (09:34)
[2022-11-04] MEDS: oxyCODONE HCl Immed Release 5 MG TABLET PO (09:36)
[2022-11-04] MEDS: fentaNYL citrate/PF 100 MCG/2 ML VIAL 50 MCG IVPUSH (09:37)
[2022-11-04] MEDS: Acetaminophen 325 MG TABLET 650 MG PO (09:37)
== END 2022-11-04 10:36 | disposition home or self-care (01) ==
PROVIDERS: Visit Provider Obstetrics & Gynecology
PROC: 0UDB8ZZ Extraction of Endometrium, Via Natural or Artificial Opening Endoscopic (ICD-10-PCS; CPT 58558; principal; 2022-11-04 08:30)
DX: N95.0 Postmenopausal bleeding (principal); N84.0 Polyp of corpus uteri; J45.909 Unspecified asthma, uncomplicated; I10 Essential (primary) hypertension; E78.00 Pure hypercholesterolemia, unspecified; E11.9 Type 2 diabetes mellitus without complications; C50.912 Malignant neoplasm of unspecified site of left female breast; Z90.13 Acquired absence of bilateral breasts and nipples; Z79.810 Long term (current) use of selective estrogen receptor modulators (SERMs); Z79.4 Long term (current) use of insulin; Z79.899 Other long term (current) drug therapy
CPT/HCPCS: 58558; 82947; 88305; J2405; J3010

== ENCOUNTER → 2022-11-17 14:30 | Outpatient (BNVA) | payer MEDICAID, SELFPAY | PROVIDERS: Visit Provider Obstetrics & Gynecology | DX: Z71.2 Person consulting for explanation of examination or test findings (principal); N95.0 Postmenopausal bleeding | CPT/HCPCS: 99212 ==

== ENCOUNTER → 2022-11-25 14:08 | Outpatient (BNVA) | payer MEDICAID, SELFPAY | PROVIDERS: PCP Emergency Medicine; Visit Provider Internal Medicine Endocrinology, Diabetes & Metabolism | DX: E11.65 Type 2 diabetes mellitus with hyperglycemia (principal) | CPT/HCPCS: 82947; 83036; 99202 ==

== ENCOUNTER 2022-11-28 07:46 | Outpatient (REF) | payer MEDICAID, SELFPAY ==
[2022-11-28 09:01] LABS: Cholesterol 221 mg/dL; HDL Cholesterol 47 mg/dL; LDL Cholesterol Calculated 148 mg/dl; Triglycerides 130 mg/dL
[2022-11-28 10:02] LABS: Creatinine Urine 127.41 mg/dL; Microalbum/Creatinine Ratio Ur 22.7 ug/mg cr
[2022-12-02 21:38] LABS: Glutamic acid decarboxylase Ab <5 IU/mL (<5)
== END 2022-11-28 07:47 | disposition home or self-care (01) ==
LOC: HO.LAB 07:46
PROVIDERS: Visit Provider Internal Medicine Endocrinology, Diabetes & Metabolism
DX: E11.65 Type 2 diabetes mellitus with hyperglycemia (principal)
CPT/HCPCS: 36415; 80061; 82043; 86341

== ENCOUNTER → 2023-01-10 09:26 | Outpatient (BNVA) | payer MEDICAID, SELFPAY | PROVIDERS: PCP Emergency Medicine; Visit Provider Surgery | DX: C50.912 Malignant neoplasm of unspecified site of left female breast (principal) | CPT/HCPCS: 99212 ==

== ENCOUNTER → 2023-02-03 13:45 | Outpatient (BNVA) | payer MEDICAID, SELFPAY | PROVIDERS: PCP Registered Nurse; Visit Provider Internal Medicine Endocrinology, Diabetes & Metabolism | DX: E11.65 Type 2 diabetes mellitus with hyperglycemia (principal); Z79.85 Long-term (current) use of injectable non-insulin antidiabetic drugs; Z79.4 Long term (current) use of insulin | CPT/HCPCS: 99212 ==

== ENCOUNTER → 2023-03-20 11:22 | Outpatient (BNVA) | payer MEDICAID, SELFPAY | PROVIDERS: PCP Registered Nurse; Visit Provider Dietitian, Registered | DX: E11.65 Type 2 diabetes mellitus with hyperglycemia (principal); Z71.3 Dietary counseling and surveillance | CPT/HCPCS: 97802 ==

== ENCOUNTER 2023-05-03 12:23 | Outpatient (AMB) | payer MEDICAID, SELFPAY ==
[2023-05-03 12:34] VITALS: BMI 45.8
--- NOTE | 2023-05-03 12:34 | MHC.AMNUTRGE ---
Intake VS Expanded 05/03/23 12:34 Height 5 ft 4 in Weight 266 lb 12.149 oz BMI 45.8 Intake Visit Reasons: T2DM Allergies turkey Allergy (Severe, Verified 02/03/23 13:56) chest pain/swelling/SOB/itching HPI Nutrition Presentation Details Pt presents for nutrition follow up for T2DM Pt reports having confusion still with what are protein and what are carbs and different meal options Most Recent Diabetes Results: Microalb/Creat Ratio 22.7 ug/mg cr 11/28/22 Cholesterol 221 mg/dL 11/28/22 HDL Cholesterol 47 mg/dL 11/28/22 Triglycerides 130 mg/dL 11/28/22 Creatinine 0.88 mg/dL (0.5-1.4) 02/22/23 Blood Urea Nitrogen 16 mg/dL (9-16) 02/22/23 Sodium 142 mmol/L (135-145) 02/22/23 Potassium 4.9 mmol/L (3.3-5.1) 02/22/23 Chloride 109 mmol/L (96-108) H 02/22/23 Carbon Dioxide 27 mmol/L (22-29) 02/22/23 Calcium 9.2 mg/dL (8.4-10.2) 02/22/23 AST 16 U/L (5-31) 02/22/23 ALT 16 U/L (0-31) 02/22/23 Total Protein 7.1 g/dL (6.5-8.0) 02/22/23 Albumin 3.7 g/dL (3.5-5.0) 02/22/23 [facility] Medical History Asthma COVID-19 vaccine series completed Diabetes Fever of unknown origin GERD (gastroesophageal reflux disease) HTN (hypertension) Hypercholesteremia Invasive ductal carcinoma of left breast Seroma of breast Uncontrolled type 2 diabetes mellitus with hyperglycemia Surgical History History of bilateral mastectomy (03/21/22) History of delivery History of cholecystectomy History of incision and drainage (05/02/22) Family History Mother Breast cancer, Onset Age: 58 Sister Breast cancer, Onset Age: 54 Social History Household Members: Family Household Members Other:: and son Housing: House Housing Other:: [facility] Are you a primary healthcare analyst to a significant other at home: No Do you presently have visiting nurse or other home services: No Alcohol intake: never Patient Tobacco Use Status: Never used Tobacco Second Hand Smoke Exposure: No Advance Directives Date on File: 04/15/22 service: No Current occupational status: employed Female Reproductive History Menstrual Age of Menarche: 11 Assessment & Plan Assessment & Plan (1) Uncontrolled type 2 diabetes mellitus with hyperglycemia: Code(s): E11.65 - Type 2 diabetes mellitus with hyperglycemia Plan wt: 121 kg (02/2023) Est kcal needs as per MSJ: 2100 (40% carb, 30% protein/fat) Est fluid needs as per 25-30 ml/d: 3000 -3600 Est prot per day as per 1 g/kg bw: 121 Recommend fiber intake : 8-10 g per day and gradually increase to 25-28 g per day fas tolerated Recommend sodium intake per day : less than 2000 mg Educated patient on: ( R = reviewed V = verbalizes understanding N/R = needs review N/A = not applicable Food sources of carbohydrate, adequate serving sizes and its role in various health conditions: R Differences between complex carbohydrates a simple carbohydrates, role of fiber in diet: R Differences between types of fats and role in diet (mono on saturated fat fatty acids, saturated fatty acids, trans fats): R Food sources of sodium in salt and healthy modifications for heart health in kidney health: R Vitamins and minerals: R Healthy plate method concept: R V Physical activity: Benefits a precaution: R Hypoglycemia protocol (rule of 15): R, V Dietary prevention of Hyperglycemia: R Patient Instructions: Include 3 servings of protein at breakfast HAve 5 oz of protein in the evening, following healthy plate method Follow rule of 15 if developing low blood sugar reaction, contact your doctor to notify any low blood sugar reactions for further assessment. Coding Level of Care Code Nutr Indiv Subseq ([id number]) Diagnoses Uncontrolled type 2 diabetes mellitus with hyperglycemia E11.65 Time Spent (min) 24
== END 2023-05-03 13:06 | disposition home or self-care (01) ==
PROVIDERS: PCP Registered Nurse; Visit Provider Dietitian, Registered
DX: E11.65 Type 2 diabetes mellitus with hyperglycemia (principal)

== ENCOUNTER → 2023-05-03 12:23 | Outpatient (BNVA) | payer MEDICAID, SELFPAY | PROVIDERS: PCP Registered Nurse; Visit Provider Dietitian, Registered | DX: E11.65 Type 2 diabetes mellitus with hyperglycemia (principal) | CPT/HCPCS: 97803 ==

== ENCOUNTER 2023-07-27 14:26 | Outpatient (AMB) | payer MEDICAID, SELFPAY ==
--- NOTE | 2023-07-27 14:44 | A.OFFVIS_ITS ---
Intake Vital Signs 07/27/23 14:55 Height 5 ft 4 in Weight 270 lb 6 oz BMI 46.4 BP 184/83 H Blood Pressure Location Lt brachial Position Sitting Pulse 87 Intake Visit Reasons: 6 mth breast exam Intake Note: Patient is seen in office for 6 month follow up visit, breast exam. Patient c/o: admits to tightness in the chest Solar Development Engineer Required: Yes Solar Development Engineer Language: Mobile Application Engineer Name: Gloria NO Information Interpreted: non-clinical & clinical Flame Channeler: Flame Channeler Present Accompanied by: Self / Same As Patient Allergies turkey Allergy (Severe, Verified 07/27/23 14:55) chest pain/swelling/SOB/itching HPI HPI Comments History of Present Illness Details 63-year-old female patient presenting wi th a spiculated mass in the 2 o'clock position of the left breast on a mammogram dated 01/29/2022 with follow-up images and ultrasound on 02/11/2022. She does have a strong family history of breast cancer including her mother and sister both developing breast cancer in their 50s. Her mother subsequently from breast cancer. She is and did not breast feed. She underwent a left breast ultrasound-guided core biopsy on 02/16/2022 and the pathology revealed invasive ductal carcinoma, MS BR grade 2-3, ER/NC positive, HER2 Johnny negative, proliferation index overall 50% by Ki 67 immunostaining. The patient requested bilateral simple mastectomy with left axillary sentinel node biopsy and underwent preoperative evaluation by Dr. Leigh on 02/28/2022. She underwent bilateral simple mastectomy with left axillary sentinel node biopsy on 03/21/2022. Pathology revealed: Left breast invasive ductal carcinoma, grade 3, 34 mm, with ductal carcinoma in-situ high grade, solid and cribriform types. Lymphovascular invasion was not identified. Base of carcinoma was present 2 mm from the closest margin the remainder of the margins were widely negative for invasive carcinoma and DCIS. One lymph node was negative for metastatic tumor. (pT2N0(sn)(i-)Mx). The right breast revealed fatty breast tissue negative for malignancy. Postoperatively she developed seroma is which required needle aspiration following the removal of the Jorge-Mcdowell drains therefore she was returned to the OR for a EUN drain placement. After several weeks the drain was removed. She was evaluated by Dr. Leigh and underwent chemotherapy with Cytoxan/Taxotere x4 cycles followed by tamoxifen 20 mg p.o. daily. She continues on the tamoxifen without the any new side effects. She reports pinching from the breast flaps under the arms bilaterally but generally feels well. She no longer requires mammograms. [facility] Medical History Uncontrolled type 2 diabetes mellitus with hyperglycemia Fever of unknown origin Seroma of breast GERD (gastroesophageal reflux disease) COVID-19 vaccine series completed Asthma Hypercholesteremia HTN (hypertension) Diabetes Invasive ductal carcinoma of left breast Surgical History History of incision and drainage (05/02/22) History of bilateral mastectomy (03/21/22) History of delivery History of cholecystectomy Family History Mother Breast cancer, Onset Age: 58 Sister Breast cancer, Onset Age: 54 Social History Household Members: Family Household Members Other:: and son Housing: House Housing Other:: [facility] Are you a primary care support representative to a significant other at home: No Do you presently have visiting nurse or other home services: No Alcohol intake: never Patient Tobacco Use Status: Never used Tobacco Second Hand Smoke Exposure: No Advance Directives Date on File: 04/15/22 service: No Current occupational status: employed Female Reproductive History Menstrual Age of Menarche: 11 Review of Systems Const All systems reviewed & are unremarkable except as noted in HPI and below Skin/Breast Denies breast swelling, Denies breast skin changes, Denies new lesions and Reports skin pain Physical Exam Const General: no acute distress and well developed Nutritional Appearance: obese Orientation/consciousness: oriented to person Limitations: no limitations Chest Other: Bilateral mastectomy incisions are clean, dry, and intact. No redness, discharge, ulceration, or seroma is identified. No subcutaneous nodules are palpable and no enlarged lymph nodes could be identified on either side. Redundant skin is noted in the bilateral axilla. Incision is tight in the center. Skin Other: Warm, dry, no rash Neuro General: oriented to person Extrem Other: No edema Assessment & Plan Assessment & Plan (1) Invasive ductal carcinoma of left breast: Code(s): C50.912 - Malignant neoplasm of unspecified site of left female breast Plan 63-year-old female patient found to have invasive ductal carcinoma of the left breast in a status post bilateral mastectomy with left axillary sentinel node biopsy. This was complicated by a seroma postoperatively which has now resolved. She underwent chemotherapy with Cytoxan/Taxotere x4 cycles and currently started tamoxifen. She initially had swelling associated with tamoxifen but is now tolerating it well. Examination reveals no suspicious findings in either with bilateral mastectomies. There is extra skin laterally bilaterally but no evidence of seroma or hematoma. I recommended follow-up examination in 6 months, sooner p.r.n.. Coding Level of Care Code Est Pt Level 3 (27464) Diagnoses Invasive ductal carcinoma of left breast C50.912
[2023-07-27 14:55] VITALS: BP 184/83; PULSE 87; BMI 46.4
== END 2023-07-27 15:00 | disposition home or self-care (01) ==
PROVIDERS: PCP Registered Nurse; Visit Provider Surgery
DX: C50.912 Malignant neoplasm of unspecified site of left female breast (principal)
CPT/HCPCS: 99213

== ENCOUNTER → 2023-07-27 14:26 | Outpatient (BNVA) | payer MEDICAID, SELFPAY | PROVIDERS: PCP Registered Nurse; Visit Provider Surgery | DX: C50.912 Malignant neoplasm of unspecified site of left female breast (principal) | CPT/HCPCS: 99212 ==

== ENCOUNTER → 2023-08-04 14:14 | Outpatient (REF) | payer MEDICAID, SELFPAY ==
--- NOTE | 2023-08-04 14:18 | CA_ITS ---
Transthoracic Echocardiogram Patient (Last, First, Middle): Halina Kevin M Gender: Female Date of : 1960 Age: 63 Procedure Date: 08/04/2023 Procedure Type: Transthoracic Echocardiogram Location: OP Height: 160.02 cm Weight: 122.47 kg BSA: 2.20 m2 Heart Rate: 73 bpm BP: 130 / 70 mmHg Canvas Baster Jumpbasting: EMILY Seo MD: Sandy Aragon NP Controls Designer: Wilfrido Ybarra MD Symptoms: ESSENTIAL HTN, LOWER EXT.EDEMA. ? MURMUR. Study Quality: Fair/w Contrast ECG Rhythm: Sinus Conclusions: - 1. Low normal LV ejection fraction 50-55% with impaired relaxation filling pattern 2. Cardiac valvular Dopplers within normal limits 3. Normal RV systolic pressure 4. No gross pericardial effusion Findings Procedure Information Contrast agent, definity, is being given per protocol without apparent complications. Left Ventricle Normal left ventricular cavity size. There is normal left ventricular wall thickness. The left ventricular systolic function is low normal. The visually estimated ejection fraction is between 50-55%. Spectral Doppler is indicative of an impaired relaxation filling pattern. E/E prime ratio is between 8 and 15 consistent with indeterminate filling pressures. Right Ventricle Normal right ventricular cavity size. There is low normal right ventricular systolic function. Atria Both atria are normal in size. Interatrial shunt cannot be excluded. Aortic Valve The aortic valve was not well visualized. There is no aortic valve stenosis. There is no aortic valve regurgitation. Mitral Valve There is mild anterior and posterior mitral leaflet thickening. There is trace mitral valve regurgitation. There is no mitral valve stenosis. Pulmonic Valve The pulmonic valve was not well visualized. Tricuspid Valve Normal tricuspid valve structure. There is trace tricuspid valve regurgitation. The right ventricular systolic pressure is normal. The right ventricular systolic pressure is 23 mmHg. Normal right atrial pressure. There is no evidence of pulmonary hypertension. Great Vessels The pulmonary artery was not well visualized. There is no dilatation of the ascending aorta measuring 3.20 cm. Venous The inferior vena cava is normal in size and collapses greater than 50% with inspiration. Pericardium/Pleural There is no evidence of pericardial effusion. Measurements 2D Linear Measurements IVSd: 1.03 0.6-0.9/0.6-1.0 cm LVIDd: 3.46 3.9-5.3/4.2-5.9 cm LVIDd Index: 1.57 2.4-3.2/2.2-3.1 cm/m2 LVIDs: 2.42 2.0-3.6 cm LVPWd: 1.04 0.7-1.1 cm LA Diam: 3.20 2.7-3.8/3.0-4.0 cm LAIDs Index: 1.45 1.5-2.3 cm/m2 LV Mass: 173.79 67-162/88-224 g LV Mass Index: 79.00 43-95/49-115 g/m2 LVOT Diam: 2.10 3.0+(-)1.3 cm 2D Systolic Function EF 4C: 46.00 >55% EF 2C: 56.00 >55% EF BiP: 53.10 >55% Mitral Valve MV Pk E: 0.98 MV PK A: 1.12 MV Decel Time: 219.00 E/A: 0.90 E'Lateral: 9.36 E'Medial: 6.96 E/E' Med: 14.10 E/E' Lat: 10.50 PHT: 64.00 MVA PHT: 3.44 Decel Chambers: 4.47 Aortic Valve AoV Pk Mt: 1.85 AoV Mn Mt: 1.34 AoV VTI: 0.43 AoV Pk Grad: 14.00 Aov Mn Grad: 8.00 ROBB Cont.VTI: 2.06 LVOT LVOT Pk Mt: 1.16 LVOT Mn Mt: 0.84 LVOT VTI: 0.25 LVOT Pk Grad: 5.00 LVOT Mn Grad: 3.00 LVOT Diam: 2.10 LVOT Area: 3.46 Diastolic Function MV Pk E: 0.98 MV Pk A: 1.12 E/A: 0.90 E'Medial: 6.96 E/E' Med: 14.10 E' Laterial: 9.36 E/E' Lat: 10.50 Right Ventricle TAPSE (mm): 16.90 TVS' Mt: 10.30 Tricuspid Valve TR Pk Mt: 1.96 TR Pk Grad: 15.00 RA Press: 8.00 RVSP: 23.00 Great Vessels Aorta Sinus of Valsalva: 3.10 2.0-3.5 cm Ao Asc: 3.20 2.1-3.4 cm Pulmonary Valve PV Pk Mt: 1.23 Peak PV Grad: 6.00 Updated in Other Vendor System with Status of Final Wilfrido Ybarra MD electronically signed on 08/04/2023 6:54:31 PM with status of Final
== END ==
LOC: HO.CARD 14:14
PROVIDERS: PCP Registered Nurse; Visit Provider Nurse Practitioner Primary Care
DX: R60.0 Localized edema (principal); I10 Essential (primary) hypertension
CPT/HCPCS: 93306; Q9957

== ENCOUNTER → 2023-08-04 14:18 | Outpatient (BNV) | payer MEDICAID, SELFPAY | PROVIDERS: PCP Registered Nurse; Visit Provider Internal Medicine Cardiovascular Disease | DX: I34.89 Other nonrheumatic mitral valve disorders (principal) | CPT/HCPCS: 93306 ==

== ENCOUNTER 2023-08-11 09:41 | Outpatient (REF) | payer MEDICAID, SELFPAY ==
[2023-08-11 12:12] LABS: Vitamin B12 493 pg/mL (200-900)
[2023-08-11 12:20] LABS: Alanine Aminotransferase 12 U/L (0-31); Albumin Level 3.7 g/dL (3.5-5.0); Alkaline Phosphatase 59 U/L (39-117); Anion Gap 12 (12-20); Aspartate Amino Transferase 13 U/L (5-31); Bilirubin Total 0.3 mg/dL (0.0-1.0); Blood Urea Nitrogen 17 mg/dL (9-16); Calcium 8.8 mg/dL (8.4-10.2); Carbon Dioxide 27 mmol/L (22-29); Chloride 107 mmol/L (96-108); Cholesterol 185 mg/dL (<200); Estimated Glomerular Filt Rate > 60; Glucose Random 276 mg/dL (60-115); HDL Cholesterol 43 mg/dL (>40); LDL Cholesterol Calculated 125 mg/dL (<100); Potassium 4.7 mmol/L (3.3-5.1); Sodium 141 mmol/L (135-145); Total Protein 7.3 g/dL (6.5-8.0); Triglycerides 88 mg/dL (<150)
[2023-08-11 12:23] LABS: Creatinine Urine 140.25 mg/dL; Microalbum/Creatinine Ratio Ur 23.5 ug/mg cr (<30)
== END 2023-08-11 09:42 | disposition home or self-care (01) ==
LOC: HO.HHCL 09:41
PROVIDERS: Visit Provider Registered Nurse
DX: G62.89 Other specified polyneuropathies (principal); E11.65 Type 2 diabetes mellitus with hyperglycemia; Z79.4 Long term (current) use of insulin
CPT/HCPCS: 36415; 80053; 80061; 82043; 82570; 82607

== ENCOUNTER 2023-09-12 13:30 | Outpatient (AMB) | payer MEDICAID, SELFPAY ==
[2023-09-12 13:36] VITALS: BMI 46.3
--- NOTE | 2023-09-12 13:36 | A.OFFVIS_ITS ---
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 States that it started after her first chemotherapy session for breast cancer. Elevation does somewhat help with the swelling, has not treid compression socks Pt also states she has some VV clusters on bilateral legs Speeder Machine Operator Required: Yes Speeder Machine Operator Language: Bracelet Former Name: Liam NANCY NO Information Interpreted: clinical only Accompanied by: Self / Same As Patient Allergies turkey Allergy (Severe, Verified 09/12/23 13:41) chest pain/swelling/SOB/itching HPI Lower extremity edema HPI Details Morbidly obese 63-year-old female presents for evaluation regarding lower extremity swelling. She has had a prior history breast cancer of infiltrating ductal carcinoma. She has been treated with mastectomy and chemotherapy. Reports that swelling is right more so than left. Denies any history of DVT or prior venous procedures. She now presents for vascular evaluation. [facility] Medical History Uncontrolled type 2 diabetes mellitus with hyperglycemia Fever of unknown origin Seroma of breast GERD (gastroesophageal reflux disease) COVID-19 vaccine series completed Asthma Hypercholesteremia HTN (hypertension) Diabetes Invasive ductal carcinoma of left breast Surgical History History of incision and drainage (05/02/22) History of bilateral mastectomy (03/21/22) History of delivery History of cholecystectomy Family History Mother Breast cancer, Onset Age: 58 Sister Breast cancer, Onset Age: 54 Social History Household Members: Family Household Members Other:: and son Housing: House Housing Other:: [facility] Are you a primary career services coordinator to a significant other at home: No Do you presently have visiting nurse or other home services: No Alcohol intake: never Patient Tobacco Use Status: Never used Tobacco Second Hand Smoke Exposure: No Advance Directives Date on File: 04/15/22 service: No Current occupational status: employed Female Reproductive History Menstrual Age of Menarche: 11 Review of Systems Const Reports as per HPI ENT Reports no additional complaints Card Denies chest pain, Denies chest pain at rest and Denies chest pain with activity Resp Denies chest congestion and Denies cough GI Reports no additional complaints Musc Details: pain over varicosities, aching of lower extremities, swelling, cramping, heaviness and tiredness, itching Denies abnormal gait Skin/Breast Reports pruritus and Denies wounds Neuro Reports no additional complaints and Denies abnormal gait Psych Denies no additional complaints Physical Exam Vital Signs: BMI result Body Mass Index 46.3 Const General: cooperative, healthy appearing and comfortable Orientation/consciousness: oriented to person, oriented to place and oriented to time Neck Carotids: no bruits Chest Chest palpation & inspection: normal inspection of the chest and normal palpation of entire chest wall Resp Effort & Inspection: normal respiratory effort and able to speak in complete sentences Cardio Rate: regular rate Heart sounds: S1 normal heart sound present and S2 normal heart sound present Peripheral pulses: Peripheral pulses 2+ throughout GI Inspection: Yes normal to inspection Skin Other: +2 edema, large rope-like varicosities greater than 4 mm Right greater than left CEAP Classification C4 - skin color changes Ep - Etiology Primary As - superficial veins P - reflux General skin exam: dry skin Neuro General: oriented to person, oriented to place and oriented to time Extrem Right lower extremity: full ROM, normal capillary refill and edema Left lower extremity: full ROM, normal capillary refill and edema Psych Mental Status: mental status grossly normal Assessment & Plan Assessment & Plan (1) Varicose veins of right lower extremity with inflammation: Code(s): I83.11 - Varicose veins of right lower extremity with inflammation Plan: In short, the patient has evidence of venous insufficiency. I have discussed the pathophysiology with the patient. In addition I have provided informational material regarding venous disease to the patient. We have discussed conservative measures including compression, elevation, and exercise. I have also provided a handout regarding appropriate use of compression stockings and where to purchase good compression stockings as well. I have taken the liberty of ordering venous insufficiency testing with the patient. They will follow up with me after testing. The patient had an opportunity to ask questions regarding the treatment plan. All questions were answered. Imaging studies, laboratory studies and physical exam results were discussed and reviewed in detail. No major barriers to understanding were identified. The patient expressed understanding and agreement with the above treatment plan. The patient is aware they should contact our office by phone for worsening of the current condition or the appearance of new symptoms. Thank you for allowing me to participate in the vascular care of this patient. If you have any questions or concerns regarding the treatment for the above condition please do not hesitate to contact me. The office telephone contact is [phone]. This note is constructed using voice recognition software. While every effort has been made to ensure accuracy, pharmaceutical operator errors may have been included. Thank you for allowing me to participate in the care of your patient. Yours sincerely, Boom Durand MD, FACS, R.P.V.I. Orders: Orders US venous duplex LE BI 1 Week I83.11 - Varicose veins of right lower extremity with inflammation Coding Level of Care Code New Pt Level 4 (29011) Diagnoses Varicose veins of right lower extremity with inflammation I83.11
== END 2023-09-12 14:32 | disposition home or self-care (01) ==
PROVIDERS: PCP Registered Nurse; Visit Provider Surgery Vascular Surgery
DX: I83.11 Varicose veins of right lower extremity with inflammation (principal)
CPT/HCPCS: 99203

== ENCOUNTER → 2023-09-12 13:30 | Outpatient (BNVA) | payer MEDICAID, SELFPAY | PROVIDERS: PCP Registered Nurse; Visit Provider Surgery Vascular Surgery | DX: I83.11 Varicose veins of right lower extremity with inflammation (principal) | CPT/HCPCS: 99202 ==

== ENCOUNTER 2023-09-15 10:04 | Outpatient (REF) | payer MEDICAID, SELFPAY ==
--- NOTE | ~2023-09-15 | US_ITS ---
EXAMINATION: US LOWER EXTREMITY VENOUS (REFLUX EXAM), BILATERAL CLINICAL INDICATION: Varicose veins with inflammation COMPARISON: Ultrasound venous duplex bilateral lower extremities dated 09/15/2022 TECHNIQUE: Color flow triplex imaging and compression Doppler was performed to evaluate both the deep and the superficial systems bilaterally. To evaluate the superficial system, the examination was performed in the upright position. Color-flow Doppler ultrasound and compression ultrasound were utilized. In addition, maneuvers were utilized to demonstrate reflux. FINDINGS: 1. DEEP VENOUS ULTRASOUND OF THE RIGHT LOWER EXTREMITY: Common Femoral Vein: Compressible, normal respiratory variation and augmented flow. Femoral Vein: Compressible, normal color flow and augmentation. Popliteal Vein: Compressible, normal augmentation. Deep Reflux: There is no evidence of reflux in the deep system in either the common femoral vein, superficial femoral or the popliteal vein. There is no evidence of a Chester's cyst. 2. SUPERFICIAL ULTRASOUND WITH DOPPLER OF RIGHT LOWER EXTREMITY: GREAT SAPHENOUS VEIN: Saphenofemoral Junction: 0.9 cm; Reflux: 4298 ms Proximal Thigh: 0.5 cm; Reflux: 0 ms Mid Thigh: 0.2 cm; Reflux: 0 ms Above Knee: 0.2 cm; Reflux: 0 ms At Knee: 0.4 cm; Reflux: 0 ms Below Knee: Not visualized Mid Calf: 0.2 cm; Reflux: 0 ms Ankle: 0.2 cm; Reflux: 0 ms DUPLICATED MEDIAL GREAT SAPHENOUS VEIN: Diameter: None imaged Reflux: NA DUPLICATED LATERAL GREAT SAPHENOUS VEIN: Saphenofemoral Junction: 1.0 cm; Reflux: 0 ms Mid Thigh: 0.5 cm; Reflux: 3689 ms SMALL SAPHENOUS VEIN: Proximal: 0.2 cm; Reflux: 0 ms Mid: 0.3 cm; Reflux: 2215 ms Distal: 0.2 cm; Reflux: 0 ms VEIN OF GIACOMINI: Size: NA Reflux: NA PERFORATORS: Location: Proximal thigh Size: 0.2 Reflux: 0 VARICOSITIES: Location: At knee Size: 0.3 Reflux: 1702 Location: At knee Size: 0.3 Reflux: 3763 3. DEEP VENOUS ULTRASOUND OF THE LEFT LOWER EXTREMITY: Common Femoral Vein: Compressible, normal respiratory variation and augmented flow. Femoral Vein: Compressible, normal color flow and augmentation. Popliteal Vein: Compressible, normal augmentation. Deep Reflux: There is no evidence of reflux in the deep system in either the common femoral vein, superficial femoral or the popliteal vein. There is no evidence of a Chester's cyst. 4. SUPERFICIAL ULTRASOUND WITH DOPPLER OF LEFT LOWER EXTREMITY: GREAT SAPHENOUS VEIN: Saphenofemoral Junction: 1.2 cm; Reflux: 0 ms Proximal Thigh: 0.4 cm; Reflux: 0 ms Mid Thigh: 0.2 cm; Reflux: 0 ms Above Knee: 0.2 cm; Reflux: 0 ms At Knee: 0.2 cm; Reflux: 4482 ms Below Knee: 0.3 cm; Reflux: 4621 ms Mid Calf: 0.3 cm; Reflux: 4425 ms Ankle: 0.2 cm; Reflux: 0 ms DUPLICATED MEDIAL GREAT SAPHENOUS VEIN: Diameter: None imaged Reflux: NA DUPLICATED LATERAL GREAT SAPHENOUS VEIN: Saphenofemoral Junction: 0.8 cm; Reflux: 0 ms Mid Thigh: 0.5 cm; Reflux: 2787 ms SMALL SAPHENOUS VEIN: Proximal: 0.3 cm; Reflux: 0 ms Distal: 0.2 cm; Reflux: 0 ms VEIN OF GIACOMINI: Size: NA Reflux: NA PERFORATORS: Location: Proximal calf Size: 0.3 Reflux: 0 VARICOSITIES: Location: At knee Size: 0.3 Reflux: 5186 US/US venous duplex LE BI IMPRESSION: Right: Venous insufficiency with reflux in the great saphenous vein, duplicated lateral great saphenous vein, small saphenous vein, and varicosities at the knee. Left: Venous insufficiency with reflux in the great saphenous vein, duplicated lateral great saphenous vein, and a varicosity at the knee.
== END 2023-09-15 10:05 | disposition home or self-care (01) ==
LOC: HO.US 10:04
PROVIDERS: PCP Registered Nurse; Visit Provider Surgery Vascular Surgery
DX: I83.11 Varicose veins of right lower extremity with inflammation (principal)
CPT/HCPCS: 93970

== ENCOUNTER 2023-09-20 10:53 | Outpatient (REF) | payer MEDICAID, SELFPAY ==
--- NOTE | ~2023-09-20 | US_ITS ---
EXAMINATION: US VENOUS WITH DOPPLER UPPER EXTREMITY, LEFT CLINICAL INFORMATION: Patient on tamoxifen, left arm swelling COMPARISON: Venous ultrasound of right lower extremity 04/27/2017, negative. Venous ultrasound of bilateral lower extremities 09/15/2022, negative. TECHNIQUE: Ultrasound of the upper extremity is performed using compression sonography and color and pulse Doppler flow with assessment of augmentation of flow. There is also imaging and Doppler assessment of the jugular and subclavian veins. Spectral analysis with color-flow imaging is performed. FINDINGS: Respiratory variation, normal compression, and augmented flow are noted throughout the upper extremity including the axillary, brachial, basilic, cephalic and radial and ulnar veins. There is normal flow in the internal jugular and subclavian veins. There is no visible deep or superficial thrombophlebitis. There is normal respiratory variation in the right subclavian vein. US/US venous duplex UE LT IMPRESSION: No DVT demonstrated in the left upper extremity.
== END 2023-09-20 10:54 | disposition home or self-care (01) ==
LOC: HO.US 10:53
PROVIDERS: PCP Registered Nurse; Visit Provider Internal Medicine
DX: R60.0 Localized edema (principal)
CPT/HCPCS: 93971

== ENCOUNTER 2023-10-12 12:44 | Outpatient (AMB) | payer MEDICAID, SELFPAY ==
[2023-10-12 12:48] VITALS: BP 148/88; PULSE 89; O2SAT 97; BMI 46.7
--- NOTE | 2023-10-12 12:48 | A.OFFVIS_ITS ---
Intake Vital Signs 10/12/23 12:48 Height 5 ft 4 in Weight 272 lb BMI 46.7 BP 148/88 H Pulse 89 Pulse Source Pulse Oximeter Pulse Oximetry (%) 97 Oxygen Delivery Method Room Air Intake Visit Reasons: FU US Intake Note: Pt presents to the office today for a follow up US. Pt states her legs always feel numb. Pt states they are not painful though. Pt states her legs feel tired a lot. Dry Mill Operator Required: Yes Dry Mill Operator Language: Reverberatory Furnace Operator Name: Maggi([id number]) Allergies turkey Allergy (Severe, Verified 10/12/23 12:48) chest pain/swelling/SOB/itching HPI FU US HPI Details Morbidly obese 63-year-old female presents for follow-up regarding venous insufficiency. Upon discussion with her her biggest complaint is the numbness that developed in her feet. She does have some mild swelling left more so than right this time. She is concerned about result findings and now presents for follow-up of venous insufficiency with noninvasive testing. [facility] Medical History Uncontrolled type 2 diabetes mellitus with hyperglycemia Fever of unknown origin Seroma of breast GERD (gastroesophageal reflux disease) COVID-19 vaccine series completed Asthma Hypercholesteremia HTN (hypertension) Diabetes Invasive ductal carcinoma of left breast Surgical History History of incision and drainage (05/02/22) History of bilateral mastectomy (03/21/22) History of delivery History of cholecystectomy Family History Mother Breast cancer, Onset Age: 58 Sister Breast cancer, Onset Age: 54 Social History Household Members: Family Household Members Other:: and son Housing: House Housing Other:: [facility] Are you a primary child care center assistant director to a significant other at home: No Do you presently have visiting nurse or other home services: No Alcohol intake: never Patient Tobacco Use Status: Never used Tobacco Second Hand Smoke Exposure: No Advance Directives Date on File: 04/15/22 service: No Current occupational status: employed Female Reproductive History Menstrual Age of Menarche: 11 Review of Systems Const All systems reviewed & are unremarkable except as noted in HPI and below Reports no additional complaints ENT Reports Normal hearing present Card Denies chest pain, Denies chest pain at rest, Denies chest pain with activity and Denies pedal edema Resp Denies cough GI Denies abdominal pain Musc Denies abnormal gait, Denies muscle cramps and Denies radiating pain into limb Skin/Breast Denies skin ulcer and Denies wounds Neuro Reports Normal hearing present and Denies abnormal gait Psych Reports no additional complaints Physical Exam Vital Signs: Last Vital Signs Pulse 89 10/12/23 12:48 BP 148/88 H 10/12/23 12:48 Pulse Ox 97 10/12/23 12:48 Oxygen Delivery Method Room Air 10/12/23 12:48 BMI result Body Mass Index 46.7 Const General: cooperative, healthy appearing and comfortable Orientation/consciousness: oriented to person, oriented to place and oriented to time HEENT Head: Yes normal to inspection Neck Neck: Yes normal visual inspection Carotids: no bruits Chest Chest palpation & inspection: normal inspection of the chest Resp Effort & Inspection: normal respiratory effort and able to speak in complete sentences Auscultation: clear to auscultation bilaterally, no crackles, no rales, no rhonchi and no wheezes Cardio Rate: regular rate Rhythm: regular rhythm Heart sounds: S1 normal heart sound present and S2 normal heart sound present Bruits: no carotid bruits Peripheral pulses: Peripheral pulses 2+ throughout GI Inspection: Yes normal to inspection Skin Wounds: no wounds Hair: normal Neuro General: oriented to person, oriented to place and oriented to time Cranial nerves: Yes CN's II-XII intact bilaterally and Yes Normal hearing present Cognition (Neuro): normal cognition Motor exam (neuro): 5/5 motor strength present throughout Extrem Other: venous exam: +1 edema General: No clubbing, No cyanosis and No edema Psych Appearance: grossly normal Mental Status: mental status grossly normal Speech and movement: Normal speech and movement present Results Reviewed Results Reviewed: Brief summary of venous insufficiency testing is as follows: right great saphenous vein: negative right small saphenous vein: negative right accessory vein: none present left great saphenous vein: Focally positive at calf but small caliber vein left small saphenous vein: negative left accessory vein: none present Please note there is no evidence of any venous aneurysms or significant tortuosity Assessment & Plan Assessment & Plan (1) Varicose veins of right lower extremity with inflammation: Code(s): I83.11 - Varicose veins of right lower extremity with inflammation Plan: In short patient is negative for any significant venous insufficiency. In addition she has palpable arterial pulses. It does not appear to be vascular in nature. I did discuss the importance of walking and exercise. In addition some weight loss may be beneficial for her as she has a BMI nearly of 47. This was discussed in detail with the patient she understood. She will follow up with us on an as-needed basis. Thank you for allowing us to assist in her care. If there are any questions or concerns please do not hesitate to contact us Coding Level of Care Code Est Pt Level 4 (96533) Diagnoses Varicose veins of right lower extremity with inflammation I83.11
== END 2023-10-12 13:33 | disposition home or self-care (01) ==
PROVIDERS: PCP Registered Nurse; Referring Provider Registered Nurse; Visit Provider Surgery Vascular Surgery
DX: I83.11 Varicose veins of right lower extremity with inflammation (principal)
CPT/HCPCS: 99213

== ENCOUNTER → 2023-10-12 12:44 | Outpatient (BNVA) | payer MEDICAID, SELFPAY | PROVIDERS: PCP Registered Nurse; Visit Provider Surgery Vascular Surgery | DX: I83.11 Varicose veins of right lower extremity with inflammation (principal) | CPT/HCPCS: 99212 ==

== ENCOUNTER 2023-11-02 12:51 | Outpatient (AMB) | payer MEDICAID, SELFPAY ==
[2023-11-02 13:05] VITALS: BP 140/90; PULSE 95; BMI 47.7
--- NOTE | 2023-11-02 13:05 | A.OFFVIS_ITS ---
Intake Vital Signs 11/02/23 13:05 Height 5 ft 4 in Weight 278 lb 0.046 oz BMI 47.7 BP 140/90 H Blood Pressure Location Lt brachial Position Sitting Pulse 95 Pulse Source Pulse Oximeter Intake Visit Reasons: DM2-confirmed Intake Note: Patient presents today to follow up on D2MT. Last Diabetic Eye exam:2021 but has appt 11/18 Last Podiatry Visit: None Random Glucose: 232 mg/dl HgA1c: 8.3% Color Television Console Monitor Required: Yes Color Television Console Monitor Language: Electric Mule Driver Name: Mi medical staff Information Interpreted: non-clinical & clinical Accompanied by: Self / Same As Patient Allergies turkey Allergy (Severe, Verified 11/02/23 13:10) chest pain/swelling/SOB/itching HPI HPI Comments History of Present Illness Details 63 YO F who is seen in consultation for T2DM at the request of PCP. Initially diagnosed with T2DM in 21 yrs . Was initially started on treatment with metformin. Hd Gi issues Current regimen Toujeo 50 units Humalog 43 units before breakfast and lunch and 35 units before dinner Trulicity 0 . 75 mg Qwkly not taking Valerio download shows the sensor is active 42% of the time. Average glucose is 212 with GMI of 8.4%. 49% range with 70% hyperglycemia and 1 % hypoglycemia Reports low sugars hypoglycemia after dinner Treats lows with cracker . Checks sugar after to ensure it is rising. Treats and checks 30 min later No Family history of T2DM. Has eyes checked yearly, last eye exam has appt 11/12/2023 denies retinopathy. Denies neuropathy, Not , sees podiatry. Denies nephropathy, Not on DAX/ARB. Has HLD, on statin. Denies CAD. Had diabetes education at [facility] . [facility] Medical History Uncontrolled type 2 diabetes mellitus with hyperglycemia Fever of unknown origin Seroma of breast GERD (gastroesophageal reflux disease) COVID-19 vaccine series completed Asthma Hypercholesteremia HTN (hypertension) Diabetes Invasive ductal carcinoma of left breast Surgical History History of incision and drainage (05/02/22) History of bilateral mastectomy (03/21/22) History of delivery History of cholecystectomy Family History Mother Breast cancer, Onset Age: 58 Sister Breast cancer, Onset Age: 54 Social History Household Members: Family Household Members Other:: and son Housing: House Housing Other:: [facility] Are you a primary patient care technician to a significant other at home: No Do you presently have visiting nurse or other home services: No Alcohol intake: never Patient Tobacco Use Status: Never used Tobacco Second Hand Smoke Exposure: No Advance Directives Date on File: 04/15/22 service: No Current occupational status: employed Female Reproductive History Menstrual Age of Menarche: 11 Physical Exam Vital Signs: Last Vital Signs Pulse 95 11/02/23 13:05 BP 140/90 H 11/02/23 13:05 BMI result Body Mass Index 47.7 Absence of Cushingoid features. Absence of acromegalic features. Neck exam reveals nl size thyroid about 15 gms. No thyroid nodules palpable. No carotid bruits present. Lungs CTA. Heart S1 S2, Reg R/R. No M/R/ G. Skin exam reveals absence of vitiligo or acanthosis nigricans. Abdominal exam reveals Soft NT/ND with NA BS. No organomegaly present. Neck Other: . Extrem Other: Visual exam of foot performed. No ulcerations or open lesions. No onchomycosis, no callouses.Pulses 2 + distally Sensation decreased to monofilament exam. Vibratory sensation sensed is decreased with 128 Hz tuning fork Results AMB Hemoglobin A1c AMB Hemoglobin A1c 8.3 % Last Edit by Мария Oshea on 11/02/23 13:27 Results Reviewed Results Reviewed: Laboratory Last Values Glucose (Clinic) 232 mg/dL (60-115) H 11/02/23 13:13 Assessment & Plan Assessment & Plan (1) Uncontrolled type 2 diabetes mellitus with hyperglycemia: Code(s): E11.65 - Type 2 diabetes mellitus with hyperglycemia Plan: This is a 63-year-old female with a history of Type 2 diabetes currently being treated with basal-bolus insulin with poor glycemic control and known microvascular complications namely neuropathy. Plan is to and to decrease the Humalog before supper to 20 units Will have patient follow-up clinical unit educator Could consider use of an SGLT 2 inhibitor in the future. Will recheck lipid profile now the patient is taking atorvastatin 80 mg Orders: Orders Lipid Panel Today E11.65 - Type 2 diabetes mellitus with hyperglycemia AMB Hemoglobin A1c Today E11.65 - Type 2 diabetes mellitus with hyperglycemia Medications: New tirzepatide (Mounjaro) 2.5 mg (0.5 mL) subcut QWEEK 4 weeks 2 mL 0RF Changed From insulin aspart U-100 (Novolog FlexPen U-100 Insulin aspart) 43 units (0.43 mL) subcut TID 45 mL 4RF To insulin aspart U-100 (Novolog FlexPen U-100 Insulin aspart) 43 units before breakfast and lunch and 20 units before dinner subcutaneously 3 times a day; 45 mL 4RF Coding Level of Care Code Est Pt Level 4 (19373) Diagnoses Uncontrolled type 2 diabetes mellitus with hyperglycemia E11.65
[2023-11-02 13:17] LABS: Glucose, Whole Blood 232 mg/dL (60-115)
== END 2023-11-02 13:40 | disposition home or self-care (01) ==
PROVIDERS: PCP Registered Nurse; Visit Provider Internal Medicine Endocrinology, Diabetes & Metabolism
DX: E11.65 Type 2 diabetes mellitus with hyperglycemia (principal)
CPT/HCPCS: 99214

== ENCOUNTER → 2023-11-02 12:51 | Outpatient (BNVA) | payer MEDICAID, SELFPAY | PROVIDERS: PCP Registered Nurse; Visit Provider Internal Medicine Endocrinology, Diabetes & Metabolism | DX: E11.65 Type 2 diabetes mellitus with hyperglycemia (principal); Z79.4 Long term (current) use of insulin; Z79.85 Long-term (current) use of injectable non-insulin antidiabetic drugs | CPT/HCPCS: 82947; 83036; 99212 ==

== ENCOUNTER 2023-11-22 09:44 | Outpatient (AMB) | payer MEDICAID, SELFPAY ==
--- NOTE | 2023-11-22 16:09 | A.OFFVIS_ITS ---
Intake Intake Visit Reasons: DM Allergies turkey Allergy (Severe, Verified 11/02/23 13:10) chest pain/swelling/SOB/itching HPI Comprehensive Diabetes Asmnt Most Recent Diabetes Results: Microalb/Creat Ratio 23.5 ug/mg cr (<30) 08/11/23 Cholesterol 185 mg/dL (<200) 08/11/23 HDL Cholesterol 43 mg/dL (>40) 08/11/23 Triglycerides 88 mg/dL (<150) 08/11/23 Creatinine 0.88 mg/dL (0.5-1.4) 09/20/23 Blood Urea Nitrogen 18 mg/dL (9-16) H 09/20/23 Sodium 141 mmol/L (135-145) 09/20/23 Potassium 4.2 mmol/L (3.3-5.1) 09/20/23 Chloride 108 mmol/L (96-108) 09/20/23 Carbon Dioxide 26 mmol/L (22-29) 09/20/23 Calcium 8.9 mg/dL (8.4-10.2) 09/20/23 AST 14 U/L (5-31) 09/20/23 ALT 18 U/L (0-31) 09/20/23 Total Protein 7.1 g/dL (6.5-8.0) 09/20/23 Albumin 3.6 g/dL (3.5-5.0) 09/20/23 [facility] Medical History Uncontrolled type 2 diabetes mellitus with hyperglycemia Fever of unknown origin Seroma of breast GERD (gastroesophageal reflux disease) COVID-19 vaccine series completed Asthma Hypercholesteremia HTN (hypertension) Diabetes Invasive ductal carcinoma of left breast Surgical History History of incision and drainage (05/02/22) History of bilateral mastectomy (03/21/22) History of delivery History of cholecystectomy Family History Mother Breast cancer, Onset Age: 58 Sister Breast cancer, Onset Age: 54 Social History Household Members: Family Household Members Other:: and son Housing: House Housing Other:: [facility] Are you a primary daycare manager to a significant other at home: No Do you presently have visiting nurse or other home services: No Alcohol intake: never Patient Tobacco Use Status: Never used Tobacco Second Hand Smoke Exposure: No Advance Directives Date on File: 04/15/22 service: No Current occupational status: employed Female Reproductive History Menstrual Age of Menarche: 11 Assessment & Plan Assessment & Plan (1) Uncontrolled type 2 diabetes mellitus with hyperglycemia: Code(s): E11.65 - Type 2 diabetes mellitus with hyperglycemia Plan: Pt not seen Coding Level of Care Code Est Pt Level 1 (39616) Diagnoses Uncontrolled type 2 diabetes mellitus with hyperglycemia E11.65
== END 2023-11-22 16:09 | disposition home or self-care (01) ==
PROVIDERS: PCP Registered Nurse; Visit Provider Registered Nurse Diabetes Educator
DX: E11.65 Type 2 diabetes mellitus with hyperglycemia (principal)

== ENCOUNTER → 2023-11-22 09:44 | Outpatient (BNVA) | payer MEDICAID, SELFPAY | PROVIDERS: PCP Registered Nurse; Visit Provider Registered Nurse Diabetes Educator | DX: E11.65 Type 2 diabetes mellitus with hyperglycemia (principal) | CPT/HCPCS: 99211 ==

== ENCOUNTER 2023-11-29 12:48 | Outpatient (AMB) | payer MEDICAID, SELFPAY ==
--- NOTE | 2023-11-29 13:23 | MHC.AMDMED ---
Intake Intake Visit Reasons: DM Network Engineer Administrator Required: Yes Network Engineer Administrator Language: Gunner Mate Name: Aroldo [facility] Allergies turkey Allergy (Severe, Verified 11/02/23 13:10) chest pain/swelling/SOB/itching HPI Comprehensive Diabetes Asmnt Most Recent Diabetes Results: Hemoglobin A1c 9.1 % 05/14/20 Microalb/Creat Ratio 23.5 ug/mg cr (<30) 08/11/23 Cholesterol 185 mg/dL (<200) 08/11/23 HDL Cholesterol 43 mg/dL (>40) 08/11/23 Triglycerides 88 mg/dL (<150) 08/11/23 Creatinine 0.88 mg/dL (0.5-1.4) 09/20/23 Blood Urea Nitrogen 18 mg/dL (9-16) H 09/20/23 Sodium 141 mmol/L (135-145) 09/20/23 Potassium 4.2 mmol/L (3.3-5.1) 09/20/23 Chloride 108 mmol/L (96-108) 09/20/23 Carbon Dioxide 26 mmol/L (22-29) 09/20/23 Calcium 8.9 mg/dL (8.4-10.2) 09/20/23 AST 14 U/L (5-31) 09/20/23 ALT 18 U/L (0-31) 09/20/23 Total Protein 7.1 g/dL (6.5-8.0) 09/20/23 Albumin 3.6 g/dL (3.5-5.0) 09/20/23 [facility] Medical History Uncontrolled type 2 diabetes mellitus with hyperglycemia Fever of unknown origin Seroma of breast GERD (gastroesophageal reflux disease) COVID-19 vaccine series completed Asthma Hypercholesteremia HTN (hypertension) Diabetes Invasive ductal carcinoma of left breast Surgical History History of incision and drainage (05/02/22) History of bilateral mastectomy (03/21/22) History of delivery History of cholecystectomy Family History Mother Breast cancer, Onset Age: 58 Sister Breast cancer, Onset Age: 54 Social History Household Members: Family Household Members Other:: and son Housing: House Housing Other:: [facility] [address] Are you a primary career technical supervisor to a significant other at home: No Do you presently have visiting nurse or other home services: No Alcohol intake: never Patient Tobacco Use Status: Never used Tobacco Second Hand Smoke Exposure: No Advance Directives Date on File: 04/15/22 service: No Current occupational status: employed Female Reproductive History Menstrual Age of Menarche: 11 Assessment & Plan Assessment & Plan (1) Uncontrolled type 2 diabetes mellitus with hyperglycemia: Code(s): E11.65 - Type 2 diabetes mellitus with hyperglycemia Plan: Diabetes self-management education and support participation record Assessment/scale: 1= needs instructed? 2= needs review? 3= comprehend keep point? 4= demonstrates understanding/ competent? NC= Not Covered Topics Learning Objective: Initial visit Initial or post srvc Initial or post srvc Initial or post srvc Initial or post srvc Initial or post srvc Post srvc Comments Pre Edu-assessment/plan Outcome or reassess Outcome or reassess Outcome or reassess Outcome or reassess Outcome or reassess Outcome or reassess Diabetes pathophysiology 1 Healthy eating 2 Being active 1 Taking medication 1 Monitoring glucose 2 Acute complication Chronic complicated Lifestyle and healthy coping Diabetes distress in support ?Diabetes pathophysiology: ?Defined diabetes med identify own type of diabetes; list 3 options for treating diabetes Healthy eating: ?Described effect of type, amount and ?timing of food on blood glucose; list 3 methods for planning meal Being active: ?State effect of exercise on blood glucose level Taking medication: ?State effect of diabetes medications on diabetes; name diabetes medications taking, action and side effects Monitoring glucose: ?Identify recommended blood glucose targets and personal target Acute complication: ?List symptoms and treatment of hyper and hypoglycemia, DKA, sick day guidelines and guidelines for severe weather or situations of crisis and diabetes supply manage Chronic complication: ?To find the relationship of blood glucose levels to long-term complications of diabetes in screening and preventative measures Lifestyle and healthy coping: ?Described lifestyle and healthy coping strategies to rule out diabetes self-management Diabetes to stress and support: ?Recognize Diabetes to stress and be able to identified support options Learning objectives: The patient was provided with verbal and written education on the following topics as outlined below. The patient met all learning objectives and was able to verbalize understanding and provide teach back of education topics discussed . The patient was provided with the opportunity to ask questions and all questions were answered. Patient Assessment Assess patient education level/literacy/barriers Patient questions/concerns, patient started Mounjaro 2.5 mg on 11/27/2023, at last visit with Dr. Brewster patient instructed to reduce Humalog before meals to 20 units, however patient continues to take 30 units. Recommended to patient she decrease Humalog to 30 units due to postprandial drop of glucose post supper time. Patient continues with Toujeo 60 units daily Patient reports that she and her take 15-20 minute walk daily What is Diabetes? Pathophysiology How the body produces and uses insulin Identify type of DM Risk factors Signs of Diabetes Brief overview of Diabetes Management Monitoring blood sugar Following a meal plan Regular exercise Maintaining a healthy weight Taking medication as needed Members of the care team (PCP, RN, MA, RD, CDE, deli manager) Blood glucose monitoring When/how often to test Target blood sugar ranges Patient has reinitiated Valerio 2 At time of visit patient only had day and a half worth of glucose data Average glucose for the past day and a half 156 mg/dL Introduction to Nutrition Importance of healthy diet in managing DM Diet is personalized to individual preference Review patient?s regular diet/food preferences Who prepares meals/does food shopping/ Dining out?/ Barriers? How diet effects glucose Eating 3 balanced meals a day with small, healthy snacks between meals Review food groups Carbohydrates: What is a carbohydrate/Which food/food groups are considered carbohydrates Effect of carbohydrates on blood glucose Portion sizes Reading food labels Basic carb counting (if applicable per nursing assessment) Plate method Meal planning Recommendations: Follow plate method, consistent carbs and read nutritional labels. Smart Goal: Patient will keep carbohydrate portion of meals 30-45 g Educational Materials: The patient was provided with the following written educational materials: Planning Healthy Meals Handout Patient Response to instructions: Comprehension of Instructions: Fair Readiness to make changes: Contemplation How confident they feel about making changes: Positive Patient Instructions: Incluir actividad diaria regular. ADA recomienda 30 minutos de ejercicio 5 d?as a la semana. P?rdida de peso, hable con el PCP o el cardi?logo antes de comenzar un nuevo plan. Mida el nivel de az?car en la alicja seg?n las indicaciones; Ayuno y comida m?s chandu de 2hpp. Observe las tendencias en los resultados. Utilice los resultados y eval?e c?mo los alimentos, la actividad f?porsha y los medicamentos afectan los resultados de az?car en la alicja. Lleve el gluc?metro o CGM a la pr?xima visita. Conocer los medicamentos para la diabetes, rondon acci?n, los efectos secundarios, la eficacia, la toxicidad, la dosis prescrita, el momento y la frecuencia de administraci?n apropiados, el efecto de las dosis olvidadas y retrasadas y las instrucciones de almacenamiento, viaje y seguridad. T?cnicas de resoluci?n de problemas para el seguimiento de episodios de hipo/hiperglucemia y tratamientos. Reducir los comportamientos de reducci?n de riesgos, dejar de fumar, ex?menes regulares de ojos, pies y dentales. Coding Level of Care Code Est Pt Level 1 (96705) Diagnoses Uncontrolled type 2 diabetes mellitus with hyperglycemia E11.65
== END 2023-11-29 13:24 | disposition home or self-care (01) ==
PROVIDERS: PCP Registered Nurse; Visit Provider Registered Nurse Diabetes Educator
DX: E11.65 Type 2 diabetes mellitus with hyperglycemia (principal)

== ENCOUNTER → 2023-11-29 12:48 | Outpatient (BNVA) | payer MEDICAID, SELFPAY | PROVIDERS: PCP Registered Nurse; Visit Provider Registered Nurse Diabetes Educator | DX: E11.65 Type 2 diabetes mellitus with hyperglycemia (principal) | CPT/HCPCS: 99211 ==

== ENCOUNTER 2023-12-13 11:00 | Outpatient (RCR) | payer MEDICAID, SELFPAY | END 2024-02-20 15:18 | disposition home or self-care (01) | LOC: HO.OT 11:00 | PROVIDERS: PCP Registered Nurse; Visit Provider Internal Medicine | DX: C50.912 Malignant neoplasm of unspecified site of left female breast (principal) | CPT/HCPCS: 97035; 97110; 97140; 97167 ==

== ENCOUNTER 2023-12-25 12:10 | Outpatient (REF) | payer MEDICAID, SELFPAY | END 2023-12-25 12:11 | disposition home or self-care (01) | LOC: HO.SH 12:10 | PROVIDERS: Visit Provider Registered Nurse | DX: H90.3 Sensorineural hearing loss, bilateral (principal) | CPT/HCPCS: 92552 ==

== ENCOUNTER 2024-01-10 11:12 | Outpatient (AMB) | payer MEDICAID, SELFPAY ==
--- NOTE | 2024-01-10 11:50 | MHC.AMDMED ---
Intake Intake Visit Reasons: DM/CONFIRMED Admission Specialist Required: Yes Admission Specialist Language: New Grad Rn Name: Kandice [facility] Information Interpreted: non-clinical & clinical Accompanied by: Son Allergies turkey Allergy (Severe, Verified 12/04/23 10:44) chest pain/swelling/SOB/itching HPI Comprehensive Diabetes Asmnt Most Recent Diabetes Results: Hemoglobin A1c 9.1 % 05/14/20 Microalb/Creat Ratio 23.5 ug/mg cr (<30) 08/11/23 Cholesterol 185 mg/dL (<200) 08/11/23 HDL Cholesterol 43 mg/dL (>40) 08/11/23 Triglycerides 88 mg/dL (<150) 08/11/23 Creatinine 0.99 mg/dL (0.5-1.4) 12/04/23 Blood Urea Nitrogen 17 mg/dL (9-16) H 12/04/23 Sodium 141 mmol/L (135-145) 12/04/23 Potassium 4.4 mmol/L (3.3-5.1) 12/04/23 Chloride 110 mmol/L (96-108) H 12/04/23 Carbon Dioxide 23 mmol/L (22-29) 12/04/23 Calcium 8.6 mg/dL (8.4-10.2) 12/04/23 AST 21 U/L (5-31) 12/04/23 ALT 24 U/L (0-31) 12/04/23 Total Protein 7.2 g/dL (6.5-8.0) 12/04/23 Albumin 3.7 g/dL (3.5-5.0) 12/04/23 [facility] History Uncontrolled type 2 diabetes mellitus with hyperglycemia Fever of unknown origin Seroma of breast GERD (gastroesophageal reflux disease) COVID-19 vaccine series completed Asthma Hypercholesteremia HTN (hypertension) Diabetes Invasive ductal carcinoma of left breast Surgical History History of incision and drainage (05/02/22) History of bilateral mastectomy (03/21/22) History of delivery History of cholecystectomy Family History Mother Breast cancer, Onset Age: 58 Sister Breast cancer, Onset Age: 54 Social History Household Members: Family Household Members Other:: and son Housing: House Housing Other:: [facility] [address] Are you a primary primary care pediatrician to a significant other at home: No Do you presently have visiting nurse or other home services: No Alcohol intake: never Patient Tobacco Use Status: Never used Tobacco Second Hand Smoke Exposure: No Advance Directives Date on File: 04/15/22 service: No Current occupational status: employed Female Reproductive History Menstrual Age of Menarche: 11 Assessment & Plan Assessment & Plan (1) Uncontrolled type 2 diabetes mellitus with hyperglycemia: Code(s): E11.65 - Type 2 diabetes mellitus with hyperglycemia Plan: Personal Continuous Glucose Monitor: Patients CGM information reviewed Reviewed patient's sensor data: Hypoglycemia: ? 1% Hyperglycemia:? 28% Time in Range:? 71% Average glucose for the last 2 weeks? 153 mg/dL Patient reports taking NovoLog 42 units before breakfast, 42 units before supper and then 20 units before bed. Reports that she was instructed by Dr. Brewster at last visit to take insulin this way. In addition she reports she is not taking Toujeo 60 units in 6 months but she has not been able to get it from the pharmacy. Message sent to Dr. Brewster to clarify insulin plan Patient also reports at PCP office she had A1c drawn that was closer to 7 than the 8.3% in October 2023. Reviewed with patient how to use baqsimi , patient reports that she had used the nasal spray on herself when she is experiencing low blood sugar, instructed patient that it is for emergency use, patient's son was at visit reviewed with both how to administer baqsimi Reviewed how to interpret trend arrows Reminded patient that to check finger sticks if symptoms do not match sensor reading. Discussed lag time between finger stick and sensor data.? Patient able to insert sensor independently at home without issue.? Patient Instructions: Patient will follow-up with educator senior clinical in 6 weeks Coding Level of Care Code Est Pt Level 1 (23156) Diagnoses Uncontrolled type 2 diabetes mellitus with hyperglycemia E11.65
== END 2024-01-10 11:54 | disposition home or self-care (01) ==
PROVIDERS: PCP Registered Nurse; Visit Provider Registered Nurse Diabetes Educator
DX: E11.65 Type 2 diabetes mellitus with hyperglycemia (principal)

== ENCOUNTER → 2024-01-10 11:12 | Outpatient (BNVA) | payer MEDICAID, SELFPAY | PROVIDERS: PCP Registered Nurse; Visit Provider Registered Nurse Diabetes Educator | DX: E11.65 Type 2 diabetes mellitus with hyperglycemia (principal) | CPT/HCPCS: 99211 ==

== ENCOUNTER 2024-01-25 13:36 | Outpatient (AMB) | payer MEDICAID, SELFPAY ==
--- NOTE | 2024-01-25 13:38 | MHC.OFFVIS ---
Intake Visit Reasons: 6 month breast exam Intake Note: Patient is seen in office for 6 month follow up visit, breast exam. Pt c/o: admits to left arm pain, denies any other concerns Machine Sneller Required: Yes Machine Sneller Language: Manager Payroll Name: Gloria NO Information Interpreted: non-clinical & clinical Business Process Consultant: Business Process Consultant Present Accompanied by: Son Allergies turkey Allergy (Severe, Verified 01/25/24 13:45) chest pain/swelling/SOB/itching Medication List - Last Reconciled 01/25/24 by Andrea Henry MD acetaminophen 650 mg PO Q6H PRN atorvastatin 1 tab PO BEDTIME blood sugar diagnostic (FreeStyle Lite Strips) As directed blood-glucose meter (FreeStyle [place] Lite kit) As directed cetirizine 10 mg PO QAM cholecalciferol (vitamin D3) (Vitamin D3) 50 mcg PO DAILY flash glucose scanning reader (FreeStyle Valerio 2 [place]) As directed flash glucose sensor (FreeStyle Valerio 2 Sensor kit) USE DIRECTED gabapentin 300 mg PO QPM ibuprofen 400 mg PO Q6H PRN insulin aspart U-100 (Novolog FlexPen U-100 Insulin aspart) 43 units before breakfast and lunch and 20 units before dinner subcutaneously 3 times a day; insulin glargine U-300 conc (Toujeo SoloStar U-300 Insulin) 50 units (0.1667 mL) subcut QPM lancets (FreeStyle Lancets) As directed 3 times a day loperamide 2 mg PO Q4H PRN losartan 1 tab DAILY metoprolol tartrate 1 tab PO BID omeprazole 20 mg PO DAILY pen needle, diabetic (BD Lesley 2nd Gen Pen Needle) As directed 4 times a day tamoxifen 20 mg PO DAILY tirzepatide (Mounjaro) 2.5 mg (0.5 mL) subcut QWEEK HPI Comments Details: 63-year-old female patient presenting with a spiculated mass in the 2 o'clock position of the left breast on a mammogram dated 01/29/2022 with follow-up images and ultrasound on 02/11/2022. She does have a strong family history of breast cancer including her mother and sister both developing breast cancer in their 50s. Her mother subsequently from breast cancer. She is and did not breast feed. She underwent a left breast ultrasound-guided core biopsy on 02/16/2022 and the pathology revealed invasive ductal carcinoma, MS BR grade 2-3, ER/SD positive, HER2 Johnny negative, proliferation index overall 50% by Ki 67 immunostaining. The patient requested bilateral simple mastectomy with left axillary sentinel node biopsy and underwent preoperative evaluation by Dr. Leigh on 02/28/2022. She underwent bilateral simple mastectomy with left axillary sentinel node biopsy on 03/21/2022. Pathology revealed: Left breast invasive ductal carcinoma, grade 3, 34 mm, with ductal carcinoma in-situ high grade, solid and cribriform types. Lymphovascular invasion was not identified. Base of carcinoma was present 2 mm from the closest margin the remainder of the margins were widely negative for invasive carcinoma and DCIS. One lymph node was negative for metastatic tumor. (pT2N0(sn)(i-)Mx). The right breast revealed fatty breast tissue negative for malignancy. Postoperatively she developed seroma is which required needle aspiration following the removal of the Jorge-Mcdowell drains therefore she was returned to the OR for a EUN drain placement. After several weeks the drain was removed. She was evaluated by Dr. Leigh and underwent chemotherapy with Cytoxan/Taxotere x4 cycles followed by tamoxifen 20 mg p.o. daily. She continues on the tamoxifen without the any new side effects. She mainly complains of pain in the left shoulder which increases with range of motion. She denies any arm swelling. She no longer requires mammograms. [facility] Medical History Uncontrolled type 2 diabetes mellitus with hyperglycemia Fever of unknown origin Seroma of breast GERD (gastroesophageal reflux disease) COVID-19 vaccine series completed Asthma Hypercholesteremia HTN (hypertension) Diabetes Invasive ductal carcinoma of left breast Surgical History History of incision and drainage (05/02/22) History of bilateral mastectomy (03/21/22) History of delivery History of cholecystectomy Family History Mother Breast cancer, Onset Age: 58 Sister Breast cancer, Onset Age: 54 Social History Household Members: Family Household Members Other:: and son Housing: House Housing Other:: [facility] Are you a primary health care attorney to a significant other at home: No Do you presently have visiting nurse or other home services: No Alcohol intake: never Patient Tobacco Use Status: Never used Tobacco Second Hand Smoke Exposure: No Advance Directives Date on File: 04/15/22 service: No Current occupational status: employed Female Reproductive History Menstrual Age of Menarche: 11 Review of Systems Const All systems reviewed & are unremarkable except as noted in HPI and below Skin/Breast Denies breast swelling, Denies breast skin changes, Denies new lesions and Reports skin pain Physical Exam Const General: no acute distress and well developed Nutritional Appearance: obese Orientation/consciousness: oriented to person Limitations: no limitations Chest Other: Bilateral mastectomy incisions are clean, dry, and intact. No redness, discharge, ulceration, or seroma is identified. No subcutaneous nodules are palpable and no enlarged lymph nodes could be identified on either side. Redundant skin is noted in the bilateral axilla. Incision is tight in the center. Skin Other: Warm, dry, no rash Neuro General: oriented to person Extrem Other: No edema noted in the left or right arms. Ambulation is normal. Assessment & Plan Assessment & Plan (1) Invasive ductal carcinoma of left breast: Code(s): C50.912 - Malignant neoplasm of unspecified site of left female breast Category: Medical (2) Pain in left shoulder: Code(s): M25.512 - Pain in left shoulder Category: Medical Plan 63-year-old female patient found to have invasive ductal carcinoma of the left breast in a status post bilateral mastectomy with left axillary sentinel node biopsy. She underwent chemotherapy with Cytoxan/Taxotere x4 cycles and currently started tamoxifen. Examination reveals no suspicious findings in either with bilateral mastectomies. There is extra skin laterally bilaterally but no evidence of seroma or hematoma. I recommended follow-up examination in 6 months, sooner p.r.n.. I also recommended evaluation by Orthopedics for her left shoulder pain. She expressed understanding and agrees with the plan. Orders: Referrals Orthopedics Referral M25.512 - Pain in left shoulder Coding Level of Care Code Est Pt Level 3 (18113) Diagnoses Invasive ductal carcinoma of left breast C50.912 Pain in left shoulder M25.512
== END 2024-01-25 13:54 | disposition home or self-care (01) ==
PROVIDERS: PCP Registered Nurse; Referring Provider Registered Nurse; Visit Provider Surgery
DX: C50.912 Malignant neoplasm of unspecified site of left female breast (principal); M25.512 Pain in left shoulder
CPT/HCPCS: 99213

== ENCOUNTER → 2024-01-25 13:36 | Outpatient (BNVA) | payer MEDICAID, SELFPAY | PROVIDERS: PCP Registered Nurse; Visit Provider Surgery | DX: C50.912 Malignant neoplasm of unspecified site of left female breast (principal); M25.512 Pain in left shoulder | CPT/HCPCS: 99212 ==

== ENCOUNTER 2024-02-14 11:11 | Outpatient (AMB) | payer MEDICAID, SELFPAY ==
--- NOTE | 2024-02-14 11:17 | MHC.AMDMED ---
Intake Intake Visit Reasons: DM Waste Treatment Operator Required: Yes Waste Treatment Operator Language: Process Control Specialist Name: Kandice [facility] [place] Accompanied by: Self / Same As Patient Allergies turkey Allergy (Severe, Verified 01/25/24 13:45) chest pain/swelling/SOB/itching HPI Comprehensive Diabetes Asmnt Most Recent Diabetes Results: Creatinine 0.99 mg/dL (0.5-1.4) 12/04/23 Blood Urea Nitrogen 17 mg/dL (9-16) H 12/04/23 Sodium 141 mmol/L (135-145) 12/04/23 Potassium 4.4 mmol/L (3.3-5.1) 12/04/23 Chloride 110 mmol/L (96-108) H 12/04/23 Carbon Dioxide 23 mmol/L (22-29) 12/04/23 Calcium 8.6 mg/dL (8.4-10.2) 12/04/23 AST 21 U/L (5-31) 12/04/23 ALT 24 U/L (0-31) 12/04/23 Total Protein 7.2 g/dL (6.5-8.0) 12/04/23 Albumin 3.7 g/dL (3.5-5.0) 12/04/23 [facility] Medical History Uncontrolled type 2 diabetes mellitus with hyperglycemia Fever of unknown origin Seroma of breast GERD (gastroesophageal reflux disease) COVID-19 vaccine series completed Asthma Hypercholesteremia HTN (hypertension) Diabetes Invasive ductal carcinoma of left breast Surgical History History of incision and drainage (05/02/22) History of bilateral mastectomy (03/21/22) History of delivery History of cholecystectomy Family History Mother Breast cancer, Onset Age: 58 Sister Breast cancer, Onset Age: 54 Social History Household Members: Family Household Members Other:: and son Housing: House Housing Other:: [facility] Are you a primary direct support professional caregiver to a significant other at home: No Do you presently have visiting nurse or other home services: No Alcohol intake: never Patient Tobacco Use Status: Never used Tobacco Second Hand Smoke Exposure: No Advance Directives Date on File: 04/15/22 service: No Current occupational status: employed Female Reproductive History Menstrual Age of Menarche: 11 Assessment & Plan Assessment & Plan (1) Uncontrolled type 2 diabetes mellitus with hyperglycemia: Code(s): E11.65 - Type 2 diabetes mellitus with hyperglycemia Plan: Personal Continuous Glucose Monitor: Patients CGM information reviewed Reviewed patient's sensor data: Hypoglycemia: ? 2% Hyperglycemia:? 23% Time in Range:? 75% Average glucose for the last 2 weeks?146 mg/dL Patient experiencing some postprandial in overnight hypoglycemic events Reviewed with patient how to treat hypoglycemia with rule of 15s Decrease Toujeo from 50 units to 45 units daily Humalog decreased to 32 units before breakfast and supper, 36 units before lunch Patient instructed to contact Diabetes Education nurse if hypoglycemia continues Patient has follow-up appointment with Dr. Brewster on 03/06/2024, at that visit patient will have new A1c drawn Reviewed how to interpret trend arrows Reminded patient that to check finger sticks if symptoms do not match sensor reading. Discussed lag time between finger stick and sensor data.? Patient able to insert sensor independently at home without issue.? Patient instructed follow-up with family living educator in 2 months Patient Instructions: Toujeo 45 unidades Diarias, Humalog 32 unidades antes del desayuno y Humalog 36 unidades antes del almuerzo y 32 unidades antes de la kvng. Coding Level of Care Code Est Pt Level 1 (42524) Diagnoses Uncontrolled type 2 diabetes mellitus with hyperglycemia E11.65
== END 2024-02-14 11:39 | disposition home or self-care (01) ==
PROVIDERS: PCP Registered Nurse; Visit Provider Registered Nurse Diabetes Educator
DX: E11.65 Type 2 diabetes mellitus with hyperglycemia (principal)

== ENCOUNTER → 2024-02-14 11:11 | Outpatient (BNVA) | payer MEDICAID, SELFPAY | PROVIDERS: PCP Registered Nurse; Visit Provider Registered Nurse Diabetes Educator | DX: E11.65 Type 2 diabetes mellitus with hyperglycemia (principal) | CPT/HCPCS: 99211 ==

== ENCOUNTER → 2024-02-20 15:15 | Outpatient (RCR) | payer MEDICAID, SELFPAY | END | disposition home or self-care (01) | LOC: HO.OT 04-07 10:09 | PROVIDERS: PCP Registered Nurse; Visit Provider Nurse Practitioner Primary Care | DX: M25.511 Pain in right shoulder (principal); M79.601 Pain in right arm ==

== ENCOUNTER 2024-02-26 12:37 | Outpatient (REF) | payer MEDICAID, SELFPAY ==
--- NOTE | ~2024-02-26 | XR_ITS ---
EXAMINATION: XR SHOULDER, LEFT CLINICAL INFORMATION: Pain in left shoulder COMPARISON: None available. TECHNIQUE: AP neutral, scapular Y, and axillary views of the left shoulder. FINDINGS: The bones are intact. No fracture. Glenohumeral and acromioclavicular alignment is anatomic with normal glenohumeral joint space. There is mild degenerative change of the acromioclavicular joint. No abnormal soft tissue calcifications. XR/XR shoulder LT min 2V IMPRESSION: Mild degenerative change of the acromioclavicular joint.
== END 2024-02-26 12:38 | disposition home or self-care (01) ==
LOC: HO.HOSX 12:37
PROVIDERS: Visit Provider Physician Assistant
DX: M25.512 Pain in left shoulder (principal); M75.02 Adhesive capsulitis of left shoulder
CPT/HCPCS: 20610; 73030; 99212; J1010

== ENCOUNTER 2024-02-26 13:36 | Outpatient (AMB) | payer MEDICAID, SELFPAY ==
[2024-02-26 14:09] VITALS: BMI 47.0
--- NOTE | 2024-02-26 14:09 | A.OFFVIS_ITS ---
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 Patient reports ongoing pain for about a year. No previous treatment. Pain is on the lateral aspect of the shoulder and it radiates up to her neck and down to her bicep. Patient expresses her pain is worse at night when is laying down and when she is pulling, carrying, and lifting. Allergies turkey Allergy (Severe, Verified 02/26/24 14:19) chest pain/swelling/SOB/itching Medication List - Last Reconciled 02/26/24 by Brenden Roberto PA-C acetaminophen 650 mg PO Q6H PRN atorvastatin 1 tab PO BEDTIME blood sugar diagnostic (FreeStyle Lite Strips) As directed blood-glucose meter (FreeStyle [place] Lite kit) As directed cetirizine 10 mg PO QAM cholecalciferol (vitamin D3) (Vitamin D3) 50 mcg PO DAILY flash glucose scanning reader (FreeStyle Valerio 2 [place]) As directed flash glucose sensor (FreeStyle Valerio 2 Sensor kit) USE DIRECTED gabapentin 300 mg PO QPM ibuprofen 400 mg PO Q6H PRN insulin aspart U-100 (Novolog FlexPen U-100 Insulin aspart) 43 units before breakfast and lunch and 20 units before dinner subcutaneously 3 times a day; insulin glargine U-300 conc (Toujeo SoloStar U-300 Insulin) 50 units (0.1667 mL) subcut QPM lancets (FreeStyle Lancets) As directed 3 times a day loperamide 2 mg PO Q4H PRN losartan 1 tab DAILY metoprolol tartrate 1 tab PO BID omeprazole 20 mg PO DAILY pen needle, diabetic (BD Lesley 2nd Gen Pen Needle) As directed 4 times a day tamoxifen 20 mg PO DAILY tirzepatide (Mounjaro) 2.5 mg (0.5 mL) subcut QWEEK HPI 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 She states she has pain at the lateral aspect of her shoulder that radiates up to her neck and down to her bicep region. Her pain is aggravated at night and with activities during the day. She also experiences weakness with lifting. She denies any numbness or tingling. She has not had any previous treatment. She has a history of diabetes. [facility] Medical History Uncontrolled type 2 diabetes mellitus with hyperglycemia Fever of unknown origin Seroma of breast GERD (gastroesophageal reflux disease) COVID-19 vaccine series completed Asthma Hypercholesteremia HTN (hypertension) Diabetes Invasive ductal carcinoma of left breast Surgical History History of incision and drainage (05/02/22) History of bilateral mastectomy (03/21/22) History of delivery History of cholecystectomy Family History Mother Breast cancer, Onset Age: 58 Sister Breast cancer, Onset Age: 54 Social History Household Members: Family Household Members Other:: and son Housing: House Housing Other:: [facility] Are you a primary career coach to a significant other at home: No Do you presently have visiting nurse or other home services: No Alcohol intake: never Patient Tobacco Use Status: Never used Tobacco Second Hand Smoke Exposure: No Advance Directives Date on File: 04/15/22 service: No Current occupational status: employed Female Reproductive History Menstrual Age of Menarche: 11 Review of Systems Const All systems reviewed & are unremarkable except as noted in HPI and below Physical Exam Vital Signs: BMI result Body Mass Index 47.0 Const General: cooperative, healthy appearing, comfortable, no acute distress, well developed and alert Orientation/consciousness: patient oriented x3 HEENT Head: Yes normal to inspection, Yes normocephalic and Yes atraumatic Eyes General: appearance normal, both eyes and all related structures Resp Effort & Inspection: normal respiratory effort and able to speak in complete sentences Cardio Rate: regular rate Peripheral pulses: Peripheral pulses 2+ throughout GI Palpation (GI): Soft to palpation Skin Lesions: no lesions Rashes: no rashes Neuro General: patient oriented x3 Extrem Other: Left shoulder normal to inspection. Tenderness over the bicipital groove and along the deltoid region of the shoulder. Forward flexion to 80, external rotation to 10, internal rotation to S1. She is unable to perform finger rotatio n. 5/5 RTC strength. Negative Mensah and cross body abduction. NVI. Office Procedures Joint Injection/Drain Joint Injection/Drain Primary Site: left shoulder Prep: site was prepped using aseptic technique, ethochloride spray was applied and injection warnings given Injected: 80 mg of, DepoMedrol, with 8 mL of, 1% plain lidocaine and in the subcromial space Approach Used: posterolateral Procedure: The patient tolerated the procedure well and there was some relief with the local anesthesia Coding 37760 - Glenohumeral/Tronchanteric Bursa/Intraarticular Procedure code (CPT) selection complete Results Reviewed Results Reviewed: Xrays were obtained in the office today and personally reviewed by me of the left shoulder show ac joint oa Assessment & Plan Assessment & Plan (1) Adhesive capsulitis of left shoulder: Code(s): M75.02 - Adhesive capsulitis of left shoulder Category: Medical Plan We discussed options today which include steroid injection. They did consent to move forward with the left shoulder injection, which was tolerated well. I recommended rest, ice and elevation and OTC anti-inflammatories PRN for discomfort. She was also given an order for physical therapy and a prescription for ibuprofen to take three times a day for 2 weeks was sent to her pharmacy. We also discussed their diabetes and the effect the steroid can have on their blood glucose levels; therefore, they will continue to monitor these very closely over the next 72 hours. If there are any concerns, they should report to the ED immediately. Orders: Orders PT Evaluation and Treatment Today M75.02 - Adhesive capsulitis of left shoulder XR shoulder LT min 2V Today M25.512 - Pain in left shoulder Medications: New ibuprofen 800 mg PO Q8H PRN 90 tabs 3RF pain 30 days M75.02 - Adhesive capsulitis of left shoulder Patient Instructions: Scribed for Brenden Roberto PA-C, by Jose Daniel Armstrong medical office professional instructor, on 02/26/2024 at 1:45 PM EST.? I, Brenden Roberto PA-C, have personally reviewed and agree with the information entered by the scribe. Coding Level of Care Code New Pt Level 3 (65216) Diagnoses Adhesive capsulitis of left shoulder M75.02 CPT Codes Coding - Joint 7: 41623 - Glenohumeral/Tronchanteric Bursa/Intraarticular ([id number])
== END 2024-02-26 14:58 | disposition home or self-care (01) ==
PROVIDERS: PCP Registered Nurse; Visit Provider Physician Assistant
DX: M75.02 Adhesive capsulitis of left shoulder (principal)
CPT/HCPCS: 20610; 99203

== ENCOUNTER 2024-02-27 12:54 | Outpatient (AMB) | payer MEDICAID, SELFPAY ==
--- NOTE | 2024-02-27 13:10 | MHC.OFFVIS ---
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 Patient reports locking and catching for about 3 weeks. States her finger will become stuck with bending her fingers. States her pain is worse in the right hand RF. Denies injury. Denies numbness or tingling. Hx of trigger injections 10 years ago in [place] that provided her with relief. 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 She complains of painful locking & catching of her bilateral ring fingers, R>L. She says over the last few weeks she has had to manually extend her fingers when they were locked in place. She has a hx of a trigger finger injection in ~2013 in [place], which gave her relief. She has adhesive capsulitis of her left shoulder, and received a steroid injection on 02/26/24, she says this raised her sugars to >250 following the injection. [facility] Medical History Uncontrolled type 2 diabetes mellitus with hyperglycemia Fever of unknown origin Seroma of breast GERD (gastroesophageal reflux disease) COVID-19 vaccine series completed Asthma Hypercholesteremia HTN (hypertension) Diabetes Invasive ductal carcinoma of left breast Surgical History History of incision and drainage (05/02/22) History of bilateral mastectomy (03/21/22) History of delivery History of cholecystectomy Family History Mother Breast cancer, Onset Age: 58 Sister Breast cancer, Onset Age: 54 Social History Household Members: Family Household Members Other:: and son Housing: House Housing Other:: [facility] Are you a primary neonatal intensive care unit nurse to a significant other at home: No Do you presently have visiting nurse or other home services: No Alcohol intake: never Patient Tobacco Use Status: Never used Tobacco Second Hand Smoke Exposure: No Advance Directives Date on File: 04/15/22 service: No Current occupational status: employed Female Reproductive History Menstrual Age of Menarche: 11 Review of Systems Const All systems reviewed & are unremarkable except as noted in HPI and below Physical Exam Const General: cooperative, healthy appearing and no acute distress Orientation/consciousness: patient oriented x3 HEENT Head: Yes normocephalic and Yes atraumatic Eyes EOM: EOMs intact bilaterally Resp Effort & Inspection: normal respiratory effort and able to speak in complete sentences Cardio Jugular venous distension: no JVD Skin General skin exam: turgor normal Rashes: no rashes Neuro General: patient oriented x3 Extrem Other: Evaluation of Bilateral Upper Extremity: The patient is alert, oriented, and in no acute distress Neuro: Median, Ulnar, Radial nerves motor and sensory intact and sensation is normal to the tips of all digits Vascular: Cap refill brisk ROM: She can make a fist and extend all her digits Visible and palpable locking and catching of bilateral ring fingers Tender over the a1 dora of bilateral ring fingers Skin: No lacerations or abrasions. General: No Ecchymosis. No Erythema or evidence of infection. Psych Appearance: grossly normal Affect: normal affect Attitude: cooperative Assessment & Plan Assessment & Plan (1) Trigger finger, right ring finger: Code(s): M65.341 - Trigger finger, right ring finger Category: Medical (2) Trigger finger, left ring finger: Code(s): M65.342 - Trigger finger, left ring finger Category: Medical (3) Uncontrolled type 2 diabetes mellitus with hyperglycemia: Code(s): E11.65 - Type 2 diabetes mellitus with hyperglycemia Category: Medical (4) PAD (peripheral artery disease): Code(s): I73.9 - Peripheral vascular disease, unspecified Category: Medical Plan Assessment & Plan: 1. Right ring finger trigger finger This is her primary complaint today I educated her about this condition I discussed operative and non-operative treatment options The patient would like to proceed with surgery, beginning with the right side The risks and benefits of operative treatment were discussed with the patient and the patient wishes to proceed with surgery. These risks include, but are not limited to risk of damage to blood vessels, nerves, tendons, infection, recurrence, incomplete relief of preoperative symptoms, persistent pain, possible need for further surgery and the risks associated with regional blocks and anesthesia. The plan is to take the patient to the operating room sometime in the next few weeks for the following procedures: 1. Right ring finger trigger release, under local All of the preoperative paperwork including the consent was reviewed today. All the patient's questions were answered. The patient understands that they will be contacted by our manufacturing scheduler soon to schedule this procedure She denies blood thinners, asthma, lung, kidney issues She is a Diabetic, She says her last HgA1c was 7.5% a few months ago. She says her Diabetes is usually well-controlled, and she has an appointment on 03/06/24 to have this checked again. 2. Left ring finger trigger finger Not particularly bothersome today We can discuss treatment for her left ring finger when she has recovered from surgery Scribed for Orquidea Snyder MD by Amando Donato, medical records director, on 02/27/24 at 1:30 PM, EST. Coding Level of Care Code Est Pt Level 4 (48693) Diagnoses Trigger finger, right ring finger M65.341 Trigger finger, left ring finger M65.342 Uncontrolled type 2 diabetes mellitus with hyperglycemia E11.65 PAD (peripheral artery disease) I73.9
[2024-02-27 13:22] VITALS: BMI 47.0
== END 2024-02-27 14:10 | disposition home or self-care (01) ==
PROVIDERS: PCP Registered Nurse; Visit Provider Orthopaedic Surgery
DX: M65.341 Trigger finger, right ring finger (principal); M65.342 Trigger finger, left ring finger; E11.65 Type 2 diabetes mellitus with hyperglycemia; I73.9 Peripheral vascular disease, unspecified
CPT/HCPCS: 99214

== ENCOUNTER → 2024-02-27 12:54 | Outpatient (BNVA) | payer MEDICAID, SELFPAY | PROVIDERS: PCP Registered Nurse; Visit Provider Orthopaedic Surgery | DX: M65.341 Trigger finger, right ring finger (principal); M65.342 Trigger finger, left ring finger; E11.65 Type 2 diabetes mellitus with hyperglycemia; I73.9 Peripheral vascular disease, unspecified | CPT/HCPCS: 99212 ==

== ENCOUNTER 2024-02-29 07:06 | Outpatient (REF) | payer MEDICAID, SELFPAY ==
[2024-02-29 08:33] LABS: Estimated Average Glucose 137 mg/dL; Hemoglobin A1c % 6.4 % (<6.0)
[2024-02-29 09:19] LABS: Anion Gap 14 (12-20); Blood Urea Nitrogen 17 mg/dL (9-16); Calcium 9.3 mg/dL (8.4-10.2); Carbon Dioxide 23 mmol/L (22-29); Chloride 110 mmol/L (96-108); Cholesterol 89 mg/dL (<200); Estimated Glomerular Filt Rate > 60; Glucose Random 98 mg/dL (60-115); HDL Cholesterol 42 mg/dL (>40); LDL Cholesterol Calculated 40 mg/dL (<100); Sodium 143 mmol/L (135-145); Triglycerides 37 mg/dL (<150)
== END 2024-02-29 07:07 | disposition home or self-care (01) ==
LOC: HO.LAB 07:06
PROVIDERS: Absent Provider Registered Nurse; PCP Registered Nurse; Visit Provider Internal Medicine Endocrinology, Diabetes & Metabolism
DX: E11.65 Type 2 diabetes mellitus with hyperglycemia (principal); Z79.4 Long term (current) use of insulin; N95.0 Postmenopausal bleeding; I10 Essential (primary) hypertension
CPT/HCPCS: 36415; 58100; 80048; 80061; 83036; 99212

== ENCOUNTER 2024-02-29 14:30 | Outpatient (AMB) | payer MEDICAID, SELFPAY ==
--- NOTE | 2024-02-29 14:46 | A.OFFVIS_ITS ---
Vital Signs 02/29/24 14:47 Height 5 ft 4 in Weight 273 lb 5.971 oz BMI 46.9 BP 130/74 Intake Visit Reasons: PMB Mate Ship Required: Yes Mate Ship Language: Graphic Coordinator Name: Brigitte NO Information Interpreted: non-clinical & clinical Conveyor Line Bakery Worker: Conveyor Line Bakery Worker Present (Brigitte NO) Accompanied by: Self / Same As Patient Allergies turkey Allergy (Severe, Verified 02/29/24 14:59) chest pain/swelling/SOB/itching Post menopausal: Yes HPI Comments Details: Presenting complaining of recurrent episodes of vaginal bleeding. Patient had vaginal bleeding in 11/17, underwent hysteroscopic polypectomy D&C, the pathology showed benign polyp with benign inactive endometrium. The patient did well with no vaginal bleeding for the 1st 5 months after the procedure but she developed recurrence of her vaginal bleeding over the last 7 months. The patient did not reach out regarding the recurrence of her vaginal bleeding. Last co testing was negative in 06/16 [facility] Medical History Uncontrolled type 2 diabetes mellitus with hyperglycemia Fever of unknown origin Seroma of breast GERD (gastroesophageal reflux disease) COVID-19 vaccine series completed Asthma Hypercholesteremia HTN (hypertension) Diabetes Invasive ductal carcinoma of left breast Surgical History History of incision and drainage (05/02/22) History of bilateral mastectomy (03/21/22) History of delivery History of cholecystectomy Family History Mother Breast cancer, Onset Age: 58 Sister Breast cancer, Onset Age: 54 Social History Household Members: Family Household Members Other:: and son Housing: House Housing Other:: [facility] Are you a primary manager managed care to a significant other at home: No Do you presently have visiting nurse or other home services: No Alcohol intake: never Patient Tobacco Use Status: Never used Tobacco Second Hand Smoke Exposure: No Advance Directives Date on File: 04/15/22 service: No Current occupational status: employed Female Reproductive History Menstrual Age of Menarche: 11 Review of Systems Const All systems reviewed & are unremarkable except as noted in HPI and below Reports as per HPI and Reports no additional complaints GI Reports no additional complaints Reports no additional complaints Physical Exam Vital Signs: Last Vital Signs BP 130/74 02/29/24 14:47 BMI result Body Mass Index 46.9 General: Yes no CVA tenderness External Female Exam: normal external appearance and normal appearance of the urethra Speculum Exam - Vagina: normal appearance of the vagina, normal palpation, no lesions and no masses Speculum Exam - Cervix: normal appearance of the cervix, normal palpation, no lesions, no masses and nontender Bimanual exam- vagina & uterus: normal bimanual exam, normal palpation, uterine size normal, normal palpation, uterine shape normal, No Cervical tenderness present and non-tender Bimanual Exam- Adnexa, other: normal adnexae Back/Spine/Pelvis Back: no CVA tenderness Assessment & Plan Assessment & Plan (1) Postmenopausal bleeding: Code(s): N95.0 - Postmenopausal bleeding Category: Medical Plan: Discussed with the patient the differential diagnosis of post menopausal bleeding with normal pelvic exam including but not limited to, endometrial hyperplasia, cancer, polyps and other causes; recommended ultrasound and endometrial sampling via office endometrial biopsy versus hysteroscopy D&C polypectomy . All pros and cons risks and benefits of each were discussed with the patient, the patient decided to proceed with an office endometrial biopsy, EMB done, see procedure note. Pelvic ultrasound ordered. Instructed the patient to schedule an EMB/ ultrasound follow-up appointment in 2 weeks. All questions answered, the patient verbalized understanding and agreed with the plan. Orders: Orders AMB Endometrial Biopsy Today N95.0 - Postmenopausal bleeding US pelvic and transvaginal Today N95.0 - Postmenopausal bleeding Surgical Today N95.0 - Postmenopausal bleeding Coding Level of Care Code Est Pt Level 3 (71056) Procedure Only Diagnoses Postmenopausal bleeding N95.0
[2024-02-29 14:47] VITALS: BP 130/74; BMI 46.9
== END 2024-02-29 15:23 | disposition home or self-care (01) ==
PROVIDERS: PCP Registered Nurse; Visit Provider Obstetrics & Gynecology
DX: N95.0 Postmenopausal bleeding (principal)
CPT/HCPCS: 58100; 99213

== ENCOUNTER 2024-02-29 15:19 | Outpatient (REF) | payer MEDICAID, SELFPAY | END 2024-02-29 15:20 | disposition home or self-care (01) | LOC: HO.LNP 15:19 | PROVIDERS: Visit Provider Obstetrics & Gynecology | DX: N95.0 Postmenopausal bleeding (principal) | CPT/HCPCS: 88305 ==

== ENCOUNTER 2024-03-06 13:02 | Outpatient (AMB) | payer MEDICAID, SELFPAY ==
--- NOTE | 2024-03-06 13:03 | A.OFFVIS_ITS ---
Vital Signs 03/06/24 13:04 Height 5 ft 4 in Weight 273 lb 13.026 oz BMI 47.0 BP 156/70 H Blood Pressure Location Lt brachial Position Sitting Pulse 72 Pulse Source Pulse Oximeter Intake Visit Reasons: f/u Type 2 DM-confirmed Intake Note: Patient presents today to follow up on D2MT. Last Diabetic Eye exam: 11/2023 Last Podiatry Visit:Doesn't have one Random Glucose: 97 mg/dl HgA1c: 6.4% 02/29/24 High Density Talc Coater Operator Required: Yes High Density Talc Coater Operator Language: English Information Interpreted: non-clinical & clinical Accompanied by: Son Allergies turkey Allergy (Severe, Verified 03/06/24 13:09) chest pain/swelling/SOB/itching HPI Comments Details: 63 YO F who is seen in consultation for T2DM at the request of PCP. Initially diagnosed with T2DM in 21 yrs . Was initially started on treatment with metformin. Hd Gi issues Current regimen Toujeo 50 units Humalog 43 units before breakfast and lunch and 20 units before dinner Valerio download shows the sensor is active 85% of the time. Average glucose is 136 with GMI of 6.6%. 86% range with 13% hyperglycemia and 1 % hypoglycemia Reports low sugars hypoglycemia after dinner Treats lows with cracker . Checks sugar after to ensure it is rising. Treats and checks 30 min later No Family history of T2DM. Has eyes checked yearly, last eye exam has appt 11/12/2023 denies retinopathy. Denies neuropathy, Not , sees podiatry. Denies nephropathy, Not on DAX/ARB. Has HLD, on statin. Denies CAD. Had diabetes education at [facility] . [facility] Medical History Uncontrolled type 2 diabetes mellitus with hyperglycemia Fever of unknown origin Seroma of breast GERD (gastroesophageal reflux disease) COVID-19 vaccine series completed Asthma Hypercholesteremia HTN (hypertension) Diabetes Invasive ductal carcinoma of left breast Surgical History History of incision and drainage (05/02/22) History of bilateral mastectomy (03/21/22) History of delivery History of cholecystectomy Family History Mother Breast cancer, Onset Age: 58 Sister Breast cancer, Onset Age: 54 Social History Household Members: Family Household Members Other:: and son Housing: House Housing Other:: [facility] Are you a primary customer care team coach to a significant other at home: No Do you presently have visiting nurse or other home services: No Alcohol intake: never Patient Tobacco Use Status: Never used Tobacco Second Hand Smoke Exposure: No Advance Directives Date on File: 04/15/22 service: No Current occupational status: employed Female Reproductive History Menstrual Age of Menarche: 11 Physical Exam Vital Signs: Last Vital Signs Pulse 72 03/06/24 13:04 BP 156/70 H 03/06/24 13:04 BMI result Body Mass Index 47.0 Absence of Cushingoid features. Absence of acromegalic features. Neck exam reveals nl size thyroid about 15 gms. No thyroid nodules palpable. No carotid bruits present. Lungs CTA. Heart S1 S2, Reg R/R. No M/R/ G. Skin exam reveals absence of vitiligo or acanthosis nigricans. Abdominal exam reveals Soft NT/ND with NA BS. No organomegaly present. Neck Other: . Extrem Other: Visual exam of foot performed. No ulcerations or open lesions. No onchomycosis, no callouses.Pulses 2 + distally Sensation decreased to monofilament exam. Vibratory sensation sensed is decreased with 128 Hz tuning fork Results Reviewed Results Reviewed: Laboratory Last Values Glucose (Clinic) 97 mg/dL (60-115) 03/06/24 13:11 Assessment & Plan Assessment & Plan (1) Uncontrolled type 2 diabetes mellitus with hyperglycemia: Code(s): E11.65 - Type 2 diabetes mellitus with hyperglycemia Category: Medical Plan: This is a 63-year-old female with a history of Type 2 diabetes currently being treated with basal-bolus insulin with excellent improved glycemic control and known microvascular complications namely neuropathy. Plan is to continue the current management. Patient will follow up with the diabetic primary care team here Coding Level of Care Code Est Pt Level 4 (13766) Diagnoses Uncontrolled type 2 diabetes mellitus with hyperglycemia E11.65
[2024-03-06 13:04] VITALS: BP 156/70; PULSE 72; BMI 47.0
[2024-03-06 13:15] LABS: Glucose, Whole Blood 97 mg/dL (60-115)
== END 2024-03-06 13:34 | disposition home or self-care (01) ==
PROVIDERS: PCP Registered Nurse; Referring Provider Registered Nurse; Visit Provider Internal Medicine Endocrinology, Diabetes & Metabolism
DX: E11.65 Type 2 diabetes mellitus with hyperglycemia (principal)
CPT/HCPCS: 99214

== ENCOUNTER → 2024-03-06 13:02 | Outpatient (BNVA) | payer MEDICAID, SELFPAY | PROVIDERS: PCP Registered Nurse; Visit Provider Internal Medicine Endocrinology, Diabetes & Metabolism | DX: E11.65 Type 2 diabetes mellitus with hyperglycemia (principal); E78.5 Hyperlipidemia, unspecified | CPT/HCPCS: 82947; 99212 ==

== ENCOUNTER 2024-03-08 12:51 | Outpatient (REF) | payer MEDICAID, SELFPAY ==
--- NOTE | ~2024-03-08 | US_ITS ---
EXAMINATION: US PELVIS CLINICAL INFORMATION: Postmenopausal bleeding COMPARISON: Pelvic ultrasound 09/01/2022 TECHNIQUE: Ultrasound of the pelvis is performed using both transabdominal and transvaginal transducers along with Doppler. Transvaginal imaging is performed due to inadequate visualization transabdominally. Technologist notes: Limited examination due to patient body habitus. FINDINGS: Uterus: The uterus is anteverted, retroflexed and measures 8.9 x 4.2 x 5.1 cm in the sagittal, AP and transverse dimensions. The uterine echotexture is heterogeneous. A simple appearing cyst is noted in the region of the uterine fundus measuring 1.5 x 1 x 2 cm. Endometrial thickness measures 0.9 cm, previously measuring 1.3 cm. Small nabothian cysts are seen in the cervix. Bilateral ovaries are not visualized. No significant free fluid in the pelvis. US/US pelvic and transvaginal IMPRESSION: Persistent thickened endometrium measuring up to 0.9 cm. Given history of post menopausal bleeding, correlation with direct visualization and tissue sampling is recommended to assess for endometrial hyperplasia or other neoplastic etiology.
== END 2024-03-08 12:52 | disposition home or self-care (01) ==
LOC: HO.US 12:51
PROVIDERS: PCP Registered Nurse; Visit Provider Obstetrics & Gynecology
DX: N95.0 Postmenopausal bleeding (principal)
CPT/HCPCS: 76830; 76856

== ENCOUNTER 2024-03-11 14:26 | Outpatient (AMB) | payer MEDICAID, SELFPAY ==
[2024-03-11 14:57] VITALS: BMI 46.9
--- NOTE | 2024-03-11 14:57 | MHC.OFFVIS ---
Vital Signs 03/11/24 14:57 Height 5 ft 4 in Weight 273 lb 5.971 oz BMI 46.9 Intake Visit Reasons: emb results/DO NOT RS Retail Management Trainee Required: Yes Retail Management Trainee Language: Research Program Intern Name: Brigitte NO Information Interpreted: non-clinical & clinical Allergies turkey Allergy (Severe, Verified 03/11/24 14:58) chest pain/swelling/SOB/itching HPI Comments Details: The patient is presenting after endometrial biopsy. The patient has no complaints, no vaginal bleeding, no feverishness chills or abdominal pain. The endometrial biopsy pathology report showed the following: Endometrial biopsy: Endometrial hyperplasia without atypia, arising in disordered proliferative endometrium with breakdown; no atypia or carcinoma Pelvic ultrasound report still pending Last co testing was in 06/16 was negative [facility] Medical History Uncontrolled type 2 diabetes mellitus with hyperglycemia Fever of unknown origin Seroma of breast GERD (gastroesophageal reflux disease) COVID-19 vaccine series completed Asthma Hypercholesteremia HTN (hypertension) Diabetes Invasive ductal carcinoma of left breast Surgical History History of incision and drainage (05/02/22) History of bilateral mastectomy (03/21/22) History of delivery History of cholecystectomy Family History Mother Breast cancer, Onset Age: 58 Sister Breast cancer, Onset Age: 54 Social History Household Members: Family Household Members Other:: and son Housing: House Housing Other:: [facility] Are you a primary patient care technician instructor to a significant other at home: No Do you presently have visiting nurse or other home services: No Alcohol intake: never Patient Tobacco Use Status: Never used Tobacco Second Hand Smoke Exposure: No Advance Directives Date on File: 04/15/22 service: No Current occupational status: employed Female Reproductive History Menstrual Age of Menarche: 11 Review of Systems Const All systems reviewed & are unremarkable except as noted in HPI and below Reports as per HPI and Reports no additional complaints GI Reports no additional complaints Reports no additional complaints Physical Exam Vital Signs: BMI result Body Mass Index 46.9 Assessment & Plan Assessment & Plan (1) Endometrial hyperplasia: Code(s): N85.00 - Endometrial hyperplasia, unspecified Category: Medical Plan: Discussed with the patient the pathology results, simple endometrial hyperplasia with no atypia, in addition to the risk of progression, the persistence and regression rate of endometrial hyperplasia. Options of treatment discussed with the patient included surgical (recommended) or progestin. All pros and cons, risks and benefits of each were discussed with the patient. Patient decided to proceed with surgical management. Discussed with the patient the different types of hysterectomies including, vaginal, laparoscopic assisted vaginal, robotic assisted laparoscopic,& abdominal with BSO. All pros, cons, r/b of each approach were discussed the patient including evidence that morbidity is less and recovery is shorter with minimally invasive approaches to hysterectomy. Treater Helper Oncology referral placed. Orders: Referrals Gynecologic Oncology Referral N85.00 - Endometrial hyperplasia, unspecified Coding Level of Care Code Est Pt Level 3 (71612) Diagnoses Endometrial hyperplasia N85.00
== END 2024-03-11 16:27 | disposition home or self-care (01) ==
LOC: HO.HWS 14:26
PROVIDERS: PCP Registered Nurse; Visit Provider Obstetrics & Gynecology
DX: N85.00 Endometrial hyperplasia, unspecified (principal)
CPT/HCPCS: 99213

== ENCOUNTER → 2024-03-11 14:26 | Outpatient (BNVA) | payer MEDICAID, SELFPAY | PROVIDERS: PCP Registered Nurse; Visit Provider Obstetrics & Gynecology | DX: N85.00 Endometrial hyperplasia, unspecified (principal) | CPT/HCPCS: 99212 ==

== ENCOUNTER 2024-04-17 12:15 | Outpatient (AMB) | payer MEDICAID, SELFPAY ==
--- NOTE | 2024-04-17 12:32 | A.OFFVIS_ITS ---
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 Random Glucose- 116mg/dL, Today Program Director Substance Abuse Required: Yes Program Director Substance Abuse Language: Arabic Accompanied by: Self / Same As Patient Allergies turkey Allergy (Severe, Verified 04/17/24 12:34) chest pain/swelling/SOB/itching HPI Comments Details: 63 YO F who is seen in f/u for type 2 diabetes. She was last seen by Dr. Brewster 03/18. Initially diagnosed with T2DM in 21 yrs . Was initially started on treatment with metformin. Had Gi issues Current regimen: Toujeo 45 units Humalog breakfast 32 units lunch 36 units dinner 32 units Free style 2: avg 140 GMI 6.7% very high 2% high 19% low 2% very low 0% highs were associated with prednisone Reports low sugars hypoglycemia mild intermittent Treats lows with cracker . Checks sugar after to ensure it is rising. Treats and checks 30 min later She is on a vit d supplement for low D from earlier this year Fib 4 score 2-3 Tra: ct abd negative for fatty liver No Family history of T2DM. Has eyes checked yearly, last eye exam has appt 11/12/2023 denies retinopathy. Denies neuropathy, does not see podiatry. No numbness, tingling or cramping Denies nephropathy, Not on DAX/ARB. Has HLD, on statin. Denies CAD. follows balanced diet walks 2 hours daily Had diabetes education at [facility] 08/11/23 12/04/23 02/29/24 09:44 10:39 07:24 Potassium 4.0 BUN 17 H Creatinine 0.79 Estimated GFR > 60 Estimat Average Glucose 137 Hemoglobin A1c % 6.4 H Calcium 9.3 D AST 21 ALT 24 Albumin 3.7 Triglycerides 37 Cholesterol 89 LDL Cholesterol, Calc 40 HDL Cholesterol 42 25-OH Vitamin D Total 19.1 L Urine Creatinine 140.25 Urine Microalbumin 33.0 Microalb/Creat Ratio 23.5 PFS Medical History (Updated 04/17/24 @ 12:38 by Shikha Simmons NP) Type 2 diabetes mellitus Uncontrolled type 2 diabetes mellitus with hyperglycemia Fever of unknown origin Seroma of breast GERD (gastroesophageal reflux disease) COVID-19 vaccine series completed Asthma Hypercholesteremia HTN (hypertension) Diabetes Invasive ductal carcinoma of left breast Surgical History History of incision and drainage (05/02/22) History of bilateral mastectomy (03/21/22) History of delivery History of cholecystectomy Family History Mother Breast cancer, Onset Age: 58 Sister Breast cancer, Onset Age: 54 Social History Household Members: Family Household Members Other:: and son Housing: House Housing Other:: [facility] Are you a primary primary care nurse practitioner to a significant other at home: No Do you presently have visiting nurse or other home services: No Alcohol intake: never Patient Tobacco Use Status: Never used Tobacco Second Hand Smoke Exposure: No Advance Directives Date on File: 04/15/22 service: No Current occupational status: employed Female Reproductive History Menstrual Age of Menarche: 11 Physical Exam Const General: cooperative and healthy appearing Nutritional Appearance: overweight Orientation/consciousness: oriented to person Limitations: no limitations Neck Neck: Yes normal visual inspection Thyroid: Thyroid normal Resp Effort & Inspection: normal respiratory effort Cardio Jugular venous distension: no JVD Rate: regular rate Rhythm: regular rhythm Heart sounds: S1 normal heart sound present and S2 normal heart sound present Neuro General: oriented to person Extrem Other: Visual exam of foot performed. No ulcerations or open lesions. No onchomycosis, no callouses. Sensation intact to monofilament exam. Vibratory sensation is normal with 128 Hz tuning fork. Assessment & Plan Assessment & Plan (1) Type 2 diabetes mellitus: Code(s): E11.9 - Type 2 diabetes mellitus without complications Category: Medical Plan: This is a 63-year-old female with a history of Type 2 diabetes currently being treated with basal-bolus insulin with excellent improved glycemic control and known microvascular complications namely neuropathy (none recent). She is having some lows. Will switch to free style 3 and reduce humalog dosing by 2 units each dose. She requests Vocal[employer] appt for conversion and will be using her phone TouGengoo 45 units Humalog breakfast 30 units lunch 34 units dinner 30 units Reviewed need to carry sugar source. Contact clinic if trending low Screened with Fib 4: 2-[address] abdomen no fatty liver . Coding Level of Care Code Est Pt Level 4 (79841) Diagnoses Type 2 diabetes mellitus E11.9 Time Spent (min) 40 Comment chart review, document, face to face
[2024-04-17 12:33] VITALS: BP 136/82; PULSE 86; BMI 46.9
[2024-04-17 12:44] LABS: Glucose, Whole Blood 116 mg/dL (60-115)
== END 2024-04-17 13:04 | disposition home or self-care (01) ==
PROVIDERS: PCP Registered Nurse; Visit Provider Nurse Practitioner Adult Health
DX: E11.9 Type 2 diabetes mellitus without complications (principal)
CPT/HCPCS: 99214

== ENCOUNTER → 2024-04-17 12:15 | Outpatient (BNVA) | payer MEDICAID, SELFPAY | PROVIDERS: PCP Registered Nurse; Visit Provider Nurse Practitioner Adult Health | DX: E11.9 Type 2 diabetes mellitus without complications (principal) | CPT/HCPCS: 82947; 99212 ==

== ENCOUNTER 2024-05-02 13:54 | Day surgery (SDC) | payer MEDICAID, SELFPAY ==
[2024-05-02 14:19] VITALS: BMI 47.0
[2024-05-02 14:21] VITALS: BP 165/67; PULSE 80; RESP 18; TEMP 36.9; O2SAT 99
[2024-05-02 14:34] LABS: Glucose, Whole Blood 79 mg/dL (60-115)
--- NOTE | 2024-05-02 14:34 | PC.NURSE ---
Patient stated that she ate a small breakfast this morning and took her insulin. Was in waiting room and stated POC was 69 and she ate a small candy bar. POC checked at 1435 and is 79. With commercial instructor supervisor patient stated she is not symptomatic, but her sugars at home the lowest has been in the low 100's. Given glass of apple juice at this time. Will re-assess.
--- NOTE | 2024-05-02 14:58 | PC.NURSE ---
POC is now 85. Patient asymptomatic. Report given to Bre Dowd RN at this time. Asked to update Dr. Snyder regarding POC. as necessary.
[2024-05-02 15:07] LABS: Glucose, Whole Blood 85 mg/dL (60-115)
--- NOTE | 2024-05-02 16:06 | MHC.SHP ---
Pre-Procedural Eval Section A - 24 Hr Update-Section A only Date of Service: 05/02/24 The patient is an INPATIENT: No Changes since office visit: No Cold of Flu in the past 2 weeks, No New Medical Problems, No Changes in Medication and No Patient answered all questions The patient has been examined within 24 hours of the surgical procedure. The History & Physical has been completed within 30 days and I have reviewed it.: Yes Section B - Complete if H&P > 30 days Chief Complaint: Trigger finger, right ring finger Allergies: Allergies Allergy/AdvReac Type Severity Reaction Status Date / Time turkey Allergy Severe chest Verified 05/02/24 14:22 pain/swelling/SOB/itching Plan Diagnosis/Plan: Unchanged I have reviewed the history and physical and performed a pertinent physical examination on my patient. No changes have occurred unless specified. Time Spent With Patient Time: Total time managing care of this patient today ____ minutes.
--- NOTE | 2024-05-02 16:07 | P.OP_ITS ---
Operative Note Operative Note Date of Service: 05/02/24 Narrative: Operative Note Preop diagnosis: 1. Right ring finger Trigger finger Postop diagnosis: 1. Right ring finger Trigger finger Procedure: 1. Right ring finger A1 dora release Surgeon: Orquidea Snyder MD Marriage And Family Teacher: JOHNNY Manzano Anesthesia: local block using 1% lidocaine with epinephrine Findings: No locking or catching after A1 dora release EBL: Less than 5 mL Tourniquet time: None Specimens: None Complications: None Disposition: Brought to recovery room in stable condition Plan: Follow-up for 10-14 days for wound check and suture removal Indications: The patient is 64 years old, with a right ring finger trigger finger that has been unresponsive to nonoperative management. The risks and benefits of operative treatment including but not limited to risk of damage to blood vessels, nerves, tendons, infection, persistent pain, persistent symptoms, recurrence or possible need for additional surgery were discussed with the patient and the patient wishes to proceed with surgery. Procedure: Once consent was obtained a local block was performed in the preop area using a combination of 1% lidocaine with epinephrine. The patient was then brought back to the operating suite and placed on the operative table in supine position. The right upper extremity was prepped and draped in a standard surgical fashion. Once assured that we had a good block, a 1.5 cm oblique incision was made centered over the A1 dora of the right ring finger . The incision was made through the skin to the subcutaneous tissues using a #15 blade. Careful dissection was made down to the level of the A1 dora using tenotomy scissors, with care being taken to protect the nearby neurovascular structures. A longitudinal incision was made in the A1 dora 1st using a #15 blade, then using tenotomy scissors under direct visualization. The A1 dora was noted to be thickened. Following our A1 dora release, we no longer saw any locking or catching of the digit with flexion and extension. Once satisfied with our A1 doar release the wound was copiously irrigated with normal saline and hemostasis was obtained with a brief period of local pressure. The skin edges were reapproximated with some 5.0 nylon suture material and a sterile dressing was applied. The patient appears to have tolerated the procedure well and with no complications. All digits were well vascularized at the conclusion of the case.
[2024-05-02 17:48] VITALS: BP 150/73; PULSE 82; RESP 16; TEMP 36.6; O2SAT 98
== END 2024-05-02 17:55 | disposition home or self-care (01) ==
PROVIDERS: PCP Registered Nurse; Visit Provider Orthopaedic Surgery
PROC: (CPT 26055; principal; 2024-05-02 16:20)
DX: M65.341 Trigger finger, right ring finger (principal); I10 Essential (primary) hypertension; I73.9 Peripheral vascular disease, unspecified; E78.00 Pure hypercholesterolemia, unspecified; J45.909 Unspecified asthma, uncomplicated; E11.65 Type 2 diabetes mellitus with hyperglycemia; C50.912 Malignant neoplasm of unspecified site of left female breast; Z79.810 Long term (current) use of selective estrogen receptor modulators (SERMs); Z79.4 Long term (current) use of insulin; Z79.899 Other long term (current) drug therapy
CPT/HCPCS: 26055; 82947; J0171

== ENCOUNTER → 2024-05-02 13:54 | Outpatient (BNV) | payer MEDICAID, SELFPAY | PROVIDERS: PCP Registered Nurse; Visit Provider Orthopaedic Surgery | DX: M65.341 Trigger finger, right ring finger (principal) | CPT/HCPCS: 26055 ==

== ENCOUNTER 2024-05-08 12:20 | Outpatient (AMB) | payer MEDICAID, SELFPAY ==
--- NOTE | 2024-05-08 12:49 | MHC.AMDMED ---
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 Required: Yes Paint Line Production Supervisor Language: Driver Wheelchair Name: Demetra [id number] Information Interpreted: non-clinical & clinical Accompanied by: Son Allergies turkey Allergy (Severe, Verified 05/02/24 14:22) chest pain/swelling/SOB/itching HPI Comprehensive Diabetes Asmnt Most Recent Diabetes Results: Hemoglobin A1c 9.1 % 05/14/20 Microalb/Creat Ratio 23.5 ug/mg cr (<30) 08/11/23 Cholesterol 89 mg/dL (<200) 02/29/24 HDL Cholesterol 42 mg/dL (>40) 02/29/24 Triglycerides 37 mg/dL (<150) 02/29/24 Creatinine 0.79 mg/dL (0.5-1.4) 02/29/24 Blood Urea Nitrogen 17 mg/dL (9-16) H 02/29/24 Sodium 143 mmol/L (135-145) 02/29/24 Potassium 4.0 mmol/L (3.3-5.1) 02/29/24 Chloride 110 mmol/L (96-108) H 02/29/24 Carbon Dioxide 23 mmol/L (22-29) 02/29/24 Calcium 9.3 mg/dL (8.4-10.2) 02/29/24 AST 21 U/L (5-31) 12/04/23 ALT 24 U/L (0-31) 12/04/23 Total Protein 7.2 g/dL (6.5-8.0) 12/04/23 Albumin 3.7 g/dL (3.5-5.0) 12/04/23 [facility] Medical History Type 2 diabetes mellitus Uncontrolled type 2 diabetes mellitus with hyperglycemia Fever of unknown origin Seroma of breast GERD (gastroesophageal reflux disease) COVID-19 vaccine series completed Asthma Hypercholesteremia HTN (hypertension) Diabetes Invasive ductal carcinoma of left breast Surgical History History of incision and drainage (05/02/22) History of bilateral mastectomy (03/21/22) History of delivery History of cholecystectomy Family History Mother Breast cancer, Onset Age: 58 Sister Breast cancer, Onset Age: 54 Social History Household Members: Family Household Members Other:: and son Housing: House Housing Other:: [facility] Are you a primary managed care specialist to a significant other at home: No Do you presently have visiting nurse or other home services: No Alcohol intake: never Patient Tobacco Use Status: Never used Tobacco Second Hand Smoke Exposure: No Advance Directives Date on File: 04/15/22 service: No Current occupational status: employed Female Reproductive History Menstrual Age of Menarche: 11 Assessment & Plan Assessment & Plan (1) Type 2 diabetes mellitus: Code(s): E11.9 - Type 2 diabetes mellitus without complications Plan: Personal Continuous Glucose Monitor: Patients CGM information reviewed Reviewed patient's sensor data: Hypoglycemia: ? 1% Hyperglycemia:? 36% Time in Range:? 63% Average glucose for the last 2 weeks?162 mg/dL Patient has not picked up Valerio 3 sensors yet. We did not set up Valerio 3, because she is still using Valerio 2 donnie on her phone and we do not want interference between the 2 apps. Patient continues to have overnight and post meal hypoglycemia, reviewed with patient how to treat hypoglycemia with rule of 15s Encourage patient to get hypoglycemia treatment such as small juice box, or glucose tabs to carry with her Recommended to patient she decrease Toujeo to 44 units daily Humalog 28 units before breakfast, 32 units before lunch, 28 units before breakfast Patient agreed to plan If patient continues to have hypoglycemia or needs assistance with setting up Valerio 3 happened sensors she will contact adult educator Patient able to insert sensor independently at home without issue.? Portions of this note were created using voice recognition software, please excuse any words or phrases that may have been misinterpreted. Patient Instructions: Reducir Toujeo 44 unidades Humalogo desayuno 28 unidades almuerzo 32 unidades kvng 28 unidades Melony un seguimiento con la enfermera de educaci?n sobre diabetes cuando reciba los sensores Valerio 3 Coding Level of Care Code Est Pt Level 1 (50265) Diagnoses Type 2 diabetes mellitus E11.9
== END 2024-05-08 12:57 | disposition home or self-care (01) ==
PROVIDERS: PCP Registered Nurse; Visit Provider Registered Nurse Diabetes Educator
DX: E11.9 Type 2 diabetes mellitus without complications (principal)

== ENCOUNTER → 2024-05-08 12:20 | Outpatient (BNVA) | payer MEDICAID, SELFPAY | PROVIDERS: PCP Registered Nurse; Visit Provider Registered Nurse Diabetes Educator | DX: E11.9 Type 2 diabetes mellitus without complications (principal) | CPT/HCPCS: 99211 ==

== ENCOUNTER 2024-05-15 13:15 | Outpatient (AMB) | payer MEDICAID, SELFPAY ==
--- NOTE | 2024-05-15 13:20 | A.OFFVIS_ITS ---
Vital Signs 05/15/24 13:30 Height 5 ft 4 in Weight 274 lb BMI 47.0 Intake Visit Reasons: PO RT RF trigger 05/02/24 AR Intake Note: Halina a 63 year old right hand dominant female who presents today post operatively s/p right ring finger trigger release done 05/02/[address] Snyder. Patient reports no pain or concerns today. Patient states she did not take the Oxycodone that were prescribed. Denies numbness, tingling, or locking on finger. Patient states stitches fell off on their own a week after surgery. Allergies turkey Allergy (Severe, Verified 05/15/24 13:30) chest pain/swelling/SOB/itching HPI HPI PO RT RF trigger 05/02/24 AR: Details: Halina is a 63 year old right hand dominant Czech speaking Diabetic woman who returns S/P right ring finger trigger release, DOS: 05/02/24. She says she is doing well, without complaint, and no longer has any locking or catching in her right hand She has adhesive capsulitis of her left shoulder, and received a steroid injection on 02/26/24, she says this raised her sugars to >250 following the injection. She complains of limited ROM of her shoulder. [facility] Medical History Type 2 diabetes mellitus Uncontrolled type 2 diabetes mellitus with hyperglycemia Fever of unknown origin Seroma of breast GERD (gastroesophageal reflux disease) COVID-19 vaccine series completed Asthma Hypercholesteremia HTN (hypertension) Diabetes Invasive ductal carcinoma of left breast Surgical History History of incision and drainage (05/02/22) History of bilateral mastectomy (03/21/22) History of delivery History of cholecystectomy Family History Mother Breast cancer, Onset Age: 58 Sister Breast cancer, Onset Age: 54 Social History (Updated 05/15/24 @ 08:47 by MARYBEL Werner) Household Members: Family Household Members Other:: and son Housing: House Housing Other:: [facility] Are you a primary medicare contact specialist to a significant other at home: No Do you presently have visiting nurse or other home services: No Alcohol intake: never Patient Tobacco Use Status: Never used Tobacco Second Hand Smoke Exposure: No Advance Directives Date on File: 04/15/22 service: No Current occupational status: employed 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 Sutures removed and Steri-Strips applied She can make a fist and extend all her digits No locking or catching of ehr right ring finger Sensation is intact Cap refill is brisk Psych Appearance: grossly normal Affect: normal affect Attitude: cooperative Assessment & Plan Assessment & Plan (1) Trigger finger, right ring finger: Code(s): M65.341 - Trigger finger, right ring finger Category: Medical (2) Trigger finger, left ring finger: Code(s): M65.342 - Trigger finger, left ring finger Category: Medical (3) Uncontrolled type 2 diabetes mellitus with hyperglycemia: Code(s): E11.65 - Type 2 diabetes mellitus with hyperglycemia Category: Medical (4) PAD (peripheral artery disease): Code(s): I73.9 - Peripheral vascular disease, unspecified Category: Medical Plan Assessment & Plan: 1. Right ring finger trigger finger, S/P release DS: 05/02/24 The patient appears to be doing well post-operatively I educated her about the post-operative course I explained the signs and symptoms of infection I discussed activity modifications, she is to lift nothing heavier than a cellphone for the next two weeks She will perform gentle ROM exercises at home She should avoid any underwater activities for the next 5 days She should gently massage about the incision site to reduce the risk of hypersensitivity She can follow up prn 2. Left ring finger trigger finger Not particularly bothersome today We can discuss treatment for her left ring finger when she has recovered from surgery Scribed for Orquidea Snyder MD by Amando Donato medical staff services coordinator, on 05/15/24 a t 1:40 PM, EST. Scribe Plan - Not visible on output: Scribed for Orquidea Snyder MD by Amando Lubanszky, medical staff services coordinator, on [ ] at [ ], EST. Coding Level of Care Code Global (67179) Diagnoses Trigger finger, right ring finger M65.341 Trigger finger, left ring finger M65.342 Uncontrolled type 2 diabetes mellitus with hyperglycemia E11.65 PAD (peripheral artery disease) I73.9
[2024-05-15 13:30] VITALS: BMI 47.0
== END 2024-05-15 13:44 | disposition home or self-care (01) ==
PROVIDERS: PCP Registered Nurse; Visit Provider Orthopaedic Surgery
DX: M65.341 Trigger finger, right ring finger (principal); M65.342 Trigger finger, left ring finger; E11.65 Type 2 diabetes mellitus with hyperglycemia; I73.9 Peripheral vascular disease, unspecified
CPT/HCPCS: 99024

== ENCOUNTER → 2024-05-15 13:15 | Outpatient (BNVA) | payer MEDICAID, SELFPAY | PROVIDERS: PCP Registered Nurse; Visit Provider Orthopaedic Surgery | DX: M65.341 Trigger finger, right ring finger (principal); M65.342 Trigger finger, left ring finger; M75.02 Adhesive capsulitis of left shoulder; E11.65 Type 2 diabetes mellitus with hyperglycemia; I73.9 Peripheral vascular disease, unspecified | CPT/HCPCS: 99212 ==

== ENCOUNTER 2024-07-09 13:33 | Outpatient (REF) | payer MEDICAID, SELFPAY ==
--- NOTE | ~2024-07-09 | XR_ITS ---
EXAMINATION: XR CHEST CLINICAL INFORMATION: Shortness of breath. Back pain. COMPARISON: June 12, 2022. TECHNIQUE: 2 views of the chest were obtained. FINDINGS: No acute infiltrate, effusion, or pneumothorax is seen. The heart is upper normal in size. The mediastinum, diaphragm and soft tissues appear unremarkable. Question bamboo spine, raising the possibility of ankylosing spondylitis. Status post cholecystectomy. XR/XR chest 2V IMPRESSION: No acute finding. Electronically signed by: Silas Candelario MD 07/09/2024 04:42 PM EDT
== END 2024-07-09 13:34 | disposition home or self-care (01) ==
LOC: HO.XRAY 13:33
PROVIDERS: PCP Registered Nurse; Visit Provider Internal Medicine
DX: R06.02 Shortness of breath (principal)
CPT/HCPCS: 71046

== ENCOUNTER 2024-08-14 11:04 | Outpatient (AMB) | payer MEDICAID, SELFPAY ==
--- NOTE | 2024-08-14 11:05 | A.OFFVIS_ITS ---
Vital Signs 08/14/24 11:12 Height 5 ft 4 in Weight 271 lb 2.697 oz BMI 46.5 BP 138/78 Blood Pressure Location Rt brachial Position Sitting Pulse 72 Pulse Source Pulse Oximeter Intake Visit Reasons: T2DM Intake Note: Patient presents today t for Type 2 Diabetes Mellitus: Most recent Eye Exam: 04/2024 Most recent Podiatry Exam: Does not see a Machine Operations Supervisor Most recent HbA1c: 7.3%, 08/14/2024 Random Glucose- 131 mg/dL, Today Otr Owner Operator Truck Driver Required: Yes Otr Owner Operator Truck Driver Language: Pigs Feet Finisher Services: Otr Owner Operator Truck Driver Present Otr Owner Operator Truck Driver Name: MARYBEL Rene/JAZIEL WEBBER Accompanied by: Self / Same As Patient Allergies turkey Allergy (Severe, Verified 07/09/24 13:09) chest pain/swelling/SOB/itching Medication List - Last Reconciled 08/14/24 by Perla Aviles MD acetaminophen 650 mg PO Q6H PRN atorvastatin 1 tab PO BEDTIME blood sugar diagnostic (FreeStyle Lite Strips) As directed blood-glucose meter (FreeStyle [place] Lite kit) As directed blood-glucose sensor (FreeStyle Valerio 3 Sensor device) As directed cetirizine 10 mg PO QAM cholecalciferol (vitamin D3) (Vitamin D3) 50 mcg PO DAILY FreeStyle Valerio 3 Plus Sensor (blood-glucose sensor) As directed in exchange for free style valerio 3 NS gabapentin 300 mg PO QPM ibuprofen 400 mg PO Q6H PRN ibuprofen 800 mg PO Q8H PRN 30 days insulin aspart U-100 breakfast 35 units lunch 35 units supper 38 units subcutaneously use as directed; breakfast 35 units lunch 35 units supper 38 units insulin glargine U-300 conc (Toujeo SoloStar U-300 Insulin) 50 units (0.1667 mL) subcut QPM lancets (FreeStyle Lancets) As directed 3 times a day letrozole 2.5 mg PO DAILY loperamide 2 mg PO Q4H PRN losartan 1 tab DAILY metoprolol tartrate 1 tab PO BID omeprazole 20 mg PO DAILY pen needle, diabetic (BD Lesley 2nd Gen Pen Needle) As directed 4 times a day tirzepatide (Mounjaro) 2.5 mg (0.5 mL) subcut QWEEK tirzepatide 5 mg (0.5 mL) subcut QWEEK HPI Comments Details: 64 YO F who is seen in f/u for type 2 diabetes. Initially diagnosed with T2DM in 21 yrs . Was initially started on treatment with metformin. Had Gi issues Current regimen: Prescribed Toujeo to 44 units daily, taking 50 Prescribed Humalog 28 units before breakfast, 32 units before lunch, 28 units before breakfast, taking 35,35,38 Prescribe mounjaro 2.5 weekly. taking mounjaro 2.5 weekly Free style 2: avg 154 GMI 7.0% high 26 low 1% (between 12am and 3am-50s & 60s) very low 0% POC A1C today 7.3% No Family history of T2DM. Has eyes checked yearly, last eye exam has appt 11/12/2023 denies retinopathy. Denies neuropathy, does not see podiatry. No numbness, tingling or cramping Denies nephropathy Has HLD, on statin. Denies CAD. walks 2 hours daily Had diabetes education at [facility] ROS CONSTITUTIONAL: Denies weight loss, fever and chills. HEENT: Denies changes in vision and hearing. RESPIRATORY: Denies SOB and cough. CV: Denies palpitations and CP GI: Denies abdominal pain, nausea, vomiting and diarrhea. : Denies dysuria and urinary frequency. MSK: Denies new myalgia and joint pain. SKIN: Denies rash and pruritus. NEUROLOGICAL: Denies headache PSYCHIATRIC: Denies recent changes in mood. PHYSICAL EXAM: GENERAL: Alert and oriented x 3. NAD EYES: EOMI. Anicteric. HENT: Moist mucous membranes. No scleral icterus. No cervical lymphadenopathy. LUNGS: Clear to auscultation bilaterally. CARDIOVASCULAR: Regular rate and rhythm. No murmur. No JVD. ABDOMEN: Soft, non-tender +bs EXTREMITIES: No edema. Non-tender. SKIN: No rashes or lesions. Warm. NEUROLOGIC: No focal neurological deficits. CN II-XII grossly intact PSYCHIATRIC: Cooperative. Appropriate mood and affect [facility] Medical History Type 2 diabetes mellitus Uncontrolled type 2 diabetes mellitus with hyperglycemia Fever of unknown origin Seroma of breast GERD (gastroesophageal reflux disease) COVID-19 vaccine series completed Asthma Hypercholesteremia HTN (hypertension) Diabetes Invasive ductal carcinoma of left breast Surgical History History of incision and drainage (05/02/22) History of bilateral mastectomy (03/21/22) History of delivery History of cholecystectomy Family History Mother Breast cancer, Onset Age: 58 Sister Breast cancer, Onset Age: 54 Social History Household Members: Family Household Members Other:: and son Housing: House Housing Other:: [facility] Are you a primary manager of care to a significant other at home: No Do you presently have visiting nurse or other home services: No Alcohol intake: never Patient Tobacco Use Status: Never used Tobacco Second Hand Smoke Exposure: No Advance Directives Date on File: 04/15/22 service: No Current occupational status: employed Current occupation: rt handed Female Reproductive History Menstrual Age of Menarche: 11 Physical Exam Vital Signs: Last Vital Signs Pulse 72 08/14/24 11:12 BP 138/78 08/14/24 11:12 BMI result Body Mass Index 46.5 Results AMB Hemoglobin A1c AMB Hemoglobin A1c 7.3 % Last Edit by MARYBEL Rene on 08/14/24 11:32 Results Reviewed Results Reviewed: Laboratory Last Values Glucose (Clinic) 131 mg/dL (60-115) H 08/14/24 11:19 Hgb A1c (Clinic) 7.3 % (4.0-6.0) H 08/14/24 11:24 Assessment & Plan Assessment & Plan (1) Type 2 diabetes mellitus: Code(s): E11.9 - Type 2 diabetes mellitus without complications Category: Medical Qualifiers: Diabetes mellitus complication detail: without coma Diabetes mellitus complication status: with hypoglycemia Diabetes mellitus intermediate insulin use: with terminal clerk use Qualified Code(s): E11.649 - Type 2 diabetes mellitus with hypoglycemia without coma; Z79.4 - remote computer terminal operator (current) use of insulin Plan: Decrease supper insulin to 32 units. continue breakfast, lunch and long acting dosing as taking increase mounjaro to 5mg weekly. Call with any hypoglycemia or other concerns Orders: Orders AMB Hemoglobin A1c Today E11.9 - Type 2 diabetes mellitus without complications Medications: New tirzepatide 5 mg (0.5 mL) subcut QWEEK 2 mL 3RF E11.9 - Type 2 diabetes mellitus without complications Changed From insulin aspart U-100 breakfast 35 units lunch 35 units supper 38 units subcutaneously use as directed; breakfast 35 units lunch 35 units supper 38 units E11.9 - Type 2 diabetes mellitus without complications To insulin aspart U-100 Take 35 units subcutaneous with breakfast, 35 units with lunch and 32 units with supper 1 sliding scale dose subcut USEASDIRECTD 30 mL 3RF 28 days E11.9 - Type 2 diabetes mellitus without complications Refilled insulin glargine U-300 conc (Toujeo SoloStar U-300 Insulin) 50 units (0.1667 mL) subcut QPM 4.5 mL 4RF Coding Level of Care Code Est Pt Level 4 (85783) Diagnoses Type 2 diabetes mellitus with hypoglycemia without coma, with long-term current use of insulin E11.649; Z79.4 Diabetes mellitus complication detail: without coma Diabetes mellitus complication status: with hypoglycemia Diabetes mellitus terminal clerk insulin use: with intermediate use
[2024-08-14 11:12] VITALS: BP 138/78; PULSE 72; BMI 46.5
[2024-08-14 11:24] LABS: Glucose, Whole Blood 131 mg/dL (60-115)
== END 2024-08-14 11:40 | disposition home or self-care (01) ==
PROVIDERS: PCP Registered Nurse; Visit Provider Internal Medicine
DX: E11.649 Type 2 diabetes mellitus with hypoglycemia without coma (principal); Z79.4 Long term (current) use of insulin; E11.9 Type 2 diabetes mellitus without complications

== ENCOUNTER → 2024-08-14 11:04 | Outpatient (BNVA) | payer MEDICAID, SELFPAY | PROVIDERS: PCP Registered Nurse; Visit Provider Internal Medicine | DX: E11.649 Type 2 diabetes mellitus with hypoglycemia without coma (principal); E78.5 Hyperlipidemia, unspecified; Z79.4 Long term (current) use of insulin | CPT/HCPCS: 82947; 83036; 99212 ==

== ENCOUNTER 2024-09-12 10:24 | Outpatient (AMB) | payer MEDICAID, SELFPAY ==
[2024-09-12 10:25] VITALS: BP 126/86; PULSE 69; BMI 46.2
--- NOTE | 2024-09-12 10:25 | A.OFFVIS_ITS ---
Vital Signs 3 09/12/24 10:25 Height 5 ft 4 in Weight 268 lb 15.423 oz BMI 46.2 BP 126/86 Blood Pressure Location Lt brachial Position Sitting Pulse 69 Pulse Source Pulse Oximeter Intake Visit Reasons: med change check Intake Note: Patient present today for medication change check, Type 2 Diabetes Mellitus. Last Diabetic eye exam: 2022 Last Podiatry Visit: Doesn't have one Random Glucose: 67 mg/dl @ 10:36am 109 mg/dl @10:58am HgA1C: 7.3% 08/14/24 Motor Vehicle Clerk Required: Yes Motor Vehicle Clerk Language: Residential Supervisor Services: Motor Vehicle Clerk Present Motor Vehicle Clerk Name: Maggi Information Interpreted: non-clinical & clinical Accompanied by: Self / Same As Patient Allergies turkey Allergy (Severe, Verified 09/12/24 10:29) chest pain/swelling/SOB/itching Medication List - Last Reconciled 09/12/24 by Poly Ferrari MD acetaminophen 650 mg PO Q6H PRN atorvastatin 1 tab PO BEDTIME blood sugar diagnostic (FreeStyle Lite Strips) As directed blood-glucose meter (FreeStyle Napier Lite kit) As directed blood-glucose sensor (FreeStyle Valerio 3 Sensor device) As directed cetirizine 10 mg PO QAM cholecalciferol (vitamin D3) (Vitamin D3) 50 mcg PO DAILY FreeStyle Valerio 3 Plus Sensor (blood-glucose sensor) As directed in exchange for free style valerio 3 NS gabapentin 300 mg PO QPM ibuprofen 400 mg PO Q6H PRN ibuprofen 800 mg PO Q8H PRN 30 days insulin aspart U-100 1 sliding scale dose subcut USEASDIRECTD 28 days insulin glargine U-300 conc (Toujeo SoloStar U-300 Insulin) 50 units (0.1667 mL) subcut QPM lancets (FreeStyle Lancets) As directed 3 times a day letrozole 2.5 mg PO DAILY loperamide 2 mg PO Q4H PRN losartan 1 tab DAILY metoprolol tartrate 1 tab PO BID omeprazole 20 mg PO DAILY pen needle, diabetic (BD Lesley 2nd Gen Pen Needle) As directed 4 times a day tirzepatide 5 mg (0.5 mL) subcut QWEEK HPI Comments Details: 64 YO F who is seen in f/u for type 2 diabetes. Last seen 08/14/[address] Rowland Today : POC 67 at 10 36 AM, I administered 4 glucose tablets ( 15g ) at 10 40 AM, POC rechecked at 11 AM 109 , corina denies any hypoglycemic symptoms This morning ate toas tboiled egg, coffee with milk Initially diagnosed with T2DM in 21 yrs ago . Was initially started on treatment with metformin. Had Gi issues Current regimen: Toujeo , taking 40 units at 10 pm Novalog 32 units before breakfast, 35 units before lunch, 32 units before supper, mounjaro 5 weekly. ( increased July 2025 from 2.5 mg weekly) on Mondays , denies any GI intolerance Free style valerio 2 weeks download : avg 141 GMI 6.7% high 17% low 1% (mostly around 15:00, 1 episode overnight-50s & 60s) very low 0% Within target range 82% of the time POC A1C July 2024 7.3% G IL 6.7% Trends: Hypoglycemic episodes mostly after lunch and after supper. One overnight episode. Otherwise excellent control. No Family history of T2DM. Has eyes checked yearly, last eye exam has appt 11/12/2023 denies retinopathy. Complaining of numbness and tingling in her feet, does not see podiatry. Denies nephropathy Has HLD, on statin. LDL 40 03/18 on atorvastatin 80 mg daily , adherence is good Denies CAD. walks 2 hours daily BP at goal : on losaratan 50 mg dialy and metoprolol 25 BID Had diabetes education at [facility] She is also reporting floaters in her eyes, she has an ophthalmology appointment in 2026, we will refer to a different shank threader given long wait time PHYSICAL EXAM: GENERAL: Alert and oriented x 3. NAD EYES: EOMI. Anicteric. HENT: Moist mucous membranes. No scleral icterus. No cervical lymphadenopathy. LUNGS: Clear to auscultation bilaterally. CARDIOVASCULAR: Regular rate and rhythm. No murmur. No JVD. ABDOMEN: Soft, non-tender +bs EXTREMITIES: No edema. Non-tender. Foot exam: Diminieshed sensation to monofilament, intact pulses [facility] Medical History (Updated 09/12/24 @ 11:13 by Poly Ferrari MD) HLD (hyperlipidemia) Type 2 diabetes mellitus Uncontrolled type 2 diabetes mellitus with hyperglycemia Fever of unknown origin Seroma of breast GERD (gastroesophageal reflux disease) COVID-19 vaccine series completed Asthma Hypercholesteremia HTN (hypertension) Diabetes Invasive ductal carcinoma of left breast Surgical History History of incision and drainage (05/02/22) History of bilateral mastectomy (03/21/22) History of delivery History of cholecystectomy Family History Mother Breast cancer, Onset Age: 58 Sister Breast cancer, Onset Age: 54 Social History Household Members: Family Household Members Other:: and son Housing: House Housing Other:: [facility] Are you a primary healthcare administration intern to a significant other at home: No Do you presently have visiting nurse or other home services: No Alcohol intake: never Patient Tobacco Use Status: Never used Tobacco Second Hand Smoke Exposure: No Advance Directives Date on File: 04/15/22 service: No Current occupational status: employed Current occupation: rt handed Female Reproductive History Menstrual Age of Menarche: 11 Physical Exam Vital Signs: Last Vital Signs Pulse 69 09/12/24 10:25 BP 126/86 09/12/24 10:25 BMI result Body Mass Index 46.2 Office Procedures Glucose Monitoring Details Details: see HPi Procedure code (CPT) selection complete Results Reviewed Results Reviewed: Laboratory Last Values Glucose (Clinic) 67 mg/dL (60-115) 09/12/24 10:36 Assessment & Plan Assessment & Plan (1) Type 2 diabetes mellitus: Code(s): E11.9 - Type 2 diabetes mellitus without complications Category: Medical Qualifiers: Diabetes mellitus complication detail: without coma Diabetes mellitus complication status: with hypoglycemia Diabetes mellitus terminal operations manager insulin use: with fdc use Qualified Code(s): E11.649 - Type 2 diabetes mellitus with hypoglycemia without coma; Z79.4 - assisted (current) use of insulin Plan: 64-year-old female with a history of type 2 diabetes mellitus, with long-term insulin use . A1c 7.3% From July 2024 Reviewed CGM data which is showing hypoglycemic episodes mostly after lunch, sometimes after supper in 1 episode overnight. Since increasing her Mounjaro 2 5 mg weekly July 2024, she is having more of these episodes. She does endorse hypoglycemic awareness when her blood sugar is in the 60s. Reviewed hypoglycemia management. We will reduce her insulin. We will have her follow up in 8 weeks, at that time Mounjaro can further be titrated up to 7.5 mg weekly and plan for further reduction in her insulin. Plan: -reduced Toujeo to 35 units from 40 units daily -reduce insulin NovoLog to 28 units from 32 units before breakfast, 30 units from 35 units before lunch, 28 units from 32 units before supper -continue Mounjaro 5 mg weekly, next visit we will plan to titrate up to 7.5 mg weekly -follow up in 8 weeks -foot exam showed diminished sensation to monofilament, she is also complaining of numbness and tingling, referral to Podiatry placed -patient is also having some floaters, her last eye visit was in 2023 with the factory machine computer operator, placed referral for Ophthalmology -due for repeat microalbumin/creatinine ratio, ordered, labs to be repeated prior to next visit (2) HLD (hyperlipidemia): Code(s): E78.5 - Hyperlipidemia, unspecified Category: Medical Qualifiers: Hyperlipidemia type: mixed hyperlipidemia Qualified Code(s): E78.2 - Mixed hyperlipidemia Plan: LDL 40 mg/dL in February 2024, continue atorvastatin 80 mg daily. Repeat lipid panel prior to next follow up. (3) HTN (hypertension): Code(s): I10 - Essential (primary) hypertension Category: Medical Qualifiers: Hypertension type: primary hypertension Qualified Code(s): I10 - Essential (primary) hypertension Plan: Blood pressure at goal. Continue losartan 50 mg daily and metoprolol 25 mg b.i.d. Plan I spent 30 minutes in reviewing the record, seeing the patient and documenting in the medical record. Orders: Orders 2 Microalbumin, Random (w Creat) 7 Weeks E11.649 - Type 2 diabetes mellitus with hypoglycemia without coma, E78.5 - Hyperlipidemia, unspecified, Z79.4 - exterminator helper termite (current) use of insulin Basic Metabolic Panel Fasting 7 Weeks E11.649 - Type 2 diabetes mellitus with hypoglycemia without coma, E78.5 - Hyperlipidemia, unspecified, Z79.4 - assisted (current) use of insulin Lipid Panel 7 Weeks E11.649 - Type 2 diabetes mellitus with hypoglycemia without coma, E78.5 - Hyperlipidemia, unspecified, Z79.4 - exterminator helper termite (current) use of insulin Hemoglobin A1c 7 Weeks E11.649 - Type 2 diabetes mellitus with hypoglycemia without coma, E78.5 - Hyperlipidemia, unspecified, Z79.4 - assisted (current) use of insulin AMB Glucose Monitoring Today E11.649 - Type 2 diabetes mellitus with hypoglycemia without coma, Z79.4 - exterminator helper termite (current) use of insulin Referrals 2 Podiatry Referral E11.649 - Type 2 diabetes mellitus with hypoglycemia without coma, Z79.4 - exterminator helper termite (current) use of insulin Ophthalmology Referral E11.649 - Type 2 diabetes mellitus with hypoglycemia without coma, Z79.4 - exterminator helper termite (current) use of insulin Medications: Changed 2 From insulin glargine U-300 conc (Toujeo SoloStar U-300 Insulin) 50 units (0.1667 mL) subcut QPM 4.5 mL 4RF To insulin glargine U-300 conc (Toujeo SoloStar U-300 Insulin) 35 units (0.1167 mL) subcut QPM 4.5 mL 4RF From insulin aspart U-100 Take 35 units subcutaneous with breakfast, 35 units with lunch and 32 units with supper 1 sliding scale dose subcut USEASDIRECTD 28 days 30 mL 3RF E11.9 - Type 2 diabetes mellitus without complications To insulin aspart U-100 subcutaneously 3 times a day; Take 28 units subcutaneous with breakfast, 30 units with lunch and 28 units with supper 28 days 30 mL 6RF E11.9 - Type 2 diabetes mellitus without complications Patient Instructions: Decreased toujeo insulin to 35 units Decrease novolog insulin to 28 units before breakfast, 30 units before lunch and 28 units before dinner Continue Mounjaro 5 mg weekly See foot doctor See eye doctor Rule of 15 Treatment for Hypoglycemia (Low blood sugar) If your blood glucose is low (70 and below)*, follow the steps below to treat: Eat or drink something from the list below equal to 15 grams of carbohydrate (carb). Rest for 15 minutes Re-check your blood glucose. If it is still low, (below 70), repeat step 1 above. ? If your next meal is more than an hour away, you will need to eat one carbohydrate choice as a snack to keep your blood glucose from going low again. ?If you can't figure out why you have low blood glucose, call your healthcare provider, as your medicine may need to be adjusted. ?Always carry something with you to treat an insulin reaction. Use food from the list below. ? Foods equal to One Carbohydrate Choice (15 grams of carbohydrate): 3 Glucose ?tablets or 4 Dextrose tablets 4 ounces of fruit juice 5-6 ounces (about 1/2 can) of regular soda such as Coke or Pepsi ? 7-8 gummy or regular Life Savers ? 1 Tbsp. of sugar or jelly NOTE: If your blood sugar is less than 50, double the portion above for a total of 30 gm. ?Carbohydrate. ? Follow meal plan of 45-60 g of consistent carbohydrates at 3 meals each day and 15 g of carbohydrate at 1-2 snacks each day. Disminuci?n de la insulina toujeo a 35 unidades. Disminuir la insulina novolog a 28 unidades antes del desayuno, 30 unidades antes del almuerzo y 28 unidades antes de la kvng. Continuar con Mounjaro 5 mg semanales Beto m?dico de pies Beto oculista Tiffany de 15 Tratamiento para la hipoglucemia (nivel bajo de az?car en alicja) Si rondon nivel de glucosa en alicja es bajo (70 o menos)*, siga los pasos a continuaci?n para tratarlo: Coma o rosario algo de la lista a continuaci?n equivalente a 15 gramos de carbohidratos (carbohidratos). Descanse 15 minutos Vuelva a controlar rondon nivel de glucosa en alicja. Si a?n est? bajo (por debajo de 70), repita el paso 1 anterior. ? Si falta m?s de daniel hora para rondon pr?xima comida, necesitar? comer daniel opci?n de carbohidratos jose refrigerio para evitar que rondon nivel de glucosa en alicja vuelva a bajar. ?Si no puede entender por qu? tiene un nivel bajo de glucosa en alicja, llame a rondon proveedor de atenci?n m?dica, ya que es posible que sea necesario ajustar rondon medicamento. ?Lleve siempre consigo algo para tratar daniel reacci?n a la insulina. Utilice alimentos de la lista siguiente. ? Alimentos equivalentes a Daniel Elecci?n de Carbohidratos (15 gramos de carbohidratos): 3 tabletas de glucosa o 4 tabletas de dextrosa 4 onzas de jugo de frutas 5 a 6 onzas (aproximadamente 1/2 juli) de refresco regular jose Coca-Cola o Pepsi ? 7-8 gomitas o salvavidas regulares ? 1 cucharada. de az?car o gelatina NOTA: Si rondon nivel de az?car en alicja es inferior a 50, duplique la porci?n anterior para un total de 30 g. ?Carbohidrato. ? Siga un plan de alimentaci?n de 45 a 60 g de carbohidratos constantes en 3 comidas al d?a y 15 g de carbohidratos en 1 a 2 refrigerios al d?a. hacer an?lisis de alicja y orina en ayunas Coding Level of Care Code Est Pt Level 4 (06398) Diagnoses Type 2 diabetes mellitus with hypoglycemia without coma, with long-term current use of insulin E11.649; Z79.4 Diabetes mellitus complication detail: without coma Diabetes mellitus complication status: with hypoglycemia Diabetes mellitus fdc insulin use: with fdc use Mixed hyperlipidemia E78.2 Hyperlipidemia type: mixed hyperlipidemia Primary hypertension I10 Hypertension type: primary hypertension Time Spent (min) 30
--- OUTSIDE RECORDS SUMMARY | 2024-09-12 10:29 | XMS_ITS | Continuity of Care Document ---
Author Organization [facility]ARY DUMP OPERATOR Oncolog y Address [address] [place] [id number]- Care Team Providers Care Windlace Machine Operator Name Role Phone Cary STILL, Nathan Delgado Primary Care Physician Encounter [facility] Date(s): 07/24/24 - 08/23/24 [facility] ROTARY DUMP OPERATOR Oncology [address] [place] [id number] Attending Physician: Justin Mtoa Admitting Physician: Justin Mota Referring Physician: Admtr ArSilva Encounter Type: Triage Allergies, Adverse Reactions, Alerts No Known Allergies Medications Aspirin = 81 mg, By Mouth, Daily in AM, 0 Refills, Maintenance, 02/19/12 10:57:37 AM EDT Start Date: 02/19/12 Status: Ordered Repeat number: 1 Humalog Inj = 35 units, Subcutaneous Infusion, 0 Refills, Maintenance, 02/19/12 10:57:12 AM EDT Start Date: 02/19/12 Status: Ordered Repeat number: 1 ibuprofen 600 mg oral tablet 1 tablet = 600 mg, By Mouth, Every 6 hours, with food or milk, # 12 tablet, 0 Refills, Maintenance,02/19/12 3:32:02 PM EDT, Tablet Start Date: 02/19/12 Stop Date: 02/22/12 Status: Ordered Quantity: 12.0 Unit: tablet Repeat number: 1 Lantus Inj = 45 units, Subcutaneous Injection, Daily at bedtime, 0 Refills, Maintenance, 02/19/12 10:57:04 AM EDT, Injection Start Date: 02/19/12 Status: Ordered Repeat number: 1 levonorgestrel 52 mg intrauterine device See Instructions, Bring to surgery with Dr. Roblero, # 1 each, 0 Refills, Soft Stop, 03/19/24 1:49:00PM EDT, [facility], Partial fill upon patient request if the prescription is for aschedule II opioid drug., 163, cm, 03/19/24 13:16:00 EDT, Height, 125.5, kg, 03/19/24 13:16:00 EDT,Dry Weight Start Date: 03/19/24 Status: Ordered Quantity: 1.0 Unit: each Repeat number: 1 Losartan Tablet 50 mg, By Mouth, Daily, Maintenance, 02/19/12 10:57:22 AM EDT Start Date: 02/19/12 Status: Ordered Repeat number: 1 Tamoxifen By Mouth, Daily at bedtime, Refills 0, Maintenance, 04/01/24 1:19:00 PM EDT, Partial fill upon patient request if the prescription is for a schedule II opioid drug. Start Date: 04/01/24 Status: Ordered Repeat number: 1 Verapamil = 10 mg, By Mouth, Daily at bedtime, 0 Refills, Maintenance, 02/19/12 10:57:29 AM EDT Start Date: 02/19/12 Status: Ordered Repeat number: 1 Problem List Condition Confirmation Course Effective Dates Status H ealth Status Informant Asthma Confirmed Active Seroma of breast Confirmed Active Diabetes Confirmed Active Endometrial hyperplasia without atypia Confirmed Active EIN (endometrial intraepithelial neoplasia) Confirmed Active GERD (gastroesophageal reflux disease) Confirmed Active History of breast cancer Confirmed Active HLD (hyperlipidemia) Confirmed Active HTN (hypertension) Confirmed Active Uses Vietnamese as primary spoken language Confirmed Active Obesity Confirmed Active Severe obesity Confirmed Active Vaginal bleeding Confirmed Active Patient Care team information Care Team Personnel Name: Nathan Townsend NP Position: [facility] Outreach Member Role: PCP Address: [address] [place] [address] Telecom: Care Team Related Persons Name: WON PADILLA Insurance Providers Guarantor name: [facility] [employer] Plan Information #: 1 Payer: [employer] Member Number: NA Policy Number: NA Group Number: NA
--- OUTSIDE RECORDS SUMMARY | 2024-09-12 10:29 | XMS_ITS | Continuity of Care Document ---
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 Oncology [address] [place] [id number]- Attending Physician: Perla Oquendo NP Admitting Physician: Perla Oquendo NP Referring Physician: Nathan Townsend NP Encounter Type: Pre-OutPatient One Time Allergies, Adverse Reactions, Alerts No Known Allergies [...] 0 Refills, Soft Stop, 03/19/24 1:49:00PM EDT, [facility], Partial fill upon patient [...] Confirmed Active HTN (hypertension) Confirmed Active Uses Korean as primary spoken language Confirmed Active Obesity Confirmed Active Severe obesity Confirmed Active Vaginal bleeding Confirmed Active Patient Care team information Care Team Personnel Name: Nathan Townsend NP Position: [facility] Outreach Member Role: PCP Address: [address] [place] [address] Telecom: Care Team Related Persons Name: WON PADILLA Insurance Providers Guarantor name: STELLA JAMES Health Plan Information #: 1 Payer: [employer] Member Number: [id number] Policy Number: NA Group Number: NA Health Plan Information #: 2 Payer: [employer] Member Number: [id number] Policy Number: NA Group Number: NA
[2024-09-12 10:41] LABS: Glucose, Whole Blood 67 mg/dL (60-115)
[2024-09-12 11:02] LABS: Glucose, Whole Blood 109 mg/dL (60-115)
== END 2024-09-12 11:13 | disposition home or self-care (01) ==
PROVIDERS: PCP Registered Nurse; Visit Provider Student in an Organized Health Care Education/Training Program
DX: E11.649 Type 2 diabetes mellitus with hypoglycemia without coma (principal); Z79.4 Long term (current) use of insulin; E78.2 Mixed hyperlipidemia; I10 Essential (primary) hypertension
CPT/HCPCS: 99214

== ENCOUNTER → 2024-09-12 10:24 | Outpatient (BNVA) | payer MEDICAID, SELFPAY | PROVIDERS: PCP Registered Nurse; Visit Provider Student in an Organized Health Care Education/Training Program | DX: E11.649 Type 2 diabetes mellitus with hypoglycemia without coma (principal); E78.2 Mixed hyperlipidemia; I10 Essential (primary) hypertension; Z51.81 Encounter for therapeutic drug level monitoring; Z79.4 Long term (current) use of insulin; Z79.899 Other long term (current) drug therapy | CPT/HCPCS: 82947; 99212 ==

== ENCOUNTER 2024-11-14 11:24 | Outpatient (AMB) | payer MEDICAID, SELFPAY ==
[2024-11-14 11:32] VITALS: BP 124/76; PULSE 74; O2SAT 99; BMI 45.4
--- NOTE | 2024-11-14 11:32 | A.OFFVIS_ITS ---
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 Initially diagnosed with T2DM in 21 yrs . Was initially started on treatment with metformin. Had Gi issues Current regimen: -Toujeo -she is taking 30 units. Was able to decrease from high of 40 - Humalog down from higher dosing -Mounjaro 5mg weekly A1C today 6.7%. Down from 7.3% Denies hypoglycemia Has eyes checked yearly, last eye exam has appt 11/12/2023 denies retinopathy- referred to new ophto Complaining of numbness and tingling in her feet-referral placed to podiatry at Dec visit Denies nephropathy Has HLD, on statin. LDL 40 03/18 on atorvastatin 80 mg daily , adherence is good Denies CAD. walks 2 hours daily BP at goal : on losaratan 50 mg dialy and metoprolol 25 BID Had diabetes education at [facility] ROS CONSTITUTIONAL: Denies weight loss, fever and chills. HEENT: Denies changes in vision and hearing. RESPIRATORY: Denies SOB and cough. CV: Denies palpitations and CP GI: Denies abdominal pain, nausea, vomiting and diarrhea. : Denies dysuria and urinary frequency. MSK: Denies new myalgia and joint pain. SKIN: Denies rash and pruritus. NEUROLOGICAL: Denies headache PSYCHIATRIC: Denies recent changes in mood. PHYSICAL EXAM: GENERAL: Alert and oriented x 3. NAD EYES: EOMI. Anicteric. HENT: Moist mucous membranes. No scleral icterus. No cervical lymphadenopathy. LUNGS: Clear to auscultation bilaterally. CARDIOVASCULAR: Regular rate and rhythm. No murmur. No JVD. ABDOMEN: Soft, non-tender +bs EXTREMITIES: No edema. Non-tender. Foot exam: Warm, dry +PT pulses [facility] Medical History (Updated 09/12/24 @ 11:13 by Poly Ferrari MD) HLD (hyperlipidemia) Type 2 diabetes mellitus Uncontrolled type 2 diabetes mellitus with hyperglycemia Fever of unknown origin Seroma of breast GERD (gastroesophageal reflux disease) COVID-19 vaccine series completed Asthma Hypercholesteremia HTN (hypertension) Diabetes Invasive ductal carcinoma of left breast Surgical History History of incision and drainage (05/02/22) History of bilateral mastectomy (03/21/22) History of delivery History of cholecystectomy Family History Mother Breast cancer, Onset Age: 58 Sister Breast cancer, Onset Age: 54 Social History Household Members: Family Household Members Other:: and son Housing: House Housing Other:: [facility] Are you a primary out of school hours care worker to a significant other at home: No Do you presently have visiting nurse or other home services: No Alcohol intake: never Patient Tobacco Use Status: Never used Tobacco Second Hand Smoke Exposure: No Advance Directives Date on File: 04/15/22 service: No Current occupational status: employed Current occupation: rt handed Female Reproductive History Menstrual Age of Menarche: 11 Physical Exam Vital Signs: Last Vital Signs BP 124/76 11/14/24 11:32 Oxygen Delivery Method Room Air 11/14/24 11:32 BMI result Body Mass Index 45.4 Results AMB Hemoglobin A1c AMB Hemoglobin A1c 6.7 % Last Edit by MARYBEL Rene on 11/14/24 11:47 Assessment & Plan Assessment & Plan (1) Type 2 diabetes mellitus: Code(s): E11.9 - Type 2 diabetes mellitus without complications Category: Medical Qualifiers: Diabetes mellitus senior living insulin use: with terminal make up operator use Diabetes mellitus complication status: with hypoglycemia Diabetes mellitus complication detail: without coma Qualified Code(s): E11.649 - Type 2 diabetes mellitus with hypoglycemia without coma; 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 A1C is at goal. We will increase mounjaro to 7.5mg weekly. 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 Changed From insulin aspart U-100 subcutaneously 3 times a day; Take 28 units subcutaneous with breakfast, 30 units with lunch and 28 units with supper 28 days 30 mL 6RF E11.9 - Type 2 diabetes mellitus without complications To insulin aspart U-100 subcutaneously 3 times a day; Take 25 units subcutaneous with breakfast, 25 units with lunch and 25 units with supper 28 days 30 mL 6RF E11.9 - Type 2 diabetes mellitus without complications From insulin glargine U-300 conc (Toujeo SoloStar U-300 Insulin) 35 units (0.1167 mL) subcut QPM 4.5 mL 4RF To insulin glargine U-300 conc (Toujeo SoloStar U-300 Insulin) 25 units (0.0833 mL) subcut QPM 4.5 mL 3RF From FreeStyle Valerio 3 Plus Sensor (blood-glucose sensor) As directed in exchange for free style valerio 3 2 ea 11RF NS E11.9 - Type 2 diabetes mellitus without complications To FreeStyle Valerio 3 Plus Sensor (blood-glucose sensor) 14 days 6 ea 3RF NS E11.9 - Type 2 diabetes mellitus without complications Coding Level of Care Code Est Pt Level 4 (09226) Diagnoses Type 2 diabetes mellitus with hypoglycemia without coma, with long-term current use of insulin E11.649; Z79.4 Diabetes mellitus terminal make up operator insulin use: with terminal make up operator use Diabetes mellitus complication status: with hypoglycemia Diabetes mellitus complication detail: without coma
[2024-11-14 11:43] LABS: Glucose, Whole Blood 143 mg/dL (60-115)
--- OUTSIDE RECORDS SUMMARY | 2024-11-14 12:42 | XMS_ITS | Encounter Summary ---
Author Organization [employer] Address [address] [address] [place] [address] Care Team Providers Care Bead Maker Name Role Phone [facility] Primary Care Provider [phone] Reason for Visit * Reason Onset Date Comments Letter for School/Work 07/14/2023 Encounter Details Date Type Department Care Team ([facility] st Contact Info) Description 07/14/2023 Telephone [facility] [address] [place] [address] [facility] [address] [place] [address] Letter for School/Work Social History Tobacco Use Types Packs/Day Years Used Date Smoking Tobacco: Never Smokeless Tobacco: Never Alcohol Use Standard Drinks/Week Comments Never 0 (1 standard drink = 0.6 oz pur e alcohol) Depression Answer Date Recorded Patient Health Questionnaire-9 Score 0 01/31/2023 Housing Stability Answer Date Recorded What is your housing situation today? I have antionette kurtz 07/10/[address] you li ve. Do you have problems with any of the following? None of the above 07/10/2023 Food Insecurity Answer Date Recorded Within the past 12 months, y ou worried that your food would run out before you got money to buy more: Never True 07/10/2023 Within the past 12 months,th e food you bought just didn't last and you didn't have enough money to get more: Never True Transportation Answer Date Recorded In the past 12 months, has l ack of transportation kept you from medical appts, meetings, work or from getting things needed for daily living? No 07/10/2023 Utilities Answer Date Recorded In the past 12 months, has t he electric, gas, oil or water company threatened to shut off services in your home? 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 Please contact at [phone] documented in this encounter Plan of Treatment Upcoming Encounters Date Type Department Care Team (Late st Contact Info) Description 11/25/2024 10:00 AM EST Office Visit [facility] [address] [place] [address] Radha Bautista FNP [address] [place] [address] documented as of this encounter Visit Diagnoses Not on filedocumented in this encounter Additional Health Concerns Assessment Noted Time PHQ-9 Depression Total Score: 0 02/01/20 8:55 AM EDT documented as of this encounter Care Teams Bead Maker Relationship Specialty Start Date End Date Radha Bautista FNP [address] [place] [address] PCP - General Family Medicine 05/24/22 documented as of this encounter
--- OUTSIDE RECORDS SUMMARY | 2024-11-14 12:42 | XMS_ITS | Encounter Summary ---
Author Organization [employer] Address [address] [place] [address] Care Team Providers Care Statistical Clerk Advertising Name Role Phone Radha Bautista SYNTHETIC FILAMENT EXTRUDER Primary Care Provider [phone] Encounter Details Date Type Department Care Team (Late st Contact Info) Description 11/14/2024 Orders Only GENERIC EXTERNAL DATA DEPARTMENT Provider, Generic External Data Social History Tobacco Use Types Packs/Day Years Used Date Smoking Tobacco: Never Smokeless Tobacco: Never Alcohol Use Standard Drinks/Week Comments Never 0 (1 standard drink = 0.6 oz pur e alcohol) Depression Answer Date Recorded Patient Health Questionnaire-9 Score 0 01/31/2023 Housing Stability Answer Date Recorded What is your housing situation today? I have antionette kurtz 11/13/[address] you li ve. Do you have problems with any of the following? None of the above 11/13/2024 Food Insecurity Answer Date Recorded Within the past 12 months, y ou worried that your food would run out before you got money to buy more: Never True 11/13/2024 Within the past 12 months,th e food you bought just didn't last and you didn't have enough money to get more: Never True Transportation Answer Date Recorded In the past 12 months, has l ack of transportation kept you from medical appts, meetings, work or from getting things needed for daily living? No 11/13/2024 Utilities Answer Date Recorded In the past 12 months, has t he electric, gas, oil or water company threatened to shut off services in your home? No 11/13/2024 Depression Answer Date Recorded Patient Health Questionnaire-2 Score 0 01/31/2023 Internet Access Answer Date Recorded Internet Access Q1 Yes 11/13/2024 Internet Access Q2 Not on file 11/13/2024 Comments Unknown Sex and Gender Information Value Date Recorded Sex Assigned at Female 07/25/2022 10:14 AM EDT Legal Sex Female 10:14 AM EDT Gender Identity Female 07/25/2022 10:14 AM EDT Sexual Orientation Straight 07/25/2022 10 :14 AM EDT documented as of this encounter Plan of Treatment Upcoming Encounters Date Type Department Care Team (Late st Contact Info) Description 11/25/2024 10:00 AM EST Office Visit [facility] [address] [place] [address] Radha Bautista FNP [address] [place], [place] [phone] documented as of this encounter Procedures Procedure Name Priority Date/Time Associated Diagnosis Comments GLUCOSE, WHOLE BLOOD Routine 11/14/2024 11:38 AM EST documented in this encounter Results * (ABNORMAL) Glucose, Whole Blood (11/14/2024 11:38 AM EST) Glucose, Whole Blood 143(H) 60 - 115 mg/dL [facility] Comment:METER #: [id number] 5Testing performed in the Endocrinology Department [address] , [address], [facility]. 11/14/2024 11:3 8 AM EST 11/14/2024 11:43 AM EST us Generic External Data Provider LAB BLOOD ORDERAB LES Final Result [facility] [address] [place] [address] [phone] documented in this encounter Visit Diagnoses Not on filedocumented in this encounter Additional Health Concerns Assessment Noted Time PHQ-9 Depression Total Score: 0 02/01/20 23 8:55 AM EDT documented as of this encounter Care Teams Statistical Clerk Advertising Relationship Specialty Start Date End Date Radha Bautista FNP [address] [place], [place] [phone] PCP - General Family Medicine 05/24/22 documented as of this encounter
--- OUTSIDE RECORDS SUMMARY | 2024-11-14 12:42 | XMS_ITS | Clinical Summary ---
Author Organization [employer] Address [address] [place] [address] [address] [place] [address] Care Team Providers Care Hairspring Adjuster Name Role Phone Radha Bautista ENSEMBLE MEMBER Primary Care Provider [phone] Allergies No known active allergies Medications zoster vaccine-recombinan t adjuvanted (Shingrix) 50 MCG/0.5ML vaccine inject 0.5 milliliter by intramuscular route once 06/17/20 20 Active topiramate (Topamax) 25 MG tablet take 1 tablet by oral route every day 11/16/19 22 Active silver sulfADIAZINE (Silvadene) 1 % cream 1 APPL TOPICALLY 2 TIMES A DAY APPLY A 1.5 MM THICKNESS 06/23/20 22 Active ondansetron ODT (Zofran-ODT) [address] 1 tablet by translingual route every 8 hours as needed for nausea Active omeprazole (PriLOSEC) [address] capsule take 1 capsule by oral route every day before a meal 11/18/19 22 Active FreeStyle lancets USE 1 DIRECTED 3 TIMES A DAY 06/22/20 22 Active BD Pen Needle Lesley 2nd Gen 32G X 4 MM misc USE CUATRO VECES AL D A 08/15/20 22 Active FREESTYLE LITE test strip USE 1 STRIP 3 TIMES A DAY 08/21/20 22 Active Baqsimi Two Pack 3 MG/DOSE nasal powder SRAY 3 MG INTRANSALLY ONCE 11/26/19 23 Active Continuous Blood Gluc Sensor (FreeStyle Valerio 2 Sensor) misc USE DIRECTED 01/19/20 23 Active Continuous Blood Gluc Aadc Plans Staff Officer (FreeStyle Valerio 2 [place]) device USE DIRECTED 11/29/19 23 Active D3 50 MCG (1999 UT) tablet TAKE 1 TABLET BY MOUTH DAILY 12/06/19 23 Active Toujeo SoloStar 300 UNIT/ML injectionIndicatio ns:Type 2 diabetes mellitus with hyperglycemia, with long-term current use of insulin ([facility]) Inject 50 units by subcutaneous route every evening 15 mL 3 02/01/20 23 Active insulin aspart FlexPen (NovoLOG) 100 UNIT/ML penIndications:Typ e 2 diabetes mellitus with hyperglycemia, with long-term current use of insulin ([facility]) Inject 43 Units under the skin with breakfast, with lunch, and with evening meal. 38.7 mL 11 05/03/20 23 Active Blood Pressure kitIndications:Ess ential hypertension Use as directed 1 kit 12/01/19 24 Active cetirizine (ZyrTEC) 10 MG tabletIndications: Seasonal allergies TOME NAOMY TABLETA TODOS LOS PARADA EN LA MANANA 90 tablet 3 12/20/19 24 Active metoprolol tartrate (Lopressor) 25 MG tablet take 1 tablet by oral route 2 times every day 180 tablet 3 12/20/19 24 Active Aspirin 81 MG capsuleIndications :Peripheral vascular disease ([facility]) Take 81 mg by mouth Once per day. 90 capsule 3 05/15/20 24 025 Active TAMOXIFEN CITRATE PO Take by mouth. 04/01/20 24 Active Liletta, 52 MG, 20.1 MCG/DAY intrauterine device 03/21/20 24 Active Mounjaro 2.5 MG/0.5ML solution pen-injector 2.5 mg. 03/26/20 24 Active losartan (Cozaar) 50 MG tabletIndications: Essential hypertension TAKE 1 TABLET BY MOUTH EVERY DAY 90 tablet 1 05/29/20 24 Active atorvastatin (Lipitor) 80 MG tabletIndications: Hyperlipidemia, unspecified hyperlipidemia type TAKE 1 TABLET BY MOUTH AT BEDTIME 90 tablet 1 07/19/20 24 Active fluticasone (Flonase) 50 MCG/ACT nasal sprayIndications:S easonal allergies INSTILL 1 SPRAY INTO EACH NOSTRIL IN THE AM. BEFORE FIRST USE PRIME PUMP AFTER USE CLEAN TIP 48 mL 08/07/20 24 Active ezetimibe (Zetia) 10 MG tabletIndications: Mixed hyperlipidemia TAKE 1 TABLET BY MOUTH EVERY MORNING 90 tablet 3 08/09/20 24 Active amitriptyline (Elavil) 10 MG tabletIndications: Other polyneuropathy TAKE 1 TABLET BY MOUTH AT BEDTIME 30 tablet 2 10/07/19 25 Active Ketotifen Fumarate 0.035 % solutionIndication s:Seasonal allergies Administer 1 drop into affected eye(s) 2 times daily. 10 mL 1 10/07/19 25 Active chlorthalidone (Hygroton) 25 MG tablet TAKE 1/2 TABLET BY MOUTH EVERY MORNING 45 tablet 1 10/07/19 25 Active Active Problems Problem Noted Date Diagnosed Date Lower extremity edema 07/10/2023 Abnormal uterine bleeding (AUB) 12/28/2022 Overview (12/28/2022): ?? Follow[place] Dr. Reyna [facility] ?? Post menopausal bleeding Healthcare maintenance 12/28/2022 Overview (12/28/2022): Mammo: Followed by [facility] oncology Pap: 05/2022 NIL, HPV neg C-scope: Cologuard pending Assessment & Plan (05/24/2023 2:34 PM EDT): - Due for shingles. Pt will go to pharmacy today - Will f/u re cologuard order History of bilateral mastectomy 03/25/2022 Overview (12/28/2022): ?? 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 AJCC stage pT2 N0. Prognostic stage IIA 03/21/2022 she underwent left simple mastectomy and right simple prophylactic mastectomy. Completed chemo 07/2022 Dr. Leigh at [facility] Tamoxifen Prolia 60mg sq On Pathology from left simple mastectomy-invasive ductal carcinoma, MS BR grade 3, 3.4 cm. DCIS high nuclear grade, solid and cribriform types, no lymphovascular invasion. Invasive carcinoma is present 2 mm from closest superior margin, remainder margins are widely negative. Skin and nipple negative for tumor. One sentinel lymph node negative for tumor. Assessment & Plan (12/06/2023 5:54 AM EDT): Follow as scheduled with oncology Allergy 04/22/2013 Palpitations 04/22/2013 Diabetes mellitus 03/19/2012 Overview (05/20/2024): genieufidelia 44 units; 28 units humalog before breakfast; 32 units before lunch; 28 units before dinner. mounjaro- lost 2 lbs Followed by endocrinology at [facility] Has CGM Foot Exam: 11/2023 Risk 0 Eye Exam: Followed by [facility] Statin: Yes ASA: Yes DAX/ARB: Yes Encouraged regular aerobic exercise for improved glycemic control Encouraged daily foot checks Encouraged lean protein snacks and to avoid foods high in sugar and simple carbohydrates Treatment Goals: A1c goal: <7% FBG goal: <130 2 hour post prandial goal: <180 Assessment & Plan (12/06/2023 5:48 AM EDT): Lab Results Component Value Date HGBA1C 8.6 (A) 12/01/2023 Improving. Will hold off on med changes given recent mounjaro start last week Follow up with [facility] endocrinology as scheduled Assessment & Plan (08/01/2023 2:10 PM EST): Lab Results Component Value Date HGBA1C 7.6 (A) 07/12/2023 ?? A1c improving ?? Continue current regimen ?? Due for repeat labs Assessment & Plan (05/24/2023 2:31 PM EDT): Lab Results Component Value Date HGBA1C 8.1 (A) 05/03/2023 ?? A1c improving ?? Continue current regimen per [facility] endocrinology ?? Pt requesting novolog refill Assessment & Plan (01/31/2023 9:22 AM EDT): ?? Continue current regimen ?? Follow up as scheduled with endo ?? Routine labs ordered Essential hypertension 03/19/2012 Overview (03/25/2024): Losartan 50mg Clorthalidone 12.5mg daily Metoprolol 25mg b.i.d Holter 2019 with occasional PVC's Previously followed by [facility] cardiology, last seen 2018 with plan to f/u if palpitations increase in frequency Echo 07/2023 with low normal EF 50-55%. Otherwise negative Maintenance: - Aerobic exercise to reduce BP. Initial goal of 30 min walk 3-5x/week. Increase as tolerated. - low-sodium diet (goal: <2g/day) and heart healthy diet such as DASH to reduce BP and prevent ASCVD. - Home BP monitoring 1-2 x day with goal of <140/90. - Seek immediate medical attention for chest pain, palpitations, SOB, syncope, or sudden changes in mental status. - Do not change or discontinue current prescriptions without first consulting health care provider Assessment & Plan (12/06/2023 5:49 AM EDT): START chlorthalidone 12.5mg daily. Reviewed administration, risks, side effects RN BP check 2 weeks with repeat BMP Assessment & Plan (08/01/2023 2:12 PM EST): ?? Mild BP elevation in office ?? Well controlled at home ?? Will hold off on medication changes due to hx of hypotension ?? Continue current regimen ?? Will consider addition of thiazide diuretic if persistent elevation at follow up Assessment & Plan (05/24/2023 2:34 PM EDT): ?? BP low in office today. Pt asx. Reports home BP 130's/70's. ?? Pt will continue to monitor ?? Reviewed s/s of hypotension to include weakness, dizziness, lightheadedness ?? Contact HC if readings <100/60 Assessment & Plan (01/31/2023 9:22 AM EDT): ?? Well controlled ?? Continue current regimen ?? Complete routine labs Pure hypercholesterolemia 03/19/2012 Overview (12/28/2022): ?? Atorvastatin 80mg Encounters Date Type Department Care Team Description 11/14/2024 Orders Only GENERIC EXTERNAL DATA DEPARTMENT Provider, Generic External Data 11/13/2024 Patient Outreach [facility] [address] [place], [place] [phone] Smithers, Radha, ENSEMBLE MEMBER Pre-visit Planning (SDOH screening negative and tobacco screening negative) 10/06/2024 Refill [facility] [address] [place] [address] [facility] Other polyneuropathy; Seasonal allergies 09/27/2024 Telephone [facility] [address] [facility] [place] [address] [facility], ENSEMBLE MEMBER Triage 09/12/2024 Orders Only GENERIC EXTERNAL DATA DEPARTMENT Provider, Generic External Data 09/09/2024 Refill [facility] [address] [place] [address] [facility] Other polyneuropathy 08/14/2024 Orders Only GENERIC EXTERNAL DATA DEPARTMENT Provider, Generic External Data from Last 3 Months Immunizations Name Administration Dates Next Due DTaP 06/19/2000 Hep A, Adult 08/30/2018,04/29/2008 Hep B, adult 01/28/2019,08/30/2018,04/29/2008 Influenza Injectable Quadriv alant Preservative Free IIV4 MDCK 06/23/2020 Influenza injectable quadriv alent preservative free 07/15/2021,08/30/2018 Influenza, Split (incl. kristy fied surface antigen) 11/14/2013 Influenza, seasonal, injecta ble, preservative free 07/11/2012 Pfizer Covid-19 Vaccine 12+ 12/01/2023 Pfizer Covid-19 Vaccine 12+ Bivalent 12/13/2022 Pneumococcal Conjugate PCV 20 01/31/2023 Pneumococcal Polysaccharide PPSV23 08/19/2003, Tdap 01/31/2023,07/20/2012 Zoster, Recombinant 05/12/2023 Social History Tobacco Use Types Packs/Day Years Used Date Smoking Tobacco: Never Smokeless Tobacco: Never Tobacco Cessation:Counseling Given: Not Answered Alcohol Use Standard Drinks/Week Comments Never 0 [...] Orientation Straight 07/25/2022 10 :14 AM EDT Last Filed Vital Signs Vital Sign Reading Time Taken Comments Blood Pressure 140/90 05/13/2024 1:00 PM EDT Pulse 81 05/13/2024 12:18 PM EDT Temperature 36.9 ??C (98.5 ??F) 05/13/2024 12:18 PM E DT Respiratory Rate 20 05/13/2024 12:18 PM EDT Oxygen Saturation 98% 05/13/2024 12:18 PM EDT Inhaled Oxygen Concentration - - Weight 127 kg (279 lb 3.2 oz) 05/13/2024 12:18 P M EDT Height 162.6 cm (5' 4 ) 05/13/2024 12:18 PM EDT Body Mass Index 47.92 05/13/2024 12:18 PM EDT Plan of Treatment Upcoming Encounters Date Type Department Care Team (Late st Contact Info) Description 11/25/2024 10:00 AM EST Office Visit [facility] [address] [place] [address] [facility] [address] [place] [address] Health Maintenance Due Date Last Done Comments CT Colonography 1961 Colonoscopy 1961 Colorectal Cancer Screening 1961 FIT DNA/Cologuard 1961 FIT 1961 FOBT 1961 HIV Screening 1961 Sigmoidoscopy 1961 Alcohol/Substance Use Screening 1973 Hepatitis C Screening 1979 RSV Patients and Patients Aged 60 years or older (1 - Risk 60-74 years 1-dose series) 2021 Mammogram 10/09/2022 04/08/2022, 01/24, 01/29/2022, Additional history exists Zoster Vaccines (2 of 2) 07/07/2023 05/12/2023 Diagnostic Breast Imaging 01/25/2024 Depression Screening 02/01/2024 01/31/2023, 02/01/20 23 COVID-19 Vaccine ( season) 2024 12/01/2023, 12/13/2022, 12/07/2021, Additional history exists Influenza Vaccine (#1) 2024 , 06/23/2020, 08/30/2018, Additional history exists Diabetes: Urine Protein Screening 08/11/2024 08/11/2023, 11/28/2022, 05/14/2020 Diabetes: Hemoglobin A1C 08/30/202402/28/2 024, 12/01/2023, 07/12/2023, Additional history exists Eye Exam 09/25/2024 09/25/2022 Diabetes: Foot Exam 11/30/2024 12/01/2023, 12/01/2023, 12/01/2023, Additional history exists Lipid Panel 02/28/2025 02/29/2024, 07/26, 11/28/2022 Pap Smear 05/04/2025 05/04/2022 Tobacco Screening 05/20/2025 05/20/2024 SDOH Screening 11/13/2025 11/13/2024 Cervical Cancer Screening 06/20/2027 HPV/Cotest 06/20/2027 06/20/2022, 05/27, 05/04/2022 DTaP/Tdap/Td Vaccines (4 - Td or Tdap) 01/31/2033 01/31/2023, 07/20/2012, 06/19/2000 Hepatitis A Vaccines Aged Out 08/30/2018, 04/29/20 08 No longer eligible based on patient's age to complete this topic Hepatitis B Vaccines Completed 01/28/2019, 08/30/2018, 04/29/2008 Pneumococcal Vaccine: 50+ Years Completed 01/31/2023, 08/19/2003, 08/22/2000 HIB Vaccines Aged Out No longer eligi ble based on patient's age to complete this topic HPV Vaccines Aged Out No longer eligi ble based on patient's age to complete this topic IPV Vaccines Aged Out No longer eligi ble based on patient's age to complete this topic Meningococcal Vaccine Aged Out No nyasia olga lidia eligible based on patient's age to complete this topic RSV under 20 months Aged Out No longe r eligible based on patient's age to complete this topic Rotavirus Vaccines Aged Out No longer eligible based on patient's age to complete this topic Procedures Procedure Name Priority Date/Time Associated Diagnosis Comments GLUCOSE, WHOLE BLOOD Routine 11/14/2024 11:38 AM EST GLUCOSE, WHOLE BLOOD Routine 09/12/2024 10:58 AM EST GLUCOSE, WHOLE BLOOD Routine 09/12/2024 10:36 AM EST GLUCOSE, WHOLE BLOOD Routine 08/14/2024 11:19 AM EST HEMOGLOBIN A1C Routine 02/29/2024 7:24 AM EDT Type 2 diabetes mellitus with hyperglycemia, with long-term current use of insulin ([facility]) LIPID PANEL, STANDARD Routine 02/29/2024 7:24 AM EDT ALBUMIN, RANDOM URINE W/CREATININE Routine 08/11/2023 9:44 AM EST Type 2 diabetes mellitus with hyperglycemia, with long-term current use of insulin ([facility]) ZZZ HISTORICAL HPV E6/E7 RFLX CARROLL 16 18/45 Routine 06/20/2022 1:00 PM EDT THINPREP IMAGING PAP AND HPV MRNA E6/E7, WITH CT/NG, TRICHOMONAS Routine 05/04/2022 12:00 AM EDT MAMMOGRAM GENERIC Routine 04/08/2022 10: 55 AM EDT from Last 3 Months or Most Recently Relevant to Health Maintenance Results * (ABNORMAL) Glucose, Whole Blood (11/14/2024 11:38 AM EST) Only the most recent of4 resultswithin the time period is included. Glucose, Whole Blood 143(H) 60 - 115 mg/dL [facility] Comment:METER #: [id number] 5Testing performed in the Endocrinology Department [address] , [address], [facility]. 11/14/2024 11:3 8 AM EST 11/14/2024 11:43 AM EST us Generic External Data Provider LAB BLOOD ORDERAB LES Final Result Performing Organization Address City/State/[facility] Co de Phone Number [facility] [address] [place] [phone] * (ABNORMAL) Hemoglobin A1c (02/29/2024 7:24 AM EDT) Hemoglobin A1c 6.4(H) <6.0 % [facility] Comment:Hemoglobin A1C Refer ence Range Adults: 4.8 - 6.0 % Non diabetic: < 6.0 % Goal: < 7.0 %Additional Action Suggested: > 8.0 %Note: Hemoglobin A1c results are invalid for patients with abnormal amounts of HbF. Blood transfusions may impact the HbA1c concentration in the patient sample. Estimated Average Glucose 137 mg/dL [facility] Comment:eAG = Estimated ave rage glucose which is %A1C expressed asaverage glucose, using the formula of the S3L-KowkqwrMyjlpik Glucose study (ADAG), Diabetes Care, Vol.31,#8,2007 Blood Venous blood specimen / Unknown 02/29/2024 7:24 AM EDT 02/29/2024 7:24 AM EDT [facility] ENSEMBLE MEMBER LAB BLOOD ORDERABLES Final Re sult [facility] [address] [place] [address] [phone] * Lipid Panel, Standard (02/29/2024 7:24 AM EDT) Triglycerides 37 <150 mg/dL [facility] Comment:Desirable Triglyceri de: less than 150 mg/dLBorderline High Triglyceride 150-199 mg/dLHigh Triglyceride: 200-499 mg/dLVery High Triglyceride: greater than or equal to 5OO mg/dL Cholesterol 89 <200 mg/dL [facility] Comment:Desirable Cholestero l: less than 200 mg/dLBorderline High Cholesterol: 200-239 mg/dLHigh Cholesterol: greater than 239 mg/dL LDL Cholesterol Calculated 40 <100 mg/dL [facility] Comment:Desirable LDL: less than 100 mg/dLNear Optimal/Above Optimal LDL: 110- 129 mg/dLBorderline High LDL: 130-159 mg/dLHigh LDL: 160-189 mg/dLVery High LDL: greater than or equal to 190 mg/dL HDL Cholesterol 42 >40 mg/dL [facility] Comment:Desirable HDL: great er than 40 mg/dL Note: This HDL assay may give artificially low results in patients with liver disease. 02/29/2024 7:24 AM EDT 02/29/2024 7:24 AM EDT Generic External Data Provider LAB BLOOD ORDERAB LES Final Result Performing Organization Address City/[facility]/ZIP Co de Phone Number [facility] [address] [place] [address] [phone] * Albumin, Random Urine W/Creatinine (08/11/2023 9:44 AM EST) Creatinine, Urine 140.25 mg/dL [facility] Microalbumin Urine 33.0 mg/L [facility] Microalbum Creatinine Ratio Ur 23.5 <30 ug/mg cr [facility] Comment:Albumin/Creatinine R atio Reference Ranges: Normal: < 30 ug/mg creatinine Microalbuminuria: 30 - 300 ug/mg creatinineClinical Albuminuria: > 300 ug/mg creatinine Urine 08/11/2023 9:44 AM EST 08/11/2023 11:15 AM EST [facility] LAB URINE ORDERABLES Final Re sult [facility] [address] [place] [phone] * HPV E6/E7 RFLX CARROLL 16 18/45 (06/20/2022 1:00 PM EDT) Pathologist [facility] HPV 16 RNA TNP CONVERTED [employer] HPV 18/45 RNA TNP CONVER CARLOS [employer] HPV E6 E7 ADD TNP CONVER [employer] HPV mRNA E6/E7 rflx Not Detected Not Detected CONVERTED [employer] Comment: Methodology: [employer]er-Mediated Amplification This assay detects E6/E7 viral messenger RNA (mRNA) from 14 high-risk HPV types (16,18,31,33,35,39,45,51,52,56,58,59,66,68). Cervical sources are required for HPV testing. If a vaginal source from a patient who has had a total hysterectomy with removal of cervix was submitted, please contact the testing laboratory for alternative testing options. For additional information, please refer to http://education.Prifloat/faq/OYJ923c8 (This link if provided for information/ educational purposes only.) THIS TEST WAS PERFORMED AT: [employer] [address] [place] [address] FLO[address] [place], [place] ??[phone] RENEE KAUFMAN MD 06/20/2022 1:00 PM EDT Duc Reyna MD HISTORICAL/NON ORDERABLE LABS Fi nal Result [facility] * THINPREP TIS PAP AND HPV mRNA E6/E7, CT/NG, TRICH (05/04/2022 12:00 AM EDT) Chlamydia trachomatis RNA, TMA, Urogenital NOT DETECTED NOT DETECTED [facility] Clinical Information: SCREENING [facility] COMMENT SEE COMMENT [facility] Comment: The analytical performance characteristics of this assay, when used to test SurePath(TM) specimens have been determined by [employer]. The modifications have not been cleared or approved by the FDA. This assay has been validated pursuant to the CLIA regulations and is used for clinical purposes. ?? For additional information, please refer to https://[employer].Prifloat/faq/SDF101 (This link is being provided for information/ educational purposes only.) ?? COMMENT SEE COMMENT [facility] Comment: EXPLANATORY NOTE: ? The Pap is a screening test for cervical cancer. It is ?? not a diagnostic test and is subject to false negative ?? and false positive results. It is most reliable when a ?? satisfactory sample, regularly obtained, is submitted ?? with relevant clinical findings and history, and when ?? the Pap result is evaluated along with historic and ?? current clinical information. ?? COMMENT: This Pap test has been evaluated with computer assisted technology. [facility] City Sanitarian: SEE COMMENT [facility] Comment: GSG, CT(ASCP) CT screening location: [address] ??[phone] HPV nRNA E6/E7 Not Detected Not Detected [facility] Comment: Methodology: T[employer]er-Mediated Amplification This assay detects E6/E7 viral messenger RNA (mRNA) from 14 high-risk HPV types (16,18,31,33,35,39,45,51,52,56,58,59,66,68). ? Cervical sources are required for HPV testing. If a vaginal source from a patient who has had a total hysterectomy with removal of cervix was ?? submitted, please contact the testing laboratory for alternative testing options. ?? For additional information, please refer to http://education.Prifloat/faq/ATT876j2 (This link if provided for information/ educational purposes only.) Interpretation/Res ult: SEE COMMENT [facility] Comment: Negative for intraepithelial lesion or malignancy. Atrophic pattern; predominantly parabasal cells LMP: NONE GIVEN [facility] Neisseria gonorrhoeae RNA, TMA, Urogenital NOT DETECTED NOT DETECTED [facility] Prev. BX: NONE GIVEN [facility] Prev. PAP: NONE GIVEN [facility] SOURCE: Cervix [facility] Statement Of Adequacy: SATISFACTORY FOR EVALUATION [facility] Trichomonas vaginalis, QL, TMA, PAP Vial NOT DETECTED NOT DETECTED [facility] Comment: The analytical performance characteristics of this assay have been determined by [employer]. The modifications have not been cleared or approved by the FDA. This assay has been validated pursuant to the CLIA regulations and is used for clinical purposes. ?? For additional information, please refer to http://education.Prifloat/ faq/Trichomonastma (This link is being provided for information/ educational purposes only.) ?? 05/04/2022 [facility] ENSEMBLE MEMBER LAB PATHOLOGY ORDERABLES Nancy l Result [facility] [address] * Mammography Report 1 (04/08/2022 10:55 AM EDT) Anatomical Region Laterality Modality Breast Bilateral Mammography 04/08/2022 10:5 5 AM EDT Narrative 04/08/2022 5:59 PM EDT Refer to the Notes tab for result details [facility] Procedure: Mammography Report 1 Procedure Note Provider, MD Cecily - 12/18/2022 Refer to the Notes tab for result details [facility] Procedure: Mammography Report 1 Historical Provider IMG BI PROCEDURES Final R esult from Last 3 Months or Most Recently Relevant to Health Maintenance Insurance [facility] C3 HSN FULL Care Teams Hairspring Adjuster Relationship Specialty Start Date End Date Radha Bautista FNP [address] [place] [phone] PCP - General Family Medicine 05/24/22
--- OUTSIDE RECORDS SUMMARY | 2024-11-14 12:42 | XMS_ITS | Encounter Summary ---
Author Organization [employer] Address [address] [place] [address] 7 [place] [address] Care Team Providers Care Excavation Laborer Name Role Phone [facility] Primary Care Provider [phone] Reason for Visit * Reason Onset Date Comments FYI 07/12/2023 Encounter Details Date Type Department Care Team ([facility] Contact Info) Description 07/12/2023 Telephone [facility] [address] [place], [place] [phone] [facility] [address] [place] [address] FYI Social History Tobacco Use Types Packs/Day Years [...] encounter Miscellaneous Notes * Telephone Encounter - Amie Guaman - 07/21/2023 11:27 AM EDT NEW DM GENERATED WITH DIFFERENT SEED EXPERT KWAN COUGHLIN. [employer] IS ASKING FROM NOTES OF SPECIALIST EITHER VASCULAR OR orthotics SENDING THE NOTES WHERE YOU MENTION PATIENT WILL BE REFERRED TO VASCULAR. DME WILL BE PLACED ON DESK FOR SIGNATURE. * Telephone Encounter - Amie Guaman - 07/13/2023 11:01 AM EDT PLEASE SEE MESSAGE AND ADVICE * Telephone Encounter - David Dejesus - 07/12/2023 3:35 PM EDT Tc from [facility] would like to inform PCP that they received script for compression socks howeverthey are unable to bill MH due to not having a orthotics on floor. Advised will leave message as FYI if any concerns please contact at [phone] documented in this encounter Plan of Treatment Upcoming Encounters Date Type Department Care Team (Late st Contact Info) Description 11/25/2024 10:00 AM EST Office Visit [facility] [address] [place] [address] [facility] [address] [place], [place] [phone] documented as of this encounter Visit Diagnoses Not on filedocumented in this encounter Additional Health Concerns Assessment Noted Time PHQ-9 Depression Total Score: 0 02/01/20 23 8:55 AM EDT documented as of this encounter Care Teams Excavation Laborer Relationship Specialty Start Date End Date Radha Bautista FNP [address] [place] [id number] PCP - General Family Medicine 05/24/22 documented as of this encounter
--- OUTSIDE RECORDS SUMMARY | 2024-11-14 12:42 | XMS_ITS | Encounter Summary ---
Author Organization [employer] Address [address] [facility] 7t [place] [address] Care Team Providers Care Insurance Office Supervisor Name Role Phone [facility] Primary Care Provider [phone] Reason for Visit * Reason Comments Med Refill Encounter Details Date Type Department Care Team ([facility] Contact Info) Description 08/10/2024 Refill [facility] [address] [place], [place] [phone] [facility] [address] [place] [address] Other polyneuropathy; Seasonal allergies Social History Tobacco Use Types Packs/Day Years [...] Description 11/25/2024 10:00 AM EST Office Visit [facility] [address] [place] [address] Radha Bautista FNP [address] [place] [address] documented as of this encounter Visit Diagnoses Diagnosis Other polyneuropathy Seasonal allergies Allergic rhinitis, cause unspecified documented in this encounter Additional Health Concerns Assessment Noted Time PHQ-9 Depression Total Score: 0 02/01/20 23 8:55 AM EDT documented as of this encounter Care Teams Insurance Office Supervisor Relationship Specialty Start Date End Date Radha Bautista FNP [address] [place] [address] PCP - General Family Medicine 05/24/22 documented as of this encounter
--- OUTSIDE RECORDS SUMMARY | 2024-11-14 12:43 | XMS_ITS | Encounter Summary ---
Author Organization [employer] Address [address] [facility] 7t [place] [address] Care Team Providers Care Quality Rep Name Role Phone [facility] Primary Care Provider [phone] Reason for Visit * Reason Comments Med Refill Encounter Details Date Type Department Care Team ([facility] Contact Info) Description 11/14/2023 Refill [facility] [address] [place], [place] [phone] [employer] [address] [place] [address] Seasonal allergies Social History Tobacco Use Types [...] Description 11/25/2024 10:00 AM EST Office Visit [facility] [address] [place] [address] Radha Bautista FNP 230 [place] [address] documented as of this encounter Visit Diagnoses Diagnosis Seasonal allergies Allergic rhinitis, cause unspecified documented in this encounter Additional Health Concerns Assessment Noted Time PHQ-9 Depression Total Score: 0 02/01/20 23 8:55 AM EDT documented as of this encounter Care Teams Quality Rep Relationship Specialty Start Date End Date Radha Bautista FNP [address] [place] [address] PCP - General Family Medicine 05/24/22 documented as of this encounter
--- OUTSIDE RECORDS SUMMARY | 2024-11-14 12:43 | XMS_ITS | Encounter Summary ---
Author Organization [employer] Address [address] [place] [address] 7 [place] [address] Care Team Providers Care Focuser Name Role Phone [facility] Primary Care Provider [phone] Reason for Visit * Reason Comments Med Change Request Encounter Details Date Type Department Care Team ([facility] Contact Info) Description 01/31/2023 Refill [facility] [address] [place], [place] [phone] [facility] [address] [place] [address] Type 2 diabetes mellitus with hyperglycemia, with long-term current use of insulin ([facility]) Social History Tobacco Use Types Packs/Day Years Used Date Smoking Tobacco: Never Smokeless Tobacco: Never Alcohol Use Standard Drinks/Week Comments Never 0 (1 standard drink = 0.6 oz pur e alcohol) Depression Answer Date Recorded Patient Health Questionnaire-9 Score 0 01/31/2023 Depression Answer Date Recorded Patient Health Questionnaire-2 Score 0 01/31/2023 Comments Unknown Sex and Gender Information Value Date Recorded Sex Assigned at Female 07/25/2022 10:14 AM EDT Legal Sex Female 10:14 AM EDT Gender Identity Female 07/25/2022 10:14 AM EDT Sexual Orientation Straight 07/25/2022 10 :14 AM EDT COVID-19 Exposure Response Date Recorded In the last 10 days, have yo u been in contact with someone who was confirmed or suspected to have Coronavirus/COVID-19? No / Unsure 01/31/2023 8:33 AM EDT documented as of this encounter Miscellaneous Notes * Telephone Encounter - NADEEM Clark - 02/02/2023 5:33 PM EDT Called pharmacy. Verbally changed to geniedioniciocharleyBria barrow which insurance covered documented in this encounter Plan of Treatment Upcoming Encounters Date Type Department Care Team (Late st Contact Info) Description 11/25/2024 10:00 AM EST Office Visit [facility] [address] [place] [address] Radha Bautista FNP [address] [place] [address] documented as of this encounter Visit Diagnoses Diagnosis Type 2 diabetes mellitus with hyperglycemia, with long-term current use of insulin ([facility]) documented in this encounter Additional Health Concerns Assessment Noted Time PHQ-9 Depression Total Score: 0 02/01/20 23 8:55 AM EDT documented as of this encounter Care Teams Focuser Relationship Specialty Start Date End Date Radha Bautista FNP [address] [place] [address] PCP - General Family Medicine 05/24/22 documented as of this encounter
--- OUTSIDE RECORDS SUMMARY | 2024-11-14 12:43 | XMS_ITS | Encounter Summary ---
Author Organization [employer] Address [address] [facility] 7t [place] [address] Care Team Providers Care Pest Control Chemical Technician Name Role Phone [facility] Primary Care Provider [phone] Reason for Visit * Reason Comments Med Change Request Encounter Details Date Type Department Care Team ([facility] Contact Info) Description 12/01/2023 Refill [facility] [address] [place], [place] [phone] [facility] [address] [place] [address] Essential hypertension Social History Tobacco Use Types Packs/Day Years [...] Description 11/25/2024 10:00 AM EST Office Visit [facility] [address] [place] [address] Radha Bautista FNP [address] [place] [address] documented as of this encounter Visit Diagnoses Diagnosis Essential hypertension Unspecified essential hypertension documented in this encounter Additional Health Concerns Assessment Noted Time PHQ-9 Depression Total Score: 0 02/01/20 23 8:55 AM EDT documented as of this encounter Care Teams Pest Control Chemical Technician Relationship Specialty Start Date End Date Radha Bautista FNP [address] [place] [address] PCP - General Family Medicine 05/24/22 documented as of this encounter
--- OUTSIDE RECORDS SUMMARY | 2024-11-14 12:43 | XMS_ITS | Encounter Summary ---
Author Organization [employer] Address [address] [facility] 7t [place] [address] Care Team Providers Care Decorating Machine Operator Name Role Phone [facility] Primary Care Provider [phone] Reason for Visit * Reason Comments Pre-visit Planning SDOH screening negat mario and tobacco screening negative Encounter Details Date Type Department Care Team ([facility] st Contact Info) Description 11/13/2024 Patient Outreach [facility] [address] [place], [place] [phone] [facility] [address] [place] [address] Pre-visit Planning (SDOH screening negative and tobacco screening negative) Social History Tobacco Use Types Packs/Day Years [...] AM EDT documented as of this encounter Progress Notes * Kandice Gutierrez - 11/13/2024 10:08 AM EST CC Kandice placed successful outbound call to patient for pre-visit planning. Patient name and confirmed. Patient confirms appt date and time, and has transportation. Biggest concern for appointment at this time is poor vision, numbness of feet and allergies Patient advised to bring to appointment a photo id and insurance card. Appropriate screenings completed in anticipation of appointment. documented in this encounter Plan of Treatment Upcoming Encounters Date Type Department Care Team (Late st Contact Info) Description 11/25/2024 10:00 AM EST Office Visit [facility] [address] [place] [address] Radha Bautista FNP [address] [place] [address] documented as of this encounter Visit Diagnoses Not on filedocumented in this encounter Additional Health Concerns Assessment Noted Time PHQ-9 Depression Total Score: 0 02/01/20 23 8:55 AM EDT documented as of this encounter Care Teams Decorating Machine Operator Relationship Specialty Start Date End Date Radha Bautista FNP [address] [place] [address] PCP - General Family Medicine 05/24/22 documented as of this encounter
== END 2024-11-14 11:59 | disposition home or self-care (01) ==
PROVIDERS: PCP Registered Nurse; Visit Provider Internal Medicine
DX: E11.649 Type 2 diabetes mellitus with hypoglycemia without coma (principal); Z79.4 Long term (current) use of insulin

== ENCOUNTER → 2024-11-14 11:24 | Outpatient (BNVA) | payer MEDICAID, SELFPAY | PROVIDERS: PCP Registered Nurse; Visit Provider Internal Medicine | DX: E11.649 Type 2 diabetes mellitus with hypoglycemia without coma (principal); Z79.4 Long term (current) use of insulin | CPT/HCPCS: 82947; 83036; 99212 ==

== ENCOUNTER 2024-12-11 13:40 | Outpatient (AMB) | payer MEDICAID, SELFPAY ==
--- NOTE | 2024-12-11 13:43 | A.OFFVIS_ITS ---
Vital Signs 12/11/24 13:44 Height 5 ft 4 in Weight 262 lb 5.601 oz BMI 45.0 BP 124/72 Blood Pressure Location Rt brachial Position Sitting Pulse 72 Pulse Source Pulse Oximeter Pulse Oximetry (%) 98 Oxygen Delivery Method Room Air Intake Visit Reasons: DM med dose change Intake Note: Patient presents today for a follow-up on Type 2 Diabetes Mellitus: Last Diabetic eye exam was on: 04/25/2025 Last Podiatry exam was on: Patient does not see a Route Sales Delivery Drivers Supervisor Most recent HbA1c: 6.7%, 11/14/2024 Random Glucose- 183 mg/dL, Today Hand Paster Required: Yes Hand Paster Language: Art Therapist Services: Hand Paster Present Hand Paster Name: Amelia # [id number] Accompanied by: Self / Same As Patient Allergies turkey Allergy (Severe, Verified 09/12/24 10:29) chest pain/swelling/SOB/itching HPI Comments Details: 64 YO F who is seen in f/u for type 2 diabetes. Initially diagnosed with T2DM in 21 yrs . Was initially started on treatment with metformin. Had Gi issues Current regimen: -Toujeo -she is taking 25 units -Humalog -Unfortunately at last visit plan was to increase Mounjaro 5mg weekly to 7.5mg weekly. Her health insurance required that she try ozempic-she has taken 3 injections of the ozempic and she has been miserable-she has been having hyperglycemia, extreme nausea, extreme fatigue, and daily headaches. Her last dose was Monday Last A1C 6.7%. Down from 7.3% Denies hypoglycemia Has eyes checked yearly, last eye exam has appt 11/12/2023 denies retinopathy-referred to new ophto +neuropathy Denies nephropathy Has HLD, on statin. LDL 40 03/18 on atorvastatin 80 mg daily , adherence is good Denies CAD. walks 2 hours daily BP at goal : on losartan 50 mg daily and metoprolol 25 BID Had diabetes education at [facility] ROS see HPI PHYSICAL EXAM: GENERAL: Alert and oriented x 3. NAD EYES: EOMI. Anicteric. HENT: Moist mucous membranes. No scleral icterus. No cervical lymphadenopathy. LUNGS: Clear to auscultation bilaterally. CARDIOVASCULAR: Regular rate and rhythm. No murmur. No JVD. ABDOMEN: Soft, non-tender +bs EXTREMITIES: No edema. Non-tender. Foot exam: Warm, dry +PT pulses PFSH Medical History HLD (hyperlipidemia) Type 2 diabetes mellitus Uncontrolled type 2 diabetes mellitus with hyperglycemia Fever of unknown origin Seroma of breast GERD (gastroesophageal reflux disease) COVID-19 vaccine series completed Asthma Hypercholesteremia HTN (hypertension) Diabetes Invasive ductal carcinoma of left breast Surgical History History of incision and drainage (05/02/22) History of bilateral mastectomy (03/21/22) History of delivery History of cholecystectomy Family History Mother Breast cancer, Onset Age: 58 Sister Breast cancer, Onset Age: 54 Social History Household Members: Family Household Members Other:: and son Housing: House Housing Other:: [facility] Are you a primary healthcare network pricing consultant to a significant other at home: No Do you presently have visiting nurse or other home services: No Alcohol intake: never Patient Tobacco Use Status: Never used Tobacco Second Hand Smoke Exposure: No Advance Directives Date on File: 04/15/22 service: No Current occupational status: employed Current occupation: rt handed Female Reproductive History Menstrual Age of Menarche: 11 Physical Exam Vital Signs: Last Vital Signs Pulse 72 12/11/24 13:44 BP 124/72 12/11/24 13:44 Pulse Ox 98 12/11/24 13:44 Oxygen Delivery Method Room Air 12/11/24 13:44 BMI result Body Mass Index 45.0 Assessment & Plan Assessment & Plan (1) Type 2 diabetes mellitus: Code(s): E11.9 - Type 2 diabetes mellitus without complications Category: Medical Qualifiers: 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 Moreover the side effects have been intolerable Will restart mounjaro on which she was doing excellent Return in 2 months for A1C and follow up or sooner as needed Medications: Refilled tirzepatide (Mounjaro) 7.5 mg (0.5 mL) subcut QWEEK 2 mL 11RF E11.649 - Type 2 diabetes mellitus with hypoglycemia without coma, Z79.4 - FDC (current) use of insulin Coding Level of Care Code Est Pt Level 4 (61339) Diagnoses Type 2 diabetes mellitus with hypoglycemia without coma, with long-term current use of insulin E11.649; Z79.4 Diabetes mellitus intermodal owner operator truck driver insulin use: with intermodal owner operator truck driver use Diabetes mellitus complication status: with hypoglycemia Diabetes mellitus complication detail: without coma
[2024-12-11 13:44] VITALS: BP 124/72; PULSE 72; O2SAT 98; BMI 45.0
[2024-12-11 13:56] LABS: Glucose, Whole Blood 183 mg/dL (60-115)
--- OUTSIDE RECORDS SUMMARY | 2024-12-11 16:06 | XMS_ITS | Encounter Summary ---
Author Organization [employer] Address [address] [facility] 7t [place] [address] Care Team Providers Care Core Blower Name Role Phone [facility] Primary Care Provider Reason for Visit * Reason Comments Med Refill Encounter Details Date Type Department Care Team ([facility] Contact Info) Description 08/10/2024 Refill [facility] 230 [place], [place] [phone] [facility] [address] [place] [address] Other polyneuropathy; Seasonal allergies Social History Tobacco [...] Care Team (Late st Contact Info) Description 01/10/2025 11:15 AM EDT Office Visit [facility] [address] [place] [address] Radha Bautista FNP [address] [place] [address] documented as of this encounter Visit Diagnoses Diagnosis Other polyneuropathy Seasonal allergies Allergic rhinitis, cause unspecified documented in this encounter Additional Health Concerns Assessment Noted Time PHQ-9 Depression Total Score: 0 02/01/20 23 8:55 AM EDT documented as of this encounter Care Teams Core Blower Relationship Specialty Start Date End Date Radha Bautista FNP [address] [place] [address] PCP - General Family Medicine 05/24/22 documented as of this encounter
--- OUTSIDE RECORDS SUMMARY | 2024-12-11 16:07 | XMS_ITS | Clinical Summary ---
Author Organization [employer] Address [address] [place] [address] 7[address] [place] [address] Care Team Providers Care General Helper Name Role Phone Radha Bautista CUSTOMER SUCCESS ADVOCATE Primary Care Provider [phone] Allergies No known active allergies Medications zoster vaccine-recombina nt adjuvanted (Shingrix) 50 MCG/0.5ML vaccine inject 0.5 milliliter by intramuscular route once 020 Active topiramate (Topamax) 25 MG tablet take 1 tablet by oral route every day 022 Active silver sulfADIAZINE (Silvadene) 1 % cream 1 APPL TOPICALLY 2 TIMES A DAY APPLY A 1.5 MM THICKNESS 022 Active ondansetron ODT (Zofran-ODT) [address] 1 tablet by translingual route every 8 hours as needed for nausea Active omeprazole (PriLOSEC) [address] capsule take 1 capsule by oral route every day before a meal 022 Active FreeStyle lancets USE 1 DIRECTED 3 TIMES A DAY 022 Active BD Pen Needle Lesley 2nd Gen 32G X 4 MM misc USE CUATRO VECES AL D A 022 Active FREESTYLE LITE test strip USE 1 STRIP 3 TIMES A DAY 022 Active Baqsimi Two Pack 3 MG/DOSE nasal powder SRAY 3 MG INTRANSALLY ONCE 023 Active Continuous Blood Gluc Sensor (FreeStyle Valerio 2 Sensor) misc USE DIRECTED 023 Active Continuous Blood Gluc Reuse Technician (FreeStyle Valerio 2 Shohola) device USE DIRECTED 023 Active D3 50 MCG (1999 UT) tablet TAKE 1 TABLET BY MOUTH DAILY 023 Active Toujeo SoloStar 300 UNIT/ML injectionIndicati ons:Type 2 diabetes mellitus with hyperglycemia, with long-term current use of insulin ([facility]) Inject 50 units by subcutaneous route every evening 15 mL 3 023 Active insulin aspart FlexPen (NovoLOG) 100 UNIT/ML penIndications:Ty pe 2 diabetes mellitus with hyperglycemia, with long-term current use of insulin ([facility]) Inject 43 Units under the skin with breakfast, with lunch, and with evening meal. 38.7 mL 11 023 Active Blood Pressure kitIndications:Es sential hypertension Use as directed 1 kit 024 Active cetirizine (ZyrTEC) 10 MG tabletIndications :Seasonal allergies TOME NAOMY TABLETA TODOS LOS PARADA EN LA MANANA 90 tablet 3 024 Active metoprolol tartrate (Lopressor) 25 MG tablet take 1 tablet by oral route 2 times every day 180 tablet 3 024 Active Aspirin 81 MG capsuleIndication s:Peripheral vascular disease ([facility]) Take 81 mg by mouth Once per day. 90 capsule 3 024 2024 Active Liletta, 52 MG, 20.1 MCG/DAY intrauterine device 024 Active Mounjaro 2.5 MG/0.5ML solution pen-injector 2.5 mg. 024 Active atorvastatin (Lipitor) 80 MG tabletIndications :Hyperlipidemia, unspecified hyperlipidemia type TAKE 1 TABLET BY MOUTH AT BEDTIME 90 tablet 1 024 Active fluticasone (Flonase) 50 MCG/ACT nasal sprayIndications: Seasonal allergies INSTILL 1 SPRAY INTO EACH NOSTRIL IN THE AM. BEFORE FIRST USE PRIME PUMP AFTER USE CLEAN TIP 48 mL 024 Active ezetimibe (Zetia) 10 MG tabletIndications :Mixed hyperlipidemia TAKE 1 TABLET BY MOUTH EVERY MORNING 90 tablet 3 024 Active amitriptyline (Elavil) 10 MG tabletIndications :Other polyneuropathy TAKE 1 TABLET BY MOUTH AT BEDTIME 30 tablet 2 025 Active Ketotifen Fumarate 0.035 % solutionIndicatio ns:Seasonal allergies Administer 1 drop into affected eye(s) 2 times daily. 10 mL 1 025 Active chlorthalidone (Hygroton) 25 MG tablet TAKE 1/2 TABLET BY MOUTH EVERY MORNING 45 tablet 1 025 Active triamcinolone (Kenalog) 0.025 % creamIndications: Dry skin dermatitis Apply topically 2 times daily. Mix entire tube with 16oz cera ve jar as instructed. Apply from neck down once daily 80 g 1 025 Active losartan (Cozaar) 100 MG tabletIndications :Essential hypertension Take 1 tablet (100 mg) by mouth Once per day. TAKE 1 TABLET BY MOUTH EVERY DAY 90 tablet 3 025 2025 Active TAMOXIFEN CITRATE PO Take by mouth. 024 2024 Discontinued losartan (Cozaar) 50 MG tabletIndications :Essential hypertension TAKE 1 TABLET BY MOUTH EVERY DAY 90 tablet 1 024 2024 Discontinued(R eorder (will not trigger notification to Pharmacy)) Active Problems Problem Noted Date Diagnosed Date Endometrial hyperplasia with atypia 11/24/2024 Lower extremity edema 07/10/2023 Abnormal uterine bleeding (AUB) 12/28/2022 Overview (12/28/2022): ?? Followed by Dr. Reyna [facility] ?? Post menopausal bleeding Healthcare maintenance 12/28/2022 Overview (12/28/2022): Mammo: Followed by [facility] oncology Pap: 05/2022 NIL, HPV neg C-scope: Cologuard pending Assessment & Plan (05/24/2023 2:34 PM EDT): - Due for shingles. Pt will go to pharmacy today - Will f/u re cologuard order History of bilateral mastectomy 03/25/2022 Overview (12/28/2022): ?? 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 AJCC stage pT2 N0. Prognostic stage IIA 03/21/2022 she underwent left simple mastectomy and right simple prophylactic mastectomy. Completed chemo 07/2022 Dr. Leigh at [facility] Tamoxifen Prolia 60mg sq On Pathology from [...] Palpitations 04/22/2013 Diabetes mellitus 03/19/2012 Overview (05/20/2024): toujeo 44 units; 28 units humalog before breakfast; 32 units before lunch; 28 units before dinner. mounjaro- lost 2 lbs Followed by endocrinology at [facility] Has CGM Foot Exam: 11/2023 Risk 0 Eye Exam: Followed by [facility] Statin: Yes ASA: Yes DAX/ARB: Yes Encouraged [...] mounjaro start last week Follow up with [facility] endocrinology as scheduled Assessment & Plan (08/01/2023 [...] 2019 with occasional PVC's Previously followed by [facility] cardiology, last seen 2019 with plan to f/u if palpitations increase [...] Encounters Date Type Department Care Team Description 12/11/2024 Orders Only [facility] [address] [place] [address] Radha Bautista FNP 12/06/2024 Population Health Risk Score [facility] (C[facility]) Department [address] [address] Provider, Population Health Generic 11/26/[address] [address] Radha Bautista FNP [place] endo 11/25/2024 10:00 AM EST Office Visit [address] [address] Radha Bautista FNP Healthcare maintenance (Primary Dx); Essential hypertension; Type 2 diabetes mellitus with diabetic peripheral angiopathy without gangrene, with long-term current use of insulin ([facility]); Other osteoporosis without current pathological fracture; Dry skin dermatitis; Endometrial hyperplasia with atypia; Encounter for immunization; Dietary counseling; Exercise counseling; Class 3 severe obesity due to excess calories with serious comorbidity and body mass index (BMI) of 45.0 to 49.9 in adult ([facility]); Screening for colon cancer 11/25/2024 Travel 11/14/2024 Orders Only GENERIC EXTERNAL DATA DEPARTMENT Provider, Generic External Data 11/13/2024 Patient Outreach [facility] [address] [place] [address] Radha Bautista FNP Pre-visit Planning (SDOH screening negative and tobacco screening negative) 10/06/2024 Refill [facility] [address] [place], [place] [phone] Radha Bautista FNP Other polyneuropathy; Seasonal allergies 09/27/2024 Telephone [facility] [address] [place] [address] Radha Bautista CUSTOMER SUCCESS ADVOCATE Triage 09/12/2024 Orders Only GENERIC EXTERNAL DATA DEPARTMENT Provider, Generic External Data from Last 3 Months Immunizations Name Administration Dates Next Due DTaP 06/19/2000 Hep A, Adult 08/30/2018,04/29/2008 Hep B, adult 01/28/2019,08/30/2018,04/29/2008 Influenza Injectable Quadriv alant Preservative Free IIV4 MDCK 06/23/2020 Influenza injectable quadriv alent preservative free 07/15/2021,08/30/2018 Influenza, Split (incl. kristy fied surface antigen) 11/14/2013 Influenza, seasonal, injecta ble, preservative free 11/25/2024,07/11/2012 Pfizer Covid-19 Vaccine 12+ 11/25/2024, Pfizer Covid-19 Vaccine 12+ Bivalent 12/13/2022 Pneumococcal [...] Sign Reading Time Taken Comments Blood Pressure 154/98 11/25/2024 10:46 AM EST Pulse 87 11/25/2024 9:51 AM EST Temperature 35.9 ??C (96.6 ??F) 11/25/2024 9:51 AM ES T Respiratory Rate 20 05/13/2024 12:18 PM EDT Oxygen Saturation 98% 11/25/2024 9:51 AM EST Inhaled Oxygen Concentration - - Weight 122 kg (268 lb 2 oz) 11/25/2024 9:[address] Height 162.6 cm (5' 4 ) 11/25/2024 9:51 AM EST Body Mass Index 46.02 11/25/2024 9:51 AM EST Plan of Treatment Upcoming Encounters Date Type Department Care Team (Late st Contact Info) Description 01/10/2025 11:15 AM EDT Office Visit [facility] [address] [place] [address] [facility] [address] [place] [address] Health Maintenance Due Date Last Done Comments CT Colonography 1961 Colonoscopy 1961 Colorectal Cancer Screening 1961 FIT DNA/Cologuard 1961 FIT 1961 FOBT 1961 HIV Screening 1961 Sigmoidoscopy 1961 Alcohol/Substance Use Screening 1973 Hepatitis C Screening 1979 RSV Patients and Patients Aged 60 years or older (1 - Risk 60-74 years 1-dose series) 2021 Mammogram 04/08/2023 04/08/2022, 01/24, 01/29/2022, Additional history exists Zoster Vaccines (2 of 2) 07/07/2023 05/12/2023 Diagnostic Breast Imaging 01/25/2024 Depression Screening 02/01/2024 01/31/2023, 02/01/20 23 Diabetes: Urine Protein Screening 08/11/2024 08/11/2023, 11/28/2022, 05/14/2020 Eye Exam 09/25/2024 09/25/2022 Diabetes: Foot Exam 11/30/2024 12/01/2023, 12/01/2023, 12/01/2023, Additional history exists Lipid Panel 02/28/2025 02/29/2024, 07/26, 11/28/2022 Pap Smear 05/04/2025 05/04/2022 Diabetes: Hemoglobin A1C 05/28/2025 025, 02/29/2024, 12/01/2023, Additional history exists SDOH Screening 11/13/2025 11/13/2024 Tobacco Screening 11/25/2025 11/25/2024 Cervical Cancer Screening 06/20/2027 HPV/Cotest 06/20/2027 06/20/2022, 05/27, 05/04/2022 DTaP/Tdap/Td Vaccines (4 - Td or Tdap) 01/31/2033 01/31/2023, 07/20/2012, 06/19/2000 Hepatitis A Vaccines Aged Out 08/30/2018, 04/29/20 08 No longer eligible based on patient's age to complete this topic Hepatitis B Vaccines Completed 01/28/2019, 08/30/2018, 04/29/2008 Pneumococcal Vaccine: 50+ Years Completed 01/31/2023, 08/19/2003, 08/22/2000 COVID-19 Vaccine Completed 11/25/2024, 04/2024, 12/13/2022, Additional history exists Influenza Vaccine Completed 11/25/2024, , 06/23/2020, Additional history exists HIB Vaccines Aged Out No longer eligi [...] Associated Diagnosis Comments GLUCOSE, WHOLE BLOOD Routine 12/11/2024 1:50 PM EDT POCT GLYCATED HEMOGLOBIN, TOTAL Routine 11/25/2024 9:58 AM EST Type 2 diabetes mellitus with diabetic peripheral angiopathy without gangrene, with long-term current use of insulin ([facility]) POCT GLUCOSE Routine 11/25/2024 9:52 AM EST Type 2 diabetes mellitus with diabetic peripheral angiopathy without gangrene, with long-term current use of insulin ([facility]) GLUCOSE, WHOLE BLOOD Routine 11/14/2024 11:38 AM EST GLUCOSE, WHOLE BLOOD Routine 09/12/2024 10:58 AM EST GLUCOSE, WHOLE BLOOD Routine 09/12/2024 10:36 AM EST LIPID PANEL, STANDARD Routine 02/29/2024 7:24 AM EDT ALBUMIN, RANDOM URINE W/CREATININE Routine 08/11/2023 9:44 AM EST Type 2 diabetes mellitus with hyperglycemia, with long-term current use of insulin ([facility]) ZZZ HISTORICAL HPV E6/E7 RFLX CARROLL 16 18/45 Routine 06/20/2022 1:00 PM EDT THINPREP IMAGING PAP AND HPV MRNA E6/E7, WITH CT/NG, TRICHOMONAS Routine 05/04/2022 12:00 AM EDT MAMMOGRAM GENERIC Routine 04/08/2022 10: 55 AM EDT from Last 3 Months or Most Recently Relevant to Health Maintenance Results * (ABNORMAL) Glucose, Whole Blood (12/11/2024 1:50 PM EDT) Only the most recent of4 resultswithin the time period is included. Glucose, Whole Blood 183(H) 60 - 115 mg/dL [facility] Comment:METER #: [id number] 5Testing performed in the Endocrinology Department [address] , [address], [facility]. 12/11/2024 1:50 PM EDT 12/11/2024 1:56 PM EDT [facility] External Data Provider LAB BLOOD ORDERAB LES Final Result [facility] [address] [place] [phone] * (ABNORMAL) POCT HGB A1C (11/25/2024 9:58 AM EST) Hemoglobin A1C 6.8(A) 4.0 - 6.0 % QC Media Lot # [id number] Lot# Expiration Date Blood 11/25/2024 9:58 AM EST [facility] POINT OF CARE TEST ENTER/EDIT ORDERABLES Final Result * POCT Glucose (11/25/2024 9:52 AM EST) Glucose Blood, POC 194 60 - 200 mg/dL QC Media Lot # [id number] Lot# Expiration Date Blood Capillary blood specimen / Unknown 11/25/2024 9:52 AM EST [facility] POINT OF CARE TEST ENTER/EDIT ORDERABLES Final Result * Lipid Panel, Standard (02/29/2024 7:24 AM EDT) Triglycerides 37 <150 mg/dL [facility] Comment:Desirable Triglyceri de: less than 150 mg/dLBorderline High Triglyceride 150-199 mg/dLHigh Triglyceride: 200-499 mg/dLVery High Triglyceride: greater than or equal to 5OO mg/dL Cholesterol 89 <200 mg/dL [facility] Comment:Desirable Cholestero l: less than 200 mg/dLBorderline High Cholesterol: 200-239 mg/dLHigh Cholesterol: greater than 239 mg/dL LDL Cholesterol Calculated 40 <100 mg/dL [facility] Comment:Desirable LDL: less than 100 mg/dLNear Optimal/Above Optimal LDL: 110- 129 mg/dLBorderline High LDL: 130-159 mg/dLHigh LDL: 160-189 mg/dLVery High LDL: greater than or equal to 190 mg/dL HDL Cholesterol 42 >40 mg/dL [facility] Comment:Desirable HDL: great er than 40 mg/dL Note: This HDL assay may give artificially low results in patients with liver disease. 02/29/2024 7:24 AM EDT 02/29/2024 7:24 AM EDT us Generic External Data Provider LAB BLOOD ORDERAB LES Final Result Performing Organization Address City/State/[facility] Co de Phone Number [facility] [address] [place] [phone] * Albumin, Random Urine W/Creatinine (08/11/2023 9:44 AM EST) Creatinine, Urine 140.25 mg/dL [facility] Microalbumin Urine 33.0 mg/L [facility] Microalbum Creatinine Ratio Ur 23.5 <30 ug/mg cr [facility] Comment:Albumin/Creatinine R atio Reference Ranges: Normal: < 30 ug/mg creatinine Microalbuminuria: 30 - 300 ug/mg creatinineClinical Albuminuria: > 300 ug/mg creatinine Urine 08/11/2023 9:44 AM EST 08/11/2023 11:15 AM EST [facility] CUSTOMER SUCCESS ADVOCATE LAB URINE ORDERABLES Final Re sult Performing Organization Address City/[facility]/ZIP Co de Phone Number [facility] [address] [place] [address] [phone] * HPV E6/E7 RFLX CARROLL 16 18/45 (06/20/2022 1:00 PM EDT) HPV 16 RNA TNP [facility] HPV 18/45 RNA TNP [facility] HPV E6 E7 ADD TNP [facility] HPV mRNA E6/E7 rflx Not Detected Not Detected [facility] Comment: Methodology: Health Occupations Teacher-Mediated Amplification This assay detects E6/E7 viral messenger RNA (mRNA) from 14 high-risk HPV types (16,18,31,33,35,39,45,51,52,56,58,59,66,68). Cervical sources are required for HPV testing. If a vaginal source from a patient who has had a total hysterectomy with removal of cervix was submitted, please contact the testing laboratory for alternative testing options. For additional information, please refer to http://education.Real Time Tomography/faq/XKI545r7 (This link if provided for information/ educational purposes only.) THIS TEST WAS PERFORMED AT: [facility] [address] [place], [place] ??[phone] RENEE KAUFMAN MD 06/20/2022 1:00 PM EDT Duc Reyna MD HISTORICAL/NON ORDERABLE LABS Fi nal Result [facility] * THINPREP TIS PAP AND HPV mRNA E6/E7, CT/NG, TRICH (05/04/2022 12:00 AM EDT) Chlamydia trachomatis RNA, TMA, Urogenital NOT DETECTED NOT DETECTED [facility] Clinical Information: SCREENING [facility] COMMENT SEE COMMENT [facility] Comment: The analytical performance characteristics of this assay, when used to test SurePath(TM) specimens have been determined by [facility]. The modifications have not been cleared or approved by the FDA. This assay has been validated pursuant to the CLIA regulations and is used for clinical purposes. ?? For additional information, please refer to https://[employer].Real Time Tomography/faq/SWW209 (This link is being provided for information/ [...] has been evaluated with computer assisted technology. [facility] Merchant Mariner: SEE COMMENT [facility] Comment: GSG, CT(ASCP) CT screening location: [address] ??[phone] HPV nRNA E6/E7 Not Detected Not Detected [facility] Comment: Methodology: Health Occupations Teacher-Mediated Amplification This assay detects E6/E7 viral messenger RNA (mRNA) from 14 high-risk HPV types (16,18,31,33,35,39,45,51,52,56,58,59,66,68). ? Cervical sources are required for HPV testing. If a vaginal source from a patient who has had a total hysterectomy with removal of cervix was ?? submitted, please contact the testing laboratory for alternative testing options. ?? For additional information, please refer to http://[employer].Real Time Tomography/faq/XCG356l6 (This link if provided for information/ educational purposes only.) Interpretation/Res ult: SEE COMMENT [facility] Comment: Negative for intraepithelial lesion [...] of this assay have been determined by [facility]. The modifications have not been cleared or approved by the FDA. This assay has been validated pursuant to the CLIA regulations and is used for clinical purposes. ?? For additional information, please refer to http://education.Real Time Tomography/ faq/Trichomonastma (This link is being provided for information/ educational purposes only.) ?? 05/04/2022 [facility] CUSTOMER SUCCESS ADV[employer]ATE LAB PATHOLOGY ORDERABLES Nancy l Result [facility] [address] * Mammography Report 1 (04/08/2022 10:55 AM EDT) Anatomical Region Laterality Modality Breast Bilateral Mammography 04/08/2022 10:5 5 AM EDT Narrative 04/08/2022 5:59 PM EDT Refer to the Notes tab for result details [facility] Procedure: Mammography Report 1 Procedure Note Provider, Cecily, - 12/18/2022 Refer to the Notes tab for result details [facility] Procedure: Mammography Report 1 Historical Provider IMG BI PROCEDURES Final R esult from Last 3 Months or Most Recently Relevant to Health Maintenance Insurance [facility] C3 HSN FULL Care Teams General Helper Relationship Specialty Start Date End Date Radha Bautista FNP [address] [place] [phone] PCP - General Family Medicine 05/24/22
--- OUTSIDE RECORDS SUMMARY | 2024-12-11 16:07 | XMS_ITS | Encounter Summary ---
Author Organization [employer] Address [address] [facility] 7t [place] [address] Care Team Providers Care Head Cager Name Role Phone Radha Bautista TRANSFORMER COIL WINDER Primary Care Provider [phone] Encounter Details Date Type Department Care Team (Latest Contact Info) Description 11/25/2024 Travel Social History Tobacco Use Types Packs/Day Years [...] Description 01/10/2025 11:15 AM EDT Office Visit [facility] [address] [place] [address] Radha Bautista FNP [address] [place] [address] documented as of this encounter Visit Diagnoses Not on filedocumented in this encounter Additional Health Concerns Assessment Noted Time PHQ-9 Depression Total Score: 0 02/01/20 23 8:55 AM EDT documented as of this encounter Care Teams Head Cager Relationship Specialty Start Date End Date Radha Bautista FNP [address] [place] [phone] PCP - General Family Medicine 05/24/22 documented as of this encounter
--- OUTSIDE RECORDS SUMMARY | 2024-12-11 16:07 | XMS_ITS | Encounter Summary ---
Author Organization [employer] Address [address] [facility] [address]t [place] [address] Care Team Providers Care Bucket Hooker Name Role Phone Radha Bautista LOCKS TENDER Primary Care Provider [phone] Encounter Details Date Type Department Care Team ([facility] st Contact Info) Description 12/06/2024 Population Health Risk Score [facility] () Department [address] [phone] Provider, Population Health Generic Social History Tobacco Use Types Packs/Day Years [...] Description 01/10/2025 11:15 AM EDT Office Visit [facility] [address] [place] [address] Radha Bautista FNP [address] [place] [address] documented as of this encounter Visit Diagnoses Not on filedocumented in this encounter Additional Health Concerns Assessment Noted Time PHQ-9 Depression Total Score: 0 02/01/20 23 8:55 AM EDT documented as of this encounter Care Teams Bucket Hooker Relationship Specialty Start Date End Date Radha Bautista FNP [address] [place] [address] PCP - General Family Medicine 05/24/22 documented as of this encounter
--- OUTSIDE RECORDS SUMMARY | 2024-12-11 16:07 | XMS_ITS | Encounter Summary ---
Author Organization [employer] Address [address] [place] [address] 7[address] [place] [address] Care Team Providers Care Landscape Laborer Name Role Phone [place] [facility] Primary Care Provider [phone] Reason for Visit * Reason Onset Date Comments [facility] endo 11/26/2024 Encounter Details Date Type Department Care Team ([facility] st Contact Info) Description 11/26/2024 Telephone [facility] [address] [place], [place] [phone] [place] [facility] [address] [place] [address] [facility] endo Social History Tobacco Use Types Packs/Day Years [...] encounter Miscellaneous Notes * Telephone Encounter - Gissel Pro RN - 11/26/2024 11:35 AM EST TC placed to [facility] endo [phone] to inform of below message. RN spoke to dinkey operator slate in regards to below message. RN was informed a message would be sent to the provider and RN's for them to determine issue with Mounjaro RX and they will f/u with the patient directly. [facility] endo to f/u PRN. ----- Message from Radha [place] sent at 11/25/2024 4:58 PM EST ----- Hi team, patient follows with [facility] endocrinology for diabetes. She has had difficulty receiving her Mounjaro prescription and is not currently taking an GLP-1. Would you mind reaching out to endocrinology and letting them know so they can do a PA? Thank you! documented in this encounter Plan of Treatment Upcoming Encounters Date Type Department Care Team ([facility] st Contact Info) Description 01/10/2025 11:15 AM EDT Office Visit [facility] [address] [place] [address] [place] [facility] [address] [place] [address] documented as of this encounter Visit Diagnoses Not on filedocumented in this encounter Additional Health Concerns Assessment Noted Time PHQ-9 Depression Total Score: 0 02/01/20 23 8:55 AM EDT documented as of this encounter Care Teams Landscape Laborer Relationship Specialty Start Date End Date Radha Bautista FNP [address] [place] [phone] PCP - General Family Medicine 05/24/22 documented as of this encounter
--- OUTSIDE RECORDS SUMMARY | 2024-12-11 16:07 | XMS_ITS | Encounter Summary ---
Author Organization [employer] Address [address] [facility] 7[address] [place] [address] Care Team Providers Care Consolidator Name Role Phone [facility] Primary Care Provider [phone] Reason for Visit * Reason Comments Pre-visit Planning SDOH screening negat mario and tobacco screening negative Encounter Details Date Type Department Care Team ([facility] st Contact Info) Description 11/13/[address] [facility] [address] [place], [place] [phone] [facility] [address] [place] [address] Pre-visit Planning (SDOH screening negative and tobacco [...] Description 01/10/2025 11:15 AM EDT Office Visit [facility] [address] [place] [address] Radha Bautista FNP [address] [place] [address] documented as of this encounter Visit Diagnoses Not on filedocumented in this encounter Additional Health Concerns Assessment Noted Time PHQ-9 Depression Total Score: 0 02/01/20 23 8:55 AM EDT documented as of this encounter Care Teams Consolidator Relationship Specialty Start Date End Date Radha Bautista FNP [address] [place] [address] PCP - General Family Medicine 05/24/22 documented as of this encounter
--- OUTSIDE RECORDS SUMMARY | 2024-12-11 16:07 | XMS_ITS | Encounter Summary ---
Author Organization [employer] Address [address] [place] [address] 7 [place] [address] Care Team Providers Care Director Security Risk Management Name Role Phone [facility] Primary Care Provider [phone] Reason for Visit * Reason Comments Med Change Request Encounter Details Date Type Department Care Team ([facility] Contact Info) Description 01/31/2023 Refill [facility] [address] [place], [place] [phone] [facility] [address] [place] [address] Type 2 diabetes mellitus with hyperglycemia, with long-term current use of insulin ([facility]) Social History Tobacco Use Types Packs/Day Years [...] Description 01/10/2025 11:15 AM EDT Office Visit [facility] [address] [place] [address] Radha Bautista FNP [address] [place] [address] documented as of this encounter Visit Diagnoses Diagnosis Type 2 diabetes mellitus with hyperglycemia, with long-term current use of insulin ([facility]) documented in this encounter Additional Health Concerns Assessment Noted Time PHQ-9 Depression Total Score: 0 02/01/20 23 8:55 AM EDT documented as of this encounter Care Teams Director Security Risk Management Relationship Specialty Start Date End Date Radha Bautista FNP [address] [place] [address] PCP - General Family Medicine 05/24/22 documented as of this encounter
--- OUTSIDE RECORDS SUMMARY | 2024-12-11 16:07 | XMS_ITS | Encounter Summary ---
Author Organization [employer] Address [address] [facility] 7t [place] [address] Care Team Providers Care Geophysical Observer Name Role Phone [facility] Primary Care Provider Reason for Visit * Reason Comments Med Change Request Encounter Details Date Type Department Care Team ([facility] Contact Info) Description 12/01/2023 Refill [facility] [address] [place], [place] [phone] [facility] [address] [place] [address] Essential hypertension Social History Tobacco Use Types [...] Description 01/10/2025 11:15 AM EDT Office Visit [facility] [address] [place] [address] Radha Bautista FNP [address] [place] [address] documented as of this encounter Visit Diagnoses Diagnosis Essential hypertension Unspecified essential hypertension documented in this encounter Additional Health Concerns Assessment Noted Time PHQ-9 Depression Total Score: 0 02/01/20 23 8:55 AM EDT documented as of this encounter Care Teams Geophysical Observer Relationship Specialty Start Date End Date Radha Bautista FNP [address] [place] [address] PCP - General Family Medicine 05/24/22 documented as of this encounter
--- OUTSIDE RECORDS SUMMARY | 2024-12-11 16:07 | XMS_ITS | Encounter Summary ---
Author Organization [employer] Address [address] [facility] 7t [place] [address] Care Team Providers Care Ob Nurse Name Role Phone Radha Bautista [employer] Primary Care Provider [phone] Encounter Details Date Type Department Care Team [...] 01/10/2025 11:15 AM EDT Office Visit [facility] [address] [place] [address] Radha Bautista FNP [address] [place], [place] [phone] documented as of this encounter Procedures Procedure Name Priority Date/Time Associated Diagnosis Comments GLUCOSE, WHOLE BLOOD Routine 11/14/2024 11:38 AM EST documented in this encounter Results * (ABNORMAL) Glucose, Whole Blood (11/14/2024 11:38 AM EST) Glucose, Whole Blood 143(H) 60 - 115 mg/dL [facility] Comment:METER #: [id number] 5Testing performed in the Endocrinology Department [address] , [address], [facility]. 11/14/2024 11:3 8 AM EST 11/14/2024 11:43 AM EST us Generic External Data Provider LAB BLOOD ORDERAB LES Final Result [facility] [address] [place] [address] [phone] documented in this encounter Visit Diagnoses Not on filedocumented in this encounter Additional Health Concerns Assessment Noted Time PHQ-9 Depression Total Score: 0 02/01/20 23 8:55 AM EDT documented as of this encounter Care Teams Ob Nurse Relationship Specialty Start Date End Date Radha Bautista FNP [address] [place] [address] PCP - General Family Medicine 05/24/22 documented as of this encounter
--- OUTSIDE RECORDS SUMMARY | 2024-12-11 16:07 | XMS_ITS | Encounter Summary ---
Author Organization [employer] Address [address] [facility] [address] [place] [address] Care Team Providers Care [employer] Consultant Name Role Phone [place] [facility] Primary Care Provider [phone] Encounter Details Date Type Department Care Team (Late st Contact Info) Description 12/11/2024 Orders Only [facility] [address] [place], [place] [phone] [place] [facility] [address] [place] [address] Social History Tobacco Use Types Packs/Day Years [...] 01/10/2025 11:15 AM EDT Office Visit [facility] [address] [place] [address] [place], [place], [facility] [address] [place], [place] [phone] documented as of this encounter Procedures Procedure Name Priority Date/Time Associated Diagnosis Comments GLUCOSE, WHOLE BLOOD Routine 12/11/2024 1:50 PM EDT documented in this encounter Results * (ABNORMAL) Glucose, Whole Blood (12/11/2024 1:50 PM EDT) Glucose, Whole Blood 183(H) 60 - 115 mg/dL [facility] Comment:METER #: [id number] 5Testing performed in the Endocrinology Department [address] , [address], [facility]. 12/11/2024 1:50 PM EDT 12/11/2024 1:56 PM EDT us Generic External Data Provider LAB BLOOD ORDERAB LES Final Result [facility] [address] [place] [address] [phone] documented in this encounter Visit Diagnoses Not on filedocumented in this encounter Additional Health Concerns Assessment Noted Time PHQ-9 Depression Total Score: 0 02/01/20 23 8:55 AM EDT documented as of this encounter Care Teams [employer] Consultant Relationship Specialty Start Date End Date Radha Bautista FNP [address] [place] [phone] PCP - General Family Medicine 05/24/22 documented as of this encounter
--- OUTSIDE RECORDS SUMMARY | 2024-12-11 16:07 | XMS_ITS | Encounter Summary ---
Author Organization [employer] Address [address] [place] [address] [address] [place] [address] Care Team Providers Care Shirt Sewer Name Role Phone Radha Tenorio Primary Care Provider [phone] Reason for Referral * Consultation (Routine) - Authorized Specialty Diagnoses / Procedures Referred By Jolie montelongo Referred To Contact Optometry Diagnoses Type 2 diabetes mellitus with diabetic peripheral angiopathy without gangrene, with long-term current use of insulin ([facility]) Radha Tenorio FNP [address] [place], [place] Phone: tel: fax: [facility] [address] [place] [address] Phone: tel:[phone] fax: Referral ID Status Reason Start Date Expiration Date Visits Requested Visits Authorized [id number] Authorized Specialty Services Required 11/28/2024 11/28/2025 6 6 * Consultation (Routine) - Authorized Specialty Diagnoses / Procedures Referred By Jolie montelongo Referred To Contact Podiatry Diagnoses Type 2 diabetes mellitus with diabetic peripheral angiopathy without gangrene, with long-term current use of insulin ([facility]) Radha Tenorio FNP [address] [place], [place] Phone: tel: fax: Bridger Beltran DPM [address] [place] [id number] Phone: tel: fax: Referral ID Status Reason Start Date Expiration Date Visits Requested Visits Authorized [id number] Authorized Specialty Services Required 11/27/2024 11/27/2025 6 6 * Imaging (Routine) - Authorized Specialty Diagnoses / Procedures Referred By Contac t Referred To Contact Radiology Diagnoses Age-related osteoporosis without current pathological fracture Procedures BD DEXA Axial Radha Tenorio FNP [address] [place] [address] Phone: tel: fax: [address] Phone: tel: fax: Referral ID Status Reason Start Date Expiration Date V isits Requested Visits Authorized [id number] Authorized 11/25/2024 11/25/2025 1 1 Reason for Visit * Reason Comments Annual Exam Encounter Details Date Type Department Care Team (Late st Contact Info) Description 11/25/2024 10:00 AM EST Office Visit [facility] [address] [place] [address] Radha Tenorio FNP [address] [place] [address] Healthcare maintenance (Primary Dx); Essential hypertension; Type 2 diabetes mellitus with diabetic peripheral angiopathy without gangrene, with long-term current use of insulin ([facility]); Other osteoporosis without current pathological fracture; Dry skin dermatitis; Endometrial hyperplasia with atypia; Encounter for immunization; Dietary counseling; Exercise counseling; Class 3 severe obesity due to excess calories with serious comorbidity and body mass index (BMI) of 45.0 to 49.9 in adult ([facility]/HCC); Screening for colon cancer Social History Tobacco Use Types Packs/Day Years [...] AM EDT documented as of this encounter Last Filed Vital Signs Vital Sign Reading Time Taken Comments Blood Pressure 154/98 11/25/2024 10:46 AM EST Pulse 87 11/25/2024 9:51 AM EST Temperature 35.9 ??C (96.6 ??F) 11/25/2024 9:51 AM ES T Respiratory Rate - - Oxygen Saturation 98% 11/25/2024 9:51 AM EST Inhaled Oxygen Concentration - - Weight 122 kg (268 lb 2 oz) 11/25/2024 9:[address] Height 162.6 cm (5' 4 ) 11/25/2024 9:51 AM EST Body Mass Index 46.02 11/25/2024 9:51 AM EST documented in this encounter Progress Notes * [facility], PHYSICIAN RECRUITER - 11/25/2024 10:00 AM EST SUBJECTIVE: Halina Kevin is a 64 y.o. year old female with T2DM, HTN, endometrial hyperplasia with atypia, breast cancer s/p bilateral mastectomy and chemotherapy who presents for routine physical exam. Denies recent illness, injury, or hospitalization. Acute Concerns: Allergix sx-using cetirizine without improvement. Sneezing, watery eyes, general skin itching. Needs eye exam HTN-BP elevated. Home readings 150's. Pt denies CP/SOB/headache/blurred vision Interval History [id number] follow-up with [facility] 11/14/2024. Toujeo decreased to 25 units, Mounjaro increased to 7.5mg, Humalog decreased to . Has had issues getting mounjaro d/t insurance Oncology-had follow-up 11/15/[address] Leigh. Tamoxifen was discontinued due to endometrial hyperplasia. Started on letrozole 06/2024. Tolerating well. Negative genetic testing Osteoporosis-Prolia every 6 months started 08/2024--> DEXA 03/2022 with T-score - [address] Leigh Social History Social History Narrative SOCIAL HX Current living environment: [place] with and adult son Tobacco Use: None Alcohol Use: None Marijuana Use: None Other drug use: None Patient Active Problem List Diagnosis Allergy Diabetes mellitus (CMS/HCC) Essential hypertension History of bilateral mastectomy Infiltrating ductal carcinoma of left female breast (CMS/HCC) Palpitations Pure hypercholesterolemia Abnormal uterine bleeding (AUB) Healthcare maintenance Lower extremity edema No past surgical history on file. No family history on file. Review of Systems Constitutional: Negative for fatigue, fever and unexpected weight change. Eyes: Negative for visual disturbance. Respiratory: Negative for apnea, chest tightness and shortness of breath. Cardiovascular: Negative for chest pain, palpitations and leg swelling. Neurological: Negative for dizziness, light-headedness and headaches. OBJECTIVE: Vitals: 11/25/24 0951 11/25/24 1046 BP: (!) 155/86 (!) 154/98 BP Location: Left arm Patient Position: Sitting BP Cuff Size: Large adult Pulse: 87 Temp: 96.6 ??F (35.9 ??C) TempSrc: Temporal SpO2: 98% Weight: 268 lb 2 oz (122 kg) Height: 5' 4 (1.626 m) Physical Exam Constitutional: General: She is not in acute distress. Appearance: Normal appearance. HENT: Head: Normocephalic and atraumatic. Right Ear: External ear normal. Left Ear: External ear normal. Nose: Nose normal. Eyes: Conjunctiva/sclera: Conjunctivae normal. Cardiovascular: Rate and Rhythm: Normal rate and regular rhythm. Heart sounds: Normal heart sounds. Pulmonary: Effort: Pulmonary effort is normal. Breath sounds: Normal breath sounds. Skin: General: Skin is warm and dry. Comments: Skin is generally dry, mild eczematous patches on upper arms Neurological: General: No focal deficit present. Mental Status: She is alert and oriented to person, place, and time. Psychiatric: Mood and Affect: Mood normal. Behavior: Behavior normal. ASSESSMENT/PLAN HTN - BP elevated at home and I office - INCREASE losartan to 100mg daily - RN BP check x 2 weeks Reviewed ED precautions to include chest pain, shortness of breath, severe headache, sudden vision changes or BP >=180/>=120 mmHg. Contact HC if three or more BP readings >140/90. T2DM Lab Results Component Value Date HGBA1C 6.8 (A) 11/25/2024 HGBA1C 6.4 (H) 02/29/2024 HGBA1C 8.6 (A) 12/01/2023 Lab Results Component Value Date MICROALBUR 33.0 08/11/2023 CREATININE 0.79 02/29/2024 - Patient to contact endocrinology regarding anu TURNER--> will also task team nurses to reach out to Endo. - Continue insulin as prescribed - Foot exam with total loss of protective sensation-->referral to podiatry - Needs eye exam--referral placed - ASA: yes - Statin: Yes - Orion/Arb: Yes Dy skin dermatitis -Start daily application of topical triamcinolone and CeraVe compound Osteoporosis -Due for updated BMD--will order today -Continue Prolia q. 6 months EIN - S/P IUD placement 03/[address] [facility] - Was supposed to have repeat EMB in June 2024; per patient--she has been rescheduled multiple times. - I called [facility] oncology myself, spoke with phone service staff who will send message to care team to contact patient within 48 hours with updated appointment Breast Cancer ER/NV positive HER2 negative. AJCC stage pT2 N0. Prognostic stage IIA 03/21/2022 she underwent left simple mastectomy and right simple prophylactic mastectomy. ---> invasive ductal carcinoma, MS BR grade 3, 3.4 cm. DCIS high nuclear grade, solid and cribriform types, no lymphovascular invasion. Right breast tissue negativefor malignancy, no further screening mammograms required Negative genetic testing Completed chemo 07/2022 Dr. Leigh at [facility] Follow up as scheduled Healthcare Maintenance - Cardiopulmonary exam WNL - Encouraged regular aerobic exercise with initial goal of 30 minute walk 3x/week gradually increasing to 150 min/week of moderate intensity exercise - Encouraged balanced diet with a variety of fruits, vegetables, and lean meats. Recommended to decrease soda and sugary beverage consumption. Routine Health Maintenance Optometry: Referral placed today Dental: Established with dental provider. Up to date on routine care Adult IZ: Encouraged shingles vaccine Immunization History Administered Date(s) Administered DTaP 06/19/2000 Hep A, Adult 04/29/2008, 08/30/2018 Hep B, adult 04/29/2008, 08/30/2018, 01/28/2019 Influenza Injectable Quadrivalant Preservative Free IIV4 MDCK 06/23/2020 Influenza injectable quadrivalent preservative free 08/30/2018, 07/15/2021 Influenza, Split (incl. purified surface antigen) 11/14/2013 Influenza, seasonal, injectable, preservative free 07/11/2012, 11/25/2024 Moderna Covid-19 Vaccine 12+ 01/07/2021, 02/03/2021, 12/07/2021 Pfizer Covid-19 Vaccine 12+ 12/01/2023, 11/25/2024 Pfizer Covid-19 Vaccine 12+ Bivalent 12/13/2022 Pneumococcal Conjugate PCV 20 01/31/2023 Pneumococcal Polysaccharide PPSV23 08/22/2000, 08/19/2003 Tdap 07/20/2012, 01/31/2023 Zoster, Recombinant 05/12/2023 Screenings Breast cancer screening: Discontinued s/p mastectomy with no surveillance needed Cervical cancer screening: NIL HPV neg 2021, [facility] Colorectal cancer screening: Pt previously declines colonoscopy; cologuard pending--will check status Bone mineral density: 2021; repeat today Lung CA: N/A Diagnosis Plan 1. Healthcare maintenance 2. Essential hypertension losartan (Cozaar) 100 MG tablet 3. Type 2 diabetes mellitus with diabetic peripheral angiopathy without gangrene, with long-term current use of insulin ([facility]) POCT Glucose POCT HGB A1C Referral to Podiatry Referral to Podiatry Referral to Optometry Referral to Optometry Albumin, Random Urine W/Creatinine Albumin, Random Urine W/Creatinine 4. Other osteoporosis without current pathological fracture BD DEXA Axial BD DEXA Axial 5. Dry skin dermatitis triamcinolone (Kenalog) 0.025 % cream 6. Endometrial hyperplasia with atypia 7. Encounter for immunization FLU VACCINE TRIVALENT (Fluarix) 6 mo + COVID-19 VACCINE (Pfizer) [id number] 12 yrs + 8. Dietary counseling 9. Exercise counseling 10. Class 3 severe obesity due to excess calories with serious comorbidity and body mass index (BMI) of 45.0 to 49.9 in adult ([facility]) Follow Up: RN BP check 2 weeks; routine care 3 months Current Outpatient Medications on File Prior to Visit Medication Sig Dispense Refill amitriptyline (Elavil) 10 MG tablet TAKE 1 TABLET BY MOUTH AT BEDTIME 30 tablet 2 Aspirin 81 MG capsule Take 81 mg by mouth Once per day. 90 capsule 3 atorvastatin (Lipitor) 80 MG tablet TAKE 1 TABLET BY MOUTH AT BEDTIME 90 tablet 1 Baqsimi Two Pack 3 MG/DOSE nasal powder SRAY 3 MG INTRANSALLY ONCE BD Pen Needle Lesley 2nd Gen 32G X 4 MM misc USE CUATRO VECES AL D A Blood Pressure kit Use as directed 1 kit 0 cetirizine (ZyrTEC) 10 MG tablet TOME NAOMY TABLETA TODOS LOS PARADA EN LA MANANA 90 tablet 3 chlorthalidone (Hygroton) 25 MG tablet TAKE 1/2 TABLET BY MOUTH EVERY MORNING 45 tablet [address] Consultant (FreeStyle Valerio 2 Merigold) device USE DIRECTED Continuous Blood Gluc Sensor (FreeStyle Valerio 2 Sensor) misc USE DIRECTED D3 50 MCG (2000 UT) tablet TAKE 1 TABLET BY MOUTH DAILY ezetimibe (Zetia) 10 MG tablet TAKE 1 TABLET BY MOUTH EVERY MORNING 90 tablet 3 fluticasone (Flonase) 50 MCG/ACT nasal spray INSTILL 1 SPRAY INTO EACH NOSTRIL IN THE AM. BEFORE FIRST USE PRIME PUMP AFTER USE CLEAN TIP 48 mL 0 FreeStyle lancets USE 1 DIRECTED 3 TIMES A DAY FREESTYLE LITE test strip USE 1 STRIP 3 TIMES A DAY insulin aspart FlexPen (NovoLOG) 100 UNIT/ML pen Inject 43 Units under the skin with breakfast, with lunch, and with evening meal. 38.7 mL 11 Ketotifen Fumarate 0.035 % solution Administer 1 drop into affected eye(s) 2 times daily. 10 mL 1 Liletta, 52 MG, 20.1 MCG/DAY intrauterine device losartan (Cozaar) 50 MG tablet TAKE 1 TABLET BY MOUTH EVERY DAY 90 tablet 1 metoprolol tartrate (Lopressor) 25 MG tablet take 1 tablet by oral route 2 times every day 180 tablet 3 Mounjaro 2.5 MG/0.5ML solution pen-injector 2.5 mg. omeprazole (PriLOSEC) [address] capsule take 1 capsule by oral route every day before a meal ondansetron ODT (Zofran-ODT) [address] 1 tablet by translingual route every 8 hours as needed for nausea silver sulfADIAZINE (Silvadene) 1 % cream 1 APPL TOPICALLY 2 TIMES A DAY APPLY A 1.5 MM THICKNESS TAMOXIFEN CITRATE PO Take by mouth. topiramate (Topamax) 25 MG tablet take 1 tablet by oral route every day Toujeo SoloStar 300 UNIT/ML injection Inject 50 units by subcutaneous route every evening 15 mL 3 zoster vaccine-recombinant adjuvanted (Shingrix) 50 MCG/0.5ML vaccine inject 0.5 milliliter by intramuscular route once No current facility-administered medications on file prior to visit. Montenegrin Translation: Provided by [facility] staff member MARYBEL Clark documented in this encounter Miscellaneous Notes * Addendum Note - NADEEM Clark - 11/25/2024 10:00 AM ESTAddended by: RADHA TENORIO on: 12/11/2024 11:21 AM Modules accepted: Orders documented in this encounter Plan of Treatment Upcoming Encounters Date Type Department Care Team (Late st Contact Info) Description 01/10/2025 11:15 AM EDT Office Visit [facility] [address] [place] [address] [place], Radha, PHYSICIAN RECRUITER [address] [place] [address] Scheduled Orders Name Type Priority Associated Diagnoses Orde r Schedule BD DEXA Axial Imaging Routine Other osteoporosis without current pathological fracture Expected: 11/25/2024, Expires: 11/25/2025 Albumin, Random Urine W/Creatinine Lab Routine Type 2 diabetes mellitus with diabetic peripheral angiopathy without gangrene, with long-term current use of insulin (CMS/HCC) Expected: 11/25/2024 (Approximate), Expires: 11/25/2025 Cologuard?? colon cancer screening Lab Routine Screening for colon cancer Ordered: 12/11/2024 Scheduled Referrals Name Type Priority Associated Diagnoses Orde r Schedule Referral to Podiatry Outpatient Referral Routine Type 2 diabetes mellitus with diabetic peripheral angiopathy without gangrene, with long-term current use of insulin (CMS/HCC) Expected: 11/25/2024 (Approximate), Expires: 11/25/2025 Referral to Optometry Outpatient Referral Routine Type 2 diabetes mellitus with diabetic peripheral angiopathy without gangrene, with long-term current use of insulin (CMS/HCC) Expected: 11/25/2024 (Approximate), Expires: 11/25/2025 documented as of this encounter Procedures Procedure Name Priority Date/Time Associated Diagnosis Comments POCT GLYCATED HEMOGLOBIN, TOTAL Routine 11/25/2024 9:58 AM EST Type 2 diabetes mellitus with diabetic peripheral angiopathy without gangrene, with long-term current use of insulin (CMS/HCC) POCT GLUCOSE Routine 11/25/2024 9:52 AM EST Type 2 diabetes mellitus with diabetic peripheral angiopathy without gangrene, with long-term current use of insulin (CMS/HCC) documented in this encounter Results * (ABNORMAL) POCT HGB A1C (11/25/2024 9:58 AM EST) Hemoglobin A1C 6.8(A) 4.0 - 6.0 % QC Media Lot # [id number] Lot# Expiration Date Blood 11/25/2024 9:58 AM EST [facility] POINT OF CARE TEST ENTER/EDIT ORDERABLES Final Result * POCT Glucose (11/25/2024 9:52 AM EST) Glucose Blood, POC [id number] - 200 mg/dL QC Media Lot # [id number] Lot# Expiration Date Blood Capillary blood specimen / Unknown 11/25/2024 9:52 AM EST [facility] POINT OF CARE TEST ENTER/EDIT ORDERABLES Final Result documented in this encounter Visit Diagnoses Diagnosis Healthcare maintenance- Primary Essential hypertension Unspecified essential hypertension Type 2 diabetes mellitus with diabetic peripheral angiopathy without gangrene, with long-term current use of insulin ([facility]) Other osteoporosis without current pathological fracture Dry skin dermatitis Contact dermatitis and other eczema due to other specified agent Endometrial hyperplasia with atypia Encounter for immunization Dietary counseling Dietary surveillance and counseling Exercise counseling Class 3 severe obesity due to excess calories with serious comorbidity and body mass index (BMI) of 45.0 to 49.9 in adult ([facility]) Screening for colon cancer Special screening for malignant neoplasms, colon documented in this encounter Additional Health Concerns Assessment Noted Time PHQ-9 Depression Total Score: 0 02/01/20 23 8:55 AM EDT documented as of this encounter Care Teams Shirt Sewer Relationship Specialty Start Date End Date [facility] [address] [place] [address] PCP - General Family Medicine 05/24/22 documented as of this encounter
--- OUTSIDE RECORDS SUMMARY | 2024-12-11 16:07 | XMS_ITS | Encounter Summary ---
Author Organization [employer] Address [address] [facility] [address] [place] [address] Care Team Providers Care Filter Press Operator Name Role Phone [facility] Primary Care Provider [phone] Reason for Visit * Reason Comments Med Refill Encounter Details Date Type Department Care Team ([facility] Contact Info) Description 11/14/2023 Refill [facility] [address] [place], [place] [phone] [facility] [address] [place] [address] Seasonal allergies Social History Tobacco Use Types [...] Description 01/10/2025 11:15 AM EDT Office Visit [facility] [address] [place] [address] Radha Bautista FNP [address] [place] [address] documented as of this encounter Visit Diagnoses Diagnosis Seasonal allergies Allergic rhinitis, cause unspecified documented in this encounter Additional Health Concerns Assessment Noted Time PHQ-9 Depression Total Score: 0 02/01/20 23 8:55 AM EDT documented as of this encounter Care Teams Filter Press Operator Relationship Specialty Start Date End Date Radha Bautista FNP [address] [place] [address] PCP - General Family Medicine 05/24/22 documented as of this encounter
== END 2024-12-11 14:05 | disposition home or self-care (01) ==
LOC: HO.ENCR 13:40
PROVIDERS: PCP Registered Nurse; Visit Provider Internal Medicine
DX: E11.649 Type 2 diabetes mellitus with hypoglycemia without coma (principal); Z79.4 Long term (current) use of insulin

== ENCOUNTER → 2024-12-11 13:40 | Outpatient (BNVA) | payer MEDICAID, SELFPAY | PROVIDERS: PCP Registered Nurse; Visit Provider Internal Medicine | DX: E11.649 Type 2 diabetes mellitus with hypoglycemia without coma (principal); Z79.4 Long term (current) use of insulin | CPT/HCPCS: 82947; 99212 ==

== ENCOUNTER 2024-12-25 12:51 | Outpatient (REF) | payer MEDICAID, SELFPAY ==
--- NOTE | ~2024-12-25 | MM_ITS ---
EXAMINATION: DXA BONE DENSITY AXIAL HISTORY: Estrogen deficiency TECHNIQUE: [employer] Dual energy absorptiometry (DEXA) of the lumbar spine, total left hip, and femoral neck was performed. COMPARISON: Comparison is made with the prior examination dated 04/08/2022. FINDINGS: The bone mineral density of the lumbar spine is 1.064 with a T-score of -1.0, and a Z-score of -0.7. This is indicative of normal bone mineral density. This represents a BMD change of 4.1% compared to the prior exam. This is statistically significant. The bone mineral density of the left total hip is 0.618 with a T-score of -3.0, and a Z-score of -2.4. This is indicative of osteoporosis. This represents a BMD change of -0.5% compared to the prior exam. This is not statistically significant. The bone mineral density of the left femoral neck is 0.618 with a T-score of -3.0, and a Z-score of -2.4. This is indicative of osteoporosis.- This represents a BMD change of 0.5% compared to the prior exam. MM/XR DEXA axial skeleton IMPRESSION: Based on bone mineral density, and according to World Health Organization (WHO) criteria, the diagnosis is consistent with osteoporosis. All bone density values are in grams per centimeter squared (g/cm2). Statistically, 68% of repeat scans fall within 1 SD (+/- 0.010 g/cm2 for AP spine L1-L4) and 1 SD (+/- 0.012 g/cm2 for femur total) FRAX is a trademark of the [employer]'s [place] for Metabolic Bone Disease, a World Health Organization (WHO) Collaborating Center. Electronically signed by: Ruy Rockwell MD 12/25/2024 02:04 PM EDT
--- OUTSIDE RECORDS SUMMARY | 2024-12-25 15:23 | XMS_ITS | Encounter Summary ---
Author Organization [employer] Address [address] [place] [address] 7 [place] [address] Care Team Providers Care Paste Maker Name Role Phone [facility] Primary Care Provider [phone] Reason for Visit * Reason Comments Med Change Request Encounter Details Date Type Department Care Team ([facility] Contact Info) Description 01/31/2023 Refill [facility] [address] [place], [place] [phone] [facility] [address] [place] [address] Type 2 diabetes mellitus with hyperglycemia, with long-term current use of insulin ([facility]) Social History Tobacco Use Types Packs/Day Years [...] Description 01/10/2025 11:15 AM EDT Office Visit [facility] [address] [place] [address] Radha Bautista FNP [address] [place] [address] documented as of this encounter Visit Diagnoses Diagnosis Type 2 diabetes mellitus with hyperglycemia, with long-term current use of insulin ([facility]) documented in this encounter Additional Health Concerns Assessment Noted Time PHQ-9 Depression Total Score: 0 02/01/20 23 8:55 AM EDT documented as of this encounter Care Teams Paste Maker Relationship Specialty Start Date End Date Radha Bautista FNP [address] [place] [address] PCP - General Family Medicine 05/24/22 documented as of this encounter
--- OUTSIDE RECORDS SUMMARY | 2024-12-25 15:23 | XMS_ITS | Encounter Summary ---
Author Organization [employer] Address [address] [facility] [address] [place] [address] Care Team Providers Care Cat Hooker Name Role Phone [facility] Primary Care Provider [phone] Reason for Visit * Reason Comments Med Refill Encounter Details Date Type Department Care Team ([facility] Contact Info) Description 11/14/2023 Refill [facility] [address] [place], [place] [phone] [facility] [address] [place] [address] Seasonal allergies Social History Tobacco Use Types [...] Description 01/10/2025 11:15 AM EDT Office Visit [facility] [address] [place] [address] Radha Bautista FNP [address] [place] [address] documented as of this encounter Visit Diagnoses Diagnosis Seasonal allergies Allergic rhinitis, cause unspecified documented in this encounter Additional Health Concerns Assessment Noted Time PHQ-9 Depression Total Score: 0 02/01/20 23 8:55 AM EDT documented as of this encounter Care Teams Cat Hooker Relationship Specialty Start Date End Date Radha Bautista FNP [address] [place] [address] PCP - General Family Medicine 05/24/22 documented as of this encounter
--- OUTSIDE RECORDS SUMMARY | 2024-12-25 15:23 | XMS_ITS | Clinical Summary ---
Author Organization [employer] Address [address] [place] [address] 7[address] [place] [address] Care Team Providers Care Utility Driver Name Role Phone Radha Bautista GARMENT SEWING MACHINE OPERATOR Primary Care Provider [phone] Allergies No known active allergies Medications zoster [...] DIRECTED 01/19/20 23 Active Continuous Blood Gluc Cover Creaser (FreeStyle Valerio 2 Pattison) device USE DIRECTED 11/29/19 23 Active D3 50 MCG (1999 UT) tablet TAKE 1 TABLET BY MOUTH DAILY 12/06/19 23 Active Toujeo SoloStar 300 UNIT/ML injectionIndicatio ns:Type 2 diabetes mellitus with hyperglycemia, with long-term current use of insulin ([facility]) Inject 50 units by subcutaneous route every evening 15 mL 3 02/01/20 23 Active insulin aspart FlexPen (NovoLOG) 100 UNIT/ML penIndications:Typ e 2 diabetes mellitus with hyperglycemia, with long-term current use of insulin ([facility]) Inject 43 Units under the [...] Aspirin 81 MG capsuleIndications :Peripheral vascular disease ([facility]) Take 81 mg by mouth Once per day. 90 capsule 3 05/15/20 24 025 Active Liletta, 52 MG, 20.1 MCG/DAY intrauterine device 03/21/20 24 Active Mounjaro 2.5 MG/0.5ML solution pen-injector 2.5 mg. 03/26/20 24 Active atorvastatin (Lipitor) 80 MG tabletIndications: [...] MORNING 45 tablet 1 10/07/19 25 Active triamcinolone (Kenalog) 0.025 % creamIndications:D ry skin dermatitis Apply topically 2 times daily. Mix entire tube with 16oz cera ve jar as instructed. Apply from neck down once daily 80 g 1 11/26/19 25 Active losartan (Cozaar) 100 MG tabletIndications: Essential hypertension Take 1 tablet (100 mg) by mouth Once per day. TAKE 1 TABLET BY MOUTH EVERY DAY 90 tablet 3 11/26/19 25 026 Active Active Problems Problem Noted Date Diagnosed Date Endometrial hyperplasia with atypia 11/24/2024 Lower extremity edema 07/10/2023 Abnormal uterine bleeding (AUB) 12/28/2022 Overview (12/28/2022): ?? Followed by Dr. Reyna [facility] ?? Post menopausal bleeding Healthcare maintenance 12/28/2022 Overview (12/28/2022): Mammo: Followed by [facility] oncology Pap: 05/2022 NIL, HPV neg C-scope: Cologuard pending Assessment & Plan (05/24/2023 2:34 PM EDT): - Due for shingles. Pt will go to pharmacy today - Will f/u re cologuard order History of bilateral mastectomy 03/25/2022 Overview (12/28/2022): ?? 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 AJCC stage pT2 N0. Prognostic stage IIA 03/21/2022 she underwent left simple mastectomy and right simple prophylactic mastectomy. Completed chemo 07/2022 Dr. Leigh at [facility] Tamoxifen Prolia 60mg sq [...] lost 2 lbs Followed by endocrinology at [facility] Has CGM Foot Exam: [...] mounjaro start last week Follow up with [facility] endocrinology as scheduled Assessment [...] 2019 with occasional PVC's Previously followed by [facility] cardiology, last seen 2019 [...] Department Care Team Description 12/11/2024 Orders Only [facility] [address] [place] [address] Radha Bautista FNP 12/06/2024 Population Health Risk Score [facility] Department [address] [phone] Provider, Population Health Generic 11/26/2024 Telephone [facility] [address] [place] [address] Radha Bautista FNP [facility] endo 11/25/2024 10:00 AM EST Office Visit [address] [address] Radha Bautista FNP Healthcare maintenance (Primary Dx); Essential hypertension; Type 2 diabetes mellitus with diabetic peripheral angiopathy without gangrene, with long-term current use of insulin ([facility]); Other osteoporosis without current pathological fracture; Dry skin dermatitis; Endometrial hyperplasia with atypia; Encounter for immunization; Dietary counseling; Exercise counseling; Class 3 severe obesity due to excess calories with serious comorbidity and body mass index (BMI) of 45.0 to 49.9 in adult ([facility]); Screening for colon cancer 11/25/2024 Travel 11/14/2024 Orders Only GENERIC EXTERNAL DATA DEPARTMENT Provider, Generic External Data 11/13/2024 Patient Outreach [address] [address] Radha Bautista FNP Pre-visit Planning (SDOH screening negative and tobacco screening negative) 10/06/2024 Refill [facility] [address] [place], [place] [phone] Radha Bautista FNP Other polyneuropathy; Seasonal allergies 09/27/2024 Telephone [facility] [address] [place] [address] Radha Bautista FNP Triage from Last 3 Months Immunizations Name Administration [...] Description 01/10/2025 11:15 AM EDT Office Visit [facility] [address] [place] [address] [facility] [address] [place] [address] Health Maintenance Due Date Last Done Comments CT Colonography 1961 Colonoscopy 1961 Colorectal Cancer Screening 1961 FIT DNA/Cologuard 1961 FIT 1961 FOBT 1961 HIV Screening 1961 Sigmoidoscopy 1961 Alcohol/Substance Use Screening 1973 Hepatitis C Screening 1979 RSV Patients and Patients Aged 60 years or older (1 - Risk 60-74 years 1-dose series) 2021 Mammogram 04/08/2023 04/08/2022, 05, 01/29/2022, Additional history exists Zoster Vaccines (2 [...] Procedure Name Priority Date/Time Associated Diagnosis Comments BD DEXA AXIAL Routine 12/25/2024 1:00 PM EDT Other osteoporosis without current pathological fracture GLUCOSE, WHOLE BLOOD Routine 12/11/2024 1:50 PM EDT POCT GLYCATED HEMOGLOBIN, TOTAL Routine 11/25/2024 9:58 AM EST Type 2 diabetes mellitus with diabetic peripheral angiopathy without gangrene, with long-term current use of insulin ([facility]) POCT GLUCOSE Routine 11/25/2024 9:52 AM EST Type 2 diabetes mellitus with diabetic peripheral angiopathy without gangrene, with long-term current use of insulin ([facility]) GLUCOSE, WHOLE BLOOD Routine 11/14/2024 11:38 AM EST LIPID PANEL, STANDARD Routine 02/29/2024 7:24 AM EDT ALBUMIN, RANDOM URINE W/CREATININE Routine 08/11/2023 9:44 AM EST Type 2 diabetes mellitus with hyperglycemia, with long-term current use of insulin ([facility]) ZZZ HISTORICAL HPV E6/E7 RFLX CARROLL 16 18/45 Routine 06/20/2022 1:00 PM EDT THINPREP IMAGING PAP AND HPV MRNA E6/E7, WITH CT/NG, TRICHOMONAS Routine 05/04/2022 12:00 AM EDT MAMMOGRAM GENERIC Routine 04/08/2022 10: 55 AM EDT from Last 3 Months or Most Recently Relevant to Health Maintenance Results * BD DEXA Axial (12/25/2024 1:00 PM EDT) Anatomical Region Laterality Modality Body Radiographic Shannan ging 12/25/2024 1:00 PM EDT Narrative 12/25/2024 2:06 PM EDT ? [facility] ? [address] ?[place] [address] ?[phone] ? Mammography Report ? Signed ? Patient: Herberth,Halina M ?MR#: [id number] ?? [id number] ? : 1960 ?Acct:[id number] ? Age/Sex: 64 / F ?ADM Date: 12/25/24 ? Loc: HO.MAMMO ? Attending Dr: Radha Bautista GARMENT SEWING MACHINE OPERATOR ? Ordering Physician: Radha Bautista GARMENT SEWING MACHINE OPERATOR ?Results: ? Date of Service: 12/25/24 ?Follow Up: ? Procedure(s): XR DEXA axial skeleton ?? Accession Number(s): [id number] ? cc: Radha Bautista GARMENT SEWING MACHINE OPERATOR ? EXAMINATION: ??DXA BONE DENSITY AXIAL ? HISTORY: ??Estrogen deficiency ? TECHNIQUE: [employer] Dual energy absorptiometry (DEXA) ?? of the lumbar spine, total left hip, and femoral neck was performed. ? COMPARISON: Comparison is made with the prior examination dated ?? 04/08/2022. ? FINDINGS: ? The bone mineral density of the lumbar spine is 1.064 with a T-score of ?? -1.0, and a Z-score of -0.7. This is indicative of normal bone mineral ?? density. ? This represents a BMD change of 4.1% compared to the prior exam. ??This ?? is statistically significant. ? The bone mineral density of the left total hip is 0.618 with a T-score ?? of -3.0, and a Z-score of -2.4. This is indicative of osteoporosis. ? This represents a BMD change of -0.5% compared to the prior exam. ??This ?? is not statistically significant. ? The bone mineral density of the left femoral neck is 0.618 with a ?? T-score of -3.0, and a Z-score of -2.4. This is indicative of ?? osteoporosis.- ? This represents a BMD change of 0.5% compared to the prior exam. ? MM/XR DEXA axial skeleton ?? IMPRESSION: ?? Based on bone mineral density, and according to World Health ?? Organization (WHO) criteria, the diagnosis is consistent with ?? osteoporosis. ? All bone density values are in grams per centimeter squared (g/cm2). ?? Statistically, 68% of repeat scans fall within 1 SD (+/- 0.010 g/cm2 ?? for AP spine L1-L4) and 1 SD (+/- 0.012 g/cm2 for femur total) ?? FRAX is a trademark of the [employer]'s ?? [place] for Metabolic Bone Disease, a World Health Organization (WHO) ?? Collaborating Center. ? Electronically signed by: ??Ruy Rockwell MD ??12/25/2024 02:04 PM EDT ?? RP ? Dictated By: ?Ruy Rockwell MD ? Signed By: ?<Electronically signed by Ruy Rockwell MD in OV> ?12/25/24 1404 ? DD/ 1300 ? TD/TT: 12/25/24 1325 ? Meal Miller: ? Procedure Note Leti Carlson - 12/25/2024 [facility] [address] [place] [address] Mammography Report Signed Patient: Halina Kevin MMR#: [id number] : 1Acct:[id number] Age/Sex: 64 / FADM Date: 12/25/24 Loc: DIPTI Attending Dr: Radha Bautista GARMENT SEWING MACHINE OPERATOR Ordering Physician: Radha BautistaPResults: Date of Service: 12/25/24Follow Up: Procedure(s): XR DEXA axial skeleton Accession Number(s): [id number] cc: Radha Bautista GARMENT SEWING MACHINE OPERATOR EXAMINATION: DXA BONE DENSITY AXIAL HISTORY: Estrogen deficiency TECHNIQUE: [employer] Dual energy absorptiometry (DEXA) of the lumbar spine, total left hip, and femoral neck was performed. COMPARISON: Comparison is made with the prior examination dated 04/08/2022. FINDINGS: The bone mineral density of the lumbar spine is 1.064 with a T-score of -1.0, and a Z-score of -0.7. This is indicative of normal bone mineral density. This represents a BMD change of 4.1% compared to the prior exam. This is statistically significant. The bone mineral density of the left total hip is 0.618 with a T-score of -3.0, and a Z-score of -2.4. This is indicative of osteoporosis. This represents a BMD change of -0.5% compared to the prior exam. This is not statistically significant. The bone mineral density of the left femoral neck is 0.618 with a T-score of -3.0, and a Z-score of -2.4. This is indicative of osteoporosis.- This represents a BMD change of 0.5% compared to the prior exam. MM/XR DEXA axial skeleton IMPRESSION: Based on bone mineral density, and according to World Health Organization (WHO) criteria, the diagnosis is consistent with osteoporosis. All bone density values are in grams per centimeter squared (g/cm2). Statistically, 68% of repeat scans fall within 1 SD (+/- 0.010 g/cm2 for AP spine L1-L4) and 1 SD (+/- 0.012 g/cm2 for femur total) FRAX is a trademark of the [employer]'s [place] [facility] Metabolic Bone Disease, a World Health Organization (WHO) Collaborating Center. Electronically signed by: Ruy Rockwell MD 12/25/2024 02:04 PM EDT Dictated By: Ruy Rockwell MD Signed By: <Electronically signed by Ruy Rockwell MD in OV> 12/25/24 1404 DD/ 1300 TD/TT: 12/25/24 1325 Meal Miller: [facility] IMG DXA PROCEDURES Final Resu lt * (ABNORMAL) Glucose, Whole Blood (12/11/2024 1:50 PM EDT) Only the most recent of2 resultswithin the time period is included. Glucose, Whole Blood 183(H) 60 - 115 mg/dL [facility] Comment:METER #: [id number] 5Testing performed in the Endocrinology Department [address] , [address], [facility]. 12/11/2024 1:50 PM EDT 12/11/2024 1:56 PM EDT Result [facility] Generic External Data Provider LAB BLOOD ORDERAB LES Final Result Performing Organization Address City/State/[facility] Co de Phone Number [facility] [address] [place] [phone] * (ABNORMAL) POCT HGB A1C (11/25/2024 9:58 AM EST) Hemoglobin A1C 6.8(A) 4.0 - 6.0 % QC Media Lot # [id number] Lot# Expiration Date Blood 11/25/2024 9:58 AM EST Result [facility] POINT OF CARE TEST ENTER/EDIT ORDERABLES Final Result * POCT Glucose (11/25/2024 9:52 AM EST) Glucose Blood, POC 194 60 - 200 mg/dL QC Media Lot # [id number] Lot# Expiration Date [id number] Blood Capillary blood specimen / Unknown 11/25/2024 9:52 AM EST [facility] GARMENT SEWING MACHINE OPERATOR POINT OF CARE TEST ENTER/EDIT ORDERABLES Final Result * Lipid Panel, Standard (02/29/2024 7:24 AM EDT) Triglycerides 37 <150 mg/dL [facility] Comment:Desirable Triglyceri de: less than 150 mg/dLBorderline High Triglyceride 150-199 mg/dLHigh Triglyceride: 200-499 mg/dLVery High Triglyceride: greater than or equal to 5OO mg/dL Cholesterol 89 <200 mg/dL [facility] Comment:Desirable Cholestero l: less than 200 mg/dLBorderline High Cholesterol: 200-239 mg/dLHigh Cholesterol: greater than 239 mg/dL LDL Cholesterol Calculated 40 <100 mg/dL [facility] Comment:Desirable LDL: less than 100 mg/dLNear Optimal/Above Optimal LDL: 110- 129 mg/dLBorderline High LDL: 130-159 mg/dLHigh LDL: 160-189 mg/dLVery High LDL: greater than or equal to 190 mg/dL HDL Cholesterol 42 >40 mg/dL [facility] Comment:Desirable HDL: great er than 40 mg/dL Note: This HDL assay may give artificially low results in patients with liver disease. 02/29/2024 7:24 AM EDT 02/29/2024 7:24 AM EDT us Generic External Data Provider LAB BLOOD ORDERAB LES Final Result [facility] [address] [place] [address] [phone] * Albumin, Random Urine W/Creatinine (08/11/2023 9:44 AM EST) Creatinine, Urine 140.25 mg/dL [facility] Microalbumin Urine 33.0 mg/L [facility] Microalbum Creatinine Ratio Ur 23.5 <30 ug/mg cr [facility] Comment:Albumin/Creatinine R atio Reference Ranges: Normal: < 30 ug/mg creatinine Microalbuminuria: 30 - 300 ug/mg creatinineClinical Albuminuria: > 300 ug/mg creatinine Urine 08/11/2023 9:44 AM EST 08/11/2023 11:15 AM EST [facility] GARMENT SEWING MACHINE OPERATOR LAB URINE ORDERABLES Final Re sult [facility] [address] [place] [address] [phone] * HPV E6/E7 RFLX CARROLL 16 18/45 (06/20/2022 1:00 PM EDT) HPV 16 RNA TNP CONVERTED [employer] HPV 18/45 RNA TNP CONVER [facility] [employer] HPV E6 E7 ADD TNP CONVER [facility] [employer] HPV mRNA E6/E7 rflx Not Detected Not Detected CONVERT[facility] [employer] Comment: Methodology: Cook Night-Mediated Amplification This assay detects E6/E7 viral messenger RNA (mRNA) from 14 high-risk HPV types (16,18,31,33,35,39,45,51,52,56,58,59,66,68). Cervical sources are required for HPV testing. If a vaginal source from a patient who has had a total hysterectomy with removal of cervix was submitted, please contact the testing laboratory for alternative testing options. For additional information, please refer to http://education.[employer]/faq/WYX780n5 (This link if provided for information/ educational purposes only.) THIS TEST WAS PERFORMED AT: [facility] [employer] [address] [place] [address],[address] [place], [place] ??[phone] RENEE KAUFMAN MD 06/20/2022 1:00 PM EDT Duc Reyna MD HISTORICAL/NON ORDERABLE LABS Fi nal Result Performing Organization Address City/[facility]/ZIP Co de Phone Number [facility] * THINPREP TIS PAP AND HPV mRNA E6/E7, CT/NG, TRICH (05/04/2022 12:00 AM EDT) Chlamydia trachomatis RNA, TMA, Urogenital NOT DETECTED NOT DETECTED [facility] Clinical Information: SCREENING [facility] COMMENT SEE COMMENT [facility] Comment: The analytical performance characteristics of this assay, when used to test SurePath(TM) specimens have been determined by [employer]. The modifications have not been cleared or approved by the FDA. This assay has been validated pursuant to the CLIA regulations and is used for clinical purposes. ?? For additional information, please refer to https://DIRAmed.[employer]/faq/WCQ679 (This link is being provided for information/ [...] with computer assisted technology. [facility] Supervisor Porcelain Department: SEE COMMENT [facility] Comment: GSG, CT(ASCP) CT screening location: [address] ??[phone] HPV nRNA E6/E7 Not Detected Not Detected [facility] Comment: Methodology: [employer]-Mediated Amplification This assay detects E6/E7 viral messenger RNA (mRNA) from 14 high-risk HPV types (16,18,31,33,35,39,45,51,52,56,58,59,66,68). ? Cervical sources are required for HPV testing. If a vaginal source from a patient who has had a total hysterectomy with removal of cervix was ?? submitted, please contact the testing laboratory for alternative testing options. ?? For additional information, please refer to http://education.[employer]/faq/SVA950t2 (This link if provided for information/ educational purposes only.) Interpretation/Res ult: SEE COMMENT [facility] Comment: Negative for intraepithelial lesion [...] of this assay have been determined by [employer]. The modifications have not been cleared or approved by the FDA. This assay has been validated pursuant to the CLIA regulations and is used for clinical purposes. ?? For additional information, please refer to http://education.[employer]/ faq/Trichomonastma (This link is being provided for information/ educational purposes only.) ?? 05/04/2022 [facility] GARMENT SEWING MACHINE OPERATOR LAB PATHOLOGY ORDERABLES Nancy wright Result Performing Organization Address City/State/[facility] Co de Phone Number [facility] [address] * Mammography Report 1 (04/08/2022 10:55 [...] Most Recently Relevant to Health Maintenance Insurance [facility] C3 HSN FULL Care Teams Utility Driver Relationship Specialty Start Date End Date Radha Bautista FNP [address] [place] [phone] PCP - General Family Medicine 05/24/22
--- OUTSIDE RECORDS SUMMARY | 2024-12-25 15:23 | XMS_ITS | Encounter Summary ---
Author Organization [employer] Address [address] [place] [address] Care Team Providers Care Sort Manager Name Role Phone [facility] Primary Care Provider Reason for Visit * Reason Comments Med Refill Encounter Details Date Type Department Care Team ([facility] Contact Info) Description 08/10/2024 Refill [facility] [address] [place], [place] [phone] [facility] [address] [place] [address] Other polyneuropathy; Seasonal allergies Social History Tobacco [...] Description 01/10/2025 11:15 AM EDT Office Visit [facility] [address] [place] [address] Radha Bautista FNP [address] [place] [address] documented as of this encounter Visit Diagnoses Diagnosis Other polyneuropathy Seasonal allergies Allergic rhinitis, cause unspecified documented in this encounter Additional Health Concerns Assessment Noted Time PHQ-9 Depression Total Score: 0 02/01/20 23 8:55 AM EDT documented as of this encounter Care Teams Sort Manager Relationship Specialty Start Date End Date Radha Bautista FNP [address] [place] [address] PCP - General Family Medicine 05/24/22 documented as of this encounter
--- OUTSIDE RECORDS SUMMARY | 2024-12-25 15:23 | XMS_ITS | Encounter Summary ---
Author Organization [employer] Address [address] [facility] [address]t [place] [address] Care Team Providers Care Toll Booth Operator Name Role Phone [facility] Primary Care Provider [phone] Reason for Visit * Reason Comments Med Change Request Encounter Details Date Type Department Care Team ([facility] Contact Info) Description 12/01/2023 Refill [facility] [address] [place], [place] [phone] [facility] [address] [place] [address] Essential hypertension Social History Tobacco Use Types [...] Description 01/10/2025 11:15 AM EDT Office Visit [facility] [address] [place] [address] Radha Bautista FNP [address] [place] [address] documented as of this encounter Visit Diagnoses Diagnosis Essential hypertension Unspecified essential hypertension documented in this encounter Additional Health Concerns Assessment Noted Time PHQ-9 Depression Total Score: 0 02/01/20 23 8:55 AM EDT documented as of this encounter Care Teams Toll Booth Operator Relationship Specialty Start Date End Date Radha Bautista FNP [address] [place] [address] PCP - General Family Medicine 05/24/22 documented as of this encounter
--- OUTSIDE RECORDS SUMMARY | 2024-12-25 15:24 | XMS_ITS | Clinical Summary ---
Author Organization 175 [facility] Address [address] [place] [address] Phone Care Team Providers Care Telehealth Nurse Name Role Phone [facility] Primary [facility] Provider [phone] Social History Tobacco Use Types Packs/Day Years Used Date Smoking Tobacco: Never Assessed Comments Unknown Sex and Gender Information Value Date Recorded Sex Assigned at Not on file Legal Sex Female 5:43 AM EST Gender Identity Not on file Sexual Orientation Not on file Plan of Treatment Upcoming Encounters Date Type Department Care Team ([facility] Contact Info) Description 02/25/2025 2:15 PM EDT Consult Orthopedic Surgery [place] [address] [phone] Bridger Beltran, DPM [address] [address] Health Maintenance Due Date Last Done Comments Breast Cancer Screening 1961 Diabetes: Annual GFR (Glomer ular Filtration Rate) 1961 Diabetes: Annual Foot Exam 1971 Diabetes: Annual Retina Eye Exam 1971 DTaP,Tdap,and Td Vaccines (1 - Tdap) 1980 Pneumococcal Vaccine: 50+ Ye ars (1 of 2 - PCV) 1980 Pneumococcal Vaccine: Pediat rics (0 to 5 Years) and At-Risk Patients (6 to 64 Years) (1 of 2 - PCV) 1980 Cervical Cancer Screening: P ap Smear 1982 Zoster Vaccines (1 of 2) 2011 Cholesterol Screening (Lipid Panel) 08/28/2022 Colorectal Cancer Screening: Colonoscopy 08/28/2022 Depression Screening 08/28/2022 HIV Screening 08/28/2022 Hepatitis C Screening 08/28/2022 Social Influencers of Health Screening 08/28/2022 COVID-19 Vaccine (1 - 2023-2 5 season) 2024 Influenza Vaccine (#1) 2024 Diabetes: Annual Urine Albumin-Creatinine Ratio (uACR) 12/17/2024 Diabetes: Blood Sugar Contro l Test (HGBA1C) 12/17/2024 RSV Immunization Adult Patie nts (1 - 1-dose 75+ series) 2036 HIB Vaccines Aged Out No longer eligi ble based on patient's age to complete this topic HPV Vaccines Aged Out No longer eligi ble based on patient's age to complete this topic Hepatitis A Vaccines Aged Out No long er eligible based on patient's age to complete this topic Hepatitis B Vaccines Aged Out No long er eligible based on patient's age to complete this topic IPV Vaccines Aged Out No longer eligi ble based on patient's age to complete this topic MMR Vaccines Aged Out No longer eligi ble based on patient's age to complete this topic Meningococcal ACWY Vaccine Aged Out N o longer eligible based on patient's age to complete this topic Meningococcal B Vacine Aged Out No lo nger eligible based on patient's age to complete this topic RSV Immunization Patients Un yonathan 20 months Aged Out No longer eligible b ased on patient's age to complete this topic Varicella Vaccines Aged Out No longer eligible based on patient's age to complete this topic Insurance MEDICAID - [place] Care Teams Telehealth Nurse Relationship Specialty Start Date End Date Irvine Radha [address] [place] [phone] PCP - General Family Medicine 12/16/24
== END 2024-12-25 12:52 | disposition home or self-care (01) ==
LOC: HO.MAMMO 12:51
PROVIDERS: PCP Registered Nurse; Visit Provider Registered Nurse
DX: M81.0 Age-related osteoporosis without current pathological fracture (principal)
CPT/HCPCS: 77080

== ENCOUNTER → 2024-12-25 13:30 | Outpatient (BNV) | payer MEDICAID, SELFPAY | PROVIDERS: PCP Registered Nurse; Visit Provider Radiology Diagnostic Radiology | DX: E28.39 Other primary ovarian failure (principal) | CPT/HCPCS: 77080 ==

== ENCOUNTER 2025-01-10 11:56 | Outpatient (REF) | payer MEDICAID, SELFPAY ==
--- OUTSIDE RECORDS SUMMARY | 2025-01-10 12:54 | XMS_ITS | Clinical Summary ---
Author Organization [employer] Address [address] [place] [address] 7[address] [place] [address] Care Team Providers Care Tour Escort Name Role Phone Radha Bautista MILKER MACHINE Primary Care Provider [phone] Allergies No known active allergies Medications zoster [...] USE DIRECTED 023 Active Continuous Blood Gluc Call Center Agent (FreeStyle Valerio 2 [place]) device USE DIRECTED 023 Active D3 50 MCG (1999 [place]) tablet TAKE 1 TABLET BY MOUTH DAILY 023 Active Toujeo SoloStar 300 UNIT/ML injectionIndicati ons:Type 2 diabetes mellitus with hyperglycemia, with long-term current use of insulin ([facility]) Inject 50 units by subcutaneous route every evening 15 mL 3 023 Active insulin aspart FlexPen (NovoLOG) 100 UNIT/ML penIndications:Ty pe 2 diabetes mellitus with hyperglycemia, with long-term current use of insulin ([facility]) Inject 43 Units under the skin with breakfast, with lunch, and with evening meal. 38.7 mL 11 023 Active Blood Pressure kitIndications:Es sential hypertension Use as directed 1 kit 024 Active cetirizine (ZyrTEC) 10 MG tabletIndications :Seasonal allergies TOME NAOMY TABLETA TODOS LOS PARADA EN LA MANANA 90 tablet 3 024 Active Aspirin 81 MG capsuleIndication s:Peripheral vascular disease ([facility]) Take 81 mg by mouth [...] DAY 90 tablet 3 025 2025 Active metoprolol tartrate (Lopressor) 25 MG tablet TOME 1 TABLETA POR VIA ORAL DOS VECES AL DIANA 180 tablet 3 Active letrozole (Femara) 2.5 MG chemo tablet Take 2.5 mg by mouth. 025 Active metoprolol tartrate (Lopressor) 25 MG tablet take 1 tablet by oral route 2 times every day 180 tablet 3 024 2024 Discontinued Active Problems Problem Noted Date Diagnosed Date Endometrial hyperplasia with atypia 11/24/2024 Lower extremity edema 07/10/2023 Abnormal uterine bleeding (AUB) 12/28/2022 Overview (12/28/2022): ?? Followed by Dr. Reyna [facility] ?? Post menopausal bleeding Healthcare maintenance 12/28/2022 Overview (12/28/2022): Mammo: Followed by [facility] oncology Pap: 05/2022 NIL, HPV neg C-scope: Cologuard pending Assessment & Plan (05/24/2023 2:34 PM EDT): - Due for shingles. Pt will go to pharmacy today - Will f/u re cologuard order History of bilateral mastectomy 03/25/2022 Overview (12/28/2022): ?? 02/2022 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 AJCC stage pT2 N0. Prognostic stage IIA 03/21/2022 she underwent left simple mastectomy and right simple prophylactic mastectomy. Completed chemo 07/2022 Dr. Leigh at [facility] Tamoxifen Prolia 60mg sq On Pathology from [...] lost 2 lbs Followed by endocrinology at [facility] Has CGM Foot Exam: 11/2023 Risk 0 Eye Exam: Followed by [facility] Statin: Yes ASA: Yes DAX/ARB: Yes [...] mounjaro start last week Follow up with [facility] endocrinology as scheduled Assessment & Plan (08/01/2023 [...] 2019 with occasional PVC's Previously followed by [facility] cardiology, last seen 2019 with plan to [...] Encounters Date Type Department Care Team Description 01/10/2025 11:15 AM EDT Office Visit [facility] [address] Radha Bautista FNP 01/10/2025 Travel 01/09/2025 Telephone [facility] [place] [address] Radha Bautista FNP chart prep 01/03/2025 Refill [facility] [place] [address] Radha Bautista FNP Essential hypertension 01/02/2025 Refill [facility] [place] [address] Radha Bautista FNP 12/30/2024 Telephone [facility] [place] [address] Radha Bautista FNP Error (VOID this visit) 12/30/2024 Telephone [facility] [address] Radha Bautista FNP Results 12/11/2024 Orders Only [facility] [place] [address] Radha Bautista FNP 12/06/2024 Population Health Risk Score [facility] Department [address] [phone] Provider, Population Health Generic 11/26/2024 Telephone [facility] [address] Radha Bautista FNP [facility] endo 11/25/2024 10:00 AM EST Office Visit [facility] [address] Radha Bautista FNP Healthcare maintenance (Primary Dx); Essential hypertension; Type 2 diabetes mellitus with diabetic peripheral angiopathy without gangrene, with long-term current use of insulin ([facility]); Other osteoporosis without current pathological fracture; Dry skin dermatitis; Endometrial hyperplasia with atypia; Encounter for immunization; Dietary counseling; Exercise counseling; Class 3 severe obesity due to excess calories with serious comorbidity and body mass index (BMI) of 45.0 to 49.9 in adult (CMS/HCC); Screening for colon cancer 11/25/2024 Travel 11/14/2024 Orders Only GENERIC EXTERNAL DATA DEPARTMENT Provider, Generic External Data 11/13/2024 Patient Outreach [facility] [address] [place], [place] [phone] Gary, Gamaliel, [facility] Pre-visit Planning (SDOH screening negative and tobacco screening negative) from Last 3 Months Immunizations Name Administration [...] Sign Reading Time Taken Comments Blood Pressure 134/78 01/10/2025 11:51 AM EDT Pulse 92 01/10/2025 11:10 AM EDT Temperature 36.4 ??C (97.6 ??F) 01/10/2025 11:10 AM E DT Respiratory Rate 20 01/10/2025 11:10 AM EDT Oxygen Saturation 99% 01/10/2025 11:10 AM EDT Inhaled Oxygen Concentration - - Weight 119 kg (261 lb 6.4 oz) 01/10/2025 11:10 A M EDT Height 162.6 cm (5' 4 ) 01/10/2025 11:10 AM EDT Body Mass Index 44.87 01/10/2025 11:10 AM EDT Plan of Treatment Health Maintenance Due Date Last Done Comments CT Colonography 1961 Colonoscopy 1961 Colorectal Cancer Screening 1961 FIT DNA/Cologuard 1961 FIT 1961 FOBT 1961 HIV Screening 1961 Sigmoidoscopy 1961 Alcohol/Substance Use Screening 1973 Hepatitis C Screening 1979 RSV Patients and Patients Aged 60 years or older (1 - Risk 60-74 years 1-dose series) 2021 Zoster Vaccines (2 of 2) 07/07/2023 05/12/2023 Depression Screening 02/01/2024 01/31/2023, 02/01/20 23 Diabetes: Urine Protein Screening 08/11/2024 08/11/2023, 11/28/2022, 05/14/2020 Eye Exam 09/25/2024 09/25/2022 Diabetes: Foot Exam 11/30/2024 12/01/2023, 12/01/2023, 12/01/2023, Additional history exists Lipid Panel 02/28/2025 02/29/2024, 07/26, 11/28/2022 Pap Smear 05/04/2025 05/04/2022 Diabetes: Hemoglobin A1C 05/28/2025 025, 02/29/2024, 12/01/2023, Additional history exists SDOH Screening 11/13/2025 11/13/2024 Tobacco Screening 01/10/2026 01/10/2025 Cervical Cancer Screening 06/20/2027 HPV/Cotest 06/20/2027 06/20/2022, 05/27, 05/04/2022 DTaP/Tdap/Td Vaccines (4 - Td or Tdap) 01/31/2033 01/31/2023, 07/20/2012, 06/19/2000 Hepatitis A Vaccines Aged Out 08/30/2018, 04/29/20 08 No longer eligible based on patient's age to complete this topic Hepatitis B Vaccines Completed 01/28/2019, 08/30/2018, 04/29/2008 Mammogram Discontinued 04/08/2022, 01/24, 01/29/2022, Additional history exists Pneumococcal Vaccine: 50+ Years Completed 01/31/2023, 08/19/2003, [...] gangrene, with long-term current use of insulin ([facility]) POCT GLUCOSE Routine 11/25/2024 9:52 AM EST Type 2 diabetes mellitus with diabetic peripheral angiopathy without gangrene, with long-term current use of insulin ([facility]) GLUCOSE, WHOLE BLOOD Routine 11/14/2024 11:38 AM EST LIPID PANEL, STANDARD Routine 02/29/2024 7:24 AM EDT ALBUMIN, RANDOM URINE W/CREATININE Routine 08/11/2023 9:44 AM EST Type 2 diabetes mellitus with hyperglycemia, with long-term current use of insulin ([facility]) ZZZ HISTORICAL HPV E6/E7 RFLX [...] EDT Narrative 12/25/2024 2:06 PM EDT ? [facility] ? [address] ?[place] [address] ?[phone] ? Mammography Report ? Signed ? Patient: Halina Kevin ?MR#: [id number] ?? [id number] ? : 1960 ?Acct:[id number] ? Age/Sex: 64 / F ?ADM Date: 12/25/24 ? Loc: HO.MAMMO ? Attending Dr: Radha Lily MILKER MACHINE ? Ordering Physician: Lily,Radha MILKER MACHINE ?Results: ? Date of Service: 12/25/24 ?Follow Up: ? Procedure(s): XR DEXA axial skeleton ?? Accession Number(s): [id number] ? cc: LilyRadha MILKER MACHINE ? EXAMINATION: ??DXA BONE DENSITY AXIAL ? HISTORY: ??Estrogen deficiency ? TECHNIQUE: [employer] Dual energy absorptiometry (DEXA) ?? of the [...] the [employer]'s ?? [place] for Metabolic Bone Disease, a World Health Organization (WHO) ?? Collaborating Center. ? Electronically signed by: ??Ruy Rockwell MD ??12/25/2024 02:04 PM EDT ?? RP ? Dictated By: ?Ruy Rockwell MD ? Signed By: ?<Electronically signed by Ruy Rockwell MD in OV> ?12/25/24 1404 ? DD/ 1300 ? TD/TT: 12/25/24 1325 ? Door Machine Operator: ? Procedure Note Donotuseinterpreter, Image - 12/25/2024 Cony [facility] [address] [place] [address] Mammography Report Signed Patient: Halina Kevin MMR#: [id number] : 1960cct:[id number] Age/Sex: 64 / FADM Date: 12/25/24 Loc: DIPTI Attending Dr: Radha Bautista MILKER MACHINE Ordering Physician: Radha BautistaPResults: Date of Service: 12/25/24Follow Up: Procedure(s): XR DEXA axial skeleton Accession Number(s): [id number] cc: Radha Bautista EXAMINATION: DXA BONE DENSITY AXIAL HISTORY: Estrogen deficiency TECHNIQUE: [employer] Dual energy absorptiometry (DEXA) of the lumbar [...] of the [employer] [place] for Metabolic Bone Disease, a World Health Organization (WHO) Collaborating Center. Electronically signed by: Ruy Rockwell MD 12/25/2024 02:04 PM EDT Dictated By: Ruy Rockwell MD Signed By: <Electronically signed by Ruy Rockwell MD in OV> 12/25/24 1404 DD/ 1300 TD/TT: 12/25/24 1325 Door Machine Operator: [facility] MILKER MACHINE IMG DXA PROCEDURES Final Resu lt * (ABNORMAL) Glucose, Whole Blood (12/11/2024 1:50 PM EDT) Only the most recent of2 resultswithin the time period is included. [facility] Glucose, Whole Blood 183(H) 60 - 115 mg/dL [facility] Comment:METER #: [id number] 5Testing performed in the Endocrinology Department [address] , [address], [facility]. 12/11/2024 1:50 PM EDT 12/11/2024 1:56 PM EDT Generic External Data Provider LAB BLOOD ORDERAB LES Final Result [facility] [address] [place] [phone] * (ABNORMAL) POCT HGB A1C (11/25/2024 9:58 AM EST) Hemoglobin A1C 6.8(A) 4.0 - 6.0 % QC Media Lot # [id number] Lot# Expiration Date Blood 11/25/2024 9:58 AM EST [facility] POINT OF CARE TEST ENTER/EDIT ORDERABLES Final Result * POCT Glucose (11/25/2024 9:52 AM EST) Pathologist [facility] Glucose Blood, POC 194 60 - 200 mg/dL QC Media Lot # [id number] Lot# Expiration Date Blood Capillary blood specimen / Unknown 11/25/2024 9:52 AM EST [facility] POINT OF CARE TEST ENTER/EDIT ORDERABLES Final Result * Lipid Panel, Standard (02/29/2024 7:24 AM EDT) Triglycerides 37 <150 mg/dL [facility] Comment:Desirable Triglyceri de: less than 150 mg/dLBorderline High Triglyceride 150-199 mg/dLHigh Triglyceride: 200-499 mg/dLVery High Triglyceride: greater than or equal to 5OO mg/dL Cholesterol 89 <200 mg/dL [facility] Comment:Desirable Cholestero l: less than 200 mg/dLBorderline High Cholesterol: 200-239 mg/dLHigh Cholesterol: greater than 239 mg/dL LDL Cholesterol Calculated 40 <100 mg/dL [facility] Comment:Desirable LDL: less than 100 mg/dLNear Optimal/Above Optimal LDL: 110- 129 mg/dLBorderline High LDL: 130-159 mg/dLHigh LDL: 160-189 mg/dLVery High LDL: greater than or equal to 190 mg/dL HDL Cholesterol 42 >40 mg/dL [facility] Comment:Desirable HDL: great er than 40 mg/dL Note: This HDL assay may give artificially low results in patients with liver disease. 02/29/2024 7:24 AM EDT 02/29/2024 7:24 AM EDT Generic External Data Provider LAB BLOOD ORDERAB LES Final Result Performing Organization Address City/[facility]/ZIP Co de Phone Number [facility] [address] [place] [phone] * Albumin, Random Urine W/Creatinine (08/11/2023 9:44 AM EST) Creatinine, Urine 140.25 mg/dL [facility] Microalbumin Urine 33.0 mg/L [facility] Microalbum Creatinine Ratio Ur 23.5 <30 ug/mg cr [facility] Comment:Albumin/Creatinine R atio Reference Ranges: Normal: < 30 ug/mg creatinine Microalbuminuria: 30 - 300 ug/mg creatinineClinical Albuminuria: > 300 ug/mg creatinine Urine 08/11/2023 9:44 AM EST 08/11/2023 11:15 AM EST [facility] MILKER MACHINE LAB URINE ORDERABLES Final Re sult Performing Organization Address City/[facility]/ZIP Co de Phone Number [facility] [address] [place] [phone] * HPV E6/E7 RFLX CARROLL 16 18/45 (06/20/2022 1:00 PM EDT) HPV 16 RNA TNP CONVERTED [email or web address] HPV 18/45 RNA TNP [employer]VER [employer] HPV E6 E7 ADD TNP CONVER [employer] HPV mRNA E6/E7 rflx Not Detected Not Detected CONVERTED [email or web address] Comment: Methodology: Shipping Manager-Mediated Amplification This assay detects E6/E7 viral messenger RNA (mRNA) from 14 high-risk HPV types (16,18,31,33,35,39,45,51,52,56,58,59,66,68). Cervical sources are required for HPV testing. If a vaginal source from a patient who has had a total hysterectomy with removal of cervix was submitted, please contact the testing laboratory for alternative testing options. For additional information, please refer to http://education.[employer]/faq/SCD114t5 (This link if provided for information/ educational purposes only.) THIS TEST WAS PERFORMED AT: [employer] [facility] [address] [place] [address] [address] [place], [place] ??[phone] RENEE KAUFMAN MD 06/20/2022 1:00 PM EDT Duc Reyna MD HISTORICAL/NON ORDERABLE LABS Fi nal Result [facility] * THINPREP TIS PAP AND HPV mRNA E6/E7, CT/NG, TRICH (05/04/2022 12:00 AM EDT) Chlamydia trachomatis RNA, TMA, Urogenital NOT DETECTED NOT DETECTED [facility] Clinical Information: SCREENING [facility] COMMENT SEE COMMENT [facility] Comment: The analytical performance characteristics of this assay, when used to test SurePath(TM) specimens have been determined by [employer]. The modifications have not been cleared or approved by the FDA. This assay has been validated pursuant to the CLIA regulations and is used for clinical purposes. ?? For additional information, please refer to https://education.[employer]/faq/UMP962 (This link is being provided for information/ [...] has been evaluated with computer assisted technology. [facility] Foreign Language Teacher: SEE COMMENT [facility] Comment: GSG, CT(ASCP) CT screening location: [address] ??[phone] HPV nRNA E6/E7 Not Detected Not Detected [facility] Comment: Methodology: Shipping Manager-Mediated Amplification This assay detects E6/E7 viral messenger RNA (mRNA) from 14 high-risk HPV types (16,18,31,33,35,39,45,51,52,56,58,59,66,68). ? Cervical sources are required for HPV testing. If a vaginal source from a patient who has had a total hysterectomy with removal of cervix was ?? submitted, please contact the testing laboratory for alternative testing options. ?? For additional information, please refer to http://[employer]zup.[employer]/faq/WMF390w7 (This link if provided for information/ educational [...] of this assay have been determined by [employer]. The modifications have not been cleared or approved by the FDA. This assay has been validated pursuant to the CLIA regulations and is used for clinical purposes. ?? For additional information, please refer to http://[employer]/ faq/Trichomonastma (This link is being provided for information/ educational purposes only.) ?? 05/04/2022 [facility] MILKER MACHINE LAB PATHOLOGY ORDERABLES Nancy l Result [facility] [address] * Mammography Report 1 (04/08/2022 10:55 AM EDT) Anatomical Region Laterality Modality Breast Bilateral Mammography 04/08/2022 10:5 5 AM EDT Narrative 04/08/2022 5:59 PM EDT Refer to the Notes tab for result details [facility] Procedure: Mammography Report 1 Procedure Note Provider, MD Cecily - 12/18/2022 Refer to the Notes tab for result details [facility] Procedure: Mammography Report 1 us Historical Provider MD KOLB BI PROCEDURES Final R esult from Last 3 Months or Most Recently Relevant to Health Maintenance Insurance [facility] C3 HSN FULL Care Teams Tour Escort Relationship Specialty Start Date End Date Radha Bautista FNP [address] [place] [address] PCP - General Family Medicine 05/24/22
--- OUTSIDE RECORDS SUMMARY | 2025-01-10 12:54 | XMS_ITS | Encounter Summary ---
Author Organization [employer] Address [address] [facility] [address] [place] [address] Care Team Providers Care Instrument And Control Technician Name Role Phone [facility] Primary Care Provider [phone] Reason for Visit * Reason Comments Med Refill Encounter Details Date Type Department Care Team ([facility] Contact Info) Description 08/10/2024 Refill [facility]ICINE [address] [place], [place] [phone] [facility] [address] [place] [address] Other polyneuropathy; Seasonal allergies Social History Tobacco [...] as of this encounter Plan of Treatment Not on file documented as of this encounter Visit Diagnoses Diagnosis Other polyneuropathy Seasonal allergies Allergic rhinitis, cause unspecified documented in this encounter Additional Health Concerns Assessment Noted Time PHQ-9 Depression Total Score: 0 02/01/20 23 8:55 AM EDT documented as of this encounter Care Teams Instrument And Control Technician Relationship Specialty Start Date End Date Radha Bautista FNP [address] [place] [phone] PCP - General Family Medicine 05/24/22 documented as of this encounter
--- OUTSIDE RECORDS SUMMARY | 2025-01-10 12:54 | XMS_ITS | Encounter Summary ---
Author Organization [employer] Address [address] [facility] 7t [place] [address] Care Team Providers Care Wood Tool Maker Name Role Phone [facility] Primary Care Provider [phone] Reason for Visit * Reason Comments Med Refill Encounter Details Date Type Department Care Team ([facility] st Contact Info) Description 01/03/2025 Refill [facility] 230 [place], [place] [phone] [facility] 230 [place] [address] Essential hypertension Social History Tobacco Use Types [...] documented as of this encounter Care Teams Wood Tool Maker Relationship Specialty Start Date End Date Radha Bautista FNP [address] [place] [address] PCP - General Family Medicine 05/24/22 documented as of this encounter
--- OUTSIDE RECORDS SUMMARY | 2025-01-10 12:54 | XMS_ITS | Encounter Summary ---
Author Organization [employer] Address [address] [facility] 7t [place] [address] Care Team Providers Care Vtc Technician Name Role Phone [facility] Primary Care Provider [phone] Reason for Visit * Reason Comments Med Change Request Encounter Details Date Type Department Care Team ([facility] Contact Info) Description 12/01/2023 Refill [facility] 230 [place], [place] [phone] [facility] 230 [place] [address] Essential hypertension Social History Tobacco Use Types [...] documented as of this encounter Care Teams Vtc Technician Relationship Specialty Start Date End Date Radha Bautista FNP [address] [place] [address] PCP - General Family Medicine 05/24/22 documented as of this encounter
--- OUTSIDE RECORDS SUMMARY | 2025-01-10 12:54 | XMS_ITS | Encounter Summary ---
Author Organization [employer] Address [address] [place] [address] 7 [place] [address] Care Team Providers Care Shingle Bolt Cutter Name Role Phone [facility] Primary Care Provider [phone] Reason for Visit * Reason Comments Med Change Request Encounter Details Date Type Department Care Team ([facility] Contact Info) Description 01/31/2023 Refill [facility] 230 [place], [place] [phone] [facility] 230 [place] [address] Type 2 diabetes mellitus with hyperglycemia, with long-term current use of insulin ([facility]) Social History Tobacco Use Types Packs/Day [...] PM EDT Called pharmacy. Verbally changed to genieCleo barrow which insurance covered documented in this encounter Plan of Treatment Not on file documented as of this encounter Visit Diagnoses Diagnosis Type 2 diabetes mellitus with hyperglycemia, with long-term current use of insulin ([facility]) documented in this encounter Additional Health Concerns Assessment Noted Time PHQ-9 Depression Total Score: 0 02/01/20 23 8:55 AM EDT documented as of this encounter Care Teams Shingle Bolt Cutter Relationship Specialty Start Date End Date Radha Bautista FNP [address] [place] [address] PCP - General Family Medicine 05/24/22 documented as of this encounter
--- OUTSIDE RECORDS SUMMARY | 2025-01-10 12:54 | XMS_ITS | Clinical Summary ---
Author Organization 175 [facility] Address 175 [place] [address] Phone Care Team Providers Care Improvement Rn Name Role Phone [facility] [phone] Social History Tobacco Use Types Packs/Day Years Used Date Smoking Tobacco: Never Assessed Comments Unknown Sex and Gender Information Value Date Recorded Sex Assigned at Not on file Legal Sex Female 5:43 AM EST Gender Identity Not on file Sexual Orientation Not on file Plan of Treatment Upcoming Encounters Date Type Department Care Team ([facility] Contact Info) Description 02/25/2025 2:15 PM EDT Consult Orthopedic Surgery [place] [address] [address] Bridger Beltran, DPM [address] [address] Health Maintenance Due Date Last Done Comments [...] Vaccine (1 - 2023-2 5 season) 2024 Diabetes: Annual Urine Albumin-Creatinine Ratio (uACR) 12/17/2024 Diabetes: Blood Sugar Contro l Test (HGBA1C) 12/17/2024 Influenza Vaccine (Season Ended) 2025 RSV Immunization Adult Patie nts (1 - [...] age to complete this topic Meningococcal B Vaccine Aged Out No l onger eligible based on patient's age to complete this topic RSV Immunization Patients Un yonathan 20 months Aged Out No longer eligible b ased on patient's age to complete this topic Varicella Vaccines Aged Out No longer eligible based on patient's age to complete this topic Insurance MEDICAID - [place] Care Teams Improvement Rn Relationship Specialty Start Date End Date [facility] [address] [place] [phone] PCP - General Family Medicine 12/16/24
--- OUTSIDE RECORDS SUMMARY | 2025-01-10 12:54 | XMS_ITS | Encounter Summary ---
Author Organization [employer] Address [address] [place] [address] 7 [place] [address] Care Team Providers Care Interceptor Operator Name Role Phone [place] [facility] Primary Care Provider [phone] Reason for Visit * Reason Comments Follow-up Encounter Details Date Type Department Care Team ([facility] Contact Info) Description 01/10/2025 11:15 AM EDT Office Visit [facility] 230 [place], [place] [phone] [place] [facility] 230 [place] [address] Social History Tobacco Use Types Packs/Day Years [...] Mass Index 44.87 01/10/2025 11:10 AM EDT documented in this encounter Plan of Treatment Not on file documented as of this encounter Visit Diagnoses Not on filedocumented in this encounter Additional Health Concerns Assessment Noted Time PHQ-9 Depression Total Score: 0 02/01/20 23 8:55 AM EDT documented as of this encounter Care Teams Interceptor Operator Relationship Specialty Start Date End Date Radha Bautista FNP [address] [place] [address] PCP - General Family Medicine 05/24/22 documented as of this encounter
--- OUTSIDE RECORDS SUMMARY | 2025-01-10 12:54 | XMS_ITS | Encounter Summary ---
Author Organization [employer] Address [address] [place] [address] 7 [place] [address] Care Team Providers Care Desk Clerks Supervisor Name Role Phone [facility] Primary Care Provider [phone] Reason for Visit * Reason Onset Date Comments chart prep 01/09/2025 Encounter Details Date Type Department Care Team ([facility] st Contact Info) Description 01/09/2025 Telephone [facility] 230 [place], [place] [phone] [place] [facility] 230 [place] [address] chart prep Social History Tobacco Use Types Packs/Day Years [...] encounter Miscellaneous Notes * Telephone Encounter - Janice Skelton [place] - 01/09/2025 11:20 AM EDT Chart Prep Labs: not done Images: done Referrals: complete Vaccines due: yes Screenings: colonoscopy Overdue care gaps: Glucose, PHQ-9, JERI-7, and Tobacco documented in this encounter Plan of Treatment Not on file documented as of this encounter Visit Diagnoses Not on filedocumented in this encounter Additional Health Concerns Assessment Noted Time PHQ-9 Depression Total Score: 0 02/01/20 23 8:55 AM EDT documented as of this encounter Care Teams Desk Clerks Supervisor Relationship Specialty Start Date End Date Radha Bautista FNP [address] [place] [address] PCP - General Family Medicine 05/24/22 documented as of this encounter
--- OUTSIDE RECORDS SUMMARY | 2025-01-10 12:54 | XMS_ITS | Continuity of Care Document ---
Author Organization [facility]IDENTIAL [facility]BCONTRACT[facility] Oncolog y Address [address] [place] [address]- Care Team Providers Care Crusher Foreman Name Role Phone Cary STILL, Nathan Delgado Primary Care Physician Encounter [facility] Date(s): 12/06/24 - 01/05/25 [facility]IDENTIAL SUBCONTRACTOR Oncology [address] [place] [address]- Encounter Type: Triage Allergies, Adverse Reactions, Alerts [...] Date: 02/19/12 Status: Ordered Repeat number: 1 letrozole 2.5 mg oral tablet 1 tablet = 2.5 mg, By Mouth, Daily, # 30 tablet, 0 Refills, Maintenance, 12/03/24 3:29:00 PM EDT, Tablet, Partial fill upon patient request if the prescription is for a schedule II opioid drug. Start Date: 12/03/24 Stop Date: 01/02/25 Status: Ordered Quantity: 30.0 Unit: tablet Repeat number: 1 levonorgestrel 52 mg intrauterine device See Instructions, Bring to surgery with Dr. Roblero, # 1 each, 0 Refills, Soft Stop, 03/19/24 1:49:00PM EDT, [facility], Partial fill upon patient request if the prescription is for aschedule II opioid drug., 163, cm, 03/19/24 13:16:00 EDT, Height, 125.5, kg, 03/19/24 13:16:00 EDT,Dry Weight Start Date: 03/19/24 Status: Ordered Quantity: 1.0 Unit: each Repeat number: 1 Losartan Tablet 50 mg, By Mouth, Daily, Maintenance, 02/19/12 10:57:22 AM EDT Start Date: 02/19/12 Status: Ordered Repeat number: 1 Ozempic (1 mg dose) 4 mg/3 mL subcutaneous solution = 1 mg, Subcutaneous Infusion, 0 Refills, Maintenance, 12/02/24 9:08:00 AM EDT, Partial fill upon patient request if the prescription is for a schedule II opioid drug. Start Date: 12/02/24 Status: Ordered Repeat number: 1 Tamoxifen By [...] of breast Confirmed Active Diabetes Confirmed Active EIN (endometrial intraepithelial neoplasia) Confirmed Active GERD (gastroesophageal reflux disease) Confirmed Active History of breast cancer Confirmed Active HLD (hyperlipidemia) Confirmed Active HTN (hypertension) Confirmed Active Uses Bolivian as primary spoken language Confirmed Active Obesity Confirmed Active Severe obesity Confirmed Active Vaginal bleeding Confirmed Active Patient Care team information Care Team Personnel Name: Nathan Townsend NP Position: [facility] Outreach Member Role: PCP Address: [address] [place] [id number] Telecom: Care Team Related Persons Name: WENDI PADILLA Name: WON PADILLA Insurance Providers Guarantor name: [facility] Information #: 1 Payer: [employer] Member Number: NA Policy Number: NA Group Number: NA
--- OUTSIDE RECORDS SUMMARY | 2025-01-10 12:54 | XMS_ITS | Encounter Summary ---
Author Organization [employer] Address 75 [facility] 7t [place] [address] Care Team Providers Care Car Rental Manager Name Role Phone [facility] Primary Care Provider [phone] Reason for Visit * Reason Comments Med Refill Encounter Details Date Type Department Care Team ([facility] Contact Info) Description 11/14/2023 Refill [facility]INE 230 [place], [place] [phone] [facility] 230 [place] [address] Seasonal allergies Social History Tobacco Use Types [...] documented as of this encounter Care Teams Car Rental Manager Relationship Specialty Start Date End Date Radha Bautista FNP [address] [place] [address] PCP - General Family Medicine 05/24/22 documented as of this encounter
--- OUTSIDE RECORDS SUMMARY | 2025-01-10 12:54 | XMS_ITS | Encounter Summary ---
Author Organization [employer] Address [address] [facility] 7t [place] [address] Care Team Providers Care Manager Access Name Role Phone Radha Bautista CASEWORK MANAGER Primary Care Provider [phone] Encounter Details Date Type Department Care Team (Latest Contact Info) Description 01/10/2025 Travel Social History Tobacco Use Types Packs/Day [...] documented as of this encounter Care Teams Manager Access Relationship Specialty Start Date End Date Radha Bautista FNP [address] [place] [address] PCP - General Family Medicine 05/24/22 documented as of this encounter
[2025-01-10 13:40] LABS: Estimated Average Glucose 146 mg/dL; Hemoglobin A1C 191.6145 umol/L; Hemoglobin A1c % 6.7 % (<6.0); Total Hemoglobin (HGBA1C) 3842.4635 umol/L
[2025-01-10 13:45] LABS: Anion Gap 12 (12-20); Blood Urea Nitrogen 13 mg/dL (9-16); Calcium 9.7 mg/dL (8.4-10.2); Carbon Dioxide 24 mmol/L (22-29); Chloride 110 mmol/L (96-108); Cholesterol 159 mg/dL (<200); Estimated Glomerular Filt Rate > 60; Glucose Fasting 71 mg/dL (60-99); HDL Cholesterol 39 mg/dL (>40); LDL Cholesterol Calculated 107 mg/dL (<100); Potassium 3.8 mmol/L (3.3-5.1); Sodium 142 mmol/L (135-145); Triglycerides 69 mg/dL (<150)
[2025-01-10 14:12] LABS: Creatinine Urine 185.12 mg/dL; Microalbum/Creatinine Ratio Ur 15.1 ug/mg cr (<30)
== END 2025-01-10 11:57 | disposition home or self-care (01) ==
LOC: HO.HHCL 11:56
PROVIDERS: Visit Provider Student in an Organized Health Care Education/Training Program
DX: E78.5 Hyperlipidemia, unspecified (principal); E11.649 Type 2 diabetes mellitus with hypoglycemia without coma; Z79.4 Long term (current) use of insulin
CPT/HCPCS: 36415; 80048; 80061; 82043; 82570; 83036

== ENCOUNTER 2025-01-21 14:24 | Outpatient (AMB) | payer MEDICAID, SELFPAY ==
[2025-01-21 14:24] VITALS: BP 146/88; PULSE 89; O2SAT 97; BMI 44.0
--- NOTE | 2025-01-21 14:24 | HO.NEPHOV ---
Vital Signs 01/21/25 14:24 01/21/25 14:40 Height 5 ft 4 in Weight 256 lb 4 oz BMI 44.0 BP 146/88 H 124/76 Blood Pressure Location Rt brachial Lt brachial Position Sitting Sitting Pulse 89 Pulse Source Pulse Oximeter Pulse Oximetry (%) 97 Oxygen Delivery Method Room Air Intake Visit Reasons: ENP: Labile blood pressure Supervisor Channel Process Required: Yes Supervisor Channel Process Language: Arts Administrator Name: Jens([id number]) Allergies turkey Allergy (Severe, Verified 01/21/25 14:25) chest pain/swelling/SOB/itching semaglutide [From Ozempic] Adverse Reaction (Intermediate, Verified 01/21/25 14:25) Nausea Medication List - Last Reconciled 01/21/25 by Mauricio Hawkins MD acetaminophen 650 mg PO Q6H PRN amitriptyline 10 mg PO BEDTIME aspirin 81 mg PO DAILY atorvastatin 1 tab PO BEDTIME blood sugar diagnostic (FreeStyle Lite Strips) As directed blood-glucose meter (FreeStyle [place] Lite kit) As directed blood-glucose sensor (FreeStyle Valerio 3 Sensor device) As directed cetirizine 10 mg PO QAM chlorthalidone 12.5 mg PO QAM cholecalciferol (vitamin D3) (Vitamin D3) 50 mcg PO DAILY ezetimibe 10 mg PO QAM FreeStyle Valerio 3 Plus Sensor (blood-glucose sensor) 14 days NS gabapentin 300 mg PO QPM ibuprofen 400 mg PO Q6H PRN ibuprofen 800 mg PO Q8H PRN 30 days insulin aspart U-100 subcutaneously 3 times a day; Take 25 units subcutaneous with breakfast, 25 units with lunch and 25 units with supper 28 days insulin glargine U-300 conc (Toujeo SoloStar U-300 Insulin) 25 units (0.0833 mL) subcut QPM lancets (FreeStyle Lancets) As directed 3 times a day letrozole 2.5 mg PO DAILY loperamide 2 mg PO Q4H PRN losartan 100 mg PO DAILY metoprolol tartrate 1 tab PO BID omeprazole 20 mg PO DAILY pen needle, diabetic (BD Lesley 2nd Gen Pen Needle) As directed 4 times a day tirzepatide (Mounjaro) 7.5 mg (0.5 mL) subcut QWEEK HPI Comments Details: Halina is a pleasant 64-year-old woman with a history of obesity referred for evaluation of hypertension. Currently she is on losartan. Chlorthalidone has been recently added. She has been referred for a 24 hour ambulatory blood pressure monitoring. [facility] Medical History HLD (hyperlipidemia) Type 2 diabetes mellitus Uncontrolled type 2 diabetes mellitus with hyperglycemia Fever of unknown origin Seroma of breast GERD (gastroesophageal reflux disease) COVID-19 vaccine series completed Asthma Hypercholesteremia HTN (hypertension) Diabetes Invasive ductal carcinoma of left breast Surgical History History of incision and drainage (05/02/22) History of bilateral mastectomy (03/21/22) History of delivery History of cholecystectomy Family History Mother Breast cancer, Onset Age: 58 Sister Breast cancer, Onset Age: 54 Social History Household Members: Family Household Members Other:: and son Housing: House Housing Other:: [facility] Are you a primary career placement services counselor to a significant other at home: No Do you presently have visiting nurse or other home services: No Alcohol intake: never Patient Tobacco Use Status: Never used Tobacco Second Hand Smoke Exposure: No Advance Directives Date on File: 04/15/22 service: No Current occupational status: employed Current occupation: rt handed Female Reproductive History Menstrual Age of Menarche: 11 Review of Systems Const Denies fever(s) and Denies weight loss Card Denies chest pain Resp Denies cough and Denies hemoptysis GI Denies abdominal pain, Denies diarrhea and Denies nausea Musc Denies back pain Neuro Denies focal weakness Physical Exam Vital Signs: Last Vital Signs Pulse 89 01/21/25 14:24 BP 124/76 01/21/25 14:40 Pulse Ox 97 01/21/25 14:24 Oxygen Delivery Method Room Air 01/21/25 14:24 BMI result Body Mass Index 44.0 Comfortable Obese Neck supple no JVD. Lungs entry equal no rales. Heart S1-S2 heard no gallop or rub. Abdomen soft nontender. Neuro alert awake oriented. No asterixis. Extremities trace edema. Results Reviewed Nephrology Results: Hgb 14.6 g/dl (12.0-16.0) 11/15/24 WBC 6.9 X10*3/uL (4.8-10.8) 11/15/24 Plt Count 225 X10*3/uL (160-400) 11/15/24 Sodium 142 mmol/L (135-145) 01/10/25 Potassium 3.8 mmol/L (3.3-5.1) 01/10/25 Chloride 110 mmol/L (96-108) H 01/10/25 Carbon Dioxide 24 mmol/L (22-29) 01/10/25 BUN 13 mg/dL (9-16) 01/10/25 Creatinine 0.72 mg/dL (0.5-1.4) 01/10/25 Calcium 9.7 mg/dL (8.4-10.2) 01/10/25 Urine Creatinine 185.12 mg/dL 01/10/25 Assessment & Plan Assessment & Plan (1) HTN (hypertension): Code(s): I10 - Essential (primary) hypertension Category: Medical Qualifiers: Hypertension type: primary hypertension Qualified Code(s): I10 - Essential (primary) hypertension Plan 64-year-old woman with obesity and difficult to control hypertension. In the office today blood pressure is acceptable. Initial reading was elevated , repeat blood pressure was in the normal range. She probably has a component of white coat hypertension as well. Plan Obtain 24 hour ambulatory blood pressure monitoring. Encouraged to stand low-sodium diet Discussed importance of weight loss. No changes were made to his medications today. Orders: Orders AMB 24 HR B/P Monitor PLACEMENT Today I10 - Essential (primary) hypertension Coding Level of Care Code New Pt Level 4 (86849) Diagnoses Primary hypertension I10 Hypertension type: primary hypertension
[2025-01-21 14:40] VITALS: BP 124/76
--- OUTSIDE RECORDS SUMMARY | 2025-01-21 16:36 | XMS_ITS | Clinical Summary ---
Author Organization 175 [facility] Address 175 [place] [address] Phone Care Team Providers Care Auto Wheel Alignment Specialist Name Role Phone [facility] [phone] Social History Tobacco Use Types Packs/Day Years Used Date Smoking Tobacco: Never Assessed Comments Unknown Sex and Gender Information Value Date Recorded Sex Assigned at Not on file Legal Sex Female 5:43 AM EST Gender Identity Not on file Sexual Orientation Not on file Plan of Treatment Upcoming Encounters Date Type Department Care Team ([facility] Contact Info) Description 02/25/2025 2:15 PM EDT Consult Orthopedic Surgery [place] [address] [address] Bridger Beltran, DPM [address] [address] Health Maintenance Due Date Last Done Comments [...] topic Insurance MEDICAID - [place] Care Teams Auto Wheel Alignment Specialist Relationship Specialty Start Date End Date [facility] [address] [place] [phone] PCP - General Family Medicine 12/16/24
== END 2025-01-21 14:42 | disposition home or self-care (01) ==
LOC: HO.HKA 14:24
PROVIDERS: PCP Registered Nurse; Visit Provider Internal Medicine Hypertension Specialist
DX: I10 Essential (primary) hypertension (principal)
CPT/HCPCS: 99204

== ENCOUNTER → 2025-01-21 14:24 | Outpatient (BNVA) | payer MEDICAID, SELFPAY | PROVIDERS: PCP Registered Nurse; Visit Provider Internal Medicine Hypertension Specialist | DX: I10 Essential (primary) hypertension (principal); Z79.899 Other long term (current) drug therapy | CPT/HCPCS: 99202 ==

== ENCOUNTER → 2025-01-28 09:33 | Outpatient (BNVA) | payer MEDICAID, SELFPAY | PROVIDERS: PCP Registered Nurse; Visit Provider Internal Medicine Hypertension Specialist | DX: I10 Essential (primary) hypertension (principal) | CPT/HCPCS: 93786; 93788 ==

== ENCOUNTER 2025-02-12 12:52 | Outpatient (AMB) | payer MEDICAID, SELFPAY ==
[2025-02-12 13:00] VITALS: BP 138/76; PULSE 67; BMI 43.9
--- NOTE | 2025-02-12 13:00 | A.OFFVIS_ITS ---
Vital Signs 02/12/25 13:00 Height 5 ft 4 in Weight 255 lb 11.779 oz BMI 43.9 BP 138/76 Blood Pressure Location Rt brachial Position Sitting Pulse 67 Pulse Source Pulse Oximeter Intake Visit Reasons: DM Intake Note: Patient presents today for a follow-up on Type 2 Diabetes Mellitus: Last Diabetic eye exam was on: 04/25/2025 Last Podiatry exam was on: Patient does not see a [employer] Worker Most recent HbA1c: 6.7%, 01/10/2025 Random Glucose- 67 mg/dL, patient brought with her orange juice, RE-check 104 mg/dL Escort Service Attendant Required: Yes Escort Service Attendant Services: Escort Service Attendant Present Escort Service Attendant Name: [place] [id number] Information Interpreted: clinical only Accompanied by: Self / Same As Patient Allergies turkey Allergy (Severe, Verified 02/12/25 13:06) chest pain/swelling/SOB/itching semaglutide [From Ozempic] Adverse Reaction (Intermediate, Verified 02/12/25 13:06) Nausea HPI Comments Details: 64 YO F who is seen in f/u for type 2 diabetes. Initially diagnosed with T2DM in 21 yrs Was initially started on treatment with metformin. Had Gi issues Current regimen: -Toujeo -she is taking 25 units -Humalog from -On moujaro 7.5mg weekly. Previously intolerant to ozempic Today A1C 6.7% . Down from 7.3% Denies hypoglycemia Has eyes checked yearly, last eye exam has appt 11/12/2023 denies retinopathy- referred to new ophto +neuropathy Denies nephropathy Has HLD, on statin. LDL 40 03/18 on atorvastatin 80 mg daily , adherence is good Denies CAD. walks 2 hours daily BP at goal : on losartan 50 mg daily and metoprolol 25 BID Had diabetes education at [facility] ROS see HPI PHYSICAL EXAM: GENERAL: Alert and oriented x 3. NAD EYES: EOMI. Anicteric. HENT: Moist mucous membranes. No scleral icterus. No cervical lymphadenopathy. LUNGS: Clear to auscultation bilaterally. CARDIOVASCULAR: Regular rate and rhythm. No murmur. No JVD. ABDOMEN: Soft, non-tender +bs EXTREMITIES: No edema. Non-tender. SKIN: No rashes or lesions. Warm. NEUROLOGIC: No focal neurological deficits. CN II-XII grossly intact PSYCHIATRIC: Cooperative. Appropriate mood and affect [facility] Medical History HLD (hyperlipidemia) Type 2 diabetes mellitus Uncontrolled type 2 diabetes mellitus with hyperglycemia Fever of unknown origin Seroma of breast GERD (gastroesophageal reflux disease) COVID-19 vaccine series completed Asthma Hypercholesteremia HTN (hypertension) Diabetes Invasive ductal carcinoma of left breast Surgical History History of incision and drainage (05/02/22) History of bilateral mastectomy (03/21/22) History of delivery History of cholecystectomy Family History Mother Breast cancer, Onset Age: 58 Sister Breast cancer, Onset Age: 54 Social History Household Members: Family Household Members Other:: and son Housing: House Housing Other:: [facility] Are you a primary zoo caretaker to a significant other at home: No Do you presently have visiting nurse or other home services: No Alcohol intake: never Patient Tobacco Use Status: Never used Tobacco Second Hand Smoke Exposure: No Advance Directives Date on File: 04/15/22 service: No Current occupational status: employed Current occupation: rt handed Female Reproductive History Menstrual Age of Menarche: 11 Physical Exam Vital Signs: Last Vital Signs Pulse 67 02/12/25 13:00 BP 138/76 02/12/25 13:00 BMI result Body Mass Index 43.9 Results Reviewed Results Reviewed: Laboratory Last Values Glucose (Clinic) 104 mg/dL (60-115) 02/12/25 13:22 Assessment & Plan Assessment & Plan (1) Uncontrolled type 2 diabetes mellitus with hyperglycemia: Code(s): E11.65 - Type 2 diabetes mellitus with hyperglycemia Category: Medical Plan 64 year old female for diabetic follow up Excellent glycemic control, unfortunately some intermittent lows into 50s, 60s that she recovers from appropriately Using CGM She would like to increase mounjaro to 10mg weekly Will decrease humalog to / and decrease toujeo to 23 units daily She will follow up in 3 months or sooner as needed Medications: New tirzepatide (Mounjaro) 10 mg (0.5 mL) subcut QWEEK 6 mL 1RF E11.649 - Type 2 diabetes mellitus with hypoglycemia without coma, Z79.4 - termite helper (current) use of insulin Changed From insulin aspart U-100 subcutaneously 3 times a day; Take 25 units subcutaneous with breakfast, 25 units with lunch and 25 units with supper 28 days 30 mL 6RF E11.9 - Type 2 diabetes mellitus without complications To insulin aspart U-100 20 units (0.2 mL) subcut TID 90 days 54 mL 6RF E11.9 - Type 2 diabetes mellitus without complications From insulin glargine U-300 conc (Toujeo SoloStar U-300 Insulin) 25 units (0.0833 mL) subcut QPM 4.5 mL 3RF To insulin glargine U-300 conc (Toujeo SoloStar U-300 Insulin) 23 units (0.0767 mL) subcut QPM 4.5 mL 3RF Discontinued tirzepatide (Mounjaro) Discontinued Reason: Doctor's Order 7.5 mg (0.5 mL) subcut QWEEK 2 mL 11RF E11.649 - Type 2 diabetes mellitus with hypoglycemia without coma, Z79.4 - termite helper (current) use of insulin Coding Level of Care Code Est Pt Level 4 (27829) Diagnoses Uncontrolled type 2 diabetes mellitus with hyperglycemia E11.65
[2025-02-12 13:26] LABS: Glucose, Whole Blood 104 mg/dL (60-115)
--- OUTSIDE RECORDS SUMMARY | 2025-02-12 13:30 | XMS_ITS | Encounter Summary ---
Author Organization [employer] Address [address] [place] [address] 7t [place] [address] Care Team Providers Care Scouring Pads Supervisor Name Role Phone [facility] Primary Care Provider [phone] Reason for Visit * Reason Comments Med Refill Encounter Details Date Type Department Care Team ([facility] Contact Info) Description 08/10/2024 Refill [facility] [address] [place] [address] [facility] [address] [place] [address] Other polyneuropathy; Seasonal allergies Social History Tobacco [...] documented as of this encounter Care Teams Scouring Pads Supervisor Relationship Specialty Start Date End Date Radha Bautista FNP [address] [place] [id number] PCP - General Family Medicine 05/24/22 documented as of this encounter
--- OUTSIDE RECORDS SUMMARY | 2025-02-12 13:30 | XMS_ITS | Encounter Summary ---
Author Organization [employer] Address [address] [facility] 7t [place] [address] Care Team Providers Care Show Host Or Hostess Name Role Phone [facility] Primary Care Provider Reason for Visit * Reason Comments Med Refill Encounter Details Date Type Department Care Team ([facility] Contact Info) Description 02/10/2025 Refill [facility] [address] [place], [place] [phone] [facility] [address] [place] [address] Other polyneuropathy Social History Tobacco Use Types Packs/Day Years [...] this encounter Visit Diagnoses Diagnosis Other polyneuropathy documented in this encounter Additional Health Concerns Assessment Noted Time PHQ-9 Depression Total Score: 0 02/01/20 23 8:55 AM EDT documented as of this encounter Care Teams Show Host Or Hostess Relationship Specialty Start Date End Date Radha Bautista FNP [address] [place] [id number] PCP - General Family Medicine 05/24/22 documented as of this encounter
--- OUTSIDE RECORDS SUMMARY | 2025-02-12 13:30 | XMS_ITS | Encounter Summary ---
Author Organization [employer] Address [address] [place] [address] 7[address] [place] [address] Care Team Providers Care First Helper Name Role Phone [facility] Primary Care Provider [phone] Reason for Visit * Reason Comments Med Change Request Encounter Details Date Type Department Care Team ([facility] Contact Info) Description 01/31/2023 Refill [facility] [address] [place] [address] [facility] [address] [place] [address] Type 2 diabetes mellitus with hyperglycemia, with long-term current use of insulin ([facility]) Social History Tobacco Use Types Packs/Day [...] AM EDT documented as of this encounter Functional Status * Over the past 2 weeks, how often have you been bothered by any of the following problems? Question Answer Date of Assessment Author Patient Health Questionnaire-2 Score 0 01/31/2023 8:55 AM Janice Herr MA * Over the past 2 weeks, how often have you been bothered by any of the following problems? Question Answer Date of Assessment Author Little interest or pleasure in doing things Not at all 01/31/2023 8:55 AM Janice Herr MA Feeling down, depressed, or hopeless Not at all 01/31/2023 8:55 AM Janice Herr MA Trouble falling or staying asleep, or sleeping too much Not at all 01/31/2023 8:55 AM Janice Montero MA Feeling tired or having little energy Not at all 01/31/2023 8:55 AM Janice Herr MA Poor appetite or overeating Not at all 01/31/2023 8: 55 AM Janice Herr MA Feeling bad about yourself - or that you are a failure or have let yourself or your family down Not at all 01/31/2023 8:55 AM Janice Herr MA Trouble concentrating on things, such as reading the newspaper or watching television Not at all 01/31/2023 8:55 AM Janice Herr MA Moving or speaking so slowly that other people could have noticed? Or the opposite - being so fidgety or restless that you have been moving around a lot more than usual. Not at all 01/31/2023 8:55 AM Janice Grace MA Thoughts that you would be better off or hurting yourself in some way Not at all 01/31/2023 8:55 AM Janice Herr MA Patient Health Questionnaire-9 Score 0 01/31/2023 8:55 AM Janice Herr MA documented as of this encounter Miscellaneous Notes * Telephone Encounter - NADEEM Clark - 02/02/2023 5:33 PM EDT Called pharmacy. Verbally changed to [facility] which insurance covered documented in this encounter Plan of Treatment Not on file documented as of this encounter Visit Diagnoses Diagnosis Type 2 diabetes mellitus with hyperglycemia, with long-term current use of insulin ([facility]) documented in this encounter Additional Health Concerns Assessment Noted Time PHQ-9 Depression Total Score: 0 02/01/20 23 8:55 AM EDT documented as of this encounter Care Teams First Helper Relationship Specialty Start Date End Date Radha Bautista FNP [address] [place] [phone] PCP - General Family Medicine 05/24/22 documented as of this encounter
--- OUTSIDE RECORDS SUMMARY | 2025-02-12 13:30 | XMS_ITS | Encounter Summary ---
Author Organization [employer] Address [address] [place] [address] [address] [place] [address] Care Team Providers Care Assistant Customer Service Manager Name Role Phone [facility] Primary Care Provider [phone] Reason for Visit * Reason Comments Med Change Request Encounter Details Date Type Department Care Team ([facility] Contact Info) Description 12/01/2023 Refill [facility] [address] [place], [place] [phone] [facility] [address] [place] [address] Essential hypertension Social History Tobacco Use Types [...] documented as of this encounter Care Teams Assistant Customer Service Manager Relationship Specialty Start Date End Date Radha Bautista FNP [address] [place] [id number] PCP - General Family Medicine 05/24/22 documented as of this encounter
--- OUTSIDE RECORDS SUMMARY | 2025-02-12 13:30 | XMS_ITS | Encounter Summary ---
Author Organization [email or web address] Address [address] [place] [address] 7[address] [place] [address] Care Team Providers Care Assembler Dc Field Yoke Name Role Phone [facility] Primary Care Provider [phone] Reason for Visit * Reason Comments Med Refill Encounter Details Date Type Department Care Team ([facility] Contact Info) Description 01/03/2025 Refill [facility] [address] [place], [place] [phone] [facility] [address] [place] [address] Essential hypertension Social History Tobacco Use Types [...] documented as of this encounter Care Teams Assembler Dc Field Yoke Relationship Specialty Start Date End Date Radha Bautista FNP [address] [place] [phone] PCP - General Family Medicine 05/24/22 documented as of this encounter
--- OUTSIDE RECORDS SUMMARY | 2025-02-12 13:30 | XMS_ITS | Clinical Summary ---
Author Organization [facility] Address [address] [place] [address] Phone Care Team Providers Care Supervisor [employer] Name Role Phone [facility] Care Provider [phone] Social History Tobacco Use Types Packs/Day Years Used Date Smoking Tobacco: Never Assessed Comments Unknown Sex and Gender Information Value Date Recorded Sex Assigned at Not on file Legal Sex Female 5:43 AM EST Gender Identity Not on file Sexual Orientation Not on file Plan of Treatment Upcoming Encounters Date Type Department Care Team ([facility] Contact Info) Description 02/25/2025 2:15 PM EDT Consult Orthopedic Surgery [place] [phone] [phone] Bridger Beltran, DPM [address] [address] Health Maintenance Due Date Last Done Comments [...] topic Insurance MEDICAID - [place] Care Teams Supervisor [employer] Relationship Specialty Start Date End Date [facility] [address] [place] [phone] PCP - General Family Medicine 12/16/24
--- OUTSIDE RECORDS SUMMARY | 2025-02-12 13:30 | XMS_ITS | Clinical Summary ---
Author Organization [employer] Address [address] [place] [address] 7t [place] [address] Care Team Providers Care Wardrobe Stylist Name Role Phone Radha Bautista OTOLARYNGOLOGY PHYSICIAN Primary Care Provider [phone] Allergies No known active allergies Medications zoster [...] USE DIRECTED 023 Active Continuous Blood Gluc Ict Customer Support Officer (FreeStyle Vaelrio 2 Carlton) device USE DIRECTED 023 Active D3 50 MCG (1999 UT) tablet TAKE 1 TABLET BY MOUTH DAILY 023 Active Toujeo SoloStar 300 UNIT/ML injectionIndicati ons:Type 2 diabetes mellitus with hyperglycemia, with long-term current use of insulin ([facility]) Inject 50 units by subcutaneous route every evening 15 mL 3 023 Active insulin aspart FlexPen (NovoLOG) 100 UNIT/ML penIndications:Ty pe 2 diabetes mellitus with hyperglycemia, with long-term current use of insulin ([facility]) Inject 43 Units under the skin with breakfast, with lunch, and with evening meal. 38.7 mL 11 023 Active Blood Pressure kitIndications:Es sential hypertension Use as directed 1 kit 024 Active cetirizine (ZyrTEC) 10 MG tabletIndications :Seasonal allergies TOME NAOMY TABLETA TODOS LOS PARADA EN LA MANANA 90 tablet 3 024 Active Aspirin 81 MG capsuleIndication s:Peripheral vascular disease ([facility]) Take 81 mg by mouth Once per day. 90 capsule 3 024 2024 Active Liletta, 52 MG, 20.1 MCG/DAY intrauterine device 024 Active Mounjaro 2.5 MG/0.5ML solution pen-injector 2.5 mg. 024 Active fluticasone (Flonase) 50 MCG/ACT nasal sprayIndications: Seasonal allergies INSTILL 1 SPRAY INTO EACH NOSTRIL IN THE AM. BEFORE FIRST USE PRIME PUMP AFTER USE CLEAN TIP 48 mL 024 Active ezetimibe (Zetia) 10 MG tabletIndications :Mixed hyperlipidemia TAKE 1 TABLET BY MOUTH EVERY MORNING 90 tablet 3 024 Active Ketotifen Fumarate 0.035 % solutionIndicatio ns:Seasonal [...] DOS VECES AL DIANA 180 tablet 3 025 Active letrozole (Femara) 2.5 MG chemo tablet Take 2.5 mg by mouth. 025 Active atorvastatin (Lipitor) 80 MG tabletIndications :Hyperlipidemia, unspecified hyperlipidemia type TAKE 1 TABLET BY MOUTH AT BEDTIME 90 tablet 1 025 Active amitriptyline (Elavil) 10 MG tabletIndications :Other polyneuropathy TAKE 1 TABLET BY MOUTH AT BEDTIME 30 tablet 2 025 Active atorvastatin (Lipitor) 80 MG tabletIndications :Hyperlipidemia, unspecified hyperlipidemia type TAKE 1 TABLET BY MOUTH AT BEDTIME 90 tablet 1 024 2024 Discontinued amitriptyline (Elavil) 10 MG tabletIndications :Other polyneuropathy TAKE 1 TABLET BY MOUTH AT BEDTIME 30 tablet 2 025 2024 Discontinued Active Problems Problem Noted Date Diagnosed Date Endometrial hyperplasia with atypia 11/24/2024 Overview (01/14/2025): [facility] 11/2024 for repeat endometrial biopsy for EIN managed with hormonal IUD, results not in chart. No persistent bleeding. Lower extremity edema 07/10/2023 Abnormal uterine bleeding (AUB) 12/28/2022 Overview (01/14/2025): Healthcare maintenance 12/28/2022 Overview (12/28/2022): Mammo: Followed by [facility] oncology Pap: 05/2022 NIL, HPV neg C-scope: Cologuard pending Assessment & Plan (05/24/2023 2:34 PM EDT): - Due for shingles. Pt will go to pharmacy today - Will f/u re cologuard order History of bilateral mastectomy 03/25/2022 Overview (12/28/2022): ?? 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 AJCC stage pT2 N0. Prognostic stage IIA 03/21/2022 she underwent left simple mastectomy and right simple prophylactic mastectomy. Completed chemo 07/2022 Dr. Leigh at [facility] Tamoxifen--->switched to letrozole Prolia 60mg subcutaneous for osteoporosis On Pathology from left simple mastectomy-invasive ductal [...] 04/22/2013 Palpitations 04/22/2013 Diabetes mellitus 03/19/2012 Overview (01/14/2025): Followed by endocrinology at [facility] Has CGM Foot Exam: [...] mounjaro start last week Follow up with [facility] endocrinology as scheduled Assessment [...] Routine labs ordered Essential hypertension 03/19/2012 Overview (01/14/2025): Losartan 100 mg Clorthalidone 25 mg daily Metoprolol 25mg b.i.d Holter 2018 with occasional PVC's Previously followed by [facility] cardiology, last seen 2018 with plan to [...] Encounters Date Type Department Care Team Description 02/12/2025 Orders Only GENERIC EXTERNAL DATA DEPARTMENT Provider, Generic External Data 02/10/2025 Refill [facility] [address] [place] [address] Radha Bautista FNP Other polyneuropathy 01/15/2025 Telephone [facility] [address] [place] [address] Mary Madrid RN Hypertension 01/14/2025 Refill [facility] [address] [place], [place] [phone] Radha Bautista FNP Hyperlipidemia, unspecified hyperlipidemia type 01/10/2025 11:15 AM EDT Office Visit [facility] [address] [place] [address] Radha Bautista FNP Essential hypertension (Primary Dx); Labile blood pressure 01/10/2025 Travel 01/09/2025 Telephone [facility] [address] [facility] [place] [address] Radha Bautista FNP chart prep 01/03/2025 Refill [facility] [address] [facility] [place] [address] Radha Bautista FNP Essential hypertension 01/02/2025 Refill [facility] [address] [facility] [place] [address] Radha Bautista FNP 12/30/2024 Telephone [facility] [address] [facility] [place] [address] Radha Bautista FNP Error (VOID this visit) 12/30/2024 Telephone [facility] [address] [place] [address] [facility] Results 12/11/2024 Orders Only [facility] [address] [place] [address] [facility] 12/06/2024 Population Health Risk Score [facility] (C[facility]) Department [address] [place] [phone] Provider, Population Health Generic 11/26/2024 Telephone [facility] [address] [place] [address] [facility] Mounjaro-[facility] endo 11/25/2024 10:00 AM EST Office Visit [facility] [address] [place] [address] [facility] Healthcare maintenance (Primary Dx); Essential hypertension; Type 2 diabetes mellitus with diabetic peripheral angiopathy without gangrene, with long-term current use of insulin ([facility]); Other osteoporosis without current pathological fracture; Dry skin dermatitis; Endometrial hyperplasia with atypia; Encounter for immunization; Dietary counseling; Exercise counseling; Class 3 severe obesity due to excess calories with serious comorbidity and body mass index (BMI) of 45.0 to 49.9 in adult ([facility]); Screening for colon cancer 11/25/2024 Travel from Last 3 Months Immunizations Immunization Administration Dates Next Due DTaP 06/19/2000 Hep [...] FOBT 1961 HIV Screening 1960 Sigmoidoscopy 1961 Disability Screening 1961 Alcohol/Substance Use Screening 1973 Hepatitis C Screening 1979 RSV Patients and Patients Aged 60 years or older (1 - Risk 60-74 years 1-dose series) 2021 Zoster Vaccines (2 of 2) 07/07/2023 05/12/2023 Depression Screening 02/01/2024 01/31/2023, 02/01/20 Diabetes: Urine Protein Screening 08/11/2024 08/11/2023, 11/28/2022, 05/14/2020 Eye Exam 09/25/2024 09/25/2022 Diabetes: Foot Exam 11/30/2024 12/01/2023, 12/01/2023, 12/01/2023, Additional history exists Lipid Panel 02/28/2025 02/29/2024, 07/26, 11/28/2022 Pap Smear 05/04/2025 05/04/2022 Diabetes: Hemoglobin A1C 05/28/2025 025, 02/29/2024, 12/01/2023, Additional history exists SDOH Screening 11/13/2025 11/13/2024 Tobacco Screening 01/14/2026 01/14/2025 Cervical Cancer Screening 06/20/2027 HPV/Cotest 06/20/2027 06/20/2022, [...] Associated Diagnosis Comments GLUCOSE, WHOLE BLOOD Routine 02/12/2025 1:22 PM EDT BD DEXA AXIAL Routine 12/25/2024 1:00 PM EDT Other osteoporosis without current pathological fracture GLUCOSE, WHOLE BLOOD Routine 12/11/2024 1:50 PM EDT POCT GLYCATED HEMOGLOBIN, TOTAL Routine 11/25/2024 9:58 AM EST Type 2 diabetes mellitus with diabetic peripheral angiopathy without gangrene, with long-term current use of insulin ([facility]) POCT GLUCOSE Routine 11/25/2024 9:52 AM EST Type 2 diabetes mellitus with diabetic peripheral angiopathy without gangrene, with long-term current use of insulin ([facility]) LIPID PANEL, STANDARD Routine 02/29/2024 7:24 AM EDT ALBUMIN, RANDOM URINE W/CREATININE Routine 08/11/2023 9:44 AM EST Type 2 diabetes mellitus with hyperglycemia, with long-term current use of insulin ([facility]) ZZZ HISTORICAL HPV E6/E7 RFLX CARROLL 16 18/45 Routine 06/20/2022 1:00 PM EDT THINPREP IMAGING PAP AND HPV MRNA E6/E7, WITH CT/NG, TRICHOMONAS Routine 05/04/2022 12:00 AM EDT MAMMOGRAM GENERIC Routine 04/08/2022 10: 55 AM EDT from Last 3 Months or Most Recently Relevant to Health Maintenance Results * Glucose, Whole Blood (02/12/2025 1:22 PM EDT) Only the most recent of2 resultswithin the time period is included. Glucose, Whole Blood 104 60 - 115 mg/dL [facility] Comment:METER #: [id number] Testing performed in the Endocrinology Department [address] , [address], [facility]. 02/12/2025 1:22 PM EDT 02/12/2025 1:25 PM EDT us Generic External Data Provider LAB BLOOD ORDERAB LES Final Result [facility] [address] [place], [place] [phone] * BD DEXA Axial (12/25/2024 1:00 PM EDT) Anatomical Region Laterality Modality Body Radiographic Shannan ging 12/25/2024 1:00 PM EDT Narrative 12/25/2024 2:06 PM EDT ? [facility] ? [address] ?[place] [address] ?[phone] ? Mammography Report ? Signed ? Patient: Herberth,Halina M ?MR#: [id number] ?? [id number] ? : 1960 ?Acct:[id number] ? Age/Sex: 64 / F ?ADM Date: 12/25/24 ? Loc: HO.MAMMO ? Attending Dr: Radha Bautista OTOLARYNGOLOGY PHYSICIAN ? Ordering Physician: Radha Bautista OTOLARYNGOLOGY PHYSICIAN ?Results: ? Date of Service: 12/25/24 ?Follow Up: ? Procedure(s): XR DEXA axial skeleton ?? Accession Number(s): [id number] ? cc: Radha Bautista OTOLARYNGOLOGY PHYSICIAN ? EXAMINATION: ??DXA BONE DENSITY AXIAL ? HISTORY: ??Estrogen deficiency ? TECHNIQUE: [employer] Dual energy absorptiometry (DEXA) ?? of the [...] the [employer]'s ?? [place] for Metabolic Bone Disease, a World Health Organization (WHO) ?? Collaborating Center. ? Electronically signed by: ??Ruy Rockwell MD ??12/25/2024 02:04 PM EDT ? Dictated By: ?Ruy Rockwell MD ? Signed By: ?<Electronically signed by Ruy Rockwell MD in OV> ?12/25/24 1404 ? DD/ 1300 ? TD/TT: 12/25/24 1325 ? Nursery Laborer: ? Procedure Note Leti Carlson - 12/25/2024 [facility] [address] [place] [address] Mammography Report Signed Patient: Halina Kevin [facility]#: [id number] : 1Acct:[id number] Age/Sex: 64 / FADM Date: 12/25/24 Loc: DIPTI Attending Dr: Radha Bautista OTOLARYNGOLOGY PHYSICIAN Ordering Physician: Radha Bautista FNPResults: Date of Service: 12/25/24Follow Up: Procedure(s): XR DEXA axial skeleton Accession Number(s): [id number] cc: Radha Bautista OTOLARYNGOLOGY PHYSICIAN EXAMINATION: DXA BONE DENSITY AXIAL HISTORY: Estrogen deficiency TECHNIQUE: [employer] Dual energy absorptiometry (DEXA) of the lumbar [...] of the [employer]'s [place] for Metabolic Bone Disease, a World Health Organization (WHO) Collaborating Center. Electronically signed by: Ruy Rockwell MD 12/25/2024 02:04 PM EDT RP Dictated By: Ruy Rockwell MD Signed By: <Electronically signed by Ruy Rockwell MD in OV> 12/25/24 1404 DD/ 1300 TD/TT: 12/25/24 1325 Nursery Laborer: [facility] IMG DXA PROCEDURES Final Resu lt * (ABNORMAL) POCT HGB A1C (11/25/2024 9:58 AM EST) Hemoglobin A1C 6.8(A) 4.0 - 6.0 % QC Media Lot # [id number] Lot# Expiration Date Blood 11/25/2024 9:58 AM EST [facility] POINT OF CARE TEST ENTER/EDIT ORDERABLES Final Result * POCT Glucose (11/25/2024 9:52 AM EST) Glucose Blood, POC 194 60 - 200 mg/dL QC Media Lot # [id number] Lot# Expiration Date Blood Capillary blood specimen / Unknown 11/25/2024 9:52 AM EST [facility] POINT OF CARE TEST ENTER/EDIT ORDERABLES Final Result * Lipid Panel, Standard (02/29/2024 7:24 AM EDT) Triglycerides 37 <150 mg/dL [facility] Comment:Desirable Triglyceri de: less than 150 mg/dLBorderline High Triglyceride 150-199 mg/dLHigh Triglyceride: 200-499 mg/dLVery High Triglyceride: greater than or equal to 5OO mg/dL Cholesterol 89 <200 mg/dL [facility] Comment:Desirable Cholestero l: less than 200 mg/dLBorderline High Cholesterol: 200-239 mg/dLHigh Cholesterol: greater than 239 mg/dL LDL Cholesterol Calculated 40 <100 mg/dL [facility] Comment:Desirable LDL: less than 100 mg/dLNear Optimal/Above Optimal LDL: 110- 129 mg/dLBorderline High LDL: 130-159 mg/dLHigh LDL: 160-189 mg/dLVery High LDL: greater than or equal to 190 mg/dL HDL Cholesterol 42 >40 mg/dL [facility] Comment:Desirable HDL: great er than 40 mg/dL Note: This HDL assay may give artificially low results in patients with liver disease. 02/29/2024 7:24 AM EDT 02/29/2024 7:24 AM EDT Generic External Data Provider LAB BLOOD ORDERAB LES Final Result Performing Organization Address [facility]/ZIP Co de Phone Number [facility] [address] [place] [phone] * Albumin, Random Urine W/Creatinine (08/11/2023 9:44 AM EST) Creatinine, Urine 140.25 mg/dL [facility] Microalbumin Urine 33.0 mg/L [facility] Microalbum Creatinine Ratio Ur 23.5 <30 ug/mg cr [facility] Comment:Albumin/Creatinine R atio Reference Ranges: Normal: < 30 ug/mg creatinine Microalbuminuria: 30 - 300 ug/mg creatinineClinical Albuminuria: > 300 ug/mg creatinine Urine 08/11/2023 9:44 AM EST 08/11/2023 11:15 AM EST [facility] OTOLARYNGOLOGY PHYSICIAN LAB URINE ORDERABLES Final Re sult Performing Organization Address City/[facility]/ZIP Co de Phone Number [facility] [address] [place] [address] [phone] * HPV E6/E7 RFLX CARROLL 16 18/45 (06/20/2022 1:00 PM EDT) HPV 16 RNA TNP [facility] HPV 18/45 RNA TNP [facility] HPV E6 E7 ADD TNP [facility] HPV mRNA E6/E7 rflx Not Detected Not Detected CONVERT[facility] [employer] Comment: Methodology: Impregnator And Drier-Mediated Amplification This assay detects E6/E7 viral messenger RNA (mRNA) from 14 high-risk HPV types (16,18,31,33,35,39,45,51,52,56,58,59,66,68). Cervical sources are required for HPV testing. If a vaginal source from a patient who has had a total hysterectomy with removal of cervix was submitted, please contact the testing laboratory for alternative testing options. For additional information, please refer to http://[employer]/faq/HVX521y0 (This link if provided for information/ educational purposes only.) THIS TEST WAS PERFORMED AT: [facility] [address] [place] [address],[address] [place], [place] [phone] RENEE KAUFMAN MD 06/20/2022 1:00 PM EDT Duc Reyna MD HISTORICAL/NON ORDERABLE LABS Fi nal Result [facility] * THINPREP TIS PAP AND HPV mRNA E6/E7, CT/NG, TRICH (05/04/2022 12:00 AM EDT) Chlamydia trachomatis RNA, TMA, Urogenital NOT DETECTED NOT DETECTED [facility] Clinical Information: SCREENING [facility] COMMENT SEE COMMENT [facility] Comment: The analytical performance characteristics of this assay, when used to test SurePath(TM) specimens have been determined by [employer]. The modifications have not been cleared or approved by the FDA. This assay has been validated pursuant to the CLIA regulations and is used for clinical purposes. ?? For additional information, please refer to https://[employer]/faq/DUX108 (This link is being provided for information/ [...] has been evaluated with computer assisted technology. [facility] Gambling Broker: SEE COMMENT [facility] Comment: GSG, CT(ASCP) CT screening location: [address] ??[phone] HPV nRNA E6/E7 Not Detected Not Detected [facility] Comment: Methodology: Impregnator And Drier-Mediated Amplification This assay detects E6/E7 viral messenger RNA (mRNA) from 14 high-risk HPV types (16,18,31,33,35,39,45,51,52,56,58,59,66,68). ? Cervical sources are required for HPV testing. If a vaginal source from a patient who has had a total hysterectomy with removal of cervix was ?? submitted, please contact the testing laboratory for alternative testing options. ?? For additional information, please refer to http://[employer]/faq/JSY616l9 (This link if provided for information/ educational [...] GIVEN [facility] SOURCE: Cervix [facility] Statement Of Adequacy: SATISFACTORY FOR EVALUATION [facility] Trichomonas vaginalis, QL, TMA, PAP Vial NOT DETECTED NOT DETECTED [facility] Comment: The analytical performance characteristics of this assay have been determined by [employer]. The modifications have not been cleared or approved by the FDA. This assay has been validated pursuant to the CLIA regulations and is used for clinical purposes. ?? For additional information, please refer to http://[employer]/ faq/Trichomonastma (This link is being provided for information/ educational purposes only.) ?? 05/04/2022 us Radha Lily OTOLARYNGOLOGY PHYSICIAN LAB PATHOLOGY ORDERABLES Nancy wright Result [facility] [address] * Mammography Report 1 (04/08/2022 10:55 [...] Most Recently Relevant to Health Maintenance Insurance [facility] C3 HSN FULL Care Teams Wardrobe Stylist Relationship Specialty Start Date End Date Radha Bautista FNP [address] [place] [address] [place] [id number] PCP - General Family Medicine 05/24/22
--- OUTSIDE RECORDS SUMMARY | 2025-02-12 13:30 | XMS_ITS | Encounter Summary ---
Author Organization [email or web address] Address [address] [place] [address] 7 [place] [address] Care Team Providers Care Sidewalk Repairer Name Role Phone [facility] Primary Care Provider [phone] Reason for Visit * Reason Comments Med Refill Encounter Details Date Type Department Care Team ([facility] Contact Info) Description 11/14/2023 Refill [facility] [address] [place], [place] [phone] [facility] [address] [place] [address] Seasonal allergies Social History Tobacco Use Types [...] documented as of this encounter Care Teams Sidewalk Repairer Relationship Specialty Start Date End Date Radha Bautista FNP [address] [place] [phone] PCP - General Family Medicine 05/24/22 documented as of this encounter
[2025-02-12 14:36] LABS: Glucose, Whole Blood 67 mg/dL (60-115)
== END 2025-02-12 13:44 | disposition home or self-care (01) ==
LOC: HO.ENCR 12:53
PROVIDERS: PCP Registered Nurse; Visit Provider Internal Medicine
DX: E11.65 Type 2 diabetes mellitus with hyperglycemia (principal)

== ENCOUNTER → 2025-02-12 12:52 | Outpatient (BNVA) | payer MEDICAID, SELFPAY | PROVIDERS: PCP Registered Nurse; Visit Provider Internal Medicine | DX: E11.65 Type 2 diabetes mellitus with hyperglycemia (principal); E11.649 Type 2 diabetes mellitus with hypoglycemia without coma; Z79.4 Long term (current) use of insulin | CPT/HCPCS: 82947; 99212 ==

== ENCOUNTER 2025-02-21 09:46 | Outpatient (REF) | payer MEDICAID, SELFPAY ==
--- OUTSIDE RECORDS SUMMARY | 2025-02-21 10:12 | XMS_ITS | Data Portability ---
Author Organization [place] - [facility], [facility] Address [address] [place] [address] Care Team Providers Care Aegis Operations Specialist Name Role Phone MEAGAN LÓPEZ Primary Care Provider Assessment No assessment recorded. Plan of Treatment Reminders Order Date Submit Date Provider Last Modified By Organization Details Last Modified Time Details Appointments None recorded . Lab None recorded . Referral None recorded . Procedures None recorded . Surgeries None recorded . Imaging MRI, brain + internal auditory canal, w/wo contrast - MRI, BRAIN + INTERNAL AUDITORY CANAL, W/WO CONTRAST [email or web address] [facility] ([facility]), [address] [place] [address], [address], 09:56:36 Medication Orders None recorded . Patient TargetsNo targets recorded. Patient InstructionsNo instructions recorded. Reason for Referral None Reported. Results Created Date Observation Date Name Description Value Unit Range Abnormal Flag Note LastModifiedBy Organization Detail LastModifiedTime 02/19/20 25 12/26/2024 audio gram No observ ation record ed. [email or web address] Not Available 01/24 09:58:04 02/19/20 audio gram No observ ation record ed. BARCODE Not Available 2024 10:32:25 Result Notes None recorded. Problems Name Problem SNOMED Code Status Onset Date Resolution Date Notes Provider Name and Address Organization Details Recorded Time Sensorineural hearing loss of bilateral ears [id number] Active 2024 GENTRY GARCIA 100 [facility], E [facility], [place], [address], [facility] - [facility] 5 09:13:39 Mixed conductive AND sensorineural hearing loss 04230896 Active 2024 GENTRY GARCIA 100 [facility] 100, [place], [address], [facility] 09:20:10 Bilateral hearing loss 46480514 Active 2024 FESTUS Chandra MD 100 [facility] 100, [place], [address], [facility] [place] 09:54:07 Problem Notes None recorded. Procedures Surgical History Date Name Laterality Status Provider Name and Address Organization Details Recorded Time 02/18/2025 Comp Audio with Tymps - 23534 & 40210 completed DAISY CERVANTES [facility] 100 [facility] 100, [place], [address], [facility] [place] 02/18/2025 09:12:35 Imaging Results None recorded. Procedure Notes None recorded. Medical Equipment None Reported. Allergies No known drug allergies Medications Name Sig Start Date Stop Date Status Note LastModified by Organization Details LastModified Time losartan 50 mg tablet TOME 1 TABLETA POR V A ORAL TODOS LOS D active Not Available Not Available No t Available anastrozole 1 mg tablet TAKE 1 TABLETA POR V A ORAL DAILY active Not Available Not Available No t Available atorvastatin 80 mg tablet TOME 1 TABLETA POR V A ORAL TODOS LOS D AL ACOSTARSE active Not Available Not Available No t Available cetirizine 10 mg tablet TOME NAOMY TABLETA TODOS LOS D EN LA MA CORRINA active Not Available Not Available No t Available ibuprofen 800 mg tablet TAKE 1 TABLET ORALLY EVERY 8 HOURS NEEDED FOR PAIN FOR 30 DAYS active Not Available Not Available No t Available ketotifen 0.025 % (0.035 %) eye drops ADMINISTER 1 DROP INTO AFFECTED EYE(S) 2 TIMES DAILY. active Not Available Not Available No t Available chlorthalido ne 25 mg tablet TAKE 1/2 TABLET BY MOUTH EVERY MORNING active Not Available Not Available No t Available aspirin 81 mg tablet,delay ed release TOME NAOMY TABLETA POR V A ORAL ONCE A DAY active Not Available Not Available N ot Available oxycodone-ac etaminophen 5 mg-325 mg tablet TOME 1 TABLETA POR V A ORAL CADA 6 HORAS CUANDO SEA NECESARIO PARA EL SEVERE DOLOR active Not Available Not Available No t Available triamcinolon e acetonide 0.025 % topical cream PLEASE SEE ATTACHED FOR DETAILED DIRECTIONS active Not Available Not Available N ot Available amitriptylin e 10 mg tablet TOME 1 TABLETA POR V A ORAL TODOS LOS D AL ACOSTARSE active Not Available Not Available No t Available letrozole 2.5 mg tablet TOME NAOMY TABLETA POR V A ORAL TODOS LOS D active Not Available Not Available No t Available losartan 100 mg tablet TOME 1 TABLETA POR V A ORAL TODOS LOS D active Not Available Not Available No t Available fluticasone propionate 50 mcg/actuatio n nasal spray,suspen enzo INSTILL 1 SPRAY INTO EACH NOSTRIL IN THE AM. BEFORE FIRST USE PRIME PUMP AFTER USE CLEAN TIP active Not Available Not Available No t Available tamoxifen 20 mg tablet TOME NAOMY TABLETA TODOS LOS D active Not Available Not Available No t Available ezetimibe 10 mg tablet TOME 1 TABLETA POR V A ORAL TODOS LOS D EN LA MA CORRINA active Not Available Not Available No t Available insulin aspart (U-100) 100 unit/mL (3 mL) subcutaneous pen INJECT 20 UNITS (0.2 ML) SUBCUTANEOU SLY 3 TIMES A DAY FOR 90 DAYS active Not Available Not Available No t Available metoprolol tartrate 25 mg tablet TOME 1 TABLETA POR V A ORAL DOS VECES AL D A active Not Available Not Available No t Available Vitamin D3 50 mcg (2,000 unit) tablet TOME NAOMY TABLETA POR V A ORAL TODOS LOS D active Not Available Not Available No t Available Toujeo SoloStar U-300 Insulin 300 unit/mL (1.5 mL) subcutaneous pen INJECT 35 UNITS SUBCUTANEOU SLY EVERY EVENING LASTS 39 DAYS active Not Available Not Available No t Available Liletta 20.4 mcg/24 hr (up to 8 years) 52 mg intrauterine device active Not Available Not Available Not Available BD Lesley 2nd Gen Pen Needle 32 gauge x DIRECTED 4 TIMES A DAY active Not Available Not Available No t Available FreeStyle Valerio 2 Sensor kit USE DIRECTED active Not Available Not Available No t Available Ozempic 1 mg/dose (4 mg/3 mL) subcutaneous pen injector INYECTE 1 MG (0.75 ML) POR V A SUBCUT PIOTR SEMANALMENT E active Not Available Not Available No t Available Mounjaro 7.5 mg/0.5 mL subcutaneous pen injector INJECT 1 PEN POR V A SUBCUT PIOTR ONCE A WEEK active Not Available Not Available Not Available Mounjaro 5 mg/0.5 mL subcutaneous pen injector INYECTE 0.5 ML (5 MG) POR V A SUBCUT PIOTR SEMANALMENT E active Not Available Not Available No t Available Mounjaro 10 mg/0.5 mL subcutaneous pen injector INJECT 10 MG (0.5 ML) SUBCUTANEOU SLY EVERY WEEK active Not Available Not Available No t Available Mounjaro 2.5 mg/0.5 mL subcutaneous pen injector 2.5 MG (0.5 ML) SUBCUTANEOU SLY EVERY WEEK active Not Available Not Available No t Available FreeStyle Valerio 3 Plus Sensor device USE EVERY 14 DAYS active Not Available Not Available No t Available Vitals Date Recorded Body height Body mass index (BMI) Body weight Provider Name and Address Organization Details Last Updated DateTime 02/18/2025 162.56 cm 44.1 kg/m2 600233.24 g Heydi Oakley [place] - [facility] 02/18/2025 09:30:40 Social History None recorded. Functional Status None recorded. Mental Status None recorded. Family History Nothing Reported. Medical History Condition Response Heart Problems Y Gynecological HistoryNo gynecological history recorded. Obstetrics History GPAL:G 0 P 0 0 0 0 Past Encounters Encounter ID Performer Location Encounter Start Date Encounter Closed Date Diagnosis/Indication Diagnosis SNOMED-CT Code Diagnosis ICD10 Code Diagnosis Note [id number] FESTUS MERCEDES MD [facility] of [address] [address] 02/18/2025 08:58:00 02/18/2025 09:56:36 Sensorineural hearing loss of bilateral ears 183933312 H90.3 Left Ear:Profou nd MHL with fair./good speech discrimina tion.Type A tympanogra m. I gave medical clearance for a BiCROS hearing aid. I also discussed a cochlear implant evaluation but she wanted to pursue a more convention al hearing aid option at this time. If she does not improve she may be a candidate for cochlear implant. Mixed cond uctive AND sensorineural hearing loss 16794145 H90.A32 Left Ear:Profou nd MHL with fair./good speech discrimina tion.Type A tympanogra m. Bilateral hearing loss 23516430 H90.A22 She has had progressio n of hearing loss in the last year. She did have chemothera py which may be the cause however she has enough asymmetry and her only hearing ear that I would like to obtain an MRI of the IAC with contrast to exclude retrocochl ear pathology. She was agreeable to this. Health Concerns Section Related Observation LastModified by Organization Detai ls LastModified Time None Recorded Concern Status LastModified by Organization Details LastModified Time None Recorded Advance Directives Directive None Recorded Payers Insurance Date Sequence Insurance Name Policy Number Policy Burciaga Covered Member ID Burciaga Member ID Guarantor Name 02/18/2025 1 [place]: [facility] [id number] [facility] Notes Date Note Type Note Provider Name and Address Organization Details Recorded Time 02/18/2025 text/html She has a histor y of breast cancer. She reports chemo caused her to loose some of her hearing. Audio 12/2023 showed a ear AD and moderate SNHL . Audio today showed progression of left sided hearing loss. Has not tried a hearing aid. FESTUS MERCEDES MD [address] [place] [address], [place], [address], [facility] - [facility] 02/18/2025 09:55:37 OBGyn Episode No OBEpisode recorded.
--- NOTE | 2025-02-21 15:03 | MHC.AU.HA1 ---
Hearing Aid Evaluation Date of Visit: 02/21/25 Director Financial Planning Used: Japanese- In Person Historical Information: Description of Hearing: Right ear: no measurable hearing Left ear: severe mixed hearing loss Summary: Halina returned after ENT evaluation, last seen here 12/2023. Test dated 02/18/25 at ENT shows significant change in left ear. Confirmed via pure tone check today. Patient states ENT recommended hearing aids, imaging, and possibility of surgical option in the future if not successful with hearing aids. Discussed biCROS system, patient wishes for rechargeable devices that can pair with phone. Very limited space behind pinna, wears glasses. Selected Phonak Audeo L70 biCROS in pink. Will require counseling re: battery life given degree of loss, streaming use, biCROS drain. Patient reports excessive itching in both ears; will get earmolds for both devices for better comfort. Impressions taken without incident. Will call pt when aids arrive. Hearing Aid Prescription: Based on the individual?s shared listening needs, communication environments, dexterity, desire for connectivity, and personal preferences, the following prescription for amplification has been made: Right ear: Make, Model, Color: Phonak Audeo L CROS, pink Battery Size: Rechargeable Ciaio Lumite Injector/Slim Tube: 2 Type of Earmold/Dome/CShell/SlimTip: canal acrylic slimtip Left ear: Left ear prescription to be same as Right Hearing Aid above: Make, Model, Color: Phonak Audeo L70 R, pink Battery Size: Rechargeable Ciaio Lumite Injector/Slim Tube: 2 UP Type of Earmold/Dome/CShell/SlimTip: acrylic cshell Accessories/Assistive Technology Recommended: production counter Plan of Care: Patient wishes to purchase hearing aids as prescribed Action Taken/Action Needed: Earmold Impressions Taken Hearing Instrument Fitting to be scheduled when materials arrive Primary Diagnosis: H90.A21 SNHL, Unilateral Right Ear, W/Restricted Contralateral Hearing Secondary Diagnosis: H90.A32 Mixed HL, Unilateral, Left Ear, W/Restricted Contralateral Signature: Provider: Virginia Valle, CCC-A
== END 2025-02-21 09:47 | disposition home or self-care (01) ==
LOC: HO.HAP 09:46
PROVIDERS: Visit Provider Registered Nurse
DX: Z46.1 Encounter for fitting and adjustment of hearing aid (principal); H90.A21 Sensorineural hearing loss, unilateral, right ear, with restricted hearing on the contralateral side; H90.A32 Mixed conductive and sensorineural hearing loss, unilateral, left ear with restricted hearing on the contralateral side
CPT/HCPCS: 92591; V5275

== ENCOUNTER 2025-03-18 12:26 | Outpatient (REF) | payer MEDICAID, SELFPAY ==
--- OUTSIDE RECORDS SUMMARY | 2025-03-18 13:57 | XMS_ITS | Data Portability ---
Author Organization [place] - [facility], Allergy Address [address] [place] [address] Care Team Providers Care Stove Polisher Name Role Phone MEAGAN LÓPEZ Primary Care Provider [phone] Assessment No assessment recorded. Plan of Treatment Reminders Order Date Submit Date Provider Last Modified By Organization Details Last Modified Time Details Appointments None recorded. Lab None recorded. Referral None recorded. Procedures None recorded. Surgeries None recorded. Imaging MRI, brain + internal auditory canal, w/wo contrast - MRI, BRAIN + INTERNAL AUDITORY CANAL, W/WO CONTRAST 2024 025 [facility] ([facility]), [address] [place], [address], 04:09:56 Medication Orders None recorded. Patient TargetsNo targets recorded. Patient InstructionsNo instructions recorded. Reason for Referral None Reported. Results Created Date Observation Date Name Description Value Unit Range Abnormal Flag Note LastModifiedBy Organization Detail LastModifiedTime 02/19/2012/26/2024 audio gram No observ ation record ed. [email or web address] Not Available 01/24 09:58:04 02/19/20 audio gram No observ ation record ed. BARCODE Not Available 2024 10:32:25 Result Notes None recorded. Problems Name Problem SNOMED Code Status Onset Date Resolution Date Notes Provider Name and Address Organization Details Recorded Time Sensorineural hearing loss of bilateral ears 784502536 Active 2024 DAISY CERVANTES, AUD 100 [facility], [address] [place] [address], [phone], [facility] - [facility] 09:13:39 Mixed conductive AND sensorineural hearing loss 99877618 Active 2024 GENTRY GARCIA 100 [facility] 100, [place], [address], [facility] [place] 09:20:10 Bilateral hearing loss 31437318 Active 2024 FESTUS Chandra MD 100 [facility] 100, [place], [address], [facility] [place] 09:54:07 Problem Notes None recorded. Procedures Surgical History Date Name Laterality Status Provider Name and Address Organization Details Recorded Time 02/18/2025 Comp Audio with Tymps - 04607 & 40189 completed DAISY CERVANTES [facility] 100 [facility] 100, [place], [address], [facility] [place] 02/18/2025 09:12:35 Imaging Results None recorded. Procedure [...] 2nd Gen Pen Needle 32 gauge x 32 DIRECTED 4 TIMES A DAY active Not [...] Updated DateTime 02/18/2025 162.56 cm 44.1 kg/m2 034670.24 g Heydi Oakley [place] - [facility] 02/18/2025 09:30:40 Social History None recorded. Functional Status None recorded. Mental Status None recorded. Family History Nothing Reported. Medical History Condition Response Heart Problems Y Gynecological HistoryNo gynecological history recorded. Obstetrics History GPAL:G 0 P 0 0 0 0 Past Encounters Encounter ID Performer Location Encounter Start Date Encounter Closed Date Diagnosis/Indication Diagnosis SNOMED-CT Code Diagnosis ICD10 Code Diagnosis Note [id number] FESTUS MERCEDES MD [facility] of [address] [address] 02/18/2025 08:58:00 02/18/2025 09:56:36 Sensorineural hearing loss of bilateral ears 501529215 H90.3 Left Ear:Profou nd MHL with fair./good [...] Mixed cond uctive AND sensorineural hearing loss 31855943 H90.A32 Left Ear:Profou nd MHL with fair./good speech discrimina tion.Type A tympanogra m. Bilateral hearing loss 67141169 H90.A22 She has had progressio n of [...] Member ID Guarantor Name 02/18/2025 1 [place]: [facility] [id number] Halina Kevin Notes Date Note Type Note Provider Name and Address Organization Details Recorded Time 02/18/2025 text/html She has a histor y of breast cancer. She reports chemo caused her to loose some of her hearing. Audio 12/2023 showed a ear AD and moderate SNHL . Audio today showed progression of left sided hearing loss. Has not tried a hearing aid. FESTUS MERCEDES MD [address] [place] [address], [place], [address], [facility] - [facility] 02/18/2025 09:55:37 OBGyn Episode No OBEpisode recorded.
--- NOTE | 2025-03-18 15:45 | MHC.AU.HA2 ---
Hearing Instrument Fitting- Adult- Binaural Date of Visit: 03/18/25 Rigging Foreman Used: Portuguese Hearing Instruments Dispensed: Right Ear: Make, Model, Color, Serial Number: Rizwana Bynum CROS L-R SN: [id number] Color: Elroy General Lot Attendant Repair Warranty: 04/05/2028 General Lot Attendant Loss and Damage Warranty: 04/05/2028 [facility] Service Plan: 03/18/2026 Battery Size: Rechargeable Electrical Worker/Slim Tube: 2 Earmold/Dome/CShell/SlimTip: Silicone canal slimtip SN: [id number] Annita: 07/04/2025 Type of Wax Guard: Cerustop Left Ear: Make, Model, Color, Serial Number: Rizwana Bynum L70-R SN: [id number] Color: Elroy General Lot Attendant Repair Warranty: 04/05/2028 General Lot Attendant Loss and Damage Warranty: 04/05/2028 [facility] Service Plan: 03/18/2025 Battery Size: Rechargeable Electrical Worker/Slim Tube: 2 UP Earmold/Dome/CShell/SlimTip: Acrylic canal cshell SN: [id number] Annita: 07/04/2025 Type of Wax Guard: Cerustop Accessories/Assistive Technology: Phonak Quality Assurance Representative Ease SN: [id number] Summary of Fitting: Performed feedback analyzer and real ear measures. Too loud at real ear settings. Decreased significantly at patient's request to 70% overall gain. Discussed need for acclimatization and importance of daily consistent use. Explained care and use including manually turning on/off, VC use, and changing wax guard. Practiced insertion and removal. Paired to cell phone. Recommendations: A hearing instrument follow-up was scheduled. Diagnosis Code(s):Primary Diagnosis: H90.3 Bilateral Sensorineural Hearing Loss Signature: Provider: Dong Connolly, [facility]
== END 2025-03-18 12:27 | disposition home or self-care (01) ==
LOC: HO.HAP 12:26
PROVIDERS: Visit Provider Registered Nurse
DX: Z46.1 Encounter for fitting and adjustment of hearing aid (principal); H90.3 Sensorineural hearing loss, bilateral
CPT/HCPCS: V5011; V5020; V5221; V5240; V5264

== ENCOUNTER 2025-03-18 13:55 | Outpatient (AMB) | payer MEDICAID, SELFPAY ==
--- NOTE | 2025-03-18 10:10 | MHC.OFFVIS ---
Vital Signs 03/18/25 13:58 Height 5 ft 4 in Weight 257 lb 0.944 oz BMI 44.1 BP 108/74 Blood Pressure Location Rt brachial Position Sitting Pulse 83 Pulse Source Pulse Oximeter Pulse Oximetry (%) 96 Oxygen Delivery Method Room Air Intake Visit Reasons: DM Intake Note: Patient presents today for a follow-up on Type 2 Diabetes Mellitus: Last Diabetic eye exam was on: 02/2025 Last Podiatry exam was on: Patient does not see a Pond Supervisor Most recent HbA1c: 6.7%, 01/10/2025 Random Glucose- 76 mg/dL @ 2:00pm Sports Marketing Specialist Required: Yes Sports Marketing Specialist Language: Literature Professor Services: Sports Marketing Specialist Present Sports Marketing Specialist Name: James [id number] Information Interpreted: non-clinical & clinical Accompanied by: Self / Same As Patient Allergies turkey Allergy (Severe, Verified 03/18/25 14:06) chest pain/swelling/SOB/itching semaglutide (From Ozempic) Adverse Reaction (Intermediate, Verified 03/18/25 14:06) Nausea HPI Comments Details: 64 YO F who is seen in f/u for type 2 diabetes. She is followed by Dr. Sabrina Brownlee who has been gradually decreasing her insulin and increasing GLP 1 agonist. Initially diagnosed with T2DM in 21 yrs Was initially started on treatment with metformin. Had Gi issues previous intolerance to Ozempic. She was treated for a mild low in the clinic today of 76 which increased to 126 after 14 carbohydrate g. Current regimen: -Toujeo 20 units -Humalog 20 units tid -moujaro 10 mg weekly Freestyle Valerio GMI 7.1% Several lows after lunch Last A1C 6.7% . Down from 7.3% Denies hypoglycemia Has eyes checked yearly, last eye exam has appt 11/12/2023 denies retinopathy-02/2025 +neuropathy Has nephropathy eGFR 03/17/25 54 Has HLD, on statin. LDL 40 03/18 on atorvastatin 80 mg daily , adherence is good Denies CAD. walks 2 hours daily BP at goal : on losartan 50 mg daily and metoprolol 25 BID Had diabetes education at [facility] Medical History HLD (hyperlipidemia) Type 2 diabetes mellitus Uncontrolled type 2 diabetes mellitus with hyperglycemia Fever of unknown origin Seroma of breast GERD (gastroesophageal reflux disease) COVID-19 vaccine series completed Asthma Hypercholesteremia HTN (hypertension) Diabetes Invasive ductal carcinoma of left breast Surgical History History of incision and drainage (05/02/22) History of bilateral mastectomy (03/21/22) History of delivery History of cholecystectomy Family History Mother Breast cancer, Onset Age: 58 Sister Breast cancer, Onset Age: 54 Social History Household Members: Family Household Members Other:: and son Housing: House Housing Other:: [facility] Are you a primary plant health care technician to a significant other at home: No Do you presently have visiting nurse or other home services: No Alcohol intake: never Patient Tobacco Use Status: Never used Tobacco Second Hand Smoke Exposure: No Advance Directives Date on File: 04/15/22 service: No Current occupational status: employed Current occupation: rt handed Female Reproductive History Menstrual Age of Menarche: 11 Physical Exam Vital Signs: Last Vital Signs Pulse 83 03/18/25 13:58 BP 108/74 03/18/25 13:58 Pulse Ox 96 03/18/25 13:58 Oxygen Delivery Method Room Air 03/18/25 13:58 BMI result Body Mass Index 44.1 Const Other: Absence of Cushingoid features. Absence of acromegalic features. Neck exam reveals nl size thyroid about 15 gms. No thyroid nodules palpable. Heart S1 S2, Reg R/R. No M/R G. Skin exam reveals absence of vitiligo or acanthosis nigricans. He will obese no edema Visual exam of foot performed. No ulcerations or open lesions. No inter digit maceration or fissuring. No onychomycosis, no callouses. Sensation intact to monofilament exam. Vibratory sensation is normal with 128 Hz tuning fork. npulse positive Assessment & Plan Assessment & Plan (1) Uncontrolled type 2 diabetes mellitus with hyperglycemia: Code(s): E11.65 - Type 2 diabetes mellitus with hyperglycemia Category: Medical Plan: 64-year-old type 2 diabetic diabetic with improved glycemic control. New dosing: toujeo 22 units Short-acting 16 units t.i.d. She was counseled to always carry a source of sugar and to call our office if she has any continued lows The patient had an opportunity to ask questions regarding treatment plan. The patient expressed understanding and agreement with the above treatment plan. The patient is aware they should contact our office by phone for worsening glucose readings or for any low blood sugars which may warrant a change in diabetes medication. Compliance is encouraged with medications and any followup testing/consults which may have been ordered. Medications: Changed From insulin glargine U-300 conc (Toujeo SoloStar U-300 Insulin) 23 units (0.0767 mL) subcut QPM 4.5 mL 3RF To insulin glargine U-300 conc (Toujeo SoloStar U-300 Insulin) 22 units (0.0733 mL) subcut QPM 6 mL 3RF From insulin aspart U-100 20 units (0.2 mL) subcut TID 90 days 54 mL 6RF E11.9 - Type 2 diabetes mellitus without complications To insulin aspart U-100 16 units (0.16 mL) subcut TID 45 mL 6RF 90 days E11.9 - Type 2 diabetes mellitus without complications Patient Instructions: Check your feet daily looking for any signs of infection, drainage, redness, ulceration and seek medical attention if this occurs. Break in shoes gradually and do not wear open-toed shoes or walk stocking footed or barefooted. candy such as gummie snacks). Recheck your sugar in 15 minutes and re-treat again with 15 carbohydrate grams if low or still with symptoms. Do not drive a car or operate machinery if you do not know what your blood sugar is, if it is low or in excess of 300. Coding Level of Care Code Est Pt Level 4 (46539) Complex EM visit Add On G2211 Diagnoses Uncontrolled type 2 diabetes mellitus with hyperglycemia E11.65 Time Spent (min) 30 Comment Time spent reviewing labs/provider notes, face to face, chart doc
[2025-03-18 13:58] VITALS: BP 108/74; PULSE 83; O2SAT 96; BMI 44.1
[2025-03-18 14:11] LABS: Glucose, Whole Blood 76 mg/dL (60-115)
== END 2025-03-18 14:19 | disposition home or self-care (01) ==
LOC: HO.ENCR 13:56
PROVIDERS: PCP Registered Nurse; Visit Provider Nurse Practitioner Adult Health
DX: E11.65 Type 2 diabetes mellitus with hyperglycemia (principal); Z79.4 Long term (current) use of insulin
CPT/HCPCS: 99214

== ENCOUNTER → 2025-03-18 13:55 | Outpatient (BNVA) | payer MEDICAID, SELFPAY | PROVIDERS: PCP Registered Nurse; Visit Provider Nurse Practitioner Adult Health | DX: E11.65 Type 2 diabetes mellitus with hyperglycemia (principal) | CPT/HCPCS: 82947; 99212 ==

== ENCOUNTER 2025-03-25 13:21 | Outpatient (AMB) | payer MEDICAID, SELFPAY ==
--- NOTE | 2025-03-25 13:30 | HO.NEPHOV_ITS ---
Vital Signs 03/25/25 13:31 Height 5 ft 4 in Weight 254 lb BMI 43.6 BP 110/76 Blood Pressure Location Lt brachial Position Sitting Pulse 92 Pulse Source Pulse Oximeter Pulse Oximetry (%) 97 Oxygen Delivery Method Room Air Intake Visit Reasons: 2 MO FU/ Conf Helpdesk Manager Required: Yes Helpdesk Manager Name: kali [phone] Accompanied by: Self / Same As Patient Allergies turkey Allergy (Severe, Verified 03/25/25 13:33) chest pain/swelling/SOB/itching semaglutide (From Ozempic) Adverse Reaction (Intermediate, Verified 03/25/25 13:33) Nausea Medication List - Last Reconciled 03/25/25 by Mauricio Hawkins MD acetaminophen 650 mg PO Q6H PRN amitriptyline 10 mg PO BEDTIME anastrozole 1 mg PO DAILY aspirin 81 mg PO DAILY atorvastatin 1 tab PO BEDTIME blood sugar diagnostic (FreeStyle Lite Strips) As directed blood-glucose meter (FreeStyle [place] Lite kit) As directed blood-glucose,medical director,cont (FreeStyle Valerio 3 Plummer) As directed cetirizine 10 mg PO QAM chlorthalidone 12.5 mg PO QAM cholecalciferol (vitamin D3) (Vitamin D3) 50 mcg PO DAILY ezetimibe 10 mg PO QAM FreeStyle Valerio 3 Plus Sensor (blood-glucose sensor) 14 days NS FreeStyle Valerio 3 Plus Sensor (blood-glucose sensor) every 15 days NS gabapentin 300 mg PO QPM ibuprofen 400 mg PO Q6H PRN ibuprofen 800 mg PO Q8H PRN 30 days insulin aspart U-100 16 units (0.16 mL) subcut TID 90 days insulin glargine U-300 conc (Toujeo SoloStar U-300 Insulin) 22 units (0.0733 mL) subcut QPM lancets (FreeStyle Lancets) As directed 3 times a day loperamide 2 mg PO Q4H PRN losartan 100 mg PO DAILY metoprolol tartrate 1 tab PO BID omeprazole 20 mg PO DAILY pen needle, diabetic (BD Lesley 2nd Gen Pen Needle) As directed 4 times a day tirzepatide (Mounjaro) 10 mg (0.5 mL) subcut QWEEK HPI Comments Details: Halina is a pleasant 64-year-old woman with a history of obesity; referred for HTN She has been referred for a 24 hour ambulatory blood pressure monitoring. 03/25/25 The patient is a 64-year-old female presenting with hypertension management. Blood pressure monitoring was conducted, revealing generally good control with occasional elevations in the evening. The patient takes her antihypertensive medications, including chlorthalidone, losartan, and metoprolol, in the morning. The patient reports adherence to a low-salt diet and engages in weight management efforts. She denies any respiratory symptoms such as dyspnea or cough. [facility] Medical History HLD (hyperlipidemia) Type 2 diabetes mellitus Uncontrolled type 2 diabetes mellitus with hyperglycemia Fever of unknown origin Seroma of breast GERD (gastroesophageal reflux disease) COVID-19 vaccine series completed Asthma Hypercholesteremia HTN (hypertension) Diabetes Invasive ductal carcinoma of left breast Surgical History History of incision and drainage (05/02/22) History of bilateral mastectomy (03/21/22) History of delivery History of cholecystectomy Family History Mother Breast cancer, Onset Age: 58 Sister Breast cancer, Onset Age: 54 Social History Household Members: Family Household Members Other:: and son Housing: House Housing Other:: [facility] Are you a primary complex care nurse to a significant other at home: No Do you presently have visiting nurse or other home services: No Alcohol intake: never Patient Tobacco Use Status: Never used Tobacco Second Hand Smoke Exposure: No Advance Directives Date on File: 04/15/22 service: No Current occupational status: employed Current occupation: rt handed Female Reproductive History Menstrual Age of Menarche: 11 Physical Exam Vital Signs: Last Vital Signs Pulse 92 03/25/25 13:31 BP 110/76 03/25/25 13:31 Pulse Ox 97 03/25/25 13:31 Oxygen Delivery Method Room Air 03/25/25 13:31 BMI result Body Mass Index 43.6 Office Procedures 24 B/P Monitor Interpretation Details: Daytime Average 126/70 Night time average 135/67 24 hr average 128/69 Non dipper CPT: 76418 24 Hour Blood Pressure Monitor Reading Procedure code (CPT) selection complete Results Reviewed Nephrology Results: Hgb, (12.0-16.0) 14.6 g/dl 11/15/24 WBC, (4.8-10.8) 6.9 X10*3/uL 11/15/24 Plt Count, (160-400) 225 X10*3/uL 11/15/24 Sodium, (135-145) 139 mmol/L 03/17/25 Potassium, (3.3-5.1) 4.2 mmol/L 03/17/25 Chloride, (96-108) 109 mmol/L H 03/17/25 Carbon Dioxide, (22-29) 22 mmol/L 03/17/25 BUN, (9-16) 27 mg/dL H 03/17/25 Creatinine, (0.5-1.4) 1.03 mg/dL 03/17/25 Calcium, (8.4-10.2) 9.3 mg/dL 03/17/25 Assessment & Plan Assessment & Plan (1) HTN (hypertension): Code(s): I10 - Essential (primary) hypertension Category: Medical Qualifiers: Hypertension type: primary hypertension Qualified Code(s): I10 - Essential (primary) hypertension Plan 64-year-old woman with obesity and difficult to control hypertension. In the office today blood pressure is acceptable. Initial reading was elevated , repeat blood pressure was in the normal range. She probably has a component of white coat hypertension as well. Plan Obtain 24 hour ambulatory blood pressure monitoring. Encouraged to stand low-sodium diet Discussed importance of weight loss. No changes were made to his medications today. 03/25/25 Based on 24 hr ABPM, Bp is well controlled Keep current meds Can change Losartan to Q PM instead of Q AM to lower nocturnal spikes Discussed weight loss and low salt diet Orders: Orders AMB 24 HR B/P Monitor INTERPRETATION Today I10 - Essential (primary) hypertension Coding Level of Care Code Est Pt Level 4 (35734) Diagnoses Primary hypertension I10 Hypertension type: primary hypertension CPT Codes - CPT: 90079 24 Hour Blood Pressure Monitor Reading ([id number])
[2025-03-25 13:31] VITALS: BP 110/76; PULSE 92; O2SAT 97; BMI 43.6
--- OUTSIDE RECORDS SUMMARY | 2025-03-25 14:30 | XMS_ITS | Clinical Summary ---
Author Organization [address] [facility] Address [address] [place] [address] Phone Care Team Providers Care Accounts Payable Accountant Name Role Phone Charlotte Wellington Primary Care Provider [phone] Social History Tobacco Use Types Packs/Day Years Used Date Smoking Tobacco: Never Assessed Comments Unknown Sex and Gender Information Value Date Recorded Sex Assigned at Not on file Legal Sex Female 5:43 AM EST Gender Identity Not on file Sexual Orientation Not on file Plan of Treatment Upcoming Encounters Date Type Department Care Team ([facility] Contact Info) Description 04/30/2025 10:30 AM EDT Consult Orthopedic Surgery - [place] [id number] [phone] Bridger Beltran, DPM [address] [address] Health Maintenance Due Date Last Done Comments Breast Cancer Screening 1961 DTaP,Tdap,and Td Vaccines (1 - Tdap) 1980 Pneumococcal Vaccine: 50+ Ye ars (1 of 2 - PCV) 1980 Pneumococcal Vaccine: Pediat rics (0 to 5 Years) and At-Risk Patients (6 to 64 Years) (1 of 2 - PCV) 1980 Cervical Cancer Screening: P ap Smear 1982 Zoster Vaccines (1 of 2) 2011 Colorectal Cancer Screening: Colonoscopy 08/28/2022 Depression Screening 08/28/2022 HIV Screening 08/28/2022 Hepatitis C Screening 08/28/2022 Social Influencers of Health Screening 08/28/2022 COVID-19 Vaccine ( - 2023-2 5 season) 2024 Influenza Vaccine (#1) 2025 RSV Immunization Adult Patie nts (1 [...] topic Insurance MEDICAID - [place] Care Teams Accounts Payable Accountant Relationship Specialty Start Date End Date [facility] [address] [place] [id number] PCP - General Family Medicine 12/16/24
== END 2025-03-25 13:43 | disposition home or self-care (01) ==
LOC: HO.HKA 13:22
PROVIDERS: PCP Registered Nurse; Visit Provider Internal Medicine Hypertension Specialist
DX: I10 Essential (primary) hypertension (principal)
CPT/HCPCS: 93790; 99214

== ENCOUNTER → 2025-03-25 13:21 | Outpatient (BNVA) | payer MEDICAID, SELFPAY | PROVIDERS: PCP Registered Nurse; Visit Provider Internal Medicine Hypertension Specialist | DX: I10 Essential (primary) hypertension (principal); E66.9 Obesity, unspecified | CPT/HCPCS: 99212 ==

== ENCOUNTER 2025-06-25 12:45 | Outpatient (AMB) | payer MEDICAID, SELFPAY ==
--- NOTE | 2025-06-25 12:54 | A.OFFVIS_ITS ---
Vital Signs 06/25/25 13:04 Height 5 ft 4 in Weight 244 lb 11.41 oz BMI 42.0 BP 116/72 Blood Pressure Location Rt brachial Position Sitting Pulse 92 Pulse Source Pulse Oximeter Pulse Oximetry (%) 95 Oxygen Delivery Method Room Air Intake Visit Reasons: DM Intake Note: Patient presents today for a follow-up on Type 2 Diabetes Mellitus: Last Diabetic eye exam was on: 06/21/2025, [facility], patient having surgery soon has Retinopathy Last Podiatry exam was on: Patient does not see a Vp [employer] Planning Most recent HbA1c: 6.6%, 06/25/2025 Random Glucose- 72 mg/dL, Today, orange juice was given Re-Checked Random Glucose- 82 mg/dL Merchandising Director Required: Yes Merchandising Director Language: Milling General Superintendent Services: Merchandising Director Present Merchandising Director Name: MARYBEL Rene Information Interpreted: non-clinical & clinical Accompanied by: Self / Same As Patient Allergies turkey Allergy (Severe, Verified 06/25/25 12:55) chest pain/swelling/SOB/itching semaglutide (From Ozempic) Adverse Reaction (Intermediate, Verified 06/25/25 12:55) Nausea HPI Comments Details: 64 year old F who is seen in f/u for type 2 diabetes. Initially diagnosed with T2DM in 21 yrs Was initially started on treatment with metformin. Had Gi issues Current regimen: -Toujeo -22 units -Humalog 16 tid -On moujaro 10mg weekly. Previously intolerant to ozempic and metformin She is having a lot of difficulties with the excess skin given her weight loss. She has went from a high of 286 to 244. She previously was walking for 1 to 2 hour per day but she can not tolerate this anymore because the pain caused by her excess abdominal skin Today A1C 6.6 % from 7.3% Denies hypoglycemia Download CGM TGT 80% high 18% very high 2% low 0% GMI 6.9% Eye exam is UTD (-)alb/cr-12/2024-on losartan Has HLD, on statin Denies CAD. Had diabetes education at [facility] ROS see HPI PHYSICAL EXAM: GENERAL: Alert and oriented x 3. NAD EYES: EOMI. Anicteric. HENT: Moist mucous membranes. No scleral icterus. No cervical lymphadenopathy. LUNGS: Clear to auscultation bilaterally. CARDIOVASCULAR: Regular rate and rhythm. No murmur. No JVD. ABDOMEN: Soft, non-tender +bs EXTREMITIES: No edema. Non-tender. SKIN: No rashes or lesions. Warm. NEUROLOGIC: No focal neurological deficits. CN II-XII grossly intact PSYCHIATRIC: Cooperative. Appropriate mood and affect [facility] Medical History HLD (hyperlipidemia) Type 2 diabetes mellitus Uncontrolled type 2 diabetes mellitus with hyperglycemia Fever of unknown origin Seroma of breast GERD (gastroesophageal reflux disease) COVID-19 vaccine series completed Asthma Hypercholesteremia HTN (hypertension) Diabetes Invasive ductal carcinoma of left breast Surgical History History of incision and drainage (05/02/22) History of bilateral mastectomy (03/21/22) History of delivery History of cholecystectomy Family History Mother Breast cancer, Onset Age: 58 Sister Breast cancer, Onset Age: 54 Social History Household Members: Family Household Members Other:: and son Housing: House Housing Other:: [facility] Are you a primary resident care coordinator to a significant other at home: No Do you presently have visiting nurse or other home services: No Alcohol intake: never Patient Tobacco Use Status: Never used Tobacco Second Hand Smoke Exposure: No Advance Directives Date on File: 04/15/22 service: No Current occupational status: employed Current occupation: rt handed Female Reproductive History Menstrual Age of Menarche: 11 Results AMB Hemoglobin A1c AMB Hemoglobin A1c 6.6 % Last Edit by MARYBEL Rene on 06/25/25 13:16 Assessment & Plan Assessment & Plan (1) Type 2 diabetes mellitus: Code(s): E11.9 - Type 2 diabetes mellitus without complications Category: Medical Qualifiers: Diabetes mellitus assisted insulin use: with assisted use Diabetes mellitus complication status: with hypoglycemia Diabetes mellitus complication detail: without coma Qualified Code(s): E11.649 - Type 2 diabetes mellitus with hypoglycemia without coma; Z79.4 - intermediate frame tender (current) use of insulin Plan Type 2 DM-controlled on current regimen She continues to lose weight. Will decrease her toujeo to 18 units. Treat any lows by rules of 15s Referral to plastic for consideration of excess skin procedure Return in 3 months or sooner as needed Orders: Orders AMB Hemoglobin A1c Today E11.65 - Type 2 diabetes mellitus with hyperglycemia Referrals Plastic Surgery Referral E11.649 - Type 2 diabetes mellitus with hypoglycemia without coma, L98.7 - Excessive and redundant skin and subcutaneous tissue, R10.9 - Unspecified abdominal pain, Z79.4 - intermediate frame tender (current) use of insulin Medications: Changed From insulin glargine U-300 conc (Toujeo SoloStar U-300 Insulin) 22 units (0.07 33 mL) subcut QPM 6 mL 3RF To insulin glargine U-300 conc (Toujeo SoloStar U-300 Insulin) 18 units (0.06 mL) subcut QPM 6 mL 3RF Refilled tirzepatide (Mounjaro) 10 mg (0.5 mL) subcut QWEEK 6 mL 3RF E11.649 - Type 2 diabetes mellitus with hypoglycemia without coma, Z79.4 - prison (current) use of insulin Coding Level of Care Code Est Pt Level 4 (05138) Diagnoses Type 2 diabetes mellitus with hypoglycemia without coma, with long-term current use of insulin E11.649; Z79.4 Diabetes mellitus supervisor intermediates insulin use: with supervisor intermediates use Diabetes mellitus complication status: with hypoglycemia Diabetes mellitus complication detail: without coma
[2025-06-25 13:04] VITALS: BP 116/72; PULSE 92; O2SAT 95; BMI 42.0
[2025-06-25 13:12] LABS: Glucose, Whole Blood 72 mg/dL (60-115)
[2025-06-25 13:27] LABS: Glucose, Whole Blood 82 mg/dL (60-115)
--- OUTSIDE RECORDS SUMMARY | 2025-06-25 14:05 | XMS_ITS | Encounter Summary ---
Author Organization [employer] Address [address] [facility] [address] [place] [address] Care Team Providers Care Sales Representative Church Furniture Name Role Phone [facility] Primary Care Provider [phone] Reason for Visit * Reason Comments Med Change Request Encounter Details Date Type Department Care Team ([facility] st Contact Info) Description 01/31/2023 Refill [facility] [address] [place] [address] [facility] [address] [place] [address] Type 2 diabetes mellitus with hyperglycemia, with long-term current use of insulin ([facility]) Social History Tobacco Use Types Packs/Day [...] Health Questionnaire-2 Score 0 01/31/2023 8:55 AM JUAN RAMONT Janice Skelton [place] * Over the past 2 weeks, how often have you been bothered by any of the following problems? Question Answer Date of Assessment Author Little interest or pleasure in doing things Not at all 01/31/2023 8:55 AM Janice Herr [place] Feeling down, depressed, or hopeless Not at all 01/31/2023 8:55 AM JUAN RAMONT Janice Skelton [place] Trouble falling or staying asleep, or sleeping too much Not at all 01/31/2023 8:55 AM EDT Janice Covarrubias [place] Feeling tired or having little energy Not at all 01/31/2023 8:55 AM Janice Herr [place] Poor appetite or overeating Not at all 01/31/2023 8: 55 AM JUAN RAMONT Janice Skelton [place] Feeling bad about yourself - or [...] usual. Not at all 01/31/2023 8:55 AM JUAN RAMONT Janice Liang MA Thoughts that you would be better off or hurting yourself in some way Not at all 01/31/2023 8:55 AM Janice Herr MA Patient Health Questionnaire-9 Score 0 01/31/2023 8:55 AM Janice Herr [place] documented as of this encounter Miscellaneous Notes * Telephone Encounter - NADEEM Clark - 02/02/2023 5:33 PM EDT Called pharmacy. Verbally changed to carloGENEVIEVE barrow which insurance covered documented in this encounter Plan of Treatment Upcoming Encounters Date Type Department Care Team (Late st Contact Info) Description 06/27/2025 2:00 PM EDT Office Visit [facility] [address] [place] [address] Amando Valdez FNP [address] [place] [address] documented as of this encounter Visit Diagnoses Diagnosis Type 2 diabetes mellitus with hyperglycemia, with long-term current use of insulin (HCC) documented in this encounter Additional Health Concerns Assessment Noted Time PHQ-9 Depression Total Score: 0 02/01/20 23 8:55 AM EDT documented as of this encounter Care Teams Sales Representative [employer] Relationship Specialty Start Date End Date Radha Bautista FNP [address] [place] [address] PCP - General Family Medicine 05/24/22 documented as of this encounter
--- OUTSIDE RECORDS SUMMARY | 2025-06-25 14:05 | XMS_ITS | Encounter Summary ---
Author Organization [employer] Address [address] [facility] [address] [place] [address] Care Team Providers Care Educational Technologist Name Role Phone [facility] Primary Care Provider [phone] Reason for Visit * Reason Comments Med Refill Encounter Details Date Type Department Care Team (Late st Contact Info) Description 08/10/2024 Refill [facility] [address] [place] [address] [facility] [address] [place] [address] Other polyneuropathy; Seasonal allergies Social History Tobacco [...] Description 06/27/2025 2:00 PM EDT Office Visit [facility] [address] [place] [id number] Amando Valdez FNP [address] [place] [address] documented as of this encounter Visit Diagnoses Diagnosis Other polyneuropathy Seasonal allergies Allergic rhinitis, cause unspecified documented in this encounter Additional Health Concerns Assessment Noted Time PHQ-9 Depression Total Score: 0 02/01/20 23 8:55 AM EDT documented as of this encounter Care Teams Educational Technologist Relationship Specialty Start Date End Date Radha Bautista FNP [address] [place] [id number] PCP - General Family Medicine 05/24/22 documented as of this encounter
--- OUTSIDE RECORDS SUMMARY | 2025-06-25 14:05 | XMS_ITS | Clinical Summary ---
Author Organization [employer] Address [address] [facility] [address] [place] [address] Care Team Providers Care Administration Dean Name Role Phone Radha Bautista [facility] Primary Care Provider [phone] Allergies Active Allergy Reactions Criticality Noted Date Comments Poultry Meal High 2024 [place] Other Reaction(s): chest pain/swelling/SOB/itching Medications zoster vaccine-recombin ant adjuvanted (Shingrix) 50 MCG/0.5ML vaccine inject 0.5 milliliter by intramuscular route once 020 Active topiramate (Topamax) 25 MG tablet take 1 tablet by oral route every day 022 Active silver sulfADIAZINE (Silvadene) 1 % cream 1 APPL TOPICALLY 2 TIMES A DAY APPLY A 1.5 MM THICKNESS Active ondansetron ODT (Zofran-ODT) 8 MG disintegrating [...] CUATRO VECES AL D A 022 Active Baqsimi Two Pack 3 MG/DOSE nasal powder SRAY 3 MG INTRANSALLY ONCE 023 Active Continuous Blood Gluc Sensor (FreeStyle Valerio 2 Sensor) misc USE DIRECTED 023 Active Continuous Blood Gluc Medical Front Desk Coordinator (FreeStyle Valerio 2 [place]) device USE DIRECTED 023 Active D3 50 MCG (1999 UT) tablet TAKE 1 TABLET BY MOUTH DAILY 023 Active insulin aspart FlexPen (NovoLOG) 100 UNIT/ML penIndications:T ype 2 diabetes mellitus with hyperglycemia, with long-term current use of insulin (HCC) Inject 43 Units under the skin with breakfast, with lunch, and with evening meal. 38.7 mL 11 023 Active Blood Pressure kitIndications:E ssential hypertension Use as directed 1 kit 024 Active Liletta, 52 MG, 20.1 MCG/DAY intrauterine device 024 Active fluticasone (Flonase) 50 MCG/ACT nasal sprayIndications :Seasonal allergies INSTILL 1 SPRAY INTO EACH NOSTRIL IN THE AM. BEFORE FIRST USE PRIME PUMP AFTER USE CLEAN TIP 48 mL 024 Active ezetimibe (Zetia) 10 MG tabletIndication s:Mixed hyperlipidemia TAKE 1 TABLET BY MOUTH EVERY MORNING 90 tablet 3 024 Active Ketotifen Fumarate 0.035 % solutionIndicati ons:Seasonal allergies Administer 1 drop into affected eye(s) 2 times daily. 10 mL 1 025 Active triamcinolone (Kenalog) 0.025 % creamIndications :Dry skin dermatitis Apply topically 2 times daily. Mix entire tube with 16oz cera ve jar as instructed. Apply from neck down once daily 80 g 1 025 Active losartan (Cozaar) 100 MG tabletIndication s:Essential hypertension Take 1 tablet (100 mg) by mouth Once per day. TAKE 1 TABLET BY MOUTH EVERY DAY 90 tablet 3 025 2025 Active metoprolol tartrate (Lopressor) 25 MG tablet TOME 1 TABLETA POR VIA ORAL DOS VECES AL DIANA 180 tablet 3 025 Active letrozole (Femara) 2.5 MG chemo tablet Take 2.5 mg by mouth. 025 Active atorvastatin (Lipitor) 80 MG tabletIndication s:Hyperlipidemia , unspecified hyperlipidemia type TAKE 1 TABLET BY MOUTH AT BEDTIME 90 tablet 1 025 Active anastrozole (Arimidex) 1 MG chemo tablet TAKE 1 TABLETA POR V A ORAL DAILY Active ibuprofen 800 MG tablet TAKE 1 TABLET ORALLY EVERY 8 HOURS NEEDED FOR PAIN FOR 30 DAYS Active oxyCODONE-acetam inophen (Percocet) 5-325 MG tablet TOME 1 TABLETA POR V A ORAL CADA 6 HORAS CUANDO SEA NECESARIO PARA EL SEVERE DOLOR Active semaglutide (Ozempic, 1 MG/DOSE,) 4 MG/3ML solution pen-injector INYECTE 1 MG (0.75 ML) POR V A SUBCUT PIOTR SEMANALMENTE Active tamoxifen (Nolvadex) 20 MG chemo tablet TOME NAOMY TABLETA TODOS LOS D Active Mounjaro 10 MG/0.5ML solution auto-injector INJECT 10 MG (0.5 ML) SUBCUTANEOUSLY EVERY WEEK 025 Active amitriptyline (Elavil) 10 MG tabletIndication s:Other polyneuropathy TAKE 1 TABLET BY MOUTH AT BEDTIME 30 tablet 2 025 Active chlorthalidone (Hygroton) 25 MG tablet TAKE 1/2 TABLET BY MOUTH EVERY MORNING 45 tablet 1 025 Active cetirizine (ZyrTEC) 10 MG tabletIndication s:Seasonal allergies TOME 1 TABLETA POR VIA ORAL TODOS LOS PARADA EN LA MANANA 90 tablet 025 Active chlorthalidone (Hygroton) 25 MG tablet TAKE 1/2 TABLET BY MOUTH EVERY MORNING 45 tablet 1 025 2024 Discontinued(R eorder (will not trigger notification to Pharmacy)) cetirizine (ZyrTEC) 10 MG tabletIndication s:Seasonal allergies TAKE 1 TABLET BY MOUTH EVERY MORNING 90 tablet 025 2024 Discontinued Active Problems Problem Noted Date Diagnosed Date Endometrial hyperplasia with atypia 11/24/2024 Overview (01/14/2025): [facility] 11/2024 for repeat endometrial biopsy for EIN managed with hormonal IUD, results not in chart. No persistent bleeding. Lower extremity edema 07/10/2023 Abnormal uterine bleeding (AUB) 12/28/2022 Overview (01/14/2025): Healthcare maintenance 12/28/2022 Overview (12/28/2022): Mammo: Followed by [facility] oncology Pap: 05/2022 NIL, HPV neg C-scope: Cologuard pending Assessment & Plan (05/24/2023 2:34 PM EDT): - Due for shingles. Pt will go to pharmacy today - Will f/u re cologuard order History of bilateral mastectomy 03/25/2022 Overview (12/28/2022): 02/2022 [facility] Infiltrating ductal carcinom a of left female breast (CMS/HCC) 03/01/2022 Overview (01/14/2025): ER/CT positive HER2 negative. AJCC stage pT2 N0. Prognostic stage IIA 03/21/2022 she underwent left simple mastectomy and right simple prophylactic mastectomy. Completed chemo 07/2022 Dr. Leigh at [facility] Tamoxifen--->switched to letrozole Prolia 60mg subcutaneous for [...] 03/19/2012 Overview (01/14/2025): Followed by endocrinology at [facility] Has CGM Foot Exam: 11/2023 Risk 0 [...] mounjaro start last week Follow up with [facility] endocrinology as scheduled Assessment & Plan (08/01/2023 2:10 PM EST): Lab Results Component Value Date HGBA1C 7.6 (A) 07/12/2023 A1c improving Continue current regimen Due for repeat labs Assessment & Plan (05/24/2023 2:31 PM EDT): Lab Results Component Value Date HGBA1C 8.1 (A) 05/03/2023 A1c improving Continue current regimen per [facility] endocrinology Pt requesting novolog refill Assessment & Plan (01/31/2023 9:22 AM EDT): Continue current regimen Follow up as scheduled with endo Routine labs ordered Essential hypertension 03/19/2012 Overview (01/14/2025): Losartan 100 mg Clorthalidone 25 mg daily Metoprolol 25mg b.i.d Holter 2019 with occasional PVC's Previously followed by [facility] cardiology, last seen 2019 with plan to [...] Assessment & Plan (08/01/2023 2:12 PM EST): Mild BP elevation in office Well controlled at home Will hold off on medication changes due to hx of hypotension Continue current regimen Will consider addition of thiazide diuretic if persistent elevation at follow up Assessment & Plan (05/24/2023 2:34 PM EDT): BP low in office today. Pt asx. Reports home BP 130's/70's. Pt will continue to monitor Reviewed s/s of hypotension to include weakness, dizziness, lightheadedness Contact HC if readings <100/60 Assessment & Plan (01/31/2023 9:22 AM EDT): Well controlled Continue current regimen Complete routine labs Pure hypercholesterolemia 03/19/2012 Overview (12/28/2022): Atorvastatin 80mg Encounters Date Type Department Care Team Description 06/24/2025 Telephone [facility] MEDICINE [address] [place] [address] Radha Bautista FNP pre op 06/06/2025 Refill [facility] MEDICINE [address] [place] [address] Maggi Hewitt MD Seasonal allergies 06/04/2025 Travel 06/03/2025 Telephone [facility] MEDICINE [address] [place] [address] Radha Bautista FNP Nurse Triage 06/02/2025 Refill [facility] MED & PEDS [address] [place], [place] [phone] Radha Bautista FNP 05/19/2025 1:45 PM EDT Office Visit [facility] OPTOMETRY [address] [place] [address] Gloria Hackett, OD Posterior vitreous detachment of left eye (Primary Dx); Combined forms of age-related cataract of both eyes; 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; Myopia of both eyes with astigmatism and presbyopia; 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 (CMS/HCC); Mild nonproliferative diabetic retinopathy of left eye without macular edema associated with type 2 diabetes mellitus (CMS/HCC) 05/19/2025 Travel 05/12/2025 Travel 05/06/2025 Refill [facility] [address] [place] [address] Brandon, Radha, WOOD PROCESSING WORKER Other polyneuropathy from Last 3 Months Immunizations Immunization Administration [...] PPSV23 08/19/2003, Tdap 01/31/2023,07/20/2012 Zoster, Recombinant 05/12/2023 Family History Medical History Relation Name Comments Diabetes Father Diabetes Mother Relation Name Status Comments Father Mother Social History Tobacco Use Types Packs/Day Years [...] 92 01/10/2025 11:10 AM EDT Temperature 36.4 C (97.6 F) 01/10/2025 11:10 AM EDT Respiratory Rate 20 01/10/2025 11:10 AM EDT Oxygen Saturation 99% 01/10/2025 11:10 AM EDT Inhaled Oxygen Concentration - - Weight 119 kg (261 lb 6.4 oz) 01/10/2025 11:10 A M EDT Height 162.6 cm (5' 4 ) 01/10/2025 11:10 AM EDT Body Mass Index 44.87 01/10/2025 11:10 AM EDT Plan of Treatment Upcoming Encounters Date Type Department Care Team (Late st Contact Info) Description 06/27/2025 2:00 PM EDT Office Visit [facility] MEDICINE [address] [place] [address] Amando Valdez FNP [address] [place] [address] Health Maintenance Due Date Last Done Comments [...] Protein Screening 08/11/2024 08/11/2023, 11/28/2022, 05/14/2020 Diabetes: Foot Exam 11/30/2024 12/01/2023, 12/01/2023, 12/01/2023, Additional history exists Lipid Panel 02/28/2025 02/29/2024, 07/26, 11/28/2022 Influenza Vaccine (#1) 2025 , 07/15/2021, 06/23/2020, Additional history exists Diabetes: Hemoglobin A1C 05/28/2025 025, 02/29/2024, 12/01/2023, Additional history exists SDOH Screening 11/13/2025 11/13/2024 Tobacco Screening 05/19/2026 05/19/2025 Eye Exam 06/23/2026 06/23/2025, 04/26, 05/19/2025, Additional history exists Cervical Cancer Screening 05/04/2027 Pap Smear 05/04/2027 05/04/2022 HPV/Cotest 06/20/2027 06/20/2022, 05/27, 05/04/2022 DTaP/Tdap/Td Vaccines [...] Completed 11/25/2024, 04/2024, 12/13/2022, Additional history exists HIB Vaccines Aged Out [...] Procedure Name Priority Date/Time Associated Diagnosis Comments AMB REFERRAL TO OPHTHALMOLOGY Routine 06/23/2025 Combined forms of age-related cataract 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 POCT GLYCATED HEMOGLOBIN, TOTAL Routine 11/25/2024 9:58 AM EST Type 2 diabetes mellitus with diabetic peripheral angiopathy without gangrene, with long-term current use of insulin ([facility]) LIPID PANEL, STANDARD Routine 02/29/2024 7:24 AM EDT ALBUMIN, RANDOM URINE W/CREATININE Routine 08/11/2023 9:44 AM EST Type 2 diabetes mellitus with hyperglycemia, with long-term current use of insulin ([facility]) ZZZ HISTORICAL HPV E6/E7 RFLX CARROLL 16 18/45 Routine 06/20/2022 1:00 PM EDT THINPREP IMAGING PAP AND HPV MRNA E6/E7, WITH CT/NG, TRICHOMONAS Routine 05/04/2022 12:00 AM EDT MAMMOGRAM GENERIC Routine 04/08/2022 10: 55 AM EDT from Last 3 Months or Most Recently Relevant to Health Maintenance Results * Referral to Ophthalmology (06/23/2025) Gloria Hackett OD OUTPATIENT REFERRAL ORDERABLES Final Result * (ABNORMAL) POCT HGB A1C (11/25/2024 9:58 AM EST) Hemoglobin A1C 6.8(A) 4.0 - 6.0 % QC Media Lot # [id number] Lot# Expiration Date Blood 11/25/2024 9:58 AM EST [facility] WOOD PROCESSING WORKER POINT OF CARE TEST ENTER/EDIT ORDERABLES Final Result * Lipid Panel, Standard (02/29/2024 7:24 AM EDT) Triglycerides 37 <150 mg/dL [facility] Comment:Desirable Triglyceri de: less than 150 mg/dLBorderline High Triglyceride 150-199 mg/dLHigh Triglyceride: 200-499 mg/dLVery High Triglyceride: greater than or equal to 5OO mg/dL Cholesterol 89 <200 mg/dL [facility] Comment:Desirable Cholestero l: less than 200 mg/dLBorderline High Cholesterol: 200-239 mg/dLHigh Cholesterol: greater than 239 mg/dL LDL Cholesterol Calculated 40 <100 mg/dL [facility] Comment:Desirable LDL: less than 100 mg/dLNear Optimal/Above Optimal LDL: 110- 129 mg/dLBorderline High LDL: 130-159 mg/dLHigh LDL: 160-189 mg/dLVery High LDL: greater than or equal to 190 mg/dL HDL Cholesterol 42 >40 mg/dL [facility] Comment:Desirable HDL: great er than 40 mg/dL Note: This HDL assay may give artificially low results in patients with liver disease. 02/29/2024 7:24 AM EDT 02/29/2024 7:24 AM EDT Generic External Data Provider LAB BLOOD ORDERAB LES Final Result [facility] [address] [place] [phone] * Albumin, Random Urine W/Creatinine (08/11/2023 9:44 AM EST) Creatinine, Urine 140.25 mg/dL [facility] Microalbumin Urine 33.0 mg/L [facility] Microalbum Creatinine Ratio Ur 23.5 <30 ug/mg cr [facility] Comment:Albumin/Creatinine R atio Reference Ranges: Normal: < 30 ug/mg creatinine Microalbuminuria: 30 - 300 ug/mg creatinineClinical Albuminuria: > 300 ug/mg creatinine Urine 08/11/2023 9:44 AM EST 08/11/2023 11:15 AM EST [facility] LAB URINE ORDERABLES Final Re sult [facility] [address] [place] [address] [phone] * HPV E6/E7 RFLX CARROLL 16 18/45 (06/20/2022 1:00 PM EDT) HPV 16 RNA TNP CONVERTED [facility] HPV 18/45 RNA TNP CONVER [employer] HPV E6 E7 ADD TNP CONVER [employer] HPV mRNA E6/E7 rflx Not Detected Not Detected CONVERTED [facility] Comment: Methodology: Tacking Machine Operator-Mediated Amplification This assay detects E6/E7 viral messenger RNA (mRNA) from 14 high-risk HPV types (16,18,31,33,35,39,45,51,52,56,58,59,66,68). Cervical sources are required for HPV testing. If a vaginal source from a patient who has had a total hysterectomy with removal of cervix was submitted, please contact the testing laboratory for alternative testing options. For additional information, please refer to http://education.Office Max/faq/FZU015j7 (This link if provided for information/ educational purposes only.) THIS TEST WAS PERFORMED AT: [facility] [address] [place] [address] [address],[place] [address] RENEE KAUFMAN MD 06/20/2022 1:00 PM EDT Duc Reyna MD HISTORICAL/NON ORDERABLE LABS Fi nal Result [facility] * THINPREP TIS PAP AND HPV mRNA E6/E7, CT/NG, TRICH (05/04/2022 12:00 AM EDT) Chlamydia trachomatis RNA, TMA, Urogenital NOT DETECTED NOT DETECTED [facility] Clinical Information: SCREENING [facility] COMMENT SEE COMMENT [facility] Comment: The analytical performance characteristics of this assay, when used to test SurePath(TM) specimens have been determined by [facility]. The modifications have not been cleared or approved by the FDA. This assay has been validated pursuant to the CLIA regulations and is used for clinical purposes. For additional information, please refer to https://Etaoshi.Office Max/faq/JTP245 (This link is being provided for information/ educational purposes only.) COMMENT SEE COMMENT [facility] Comment: EXPLANATORY NOTE: The Pap is a screening test for cervical cancer. It is not a diagnostic test and is subject to false negative and false positive results. It is most reliable when a satisfactory sample, regularly obtained, is submitted with relevant clinical findings and history, and when the Pap result is evaluated along with historic and current clinical information. COMMENT: This Pap test has been evaluated with computer assisted technology. [facility] Visually Impaired Teacher: SEE COMMENT [facility] Comment: GSG, CT(ASCP) CT screening location: [place] [address] HPV nRNA E6/E7 Not Detected Not Detected [facility] Comment: Methodology: Tacking Machine Operator-Mediated Amplification This assay detects E6/E7 viral messenger RNA (mRNA) from 14 high-risk HPV types (16,18,31,33,35,39,45,51,52,56,58,59,66,68). Cervical sources are required for HPV testing. If a vaginal source from a patient who has had a total hysterectomy with removal of cervix was submitted, please contact the testing laboratory for alternative testing options. For additional information, please refer to http://education.Office Max/faq/OIC112x7 (This link if provided for information/ educational [...] of this assay have been determined by [facility]. The modifications have not been cleared or approved by the FDA. This assay has been validated pursuant to the CLIA regulations and is used for clinical purposes. For additional information, please refer to http://education.Office Max/ faq/Trichomonastma (This link is being provided for information/ educational purposes only.) 05/04/2022 [facility] WOOD PROCESSING WORKER LAB PATHOLOGY ORDERABLES Nancy l Result [facility] [address] * Mammography Report 1 (04/08/2022 10:55 [...] Most Recently Relevant to Health Maintenance Insurance [facility] C3 Care Teams Administration Dean Relationship Specialty Start Date End Date BrandonRadha WOOD PROCESSING WORKER [address] [place] [address] [place] [address] PCP - General Family Medicine 05/24/22
--- OUTSIDE RECORDS SUMMARY | 2025-06-25 14:05 | XMS_ITS | Encounter Summary ---
Author Organization [employer] Address [address] [facility] [address] [place] [address] Care Team Providers Care Drum Puller Name Role Phone [facility] Primary Care Provider [phone] Reason for Visit * Reason Onset Date Comments pre op 06/24/2025 Encounter Details Date Type Department Care Team (Late st Contact Info) Description 06/24/[address] [facility] MEDICINE [address] [place] [address] [facility] [address] [place] [address] pre op Social History Tobacco Use Types Packs/Day Years [...] encounter Miscellaneous Notes * Telephone Encounter - Pola Bolden - 06/24/2025 1:19 PM EDT Pt agreed to pre-op 06/27 with CHEKO Valdez Facility notified * Telephone Encounter - Raimundo Will - 06/24/2025 1:13 PM EDT Date of Surgery: 07/08 Surgical procedure being done: cataract right eye Type of anesthesia: MAC Lab needed: No EKG: No Surgeon's name: [facility] Facility name: [facility] Surgeon's office number: [phone] Surgeon's office fax number: [phone] Contact name (person you spoke with): Jacque Last office note from surgeon requested: No Send Message to Pola Bolden documented in this encounter Plan of Treatment Upcoming Encounters Date Type Department Care Team ([facility] st Contact Info) Description 06/27/2025 2:00 PM EDT Office Visit [facility] MEDICINE [address] [place] [address] Amando Valdez FNP [address] [place], [place] [phone] documented as of this encounter Visit Diagnoses Not on filedocumented in this encounter Additional Health Concerns Assessment Noted Time PHQ-9 Depression Total Score: 0 02/01/20 23 8:55 AM EDT documented as of this encounter Care Teams Drum Puller Relationship Specialty Start Date End Date Radha Bautista FNP [address] [place] [phone] PCP - General Family Medicine 05/24/22 documented as of this encounter
--- OUTSIDE RECORDS SUMMARY | 2025-06-25 14:05 | XMS_ITS | Encounter Summary ---
Author Organization [employer] Address [address] [facility] 7t [place] [address] Care Team Providers Care Wine Sales Representative Name Role Phone [facility] Primary Care Provider [phone] Reason for Visit * Reason Comments Med Refill Encounter Details Date Type Department Care Team (Late st Contact Info) Description 01/03/2025 Refill [facility] MEDICINE [address] [place] [address] [facility] [address] [place] [address] Essential hypertension Social History Tobacco Use Types [...] Description 06/27/2025 2:00 PM EDT Office Visit [facility] MEDICINE [address] [place] [phone] Amando Valdez FNP [address] [place] [address] documented as of this encounter Visit Diagnoses Diagnosis Essential hypertension Unspecified essential hypertension documented in this encounter Additional Health Concerns Assessment Noted Time PHQ-9 Depression Total Score: 0 02/01/20 23 8:55 AM EDT documented as of this encounter Care Teams Wine Sales Representative Relationship Specialty Start Date End Date Radha Bautista FNP [address] [place] [phone] PCP - General Family Medicine 05/24/22 documented as of this encounter
--- OUTSIDE RECORDS SUMMARY | 2025-06-25 14:05 | XMS_ITS | Encounter Summary ---
Author Organization [employer] Address [address] [facility] [address] [place] [address] Care Team Providers Care Agricultural Extension Educator Name Role Phone [facility] Primary Care Provider [phone] Reason for Visit * Reason Comments Med Change Request Encounter Details Date Type Department Care Team ([facility] st Contact Info) Description 12/01/2023 Refill [facility] MEDICINE [address] [place] [address] [employer] [address] [place] [address] Essential hypertension Social History Tobacco Use Types [...] Description 06/27/2025 2:00 PM EDT Office Visit [facility] MEDICINE [address] [place] [address] Amando Valdez FNP [address] [place] [address] documented as of this encounter Visit Diagnoses Diagnosis Essential hypertension Unspecified essential hypertension documented in this encounter Additional Health Concerns Assessment Noted Time PHQ-9 Depression Total Score: 0 02/01/20 23 8:55 AM EDT documented as of this encounter Care Teams Agricultural Extension Educator Relationship Specialty Start Date End Date Radha Bautista FNP [address] [place] [phone] PCP - General Family Medicine 05/24/22 documented as of this encounter
--- OUTSIDE RECORDS SUMMARY | 2025-06-25 14:05 | XMS_ITS | Encounter Summary ---
Author Organization [employer] Address [address] [facility] [address]t [place] [address] Care Team Providers Care Parachute Line Tier Name Role Phone [employer] Primary Care Provider Reason for Visit * Reason Comments Med Refill Encounter Details Date Type Department Care Team (Late st Contact Info) Description 11/14/2023 Refill [facility] MEDICINE [address] [place] [address] [facility] [address] [place] [address] Seasonal allergies Social History Tobacco Use Types [...] Description 06/27/2025 2:00 PM EDT Office Visit [facility] MEDICINE [address] [place] [phone] Amando Valdez FNP [address] [place] [address] documented as of this encounter Visit Diagnoses Diagnosis Seasonal allergies Allergic rhinitis, cause unspecified documented in this encounter Additional Health Concerns Assessment Noted Time PHQ-9 Depression Total Score: 0 02/01/20 23 8:55 AM EDT documented as of this encounter Care Teams Parachute Line Tier Relationship Specialty Start Date End Date Radha Bautista FNP [address] [place] [id number] PCP - General Family Medicine 05/24/22 documented as of this encounter
== END 2025-06-25 13:26 | disposition home or self-care (01) ==
LOC: HO.ENCR 12:46
PROVIDERS: Visit Provider Internal Medicine
DX: E11.649 Type 2 diabetes mellitus with hypoglycemia without coma (principal); Z79.4 Long term (current) use of insulin; E11.65 Type 2 diabetes mellitus with hyperglycemia

== ENCOUNTER → 2025-06-25 12:45 | Outpatient (BNVA) | payer MEDICAID, SELFPAY | PROVIDERS: Visit Provider Internal Medicine | DX: E11.649 Type 2 diabetes mellitus with hypoglycemia without coma (principal); Z79.4 Long term (current) use of insulin | CPT/HCPCS: 82947; 83036; 99212 ==